=== PATIENT | female | born 1955 | race Caucasian/White ===

== ENCOUNTER 2016-09-09 16:10 | Emergency (ER) | payer MEDICARE, BC ==
[~2016-09-09] VITALS: Ht 157.5 cm; Wt 79.2 kg
[~2016-09-09 16:10] MED LIST: INSU100I14 SQ; MULT-1235 PO
[2016-09-09 16:13] VITALS: Ht 157.5 cm; Wt 79.2 kg
--- NOTE | 2016-09-09 16:14 | NUR ---
PT NOTE Pt moved to Room 2 per WC. Crying to use the bathroom, but is limp and diaphoretic at this time. Assist by 2 RN's to bedside commode. Large semiformed stool now. Assisted to bed with three person transfer. Pale, diaphoretic, anxious. Moves all extremities to command. Lethargic. Daughter reports home glucose has been 364. No provider. Insulin dependent diabetic. Denies chest pain. Fell (passed out) earlier today. Recent weakness with generalized pain.
--- OUTSIDE RECORDS SUMMARY | 2016-09-09 16:15 | XMS REPORT ---
Author Author Milagros Aldana [employer] Address Unknown Phone Unavailable Care Team Providers Care Drier And Evaporator Operator Name Role Phone Milagros Aldana CP Unavailable Allergies, Adverse Reactions, Alerts Substance Reaction Event Type Iodine HIVES Drug Allergy Codeine Phosphate Could . Drug Allergy Problems Problem Type Condition ICD-9 Code Onset Dates Condition Status Assessment DM 2, uncontrolled 250.02 Active Assessment Unspecified backache 724.5 Active Problem DM 2, uncontrolled 250.02 Active Assessment Pain in hand joints 718.84 Active Medications No Known Medications Procedures Procedure Coding System Code Date GLYCATED HEMOGLOBIN TEST CPT-4 15276 September 28, 2013 URINALYSIS, AUTO, W/O SCOPE CPT-4 40950 September 28, 2013 COMPREHEN METABOLIC PANEL CPT-4 93955 September 28, 2013 Office Visit, New Pt., Level 4 CPT-4 14633 September 28, 2013 Vital Signs Date/Time: September 28, 2013 Weight 177 lbs Height 62 inches Blood Pressure Diastolic 81 mm Hg Blood Pressure Systolic 121 mm Hg Temperature 98.2 F Cardiac Monitoring Heart Rate 87 Beats per Minute Results No Known Results Summary Purpose eClinicalWorks Submission
--- OUTSIDE RECORDS SUMMARY | 2016-09-09 16:15 | XMS REPORT ---
Author Author Yuli Hart [facility] eClinicalWorks Address Unknown Phone Unavailable Care Team Providers Care Customer Relationship Specialist Name Role Phone Yuli Hart Unavailable Allergies No Known Allergies Problems Problem Type Condition Code Onset Dates Condition Status Problem Coronary atherosclerosis of unspecified type of vessel, [place] or graft 414.00 Active Problem Depressive disorder, not elsewhere classified 311 Active Problem Hypertension, benign 401.1 Active Problem Diabetes Mellitus Type 2, not stated as uncontrolled 250.00 Active Problem Coronary atherosclerosis of unspecified type of vessel, [place] or graft 414.00 Active Problem Depressive disorder, not elsewhere classified 311 Active Medications No Known Medications Results No Known Results Summary Purpose eClinicalWorks Submission
--- OUTSIDE RECORDS SUMMARY | 2016-09-09 16:15 | XMS REPORT ---
Author Author Keegan Moreira Organization [employer] Address Unknown Phone Unavailable Care Team Providers Care Gift Consultant Name Role Phone Keegan Moreira CP Unavailable Allergies No Known Allergies Problems Problem Type Condition ICD-9 Code Onset Dates Condition Status Problem Coronary atherosclerosis of unspecified type of vessel, [place] or graft 414.00 Active Problem Depressive disorder, not elsewhere classified 311 Active Problem Hypertension, benign 401.1 Active Problem Diabetes Mellitus Type 2, not stated as uncontrolled 250.00 Active Assessment Diabetes Mellitus Type 2, not stated as uncontrolled 250.00 Active Problem Coronary atherosclerosis of unspecified type of vessel, [place] or graft 414.00 Active Problem Depressive disorder, not elsewhere classified 311 Active Medications Medication Code System Code Instructions Start Date End Date Status Dosage Humalog [place] [facility] [address]-71 100 UNIT/ML Subcutaneous as directed September 30, 2014 6 units tid with meals Chapin Tay [facility] [address] 300 u/mL subcutaneous daily December 10, 2014 May 01, 2015 8 units in the am and 8 units in the pm Results No Known Results Summary Purpose eClinicalWorks Submission
--- OUTSIDE RECORDS SUMMARY | 2016-09-09 16:15 | XMS REPORT ---
Author Author Keegan Moreira Organization [employer] Address Unknown Phone Unavailable Care Team Providers Care Emt Basic Name Role Phone Keegan Moreira CP Unavailable Allergies No Known Allergies Problems Problem Type Condition ICD-9 Code Onset Dates Condition Status Problem Coronary atherosclerosis of unspecified type of vessel, [place] or graft 414.00 Active Problem Depressive disorder, not elsewhere classified 311 Active Problem Hypertension, benign 401.1 Active Problem Diabetes Mellitus Type 2, not stated as uncontrolled 250.00 Active Assessment Diabetes Mellitus Type 2, not stated as uncontrolled 250.00 Active Problem Coronary atherosclerosis of unspecified type of vessel, [place] or graft 414.00 Active Problem Depressive disorder, not elsewhere classified 311 Active Medications Medication Code System Code Instructions Start Date End Date Status Dosage Chapin Tay [facility] [address] 300 u/mL subcutaneous Once a day at bedtime December 10, 2014 Mar 26, 2015 6 units in the am and 6 units in the PM Results No Known Results Summary Purpose eClinicalWorks Submission
--- OUTSIDE RECORDS SUMMARY | 2016-09-09 16:15 | XMS REPORT ---
Author Author Keegan Moreira Organization [employer] Address Unknown Phone Unavailable Care Team Providers Care Microbiology Technologist Name Role Phone Keegan Moreira CP Unavailable Allergies No Known Allergies Problems Problem Type Condition Code Onset Dates Condition Status Problem Coronary atherosclerosis of unspecified type of vessel, [place] or graft 414.00 Active Problem Depressive disorder, not elsewhere classified 311 Active Problem Hypertension, benign 401.1 Active Problem Diabetes Mellitus Type 2, not stated as uncontrolled 250.00 Active Problem Coronary atherosclerosis of unspecified type of vessel, [place] or graft 414.00 Active Problem Depressive disorder, not elsewhere classified 311 Active Medications No Known Medications Results No Known Results Summary Purpose eClinicalWorks Submission
--- OUTSIDE RECORDS SUMMARY | 2016-09-09 16:15 | XMS REPORT ---
Author Author Yuli Hart [facility] eClinicalWorks Address Unknown Phone Unavailable Care Team Providers Care Student Name Role Phone Yuli Hart Unavailable Allergies No Known Allergies Problems Problem Type Condition ICD-9 Code Onset Dates Condition Status Problem Diabetes Mellitus Type 2, not stated as uncontrolled 250.00 Active Problem Depressive disorder, not elsewhere classified 311 Active Medications No Known Medications Results No Known Results Summary Purpose eClinicalWorks Submission
--- OUTSIDE RECORDS SUMMARY | 2016-09-09 16:15 | XMS REPORT ---
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
--- OUTSIDE RECORDS SUMMARY | 2016-09-09 16:15 | XMS REPORT ---
Author Keegan Pham Organization eClinicalWorks Address Unknown Phone Unavailable Care Team Providers Care Tube Cleaner Name Role Phone Keegan Moreira CP Unavailable Allergies, Adverse Reactions, Alerts Substance Reaction Event Type Codeine Sulfate hives Drug Allergy Problems Problem Type Condition ICD-9 Code Onset Dates Condition Status Assessment Sinoatrial node dysfunction 427.81 Active Assessment Other disorder of menstruation and other abnormal bleeding from female genital tract 626.8 Active Assessment Acute bronchitis 466.0 Active Problem Coronary atherosclerosis of unspecified type of vessel, [place] or graft 414.00 Active Problem Depressive disorder, not elsewhere classified 311 Active Problem Hypertension, benign 401.1 Active Problem Diabetes Mellitus Type 2, not stated as uncontrolled 250.00 Active Assessment Diabetes Mellitus Type 2, not stated as uncontrolled 250.00 Active Problem Coronary atherosclerosis of unspecified type of vessel, [place] or graft 414.00 Active Problem Depressive disorder, not elsewhere classified 311 Active Medications Medication Code System Code Instructions Start Date End Date Status Dosage OneTouch Ultra Blue test strips [facility] [id number] none in vitro three times daily December 11, 2014 as directed Chapin Tay [facility] [address] 300 u/mL subcutaneous daily December 10, 2014 Jul 05, 2015 8 units in the am and 8 units in the pm Humalog KwikPen [facility] [address]-00 100 UNIT/ML Subcutaneous as directed September 30, 2014 6 units tid with meals Tessalon Perles [facility] [address]-02 100 MG Orally Three times a day for cough/ congestion January 06, 2015 Feb 03, 2015 1 capsule as needed Ventolin HFA [facility] [address]-84 108 (90 Base) MCG/ACT Inhalation every 6 hrs for cough/wheezing January 06, 2015 1 to 2 puffs as needed Procedures Procedure Coding System Code Date OFFICE VISIT, EST-MOD. COMPLEXITY (25 MIN) CPT-4 89871 January 06, 2015 Vital Signs Date/Time: January 06, 2015 Height 61.5 in Weight 190.12 lbs Temperature 97.8 F Blood Pressure Diastolic 72 mm Hg Blood Pressure Systolic 120 mm Hg Cardiac Monitoring Heart Rate 96 /min BMI 35.34 Index Oximetry 98 % Respiratory Rate 18 /min Results No Known Results Summary Purpose eClinicalWorks Submission
--- OUTSIDE RECORDS SUMMARY | 2016-09-09 16:15 | XMS REPORT ---
Author Author Keegan Moreira Organization [employer]ClinicalWorks Address Unknown Phone Unavailable Care Team Providers Care Sports Book Server Name Role Phone Keegan Moreira CP Unavailable Allergies No Known Allergies Problems Problem Type Condition Code Onset Dates Condition Status Problem Coronary atherosclerosis of unspecified type of vessel, [place] or graft 414.00 Active Problem Depressive disorder, not elsewhere classified 311 Active Problem Hypertension, benign 401.1 Active Problem Diabetes Mellitus Type 2, not stated as uncontrolled 250.00 Active Problem Coronary atherosclerosis of unspecified type of vessel, [place] or graft 414.00 Active Problem Depressive disorder, not elsewhere classified 311 Active Medications No Known Medications Results No Known Results Summary Purpose eClinicalWorks Submission
--- OUTSIDE RECORDS SUMMARY | 2016-09-09 16:15 | XMS REPORT ---
Author Milena Mata [facility] eClinicalWorks Address Unknown Phone Unavailable Care Team Providers Care Finishing Technician Name Role Phone Milena Patel CP Unavailable Allergies, Adverse Reactions, Alerts Substance Reaction Event Type Iodinated Contrast Info Not Available Non Drug Allergy Codeine/codeine Derivatives Info Not Available Non Drug Allergy Problems Problem Type Condition ICD-9 Code Onset Dates Condition Status Problem Chest pain, unspecified 786.50 Active Problem Unspecified breast screening V76.10 Inactive Problem Unspecified disorder of , unspecified as to episode of care 676.90 Active Problem Cataracts, bilateral 366.9 Active Problem Galactorrhea 611.6 Active Problem Pacemaker V45.01 Active Problem Diabetes with neurological manifestations, type II or unspecified type , 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 Active Problem Other specified counseling V65.49 Inactive Problem Falls frequently V15.88 Active Problem Hyperlipidemia 272.4 Active Assessment Galactorrhea 611.6 Active Assessment Cataracts, bilateral 366.9 Active Assessment Screening for depression V79.0 Active Assessment Falls frequently V15.88 Active Assessment Diabetes with neurological manifestations, type II or unspecified type, not stated as uncontrolled 250.60 Active Problem Unspecified hereditary and idiopathic peripheral neuropathy 356.9 Inactive Assessment Pacemaker V45.01 Active Problem Diabetes with neurological manifestations, type II or unspecified type , not stated as uncontrolled 250.60 Active Assessment Acute bronchitis 466.0 Active Problem Blood in stool 578.1 Active Medications Medication Code System Code Instructions Start Date End Date Status Dosage Cipro [facility] [address]-90 500 MG Orally Twice a day Mar 17, 2015 1 tablet Pen [place] 09/09" NDC 0 31G X 5 MM 4 daily January 10, 2014 File DME under Medicaid Chapin Tay [facility] [address]-18 300 UNIT/ML Subcutaneous Two times daily 10 units Accu-Chek SmartView NDC 0 In Vitro 4 daily January 10, 2014 File DME under Medicaid Accu-Chek FastClix Lancets NDC 0 4 daily January 10, 2014 File DME for Medicaid Humalog KwikPen [facility] [address]-91 100 UNIT/ML Subcutaneous with meals only 4 units Procedures Procedure Coding System Code Date ANNUAL DEPRESSION SCREENING 15 MIN CPT-4 G0444 Mar 17, 2015 Office Visit, Est Pt., Level 5 CPT-4 53720 Mar 17, 2015 Billed by outside source CPT-4 NOBLL Mar 17, 2015 Vital Signs Date/Time: Mar 17, 2015 Blood Pressure Systolic 136 mm Hg Weight 199.2 lbs Height 60.5 in Oximetry 99 % Respiratory Rate 18 /min Cardiac Monitoring Heart Rate 114 /min Blood Pressure Diastolic 82 mm Hg BMI 38.26 Index Results Name Result Date Reference Range Unit Abnormality Flag Glucose Fingerstick Hemoglobin A1c Summary Purpose eClinicalWorks Submission
--- OUTSIDE RECORDS SUMMARY | 2016-09-09 16:16 | XMS REPORT ---
Author Author Yuli Hart [facility] eClinicalWorks Address Unknown Phone Unavailable Care Team Providers Care Hvac Mechanical Engineer Name Role Phone Yuli Hart Unavailable Allergies No Known Allergies Problems Problem Type Condition Code Onset Dates Condition Status Problem Coronary atherosclerosis of unspecified type of vessel, [place] or graft 414.00 Active Problem Depressive disorder, not elsewhere classified 311 Active Problem Hypertension, benign 401.1 Active Problem Diabetes Mellitus Type 2, not stated as uncontrolled 250.00 Active Problem Coronary atherosclerosis of unspecified type of vessel, [place] or graft 414.00 Active Problem Depressive disorder, not elsewhere classified 311 Active Medications No Known Medications Results No Known Results Summary Purpose eClinicalWorks Submission
--- OUTSIDE RECORDS SUMMARY | 2016-09-09 16:16 | XMS REPORT ---
Author Author Buffy Hernandez Organization eClinicalWorks Address Unknown Phone Unavailable Care Team Providers Care Automobile Carpets Molder Name Role Phone Buffy Hernandez CP Unavailable Allergies No Known Allergies Problems [...]
--- OUTSIDE RECORDS SUMMARY | 2016-09-09 16:16 | XMS REPORT ---
Author Keegan Pham Organization eClinicalWorks Address Unknown Phone Unavailable Care Team Providers Care Machine Tool Operator Name Role Phone Keegan Moreira CP Unavailable Allergies, Adverse Reactions, Alerts Substance Reaction Event Type Codeine Sulfate hives Drug Allergy Problems Problem Type Condition ICD-9 Code Onset Dates Condition Status Assessment Sinoatrial node dysfunction 427.81 Active Assessment Other malaise and fatigue 780.79 Active Assessment Orthostatic hypotension 458.0 Active Problem Coronary atherosclerosis of unspecified type of vessel, [place] or graft 414.00 Active Problem Depressive disorder, not elsewhere classified 311 Active Problem Hypertension, benign 401.1 Active Problem Diabetes Mellitus Type 2, not stated as uncontrolled 250.00 Active Assessment Diabetes Mellitus Type 2, not stated as uncontrolled 250.00 Active Problem Coronary atherosclerosis of unspecified type of vessel, [place] or graft 414.00 Active Problem Depressive disorder, not elsewhere classified 311 Active Medications Medication Code System Code Instructions Start Date End Date Status Dosage Chapin Tay [facility] [address] 300 u/mL subcutaneous Once a day at bedtime December 10, 2014 Mar 11, 2015 12 units OneTouch Ultra Blue test strips [facility] [id number] none in vitro three times daily December 11, 2014 as directed Humalog KwikPen [facility] [address]-70 100 UNIT/ML Subcutaneous as directed September 30, 2014 4 units tid with meals Procedures Procedure Coding System Code Date COMPLETE CBC W/AUTO DIFF WBC CPT-4 68809 December 16, 2014 COMPREHENSIVE METABOLIC PANEL CPT-4 17024 December 16, 2014 GLUCOSE FINGERSTICK, IN HOUSE CPT-4 93990 December 16, 2014 OFFICE VISIT, EST-MOD. COMPLEXITY (25 MIN) CPT-4 01828 December 16, 2014 Vital Signs Date/Time: December 16, 2014 Height 61.5 in Weight 187.8 lbs Temperature 98.0 F Blood Pressure Diastolic 76 mm Hg Blood Pressure Systolic 118 mm Hg Cardiac Monitoring Heart Rate 107 /min BMI 34.91 Index Oximetry 98 % Respiratory Rate 18 /min Results Name Result Date Reference Range Unit Abnormality Flag In House Hemocue Glucose Analysis, fingerstick Summary Purpose eClinicalWorks Submission
--- OUTSIDE RECORDS SUMMARY | 2016-09-09 16:16 | XMS REPORT ---
Author Author Keegan Moreira Organization eClinicalWorks Address Unknown Phone Unavailable Care Team Providers Care Manager Shop Name Role Phone Keegan Moreira CP Unavailable Allergies No Known Allergies Problems Problem Type Condition Code Onset Dates Condition Status Problem Coronary atherosclerosis of unspecified type of vessel, [place] or graft 414.00 Active Problem Depressive disorder, not elsewhere classified 311 Active Problem Hypertension, benign 401.1 Active Problem Diabetes Mellitus Type 2, not stated as uncontrolled 250.00 Active Problem Coronary atherosclerosis of unspecified type of vessel, [place] or graft 414.00 Active Problem Depressive disorder, not elsewhere classified 311 Active Medications No Known Medications Results No Known Results Summary Purpose eClinicalWorks Submission
--- OUTSIDE RECORDS SUMMARY | 2016-09-09 16:16 | XMS REPORT ---
Author Author Keegan Moreira Organization [employer]ClinicalWorks Address Unknown Phone Unavailable Care Team Providers Care Data Review Specialist Name Role Phone Keegan Moreira CP Unavailable Allergies No Known Allergies Problems Problem Type Condition Code Onset Dates Condition Status Problem Coronary atherosclerosis of unspecified type of vessel, [place] or graft 414.00 Active Problem Depressive disorder, not elsewhere classified 311 Active Problem Hypertension, benign 401.1 Active Problem Diabetes Mellitus Type 2, not stated as uncontrolled 250.00 Active Assessment Dehydration 276.51 Active Problem Coronary atherosclerosis of unspecified type of vessel, [place] or graft 414.00 Active Problem Depressive disorder, not elsewhere classified 311 Active Medications Medication Code System Code Instructions Start Date End Date Status Dosage Humalog ChacePen [facility] [address]-38 100 UNIT/ML Subcutaneous as directed September 30, 2014 2 units tid with meals Procedures Procedure Coding System Code Date COMPLETE CBC W/AUTO DIFF WBC CPT-4 88650 November 25, 2014 Results No Known Results Summary Purpose eClinicalWorks Submission
--- OUTSIDE RECORDS SUMMARY | 2016-09-09 16:16 | XMS REPORT ---
Author Author Buffy Hernandez Organization eClinicalWorks Address Unknown Phone Unavailable Care Team Providers Care County Agent Name Role Phone Buffy Hernandez CP Unavailable Allergies No Known Allergies Problems Problem Type Condition Code Onset Dates Condition Status Problem Chest [...] frequently V15.88 Active Problem Hyperlipidemia 272.4 Active Problem Unspecified hereditary and idiopathic peripheral neuropathy 356.9 Inactive Problem Diabetes with neurological manifestations, type II or unspecified type , not stated as uncontrolled 250.60 Active Problem Blood in stool 578.1 Active Medications No Known Medications Results No Known Results Summary Purpose eClinicalWorks Submission
--- OUTSIDE RECORDS SUMMARY | 2016-09-09 16:16 | XMS REPORT ---
Author Author Keegan Moreira Organization eClinicalWorks Address Unknown Phone Unavailable Care Team Providers Care Gluer And Slicer Hand Name Role Phone Keegan Moreira CP Unavailable Allergies No Known Allergies Problems Problem Type Condition Code Onset Dates Condition Status Problem Coronary atherosclerosis of unspecified type of vessel, [place] or graft 414.00 Active Problem Depressive disorder, not elsewhere classified 311 Active Problem Hypertension, benign 401.1 Active Problem Diabetes Mellitus Type 2, not stated as uncontrolled 250.00 Active Problem Coronary atherosclerosis of unspecified type of vessel, [place] or graft 414.00 Active Problem Depressive disorder, not elsewhere classified 311 Active Medications No Known Medications Results No Known Results Summary Purpose eClinicalWorks Submission
--- OUTSIDE RECORDS SUMMARY | 2016-09-09 16:16 | XMS REPORT ---
Author Author Keegan Moreira Organization eClinicalWorks Address Unknown Phone Unavailable Care Team Providers Care Building Principal Name Role Phone Keegan Moreira CP Unavailable Allergies No Known Allergies Problems Problem Type Condition Code Onset Dates Condition Status Problem Coronary atherosclerosis of unspecified type of vessel, [place] or graft 414.00 Active Problem Depressive disorder, not elsewhere classified 311 Active Problem Hypertension, benign 401.1 Active Problem Diabetes Mellitus Type 2, not stated as uncontrolled 250.00 Active Problem Coronary atherosclerosis of unspecified type of vessel, [place] or graft 414.00 Active Problem Depressive disorder, not elsewhere classified 311 Active Medications No Known Medications Results No Known Results Summary Purpose eClinicalWorks Submission
--- OUTSIDE RECORDS SUMMARY | 2016-09-09 16:16 | XMS REPORT ---
Author Author Keegan Moreira Organization [employer]ClinicalWorks Address Unknown Phone Unavailable Care Team Providers Care Vocational Coordinator Name Role Phone Keegan Moreira CP Unavailable Allergies No Known Allergies Problems Problem Type Condition Code Onset Dates Condition Status Problem Coronary atherosclerosis of unspecified type of vessel, [place] or graft 414.00 Active Problem Depressive disorder, not elsewhere classified 311 Active Problem Hypertension, benign 401.1 Active Problem Diabetes Mellitus Type 2, not stated as uncontrolled 250.00 Active Problem Coronary atherosclerosis of unspecified type of vessel, [place] or graft 414.00 Active Problem Depressive disorder, not elsewhere classified 311 Active Medications No Known Medications Results No Known Results Summary Purpose eClinicalWorks Submission
--- OUTSIDE RECORDS SUMMARY | 2016-09-09 16:16 | XMS REPORT ---
Author Author Yuli Hart [facility] eClinicalWorks Address Unknown Phone Unavailable Care Team Providers Care Identification Technician Name Role Phone Yuli Hart Unavailable Allergies No Known Allergies Problems Problem Type Condition Code Onset Dates Condition Status Problem Depressive disorder, not elsewhere classified 311 Active Problem Diabetes Mellitus Type 2, not stated as uncontrolled 250.00 Active Problem Coronary atherosclerosis of unspecified type of vessel, [place] or graft 414.00 Active Medications No Known Medications Results No Known Results Summary Purpose eClinicalWorks Submission
--- OUTSIDE RECORDS SUMMARY | 2016-09-09 16:16 | XMS REPORT ---
Author Author Keegan Moreira Organization [employer] Address Unknown Phone Unavailable Care Team Providers Care Occupational Therapy Assistant Name Role Phone Keegan Moreira CP Unavailable Allergies, Adverse Reactions, Alerts Substance Reaction Event Type Codeine Sulfate hives Drug Allergy Problems Problem Type Condition Code Onset Dates Condition Status Assessment Hypoglycemia, unspecified 251.2 Active Assessment Dehydration 276.51 Active Assessment Diabetes Mellitus Type 2, not stated as uncontrolled 250.00 Active Problem Coronary atherosclerosis of unspecified type of vessel, [place] or graft 414.00 Active Problem Depressive disorder, not elsewhere classified 311 Active Problem Hypertension, benign 401.1 Active Problem Diabetes Mellitus Type 2, not stated as uncontrolled 250.00 Active Assessment Chronic hypotension 458.1 Active Problem Coronary atherosclerosis of unspecified type of vessel, [place] or graft 414.00 Active Problem Depressive disorder, not elsewhere classified 311 Active Medications Medication Code System Code Instructions Start Date End Date Status Dosage Humalog ChacePen [facility] [address]-68 100 UNIT/ML Subcutaneous as directed September 30, 2014 2 units tid with meals Procedures Procedure Coding System Code Date URINALYSIS, IN HOUSE CPT-4 19803 October 21, 2014 GLUCOSE FINGERSTICK, IN HOUSE CPT-4 58422 October 21, 2014 IH CMP CPT-4 77320 October 21, 2014 HYDRATION IV INFUSION, INIT CPT-4 96211 October 21, 2014 C-REACTIVE PROTEIN CPT-4 08336 October 21, 2014 HYDRATE IV INFUSION, ADD-ON CPT-4 90514 October 21, 2014 COMPLETE CBC W/AUTO DIFF WBC CPT-4 66084 October 21, 2014 OFFICE VISIT, EST-MOD. COMPLEXITY (25 MIN) CPT-4 58716 October 21, 2014 SED RATE CPT-4 48260 October 21, 2014 URINE CULTURE CPT-4 18065 October 21, 2014 Vital Signs Date/Time: October 21, 2014 Height 61.5 in Weight 179.0 lbs Temperature 98.7 F Blood Pressure Diastolic 60 mm Hg Blood Pressure Systolic 90 mm Hg Cardiac Monitoring Heart Rate 107 /min BMI 33.27 Index Oximetry 99 % Respiratory Rate 20 /min Results No Known Results Summary Purpose [employer]Works Submission
--- OUTSIDE RECORDS SUMMARY | 2016-09-09 16:16 | XMS REPORT ---
Author Mel Vang Organization [employer] Address Unknown Phone Unavailable Care Team Providers Care Bass Singer Name Role Phone Mel Saab CP Unavailable Allergies, Adverse Reactions, Alerts Substance Reaction Event Type N.K.D.A. Info Not Available Non Drug Allergy Problems Problem Type Condition Code Onset Dates Condition Status Assessment Healthcare maintenance Z00.00 Active Assessment Mixed incontinence urge and stress N39.46 Active Medications Medication Code System Code Instructions Start Date End Date Status Dosage Humalog KwikPen [facility] [address]-88 100 UNIT/ML Subcutaneous not defined Ditropan XL [facility] [address]-09 5 MG Orally Once a day December 15, 2015Feb 1 tablet Procedures Procedure Coding System Code Date Office visit new level 3 CPT-4 55402 December 15, 2015 Pap smear, thin layer CPT-4 06181 December 15, 2015 Vital Signs Date/Time: December 15, 2015 BMI 33.10 Index Height 62 in Weight 181 lbs Blood Pressure Diastolic 66 mm Hg Blood Pressure Systolic 128 mm Hg Results Name Result Date Reference Range Unit Abnormality Flag * PAP CYTOPATHOLOGY, CERVICAL/VAGINAL, PRESERVATIVE FLUID, AUTO THIN LAYER PREP ; MANUAL SCREEN (73534) Summary Purpose [employer] Submission
--- OUTSIDE RECORDS SUMMARY | 2016-09-09 16:16 | XMS REPORT ---
Author Author Keegan Moreira Organization [employer] Address Unknown Phone Unavailable Care Team Providers Care Inspector Fibrous Wallboard Name Role Phone Keegan Moreira CP Unavailable Allergies No Known Allergies Problems Problem Type Condition Code Onset Dates Condition Status Problem Coronary atherosclerosis of unspecified type of vessel, [place] or graft 414.00 Active Problem Depressive disorder, not elsewhere classified 311 Active Problem Hypertension, benign 401.1 Active Problem Diabetes Mellitus Type 2, not stated as uncontrolled 250.00 Active Problem Coronary atherosclerosis of unspecified type of vessel, [place] or graft 414.00 Active Problem Depressive disorder, not elsewhere classified 311 Active Medications No Known Medications Results No Known Results Summary Purpose [employer] Submission
--- OUTSIDE RECORDS SUMMARY | 2016-09-09 16:16 | XMS REPORT ---
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 Problem Coronary atherosclerosis of unspecified type of vessel, [place] or graft 414.00 Active Problem Depressive disorder, not elsewhere classified 311 Active Problem Hypertension, benign 401.1 Active Problem Diabetes Mellitus Type 2, not stated as uncontrolled 250.00 Active Assessment Dehydration 276.51 Active Problem Coronary atherosclerosis of unspecified type of vessel, [place] or graft 414.00 Active Problem Depressive disorder, not elsewhere classified 311 Active Medications Medication Code System Code Instructions Start Date End Date Status Dosage Humalog ChacePen [facility] [address]-31 100 UNIT/ML Subcutaneous as directed September 30, 2014 2 units tid with meals Procedures Procedure Coding System Code Date OFFICE VISIT, EST-MOD. COMPLEXITY (25 MIN) CPT-4 55105 October 28, 2014 Vital Signs Date/Time: October 28, 2014 Height 61.5 in Weight 186.4 lbs Temperature 97.9 F Blood Pressure Diastolic 70 mm Hg Blood Pressure Systolic 100 mm Hg Cardiac Monitoring Heart Rate 100 /min BMI 34.65 Index Respiratory Rate 16 /min Results No Known Results Summary Purpose [employer] Submission
--- OUTSIDE RECORDS SUMMARY | 2016-09-09 16:16 | XMS REPORT ---
Author Author Yuli Hart [facility] [employer] Address Unknown Phone Unavailable Care Team Providers Care Receiving Weigher Name Role Phone Yuli Hart Unavailable Allergies No Known Allergies Problems Problem Type Condition Code Onset Dates Condition Status Problem Depressive disorder, not elsewhere classified 311 Active Problem Diabetes Mellitus Type 2, not stated as uncontrolled 250.00 Active Problem Coronary atherosclerosis of unspecified type of vessel, [place] or graft 414.00 Active Medications No Known Medications Results No Known Results Summary Purpose [employer] Submission
--- OUTSIDE RECORDS SUMMARY | 2016-09-09 16:16 | XMS REPORT ---
Author Author Keegan Moreira Organization [employer] Address Unknown Phone Unavailable Care Team Providers Care Meter Setter Name Role Phone Keegan Moreira CP Unavailable Allergies No Known Allergies Problems Problem Type Condition Code Onset Dates Condition Status Problem Coronary atherosclerosis of unspecified type of vessel, [place] or graft 414.00 Active Problem Depressive disorder, not elsewhere classified 311 Active Problem Hypertension, benign 401.1 Active Problem Diabetes Mellitus Type 2, not stated as uncontrolled 250.00 Active Problem Coronary atherosclerosis of unspecified type of vessel, [place] or graft 414.00 Active Problem Depressive disorder, not elsewhere classified 311 Active Medications No Known Medications Results No Known Results Summary Purpose [employer] Submission
--- OUTSIDE RECORDS SUMMARY | 2016-09-09 16:16 | XMS REPORT ---
Author Author Keegan Moreira Organization [employer] Address Unknown Phone Unavailable Care Team Providers Care Core Carrier Name Role Phone Keegan Moreira CP Unavailable Allergies No Known Allergies Problems Problem Type Condition Code Onset Dates Condition Status Problem Coronary atherosclerosis of unspecified type of vessel, [place] or graft 414.00 Active Problem Depressive disorder, not elsewhere classified 311 Active Problem Hypertension, benign 401.1 Active Problem Diabetes Mellitus Type 2, not stated as uncontrolled 250.00 Active Problem Coronary atherosclerosis of unspecified type of vessel, [place] or graft 414.00 Active Problem Depressive disorder, not elsewhere classified 311 Active Medications No Known Medications Results No Known Results Summary Purpose [employer] Submission
--- OUTSIDE RECORDS SUMMARY | 2016-09-09 16:16 | XMS REPORT | Continuity of Care Document ---
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 Visit Date/Time Discharge Status Pt. Type Provider Facility Loc./Unit Complaint [id number] 10/05/2013 08:13:00 2013 23:59:59 CLS Outpatient Milagros Aldana APRN [facility]
--- OUTSIDE RECORDS SUMMARY | 2016-09-09 16:17 | XMS REPORT ---
Author Author Milena Patel [facility] e[employer] Address Unknown Phone Unavailable Care Team Providers Care Dog And Cat Food Cook Name Role Phone Milena Patel CP Unavailable Allergies No Known Allergies Problems Problem Type Condition Code Onset Dates Condition Status Problem Unspecified [...]
--- OUTSIDE RECORDS SUMMARY | 2016-09-09 16:17 | XMS REPORT ---
Author Author Keegan Moreira Organization [employer] Address Unknown Phone Unavailable Care Team Providers Care Hand Weaver Name Role Phone Keegan Moreira CP Unavailable Allergies No Known Allergies Problems Problem Type Condition Code Onset Dates Condition Status Problem Coronary atherosclerosis of unspecified type of vessel, [place] or graft 414.00 Active Problem Depressive disorder, not elsewhere classified 311 Active Problem Hypertension, benign 401.1 Active Problem Diabetes Mellitus Type 2, not stated as uncontrolled 250.00 Active Problem Coronary atherosclerosis of unspecified type of vessel, [place] or graft 414.00 Active Problem Depressive disorder, not elsewhere classified 311 Active Medications No Known Medications Results No Known Results Summary Purpose [employer]ClinicalWorks Submission
--- OUTSIDE RECORDS SUMMARY | 2016-09-09 16:17 | XMS REPORT ---
Author Author Keegan Moreira Organization [employer] Address Unknown Phone Unavailable Care Team Providers Care Chef De Froid Name Role Phone Keegan Moreira CP Unavailable Allergies No Known Allergies Problems Problem Type Condition ICD-9 Code Onset Dates Condition Status Problem Coronary atherosclerosis of unspecified type of vessel, [place] or graft 414.00 Active Problem Depressive disorder, not elsewhere classified 311 Active Problem Hypertension, benign 401.1 Active Problem Diabetes Mellitus Type 2, not stated as uncontrolled 250.00 Active Problem Coronary atherosclerosis of unspecified type of vessel, [place] or graft 414.00 Active Problem Depressive disorder, not elsewhere classified 311 Active Medications No Known Medications Results No Known Results Summary Purpose [employer]ClinicalWorks Submission
--- OUTSIDE RECORDS SUMMARY | 2016-09-09 16:17 | XMS REPORT ---
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
--- OUTSIDE RECORDS SUMMARY | 2016-09-09 16:17 | XMS REPORT ---
Author Author Keegan Moreira Organization [employer] Address Unknown Phone Unavailable Care Team Providers Care Technical Lead Name Role Phone Keegan Moreira CP Unavailable Allergies No Known Allergies Problems Problem Type Condition ICD-9 Code Onset Dates Condition Status Problem Coronary atherosclerosis of unspecified type of vessel, [place] or graft 414.00 Active Problem Depressive disorder, not elsewhere classified 311 Active Problem Hypertension, benign 401.1 Active Problem Diabetes Mellitus Type 2, not stated as uncontrolled 250.00 Active Problem Coronary atherosclerosis of unspecified type of vessel, [place] or graft 414.00 Active Problem Depressive disorder, not elsewhere classified 311 Active Medications No Known Medications Results No Known Results Summary Purpose eClinicalWorks Submission
--- OUTSIDE RECORDS SUMMARY | 2016-09-09 16:17 | XMS REPORT ---
Author Author Keegan Moreira Organization [employer] Address Unknown Phone Unavailable Care Team Providers Care Information Coordinator Name Role Phone Keegan Moreira CP Unavailable Allergies No Known Allergies Problems Problem Type Condition Code Onset Dates Condition Status Problem Coronary atherosclerosis of unspecified type of vessel, [place] or graft 414.00 Active Problem Depressive disorder, not elsewhere classified 311 Active Problem Hypertension, benign 401.1 Active Problem Diabetes Mellitus Type 2, not stated as uncontrolled 250.00 Active Problem Coronary atherosclerosis of unspecified type of vessel, [place] or graft 414.00 Active Problem Depressive disorder, not elsewhere classified 311 Active Medications No Known Medications Results No Known Results Summary Purpose [employer]ClinicalWorks Submission
--- OUTSIDE RECORDS SUMMARY | 2016-09-09 16:17 | XMS REPORT ---
Author Author Yuli Hart [facility] [employer]ClinicalWorks Address Unknown Phone Unavailable Care Team Providers Care Ex Chef Name Role Phone Yuli Hart Unavailable Allergies No Known Allergies Problems Problem Type Condition Code Onset Dates Condition Status Problem Depressive disorder, not elsewhere classified 311 Active Problem Diabetes Mellitus Type 2, not stated as uncontrolled 250.00 Active Problem Coronary atherosclerosis of unspecified type of vessel, [place] or graft 414.00 Active Medications No Known Medications Results No Known Results Summary Purpose [employer]ClinicalWorks Submission
--- OUTSIDE RECORDS SUMMARY | 2016-09-09 16:17 | XMS REPORT ---
Author Keegan Pham Organization [employer] Address Unknown Phone Unavailable Care Team Providers Care Road Roller Operator Hot Mix Name Role Phone Keegan Moreira CP Unavailable Allergies, Adverse Reactions, Alerts Substance Reaction Event Type Codeine Sulfate hives Drug Allergy Problems Problem Type Condition ICD-9 Code Onset Dates Condition Status Assessment Lumbago 724.2 Active Assessment Hyposmolality and/or hyponatremia 276.1 Active Assessment Coronary atherosclerosis of unspecified type of vessel, [place] or graft 414.00 Active Problem Depressive disorder, not elsewhere classified 311 Active Problem Diabetes Mellitus Type 2, not stated as uncontrolled 250.00 Active Problem Coronary atherosclerosis of unspecified type of vessel, [place] or graft 414.00 Active Assessment Diabetes Mellitus Type 2, not stated as uncontrolled 250.00 Active Assessment Chest pain, other 786.59 Active Assessment Acute cystitis 595.0 Active Assessment Other fall E888.8 Active Assessment Sinoatrial node dysfunction 427.81 Active Assessment Chronic hypotension 458.1 Active Assessment Proteinuria 791.0 Active Medications Medication Code System Code Instructions Start Date End Date Status Dosage Metformin HCl [facility] [address]-88 500 MG Orally Twice a day September 30, 2014 1 tablet with meals Lantus [facility] [address]-83 100 UNIT/ML Subcutaneous Once a day at bedtime September 30, 2014 15 units [employer] Blood Glucose Kit [facility] 44977-72437 w/Device September 30, 2014 as directed Lyrica [facility] [address]-11 75 MG Orally Twice a day Feb 19, 2014 1 capsule Lipitor [facility] [address]-18 10 MG Orally Once a day September 30, 2014 1 tablet Humalog KwikPen [facility] [address]-04 100 UNIT/ML Subcutaneous as directed September 30, 2014 5 units tid with meals Aspirin EC [facility] [address]-31 81 MG Orally Once a day September 30, 2014Mar 1 tablet Tylenol [facility] [address]-10 325 MG Orally every 6 hrs September 30, 2014December 1 to 2 tablets as needed for fever/pain Atenolol [facility] [address]-97 25 MG Orally Once a day Feb 19, 2014 one- half tablet Nitrostat [facility] [address]-06 0.4 MG Sublingual every 0 hrs Feb 19, 2014 1 tablet under the tongue and allow to dissolve as needed Cipro [facility] [address]-77 500 MG Orally every 12 hrs September 30, 2014September 1 tablet Procedures Procedure Coding System Code Date OFFICE VISIT, EST-MOD. COMPLEXITY (25 MIN) CPT-4 75616 September 30, 2014 RENAL FUNCTION PANEL CPT-4 74039 September 30, 2014 COMPLETE CBC W/AUTO DIFF WBC CPT-4 36387 September 30, 2014 Vital Signs Date/Time: September 30, 2014 Height 61.5 in Weight 174.8 lbs Temperature 97.5 F Blood Pressure Diastolic 68 mm Hg Blood Pressure Systolic 98 mm Hg Cardiac Monitoring Heart Rate 92 /min BMI 32.49 Index Respiratory Rate 16 /min Results No Known Results Summary Purpose eClinicalWorks Submission
--- OUTSIDE RECORDS SUMMARY | 2016-09-09 16:17 | XMS REPORT ---
Author Author Keegan Moreira Organization [employer] Address Unknown Phone Unavailable Care Team Providers Care Popcorn Vendor Name Role Phone Keegan Moreira CP Unavailable Allergies No Known Allergies Problems Problem Type Condition Code Onset Dates Condition Status Problem Coronary atherosclerosis of unspecified type of vessel, [place] or graft 414.00 Active Problem Depressive disorder, not elsewhere classified 311 Active Problem Hypertension, benign 401.1 Active Problem Diabetes Mellitus Type 2, not stated as uncontrolled 250.00 Active Problem Coronary atherosclerosis of unspecified type of vessel, [place] or graft 414.00 Active Problem Depressive disorder, not elsewhere classified 311 Active Medications No Known Medications Results No Known Results Summary Purpose eClinicalWorks Submission
--- OUTSIDE RECORDS SUMMARY | 2016-09-09 16:17 | XMS REPORT ---
Author Author Keegan Moreira Organization [employer] Address Unknown Phone Unavailable Care Team Providers Care Filtration Supervisor Name Role Phone Keegan Moreira CP Unavailable Allergies No Known Allergies Problems Problem Type Condition ICD-9 Code Onset Dates Condition Status Problem Coronary atherosclerosis of unspecified type of vessel, [place] or graft 414.00 Active Problem Depressive disorder, not elsewhere classified 311 Active Problem Hypertension, benign 401.1 Active Problem Diabetes Mellitus Type 2, not stated as uncontrolled 250.00 Active Problem Coronary atherosclerosis of unspecified type of vessel, [place] or graft 414.00 Active Problem Depressive disorder, not elsewhere classified 311 Active Medications No Known Medications Results No Known Results Summary Purpose eClinicalWorks Submission
--- OUTSIDE RECORDS SUMMARY | 2016-09-09 16:17 | XMS REPORT ---
Author Author Milena Patel [facility] [employer]ClinicalWorks Address Unknown Phone Unavailable Care Team Providers Care Community Health Education Coordinator Name Role Phone Milena Patel CP Unavailable [...]
--- OUTSIDE RECORDS SUMMARY | 2016-09-09 16:17 | XMS REPORT ---
Author Author Milena Patel [facility] [employer] Address Unknown Phone Unavailable Care Team Providers Care Prosthetic Aides Teacher Name Role Phone Milena Patel CP Unavailable [...]
--- OUTSIDE RECORDS SUMMARY | 2016-09-09 16:17 | XMS REPORT ---
Author Milena Mata [facility] eClinicalWorks Address Unknown Phone Unavailable Care Team Providers Care Insurance Loss Control Surveyor Name Role Phone Milena Patel CP Unavailable [...] V15.88 Active Problem Hyperlipidemia 272.4 Active Assessment Diabetes with neurological manifestations, type II or unspecified type, not stated as uncontrolled 250.60 Active Problem Unspecified hereditary and idiopathic peripheral neuropathy 356.9 Inactive Assessment Left knee pain 719.46 Active Problem Diabetes with neurological manifestations, type II or unspecified type , not stated as uncontrolled 250.60 Active Assessment Left hip pain 719.45 Active Problem Blood in stool 578.1 Active Medications Medication Code System Code Instructions Start Date End Date Status Dosage Cipro [facility] [address]-30 500 MG Orally Twice a day Mar 17, 2015 1 tablet Toujeo SoloStar [facility] [address]-81 300 UNIT/ML Subcutaneous Two times daily 10 units Humalog KwikPen [facility] [address]-74 100 UNIT/ML Subcutaneous with meals only 6 units Accu-Chek SmartView NDC 0 In Vitro 4 daily January 10, 2014 File DME under Medicaid Pen Menard 11/09" [facility] [address]-60 31G X 8 MM Mar 24, 2015 as directed Accu-Chek FastClix Lancets NDC 0 4 daily January 10, 2014 File DME for Medicaid Pen Menard 09/09" NDC 0 31G X 5 MM 4 daily January 10, 2014 File DME under Medicaid Procedures Procedure Coding System Code Date Office Visit, Est Pt., Level 3 CPT-4 03810 Mar 24, 2015 Vital Signs Date/Time: Mar 24, 2015 Blood Pressure Systolic 110 mm Hg Weight 201.8 lbs Height 60.5 in Oximetry 98 % Respiratory Rate 16 /min Cardiac Monitoring Heart Rate 106 /min Blood Pressure Diastolic 68 mm Hg BMI 38.76 Index Results No Known Results Summary Purpose eClinicalWorks Submission
--- OUTSIDE RECORDS SUMMARY | 2016-09-09 16:17 | XMS REPORT ---
Author Author Milagros Aldana Organization [employer] Address Unknown Phone Unavailable Care Team Providers Care Music Worker Name Role Phone Milagros Aldana CP Unavailable Allergies No Known Allergies Problems Problem Type Condition ICD-9 Code Onset Dates Condition Status Problem DM 2, uncontrolled 250.02 Active Medications No Known Medications Results No Known Results Summary Purpose eClinicalWorks Submission
--- OUTSIDE RECORDS SUMMARY | 2016-09-09 16:17 | XMS REPORT ---
Author Author Milena Patel [facility] eClinicalWorks Address Unknown Phone Unavailable Care Team Providers Care Lawn Care Professional Name Role Phone Milena Patel CP Unavailable [...]
--- OUTSIDE RECORDS SUMMARY | 2016-09-09 16:17 | XMS REPORT ---
Author Author Keegan Moreira Organization [employer] Address Unknown Phone Unavailable Care Team Providers Care Estate Manager Name Role Phone Keegan Moreira CP Unavailable Allergies No Known Allergies Problems Problem Type Condition ICD-9 Code Onset Dates Condition Status Problem Coronary atherosclerosis of unspecified type of vessel, [place] or graft 414.00 Active Problem Depressive disorder, not elsewhere classified 311 Active Problem Hypertension, benign 401.1 Active Problem Diabetes Mellitus Type 2, not stated as uncontrolled 250.00 Active Problem Coronary atherosclerosis of unspecified type of vessel, [place] or graft 414.00 Active Problem Depressive disorder, not elsewhere classified 311 Active Medications No Known Medications Results No Known Results Summary Purpose eClinicalWorks Submission
--- OUTSIDE RECORDS SUMMARY | 2016-09-09 16:17 | XMS REPORT ---
Author Author Keegan Moreira Organization [employer] Address Unknown Phone Unavailable Care Team Providers Care Airplane Captain Name Role Phone Keegan Moreira CP Unavailable Allergies, Adverse Reactions, Alerts Substance Reaction Event Type Codeine Sulfate hives Drug Allergy Problems Problem Type Condition Code Onset Dates Condition Status Assessment Depressive disorder, not elsewhere classified 311 Active Assessment Hypertension, benign 401.1 Active Assessment Coronary atherosclerosis of unspecified type of vessel, cantwell or graft 414.00 Active Assessment Acute cystitis 595.0 Active Problem Coronary atherosclerosis of unspecified type of vessel, cantwell or graft 414.00 Active Problem Depressive disorder, not elsewhere classified 311 Active Problem Hypertension, benign 401.1 Active Problem Diabetes Mellitus Type 2, not stated as uncontrolled 250.00 Active Assessment Diabetes Mellitus Type 2, not stated as uncontrolled 250.00 Active Problem Coronary atherosclerosis of unspecified type of vessel, cantwell or graft 414.00 Active Problem Depressive disorder, not elsewhere classified 311 Active Medications Medication Code System Code Instructions Start Date End Date Status Dosage Humalog [facility] [id number] 100 UNIT/ML Subcutaneous as directed September 30, 2014 5 units tid with meals Procedures Procedure Coding System Code Date OFFICE VISIT, EST-MOD. COMPLEXITY (25 MIN) CPT-4 98593 October 07, 2014 Vital Signs Date/Time: October 07, 2014 Height 61.5 in Weight 181.0 lbs Temperature 98.1 F Blood Pressure Diastolic 60 mm Hg Blood Pressure Systolic 120 mm Hg Cardiac Monitoring Heart Rate 96 /min BMI 33.64 Index Respiratory Rate 20 /min Results No Known Results Summary Purpose [employer] Submission
--- OUTSIDE RECORDS SUMMARY | 2016-09-09 16:18 | XMS REPORT ---
Author Author Keegan Moreira Organization [employer] Address Unknown Phone Unavailable Care Team Providers Care Computer Engineering Professor Name Role Phone Keegan Moreira CP Unavailable Allergies No Known Allergies Problems Problem Type Condition Code Onset Dates Condition Status Problem Coronary atherosclerosis of unspecified type of vessel, nondalton or graft 414.00 Active Problem Depressive disorder, not elsewhere classified 311 Active Problem Hypertension, benign 401.1 Active Problem Diabetes Mellitus Type 2, not stated as uncontrolled 250.00 Active Problem Coronary atherosclerosis of unspecified type of vessel, nondalton or graft 414.00 Active Problem Depressive disorder, not elsewhere classified 311 Active Medications No Known Medications Results No Known Results Summary Purpose [employer] Submission
--- OUTSIDE RECORDS SUMMARY | 2016-09-09 16:18 | XMS REPORT ---
Author Author Yuli Hart [facility] [employer] Address Unknown Phone Unavailable Care Team Providers Care Trailhead Construction Worker Name Role Phone Yuli Hart Unavailable Allergies No Known Allergies Problems Problem Type Condition Code Onset Dates Condition Status Problem Coronary atherosclerosis of unspecified type of vessel, hughes or graft 414.00 Active Problem Depressive disorder, not elsewhere classified 311 Active Problem Hypertension, benign 401.1 Active Problem Diabetes Mellitus Type 2, not stated as uncontrolled 250.00 Active Problem Coronary atherosclerosis of unspecified type of vessel, hughes or graft 414.00 Active Problem Depressive disorder, not elsewhere classified 311 Active Medications No Known Medications Results No Known Results Summary Purpose [employer] Submission
--- NOTE | 2016-09-09 16:24 | NUR ---
Gigi lunaveena in EDM - 09/09/16 at 1856 by PRIETO ACTIVITY HOB ELEVATED TO SITTING AND WAITED FOR SHORT TIME FOR PT TO ADJUST LEGS OVER THE SIDE OF THE CART AND PT REPORTED SHE WAS FINE AMBULATORY TO BATHROOM TO VOID WITH ASSIST OF 2 STAFF PT MOVES SLOWLY WITH SHUFFLE TYPE MOVEMENT, STATES SHE USES A WALKER AT HOME
--- NOTE | 2016-09-09 16:29 | NUR ---
PROVIDER DR. ANDREA AT BEDSIDE FOR EXAM.
--- NOTE | 2016-09-09 16:42 | ERPDOC ---
Departure Disposition Decision Date: Sep 09, 2016 Disposition Decision Time: 19:10 Disposition: 01 DISCHARGED HOME, SELF-CARE Impression Impression Impression: Primary Impression: Hyperglycemia Additional Impression: Fall on same level Encounter type: initial encounter Qualified Codes: W18.30XA - Fall on same level, unspecified, initial encounter Severity: Moderate Condition: Improved Seen By: Physician only Referrals: [facility] Patient Instructions: Type 2 Diabetes in Adults (ED) Problems/Meds/Labs Reviewed?: Yes Medications reviewed and manag: Yes Additional Instructions: Follow-up with [facility] for your fibromyalgia and your diabetes Follow up care ordered?: Yes Mental Status: Alert, Oriented HPI - General Medical General Chief Complaint: Diabetic Problem Stated Complaint: DIABETIC ISSUES Time Seen by Provider: 16:34 Source: patient Exam Limitations: no limitations HPI - General Medical Initial Comments Patient is a 61-year-old female, presents emergency room for evaluation of weakness, falls, elevated blood sugars. Patient has a history of being poorly compliant with her medications by charting, patient states for the last 2 days she's been feeling generally weak, and then has fallen once this morning and once afternoon. Patient states that she does have fibromyalgia, which waxes and wanes some days she has to use a wheelchair some patient normally. Patient states that several months ago she was taken off all her medications except for insulin by [facility], she has not followed up to discuss with them her symptoms off medications and request other medications. Patient became so weak , decided to come tonight for evaluation. Occurred At: home Onset: Gradual Duration: other (2-3 days) Allergies: Coded Allergies: iodine (Verified Allergy, Mild, HIVES, 09/09/16) codeine (Verified Adverse Reaction, Unknown, 09/09/16) Past History Past Medical History Metabolic: diabetes Cardiac: CAD Hx Echocardiogram: No Musculoskeletal: back pain, osteoarthritis Hematologic: DVT Surgical History Cardiac: pacemaker Reproductive/: tubal ligation Family History Family PMH: FOUND: CAD, [place], alcohol abuse, cancer Vaccines Hx Influenza Vaccination: No Hx Pneumococcal Vaccination: No Social History Smoking Status: Never smoker Substance Use Type: does not use Alcohol Intake: none Review of Systems Constitutional Constitutional: DENIES: appetite decrease, chills, dizziness, fever, weakness Eyes Vision: DENIES: double vision, loss of visual barbosa ENMT Sinuses: DENIES: congestion, rhinorrhea Mouth/Throat: DENIES: scratchy throat, sore throat Cardiovascular Cardiac: DENIES: chest pain, dyspnea on exertion Pulmonary Respiratory: DENIES: cough, dyspnea, sputum, tachypnea GI Upper Abdomen: DENIES: nausea, pain, vomiting Lower Abdomen: DENIES: constipation, diarrhea, pain General: DENIES: frequency, urgency Musculoskeletal General: see HPI, weakness (nonspecific generalized) Integumentary Skin: DENIES: color change, itching, rash Endocrine Endocrine: DENIES: heat/cold intolerance Hematologic/Lymphatic Hematologic/Lymphatic: DENIES: anemia Physical Exam General General Nourishment: well nourished, well developed General Body Habitus: well groomed Vitals and Pain Weight: Kilograms: Height (feet): 5 Height (inches): 2.00 Triage Pain Scale: RN VS reviewed by Provider: Yes Eyes (brief) Eyes Brief: found: EOMI ENMT (brief) ENMT Brief: FOUND: mucosa moist, normal dentition, NOT FOUND: nasal erythema, pharnyx erythema, tonsillar deviation Neck (brief) Neck: FOUND: tenderness (tender to palpation of midline), NOT FOUND: adenopathy , spasm Respiratory (brief) Respiratory: FOUND: clear all barbosa, equal bilaterally, NOT FOUND: rales, wheezes Cardiovascular (brief) Cardiac: FOUND: regular rate, regular rhythm Capillary Refill: <2 sec Abdomen (brief) Abdominal Brief: FOUND: bowel normo active x4, soft, NOT FOUND: distended, tender Lymphatic (brief) Lymphatic Brief: NOT FOUND: adenopathy Musculoskeletal (brief) Musculoskeletal Brief: NOT FOUND: spasm, tenderness Musculoskeletal Joint : Side: Left Joint: hip, knee Joint Findings: FOUND: pain, NOT FOUND: ROM limited, deformity, discoloration, instability, laceration, swelling Back: FOUND: spine point tenderness (patient is tenderness to palpation of upper thoracic and lower lumbar spine), tenderness Integumentary (brief) Integumentary Brief: FOUND: dry, pink, warm, NOT FOUND: rash Neurologic (brief) Neurological Brief: FOUND: CN w/o gross def to obs, motor-no gross deficits, sensory-no gross deficits Psychiatric (brief) Psychiatric Brief: FOUND: alert, oriented Differential Diagnoses Considering: Depression, Hypo/Hyperglycemia, Hypo/Hyperkalemia, Hypo/ Hypernatremia, Intracranial Hemorrhage, Medication Effect, Metabolic, Other ( fracture contusion, dislocation) Progress Results/Orders Orders Procedure Category Date Status Time Iv Lock (Ed Only) EDM 09/09/16 Transmitted 16:34 Cbc W/Auto LAB 09/09/16 Complete Diff-Reflex Manual 16:34 Cmp - Comprehensive LAB 09/09/16 Complete Metabolic 16:34 Lipase LAB 09/09/16 Complete 16:34 Troponin I W LAB 09/09/16 Complete Hemolysis Index 16:34 EKG EKG 09/09/16 Taken 16:34 Ct Head W/O Contrast CT 09/09/16 Resulted 16:34 Ct Cervical Spine W/O CT 09/09/16 Resulted Contrast 16:34 Ct Thoracic Spine W/O CT 09/09/16 Resulted Contrast 16:34 Ct Lumbar Spine W/O CT 09/09/16 Resulted Contrast 16:34 Femur Left RAD 09/09/16 Resulted 16:34 Tib-Fib Left 2 View RAD 09/09/16 Resulted 16:34 Normal Saline (Normal PHA 09/09/16 Complete Saline Iv) 16:45 Ondansetron Inj PHA 09/09/16 Complete (Zofran) 17:30 UA, LAB 09/09/16 Complete Dip&Micro(Complete) & 18:49 Lab Results Laboratory Tests Test 09/09/16 16:18 09/09/16 16:29 09/09/16 18:49 Glucometer 239mg/dL White Blood Count 12.8T/MM3 Red Blood Count 4.35M/MM3 Hemoglobin 13.1GM/DL Hematocrit 37.0% Mean Corpuscular Volume 85.1UM3 Mean Corpuscular Hemoglobin 30.1UUG Mean Corpuscular Hemoglobin Concent 35.4GM/DL RDW Standard Deviation 37.6FL Platelet Count 241T/MM3 Mean Platelet Volume 11.7UM3 Immature Granulocyte % (Auto) 0.3% Neutrophils (%) (Auto) 53.5% Lymphocytes (%) (Auto) 39.9% Monocytes (%) (Auto) 4.8% Eosinophils (%) (Auto) 1.2% Basophils (%) (Auto) 0.3% Absolute Immature Granulocyte (auto 0.04T/MM3 Absolute Neutrophils (auto) 6.9T/MM3 Absolute Lymphocytes (auto) 5.1T/MM3 Absolute Monocytes (auto) 0.6T/MM3 Absolute Eosinophils (auto) 0.2T/MM3 Absolute Basophils (auto) 0.0T/MM3 Turbidity < 20 Sodium Level 140MEQ/L Potassium Level 3.6MEQ/L Chloride Level 101MEQ/L Carbon Dioxide Level 22MEQ/L Anion Gap 17MEQ/L Blood Urea Nitrogen 33.0MG/DL Creatinine 1.6MG/DL Glomerular Filtration Rate Calc 33 BUN/Creatinine Ratio 21RATIO Glucose Level 216MG/DL Calculated Osmolality 283MOSM/KG Calcium Level 9.3MG/DL Total Bilirubin 0.80MG/DL Icterus Index < 2 Aspartate Amino Transf (AST/SGOT) 49U/L Alanine Aminotransferase (ALT/SGPT) 65U/L Alkaline Phosphatase 126U/L Troponin I < 0.012ng/ml Total Protein 7.1G/DL Albumin 3.7G/DL Globulin 3.4G/DL Albumin/Globulin Ratio 1.1RATIO Lipase 274U/L Chemistry Specimen Hemolysis < 15 Urine Collection Type Voided-not cc-midstr Urine Color Yellow Urine Turbidity Sl cloudy Urine pH 5.5 Urine Specific [place] 1.015 Urine Protein 2+ Urine Glucose (UA) 3+ Urine Ketones Negative Urine Blood 1+ Urine Nitrite Negative Urine Bilirubin Negative Urine Urobilinogen 0.2EU/DL Urine Leukocyte Esterase Negative Urine RBC 1-3/HPF Urine WBC 1-3/HPF Urine Squamous Epithelial Cells 10-20 Urine Bacteria 1+ Urine Culture Indicated Cult not indicated Medications Current ED Medications Sodium Chloride (Normal Saline IV) 1,000 ml @ 999 mls/hr Q1H1M ONCE IV Last administered on 09/09/16 16:46; Start 09/09/16 at 16:45; Stop 09/09/16 at 17:45 ; Status DC Hydromorphone HCl (Dilaudid) 0.5 mg O ONCE IV ; Start 09/09/16 at 17:15; Stop 09/09/16 at 17:16; Status Cancel Diphenhydramine HCl (Benadryl) 25 mg O ONCE IV ; Start 09/09/16 at 17:15; Stop 09/09/16 at 17:16; Status Cancel Ondansetron HCl (Zofran) 4 mg O ONCE IV Last administered on 09/09/16 17:29; Start 09/09/16 at 17:30; Stop 09/09/16 at 17:31; Status DC EKG EKG : Rate: 60-100 Rhythm: other (atrial paced) [place]: normal QRS: RBBB Intervals: normal ST/T: non-specific changes Interpreted by: signing physician Xray Xray #1: Xray: Femur L Interpretation: Normal, Interpreted by Xrsherine #2: Xray: Tibia/Fibula L Interpretation: Normal, Interpreted by SONG Rosario MD Sep 09, 2016 16:42 Xray #2: Xray: Tibia/Fibula L Interpretation: Normal, Interpreted by SONG Rosairo MD Sep 09, 2016 16:42
--- NOTE | 2016-09-09 16:43 | NUR ---
C-COLLAR C-COLLAR PLACED FOR NECK PAIN
[2016-09-09 16:45] LABS: BASOPHILS % (AUTO) 0.3 % (0-2); EOSINOPHILS # (AUTO) 0.2 T/MM3 (0-0.5); EOSINOPHILS % (AUTO) 1.2 % (0-4); HGB - HEMOGLOBIN 13.1 GM/DL (12-16); IMMATURE GRANULOCYTE # (AUTO) 0.04 T/MM3 (0.00-0.03); IMMATURE GRANULOCYTE % (AUTO) 0.3 % (0.0-0.5); LYMPHOCYTES # (AUTO) 5.1 T/MM3 (1-4.8); LYMPHOCYTES % (AUTO) 39.9 % (23-45); MEAN CORPUSCULAR HGB 30.1 UUG (26-34); MEAN CORPUSCULAR HGB CONC(MCHC 35.4 GM/DL (31-37); MEAN CORPUSCULAR VOLUME 85.1 UM3 (80-100); MEAN PLATELET VOLUME 11.7 UM3 (9.4-12.4); MONOCYTES # (AUTO) 0.6 T/MM3 (0-0.8); MONOCYTES % (AUTO) 4.8 % (0-9.0); NEUTROPHILS #(AUTO)-ABSOLUTE 6.9 T/MM3 (1.8-7.7); NEUTROPHILS % (AUTO) 53.5 % (33-66); RED BLOOD COUNT 4.35 M/MM3 (4.00-5.20); WBC - WHITE BLOOD COUNT 12.8 T/MM3 (4.5-11.0)
[2016-09-09] MEDS ORDERED: NORMAL SALINE 1,000 ML IV ONE (16:45)
--- NOTE | 2016-09-09 16:46 | NUR ---
IV FLUID #1 IV 1000CC NS STARTED AT 999CC/HR IV SITE WITHOUT REDNESS OR SWELLING
--- OUTSIDE RECORDS SUMMARY | 2016-09-09 16:46 | XMS REPORT | Continuity of Care Document ---
Author Author [facility] Organization [facility] Address Unknown Phone Unavailable Allergies Medications Problems Date Dx Coded Attending Type Code Diagnosis Diagnosed By 10/05/2013 Milagros Aldana APRN Final 719.44 JOINT PAIN-HAND 10/05/2013 Milagros Aldana APRN Final 722.52 LUMBAR/LS DISC DEGEN 10/05/2013 Milagros Aldana APRN 724.2 LUMBAGO Procedures Results Encounters ACCT No. Visit Date/Time Discharge Status Pt. Type Provider Facility Loc./Unit Complaint [id number] 10/05/2013 08:13:00 2013 23:59:59 CLS Outpatient Milagros Aldana APRN [facility]
[2016-09-09 16:54] LABS: ALBUMIN 3.7 G/DL (3.5-5.0); ALBUMIN/GLOBULIN RATIO 1.1 RATIO (1.1-2.2); ALKALINE PHOSPHATASE 126 U/L (38-126); ALT (SGPT) 65 U/L (9-52); ANION GAP 17 MEQ/L (5-15); AST (SGOT) 49 U/L (14-36); BUN/CREATININE RATIO 21 RATIO (6-26); CALCIUM 9.3 MG/DL (8.4-10.2); CHLORIDE 101 MEQ/L (98-107); CO2 - CARBON DIOXIDE 22 MEQ/L (22-30); CREATININE 1.6 MG/DL (0.7-1.2); GLOMERULAR FILTRATION RATE 33; GLUCOSE 216 MG/DL (65-110); LIPASE 274 U/L (23-300); POTASSIUM 3.6 MEQ/L (3.6-5); SODIUM 140 MEQ/L (134-144); TOTAL PROTEIN 7.1 G/DL (6.3-8.2)
[2016-09-09] MEDS ORDERED: INSU100V13 SQ (16:54)
--- NOTE | 2016-09-09 16:55 | NUR ---
RADIOLOGY PT TAKEN TO RADIOLOGY PER CART FOR OREDERED TESTS
--- NOTE | 2016-09-09 16:55 | NUR ---
RN RN ESCORTED PT TO CT AND XRAY C-SPINE SUPPORTED WITH TURNS AND TRANSFERS
--- NOTE | 2016-09-09 17:14 | NUR ---
NAUSEA PT KIND OF GAGGING IN XRAY WHEN MOVED PT REPORTS SHE IS ONLY NAUSEATED WHEN SHE MOVES
[2016-09-09] MEDS ORDERED: HYDROMORPHONE 2mg/ml INJECTION IV ONE (17:15)
[2016-09-09] MEDS ORDERED: DiphenhydrAMINE 50 MG/ML INJECTION IV ONE (17:15)
--- NOTE | 2016-09-09 17:22 | NUR ---
ROOM PT RETURNED TO ROOM 2 FROM RADIOLOGY
--- NOTE | 2016-09-09 17:29 | NUR ---
ZOFRAN IV ZOFRAN GIVEN FOR NAUSEA DAUGHTER REMAINS AT BEDSIDE
[2016-09-09] MEDS ORDERED: ONDANSETRON 4mg/2ml INJECTION IV ONE (17:30)
--- NOTE | 2016-09-09 17:30 | NUR ---
STATUS PT COLOR IS IMPROVED WITH NOW PINK LIPS AND GOOD COLOR TO FACE B/P IMPROVED AND PT DAUGHTER REPORTS SHE MAY HAVE BEEN DEHYDRATED 500CC NS HAS INFUSED
--- NOTE | 2016-09-09 17:48 | NUR ---
IV FLUID IV NS INFUSED IV SITE WITHOUT REDNESS OR SWELLING
--- NOTE | 2016-09-09 18:08 | NUR ---
C-COLLAR C-COLLAR REMOVED AND PILLOW UNDER HEAD HOB ELEVATED SOME TO COMFORT DAUGHTER REMAINS AT BEDSIDE
--- NOTE | 2016-09-09 18:24 | NUR ---
ACTIVITY HOB ELEVATED TO SITTING AND WAITED FOR SHORT TIME FOR PT TO ADJUST LEGS OVER THE SIDE OF THE CART AND PT REPORTED SHE WAS FINE AMBULATORY TO BATHROOM TO VOID WITH ASSIST OF 2 STAFF PT MOVES SLOWLY WITH SHUFFLE TYPE MOVEMENT, STATES SHE USES A WALKER AT HOME
--- NOTE | 2016-09-09 18:41 | NUR ---
ROOM PT AMBULATORY BACK TO ROOM 2 USING WALKER AND STAND-BY ASSIST OF ONE STAFF. PT ASSISTED BACK INTO CART. POSITIONED WITH TILT TO HER LEFT SIDE. DAUGHTER REMAINS AT BEDSIDE
[2016-09-09 18:59] LABS: BLOOD, URINE 1+ (NEGATIVE); COLOR,URINE YELLOW (YELLOW); LEUKOCYTE ESTERASE ,URINE NEGATIVE (NEGATIVE); NITRITE,URINE NEGATIVE (NEGATIVE); UROBILINOGEN,URINE 0.2 EU/DL (NORMAL)
[2016-09-09 19:06] LABS: BACTERIA,URINE 1+ (NEGATIVE)
--- NOTE | 2016-09-09 19:10 | NUR ---
STATUS PT IS AWAKE AND ALERT TALKING WITH DAUGHTER AND STAFF
--- NOTE | 2016-09-09 19:39 | NUR ---
IVL IVL DC'D WITH CATH INTACT DRSG APPLIED TO IV SITE PT KAM WELL
--- NOTE | 2016-09-09 19:41 | NUR ---
ACTIVITY PT ASSISTED UP ON THE SIDE OF THE CART AND TO STANDING HOLDING ONTO W/C. ASSISTED WITH PT DRESSING BY RN AND DAUGHTER PT AMBULATORY FEW STEPS USING WALKER TO GET IN W/C
--- NOTE | 2016-09-09 19:50 | NUR ---
INSTRUCTIONS DISMISSAL INSTRUCTIONS GIVEN TO PT AND DAUGHTER ENCOURAGED TO FOLLOW-UP WITH [facility] BOTH VERBALIZED UNDERSTANDING OF ALL
[2016-09-09 19:52] VITALS: BP 126/61; PULSE 87; RESP 16; TEMP 97.7; O2SAT 98
--- NOTE | 2016-09-09 19:52 | NUR ---
DISMISS PT DISMISSED PER W/C WITH DAUGHTER PT ESCORTED TO SUV BY RN
--- NOTE | 2016-09-10 11:11 | DI ---
EXAM: FEMUR LEFT COMPARISON: None available. HISTORY: ITS.REASON: fall left femur pain . FINDINGS: There is no evidence for acute fracture, subluxation, or dislocation. Vascular calcifications are noted. The femur is intact. The superior and inferior rami and sacral arches are intact. There are degenerative changes of the knee with medial compartment narrowing and spur formation. There may be chondrocalcinosis as well. IMPRESSION: No evidence for acute fracture identified. LOCATION OF DICTATION: [facility] [place] .
--- NOTE | 2016-09-10 11:12 | DI ---
EXAM: TIB-FIB LEFT 2 VIEW COMPARISON: None available. HISTORY: ITS.REASON: fall left tib-fib pain . FINDINGS: There is no evidence for acute fracture, subluxation, or dislocation. There is medial compartment narrowing of the knee and spur formation. The tibia and fibula are intact. There is plantar calcaneal spurring. IMPRESSION: No evidence for acute fracture identified. LOCATION OF DICTATION: [facility] [place] .
--- NOTE | 2016-09-10 15:39 | DI ---
Indication: ITS.REASON: fall, headache PROCEDURE: CT HEAD W/O CONTRAST: Encounter: Initial Comparison: September 15, 2014 Technique: Axial CT images through the head were performed without contrast. Iterative Reconstruction dose reducing technique was utilized. FINDINGS: The ventricles are of normal size, shape, and configuration for the patient's age. There is no evidence of acute intracranial hemorrhage, midline displacement, or mass effect. There are scattered areas of low attenuation in the white matter which most likely represent changes of chronic microvascular ischemia. The CT attenuation of the brain parenchyma is otherwise normal within the cerebellum, brain stem, and cerebral hemispheres. The tympanic cavities and mastoid air cells are free of appreciable disease. There are no definite fractures of the skull base, calvarium, or visualized portion of the midface. IMPRESSION: No CT evidence of acute traumatic intracranial injury. There is a preliminary report by virtual radiologic. .
--- NOTE | 2016-09-10 15:40 | DI ---
Indication: ITS.REASON: fall, neck pain PROCEDURE: CT CERVICAL SPINE W/O CONTRAST: Encounter: Initial Comparison: None Technique: Axial CT images through the cervical spine were performed without contrast. Coronal and sagittal reformatted images were also obtained. Automated Exposure Control and Iterative Reconstruction dose reducing techniques were utilized. FINDINGS: The alignment of the cervical spine is normal. Multilevel degenerative changes are present. There is no evidence of acute fracture or subluxation of the cervical spine. The facet joints are well aligned with preservation of the intervertebral disk and facet joints. The atlantoaxial articulation, dens, and upper cervical spine demonstrate no subluxation. There is no evidence of significant spinal stenosis, foraminal compromise, or significant disk herniation. The paraspinal soft tissues and spinal canal appear unremarkable. IMPRESSION: No acute traumatic abnormality of the cervical spine. There is a preliminary report by virtual radiologic. .
--- NOTE | 2016-09-10 15:41 | DI ---
Indication: ITS.REASON: fall, thoracic spine pain PROCEDURE: CT THORACIC SPINE W/O CONTRAST: Encounter: Initial Comparison: None: Technique: Axial noncontrast CT imaging of the thoracic spine was performed with coronal and sagittal two-dimensional reformats. Automated Exposure Control and Iterative Reconstruction dose reducing techniques were utilized. FINDINGS: Alignment of the thoracic spine is normal for the patient's age. There are minimal, age appropriate, degenerative changes within the intervertebral disk and facet joints in the thoracic spine. No fractures are evident in the thoracic spine. The vertebral bodies and facet joints are normally aligned. There is no evidence of significant spinal stenosis, foraminal compromise, epidural hematoma, or significant disk herniation. The paraspinal soft tissues and central spinal canal appear unremarkable. IMPRESSION: No acute traumatic abnormality. There is a preliminary report by virtual radiologic. .
--- NOTE | 2016-09-10 15:42 | DI ---
Indication: ITS.REASON: fall low back pain PROCEDURE: CT LUMBAR SPINE W/O CONTRAST: Encounter: Initial Comparison: None Technique: Axial noncontrast CT imaging of the lumbar spine was performed with coronal and sagittal two-dimensional reformats. Automated Exposure Control and Iterative Reconstruction dose reducing techniques were utilized. FINDINGS: The alignment of the lumbar spine is normal for the patient's age. No fractures or traumatic subluxation of the lumbar spine is evident. The facet joints are well aligned with preservation of the intervertebral disk and facet joints. There are age appropriate degenerative changes within the intervertebral disks and facet joints in the lower lumbar region. There is no evidence of significant spinal stenosis, foraminal compromise, disk herniation, or epidural hematoma. The paraspinal soft tissues and spinal canal are otherwise unremarkable in appearance. IMPRESSION: No evidence for acute traumatic injury of the lumbar spine. There is a preliminary report by virtual radiologic. .
== END 2016-09-09 19:52 | disposition home or self-care (01) ==
LOC: ED 16:10
DX: E11.65 Type 2 diabetes mellitus with hyperglycemia (principal); R53.1 Weakness; Z79.4 Long term (current) use of insulin; W18.30XA Fall on same level, unspecified, initial encounter; Y93.9 Activity, unspecified; Y92.009 Unspecified place in unspecified non-institutional (private) residence as the place of occurrence of the external cause; Y99.8 Other external cause status
CPT/HCPCS: 70450; 72125; 72128; 72131; 73552; 73590; 80053; 81001; 82948; 83690; 84484; 85025; 93005; 96361; 96374; 99284; J2405; J7030; L0150

== ENCOUNTER 2017-07-01 16:58 | Inpatient (IN) ==
[2017-07-01] MEDS ORDERED: NS 1,000 ML IV ONE (17:12)
[2017-07-01] MEDS ORDERED: SALINE FLUSH 10ml SYRINGE IVF PRN (17:12)
[2017-07-01] MEDS ORDERED: ASPIRIN 81 MG CHEWABLE TABLET PO ONE (17:12)
--- NOTE | 2017-07-01 17:18 | Emergency Department Report ---
Chest Pain HPI - General Chief Complaint: Chest Pain Stated Complaint: chest pain Time Seen by Provider: 07/01/17 17:05 Source: patient, EMS, RN notes reviewed, old records reviewed Mode of arrival: EMS Limitations: no limitations - History of Present Illness HPI narrative: 61yo woman presented to the ER by EMS for evaluation of CP. Pts sx began at 0900 today; she sat in a rocking chair and 'tried to be cool' to see if her sx would resolve. Pt continued to have intermittent chest pressure throughout the day, so she called EMS for transport. Pt is well-known to this ER. She is a NIDDM that is non adherent with her medications. MD complaint: chest pain Occurred At: home Onset (ago): hour(s) (8) Time: 0900 Duration: intermittent Onset: during rest Pain location: substernal Severity: similar to previous episodes Quality: tightness, heaviness Relieving factors: nothing Exacerbating factors: exertion Associated symptoms: nausea, diaphoresis Aspirin Today: 81 mg x 4, provided by ED Nitro Today: provided by ED Treatments prior to arrival chest pain: none - Related Data On Oral Contraceptives: No Home Medications Medication Instructions Recorded Confirmed No known Home medications [No home 07/01/17 07/01/17 meds] Allergies Allergy/AdvReac Type Severity Reaction Status Date / Time iodine Allergy Mild HIVES Verified 07/01/17 18:03 codeine AdvReac Unknown Verified 07/01/17 18:03 Review of Systems All systems: reviewed and negative except as stated Cardiovascular: Reports: as per HPI, chest pain. Denies: palpitations, dyspnea on exertion, orthopnea, edema, syncope, paroxysmal nocturnal dyspnea PFSH Patient Stated Medical History Migraine Yes Other HEENT Yes: WEARS GLASSES Diabetes Mellitus Type 2 Yes Other GI Yes: CONSTPATION & DIARRHEA Hx Urinary Tract Infection Yes: WITH PYELONEPHRITIS Other Musculoskeletal Yes: OSTEOPOROSIS Medical History Updates: Diabetic peripheral neuropathy. Diabetic macular degeneration Surgical History: Pacemaker, BTL - Social History Smoking status: Current every day smoker Physical Exam - Limitations Limitations: no limitations - General General appearance: alert, in no apparent distress, obese - Normal Exams: Head:: Normocephalic without trauma Eyes:: Pupils are PERRLA w/ EOMI, No scleral icterus, irritation, or foreign bodies noted ENMT:: No facial trauma, nasal exudates, pharyngeal erythema, or exudates are noted Neck:: Full range of motion, without adenopathy Chest/Respirations:: Clear all barbsoa, with good airflow Cardiovascular:: Regular rate and rhythm, without murmur or gallop, Pulses 2+ all extremities, capillary refill, <2 seconds all extremities Abdomen:: Bowel sounds positive, soft, non-tender, non-distended, no hepatosplenomegaly, masses or bruits noted Lymphatic:: No lymphadenopathy Musculoskeletal:: No tenderness, or deformity noted, good range of motion Integumentary:: No rashes, hives, or bruising noted Neurological:: Patient is alert, and oriented Psychiatric:: Patient exhibits, appropriate attention Course - Consultations Consultation #1: Hospitalist: Will admit for overnight obs, treatment of effusion and ?CHF or ? PNA. Time: 18:38 Vital Signs Temperature 98.1 F 07/01/17 16:58 Pulse Rate 92 07/01/17 16:58 Respiratory Rate 20 07/01/17 16:58 Blood Pressure 211/100 H 07/01/17 16:58 Pulse Oximetry 96 07/01/17 16:58 Temperature 98.1 F 07/01/17 17:44 Pulse Rate 94 07/01/17 18:00 Respiratory Rate 22 07/01/17 18:00 Blood Pressure 146/77 H 07/01/17 17:59 Pulse Oximetry 93 07/01/17 18:00 Chest Pain - [facility] Narrative Medical decision making narrative: Pt with grossly elevated BNP, right-sided pleural effusion +/- lobar PNA. Will contact hospitalist for admission. - Differential Diagnosis Likely: fracture of rib, pneumothorax, stable angina, unstable angina pectoris, atypical chest pain, st elevation myocardial infarction, costochondritis, chest pain, biliary colic - Medical Records Data Attestation: I reviewed the patient's medical records. - Lab Data Attestation: I reviewed the patient's lab results. Result diagrams: 07/01/17 17:30 07/01/17 17:30 Lab Results 07/01/17 07/01/17 Range/Units 17:30 17:30 WBC 8.0 (4.5-11.0) T/MM3 RBC 3.52 L (4.00-5.20) M/MM3 Hgb 10.4 L (12-16) GM/DL Hct 31.6 L (36-46) % MCV 89.8 (80-100) UM3 MCH 29.5 (26-34) UUG MCHC 32.9 (31-37) GM/DL RDW Std Deviation 44.0 (36.9-50.2) FL Plt Count 222 (130-400) T/MM3 MPV 10.7 (9.4-12.4) UM3 Immature Gran % (Auto) 0.1 (0.0-0.5) % Neut % (Auto) 67.6 H (33-66) % Lymph % (Auto) 22.2 L (23-45) % Chaves % (Auto) 6.0 (0-9.0) % Eos % (Auto) 3.7 (0-4) % Baso % (Auto) 0.4 (0-2) % Neut # (Auto) 5.4 (1.8-7.7) T/MM3 Lymph # (Auto) 1.8 (1-4.8) T/MM3 Chaves # (Auto) 0.5 (0-0.8) T/MM3 Eos # (Auto) 0.3 (0-0.5) T/MM3 Baso # (Auto) 0.0 (0-0.2) T/MM3 Abs Immat Gran (auto) 0.01 (0.00-0.03) T/MM3 Turbidity < 20 (0-20) Sodium 144 (134-144) MEQ/L Potassium 3.8 (3.6-5) MEQ/L Chloride 106 (98-107) MEQ/L Carbon Dioxide 26 (22-30) MEQ/L Anion Gap 12 (5-15) MEQ/L BUN 25.0 H (7-17) MG/DL Creatinine 1.8 H (0.7-1.2) MG/DL GFR Calculation 29 BUN/Creatinine Ratio 14 (6-26) RATIO Glucose 227 H (65-110) MG/DL Calculated Osmolality 288 H (261-280) MOSM/KG Calcium 8.6 (8.4-10.2) MG/DL Icterus Index < 2 (0-7) Troponin I 0.040 (0-0.12) ng/ml B-Natriuretic Peptide 14231 H (0-175) pg/mL Specimen Hemolysis < 15 (0-25) - Radiology Data Attestation: I reviewed the patient's radiology results. CXR: Right-sided pleural effusion with interstitial markings s/f PNA vs CHF exacerbation. - EKG Data EKG #1 EKG attestation: Yes: I reviewed and interpreted this EKG. EKG results narrative: Electronically paced Disposition Clinical Impression: Pleural effusion CHF (congestive heart failure) Qualifiers: Congestive heart failure type: unspecified congestive heart failure type Congestive heart failure chronicity: unspecified congestive heart failure chronicity Qualified Code(s): I50.9 - Heart failure, unspecified Disposition: 02 [place] [facility] Language: [place] Condition: Improved Prescriptions: No Action No known Home medications [No home meds] 0 #0 [facility] [place]errals: Keegan Moreira DO [Family Provider] - Time of Disposition: 18:49 - Seen By: physician
[2017-07-01] MEDS: NITROGLYCERIN 0.4 MG SUBLINGUAL TABLET SL PRN ×3 (17:35→17:54)
--- OUTSIDE RECORDS SUMMARY | 2017-07-01 17:37 | External Medical Summary ---
:1955 Author Organization [employer] Care Team Providers Name Role Phone Milena Patel Provider Role Unavailable Allergies, Adverse Reactions, Alerts Substance Reaction Event Type Iodinated Contrast Info Not Available Non Drug Allergy Codeine/codeine Derivatives Info Not Available Non Drug Allergy Problems Problem Type Condition ICD-9 Code Onset Dates Condition Status Problem Chest pain, unspecified 786.50 Active Problem Unspecified breast screening V76.10 Inactive Problem Unspecified disorder of 676.90 Active , unspecified as to episode of care Problem Cataracts, bilateral 366.9 Active Problem Galactorrhea 611.6 Active Problem Pacemaker V45.01 Active Problem 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, type II or unspecified type, uncontrolled Problem Other specified counseling V65.49 Inactive Problem Falls frequently V15.88 Active Problem Hyperlipidemia 272.4 Active Assessment Galactorrhea 611.6 Active Assessment Cataracts, bilateral 366.9 Active Assessment Screening for depression V79.0 Active Assessment Falls frequently V15.88 Active Assessment 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, type II or unspecified type, not stated as uncontrolled Problem 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 Assessment Pacemaker V45.01 Active Problem 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, type II or unspecified type, not stated as uncontrolled Assessment Acute bronchitis 466.0 Active Problem Blood in stool 578.1 Active Medications Medication Code Code Instructions Start End Date Status Dosage System Date [facility] 2001 55306-71 500 MG Orally Mar 17, 1 tablet 67-01 Twice a day 2014 Pen [place] NDC 0 31G X 5 MM January 10, File DME 09/09" daily 2013 [place] [address] 300 UNIT/ML 10 units 69-03 Subcutaneous Two times daily Accu-Chek NDC 0 In Vitro January 10, File DME SmartView daily 2013 under Medicaid Accu-Chek NDC 0 4 daily January 10, File DME for Fast[employer]ix 2014 [place] [address] UNIT/ML 4 units 99-01 Subcutaneous with meals only Procedures Procedure Coding System Code Date ANNUAL DEPRESSION SCREENING 15 MIN CPT-4 G0444 Mar 17, 2015 Office Visit, Est Pt., Level 5 CPT-4 60487 Mar 17, 2015 Billed by outside source [...]
--- OUTSIDE RECORDS SUMMARY | 2017-07-01 17:37 | External Medical Summary ---
:1955 Author Organization [employer] 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 Problem Hypertension, benign 401.1 Active Problem Diabetes Mellitus Type 2, not stated 250.00 Active as uncontrolled Assessment Dehydration 276.51 Active Problem Coronary atherosclerosis of 414.00 Active unspecified type of vessel, [place] or graft Problem Depressive disorder, 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 Submission
--- OUTSIDE RECORDS SUMMARY | 2017-07-01 17:37 | External Medical Summary ---
:1955 Author Organization [employer] Care Team Providers Name Role Phone Keegan Moreira Provider Role Unavailable Allergies No Known Allergies Problems Problem Type Condition ICD-9 Code Onset Dates Condition Status Problem Coronary atherosclerosis of 414.00 Active unspecified type of vessel, [place] or graft Problem Depressive disorder, not 311 Active elsewhere classified Problem Hypertension, benign 401.1 Active Problem Diabetes Mellitus Type 2, not 250.00 Active stated as uncontrolled Assessment Diabetes Mellitus Type 2, not 250.00 Active stated as uncontrolled Problem Coronary atherosclerosis of 414.00 Active unspecified type of vessel, [place] or graft Problem Depressive disorder, not 311 Active elsewhere classified Medications Medication Code System Code Instructions Start End Date Status Dosage Date Humalog [place] [facility] [address]-156 100 UNIT/ML September 30, 6 units 02-25 Subcutaneous as 2014 tid with directed meals Jackiesteph [place] [facility] [address] 300 u/mL December 10May 01, 8 units in 9 subcutaneous 2014 2014 the am and daily 8 units in the pm Results No Known Results Summary Purpose [employer] Submission
--- OUTSIDE RECORDS SUMMARY | 2017-07-01 17:37 | External Medical Summary ---
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
--- OUTSIDE RECORDS SUMMARY | 2017-07-01 17:37 | External Medical Summary ---
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
--- OUTSIDE RECORDS SUMMARY | 2017-07-01 17:37 | External Medical Summary ---
:1955 Author Organization [employer] Care Team Providers Name Role Phone Yuli Hart Provider Role Unavailable Allergies No Known Allergies Problems Problem Type Condition ICD-9 Code Onset Dates Condition Status Problem Diabetes Mellitus Type 2, not 250.00 Active stated as uncontrolled Problem Depressive disorder, not 311 Active elsewhere classified Medications No Known Medications Results No Known Results Summary Purpose [employer] Submission
--- OUTSIDE RECORDS SUMMARY | 2017-07-01 17:37 | External Medical Summary ---
:1955 Author Organization [employer] Care Team Providers Name Role Phone Mel Saab Provider Role Unavailable Allergies, Adverse Reactions, Alerts Substance Reaction Event Type N.K.D.A. Info Not Available Non Drug Allergy Problems Problem Type Condition Code Onset Dates Condition Status Assessment Healthcare maintenance Z00.00 Active Assessment Mixed incontinence urge and stress N39.46 Active Medications Medication Code System Code Instructions Start End Date Status Dosage Date Humalog KwikPen [facility] 77950-53 100 UNIT/ML not defined 99 Subcutaneous Ditropan XL [facility] 27163-06 5 MG Orally Once December 14Mar 14, 1 tablet 05-01 a day 2015 2015 Procedures Procedure Coding System Code Date Office visit new level 3 CPT-4 76189 December 15, 2015 Pap smear, thin layer CPT-4 58715 December 15, 2015 Vital Signs Date/Time: December 15, 2015 BMI 33.10 Index Height 62 in Weight 181 lbs Blood Pressure Diastolic 66 mm Hg Blood Pressure Systolic 128 mm Hg Results Name Result Date Reference Range Unit Abnormality Flag * PAP CYTOPATHOLOGY, CERVICAL/VAGINAL, PRESERVATIVE FLUID, AUTO THIN LAYER PREP; MANUAL SCREEN (03981) Summary Purpose [employer] Submission
--- OUTSIDE RECORDS SUMMARY | 2017-07-01 17:37 | External Medical Summary ---
:1955 Author Organization [employer] Care Team Providers Name Role Phone Keegan Moreira Provider Role Unavailable Allergies No Known Allergies Problems Problem Type Condition ICD-9 Code Onset Dates Condition Status Problem Coronary atherosclerosis of 414.00 Active unspecified type of vessel, [place] or graft Problem Depressive disorder, not 311 Active elsewhere classified Problem Hypertension, benign 401.1 Active Problem Diabetes Mellitus Type 2, not 250.00 Active stated as uncontrolled Problem Coronary atherosclerosis of 414.00 Active unspecified type of vessel, [place] or graft Problem Depressive disorder, not 311 Active elsewhere classified Medications No Known Medications Results No Known Results Summary Purpose [employer] Submission
--- OUTSIDE RECORDS SUMMARY | 2017-07-01 17:37 | External Medical Summary ---
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
--- OUTSIDE RECORDS SUMMARY | 2017-07-01 17:37 | External Medical Summary ---
:1955 Author Organization [employer]ClinicalWorks Care Team Providers Name Role Phone Keegan Moreira Provider Role Unavailable Allergies No Known Allergies Problems Problem Type Condition ICD-9 Code Onset Dates Condition Status Problem Coronary atherosclerosis of 414.00 Active unspecified type of vessel, [place] or graft Problem Depressive disorder, not 311 Active elsewhere classified Problem Hypertension, benign 401.1 Active Problem Diabetes Mellitus Type 2, not 250.00 Active stated as uncontrolled Assessment Diabetes Mellitus Type 2, not 250.00 Active stated as uncontrolled Problem Coronary atherosclerosis of 414.00 Active unspecified type of vessel, [place] or graft Problem Depressive disorder, not 311 Active elsewhere classified Medications Medication Code System Code Instructions Start End Date Status Dosage Date Chapin Tay [facility] [address] 300 u/mL December 10, Mar 26, 6 units in 9 subcutaneous 2014 2014 the am and Once a day at 6 units in bedtime the PM Results No Known Results Summary Purpose [employer] Submission
--- OUTSIDE RECORDS SUMMARY | 2017-07-01 17:37 | External Medical Summary ---
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 Problem Coronary atherosclerosis of 414.00 Active unspecified type of vessel, [place] or graft Problem Depressive disorder, 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 Problem Hypertension, benign 401.1 Active Problem Diabetes Mellitus Type 2, not stated 250.00 Active as uncontrolled Assessment Dehydration 276.51 Active Problem Coronary atherosclerosis of 414.00 Active unspecified type of vessel, [place] or graft Problem Depressive disorder, 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 Medications Medication Code System Code Instructions Start End Date Status Dosage Date Humalog ChacePen [facility] [address]-995 100 UNIT/ML September 30, 2 units 02-25 Subcutaneous as 2015 tid with directed meals Procedures Procedure Coding System Code Date OFFICE VISIT, EST-MOD. COMPLEXITY (25 MIN) CPT-4 74038 October 28, 2014 Vital Signs Date/Time: October 28, 2014 Height 61.5 in Weight 186.4 lbs Temperature 97.9 F Blood Pressure Diastolic 70 mm Hg Blood Pressure Systolic 100 mm Hg Cardiac Monitoring Heart Rate 100 /min BMI 34.65 Index Respiratory Rate 16 /min Results No Known Results Summary Purpose [employer] Submission
--- OUTSIDE RECORDS SUMMARY | 2017-07-01 17:37 | External Medical Summary ---
:1955 Author Organization [employer]ClinicalWorks Care Team Providers Name Role Phone Keegan Moreira Provider Role Unavailable Allergies No Known Allergies Problems Problem Type Condition Code Onset Dates Condition Status Problem Coronary atherosclerosis of 414.00 Active unspecified type of vessel, [place] or graft Problem Depressive disorder, 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 Problem Hypertension, benign 401.1 Active Problem Diabetes Mellitus Type 2, not stated 250.00 Active as uncontrolled Problem Coronary atherosclerosis of 414.00 Active unspecified type of vessel, [place] or graft Problem Depressive disorder, 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 Medications No Known Medications Results No Known Results Summary Purpose [employer] Submission
--- OUTSIDE RECORDS SUMMARY | 2017-07-01 17:37 | External Medical Summary ---
[...] V76.10 Inactive Problem Unspecified disorder of , 676.90 Active unspecified as to episode of care Medications No Known Medications Results No Known Results Summary Purpose [employer] Submission
--- OUTSIDE RECORDS SUMMARY | 2017-07-01 17:37 | External Medical Summary ---
:1955 Author Organization [employer]Works Care Team Providers Name Role Phone Keegan Moreira Provider Role Unavailable Allergies No Known Allergies Problems Problem Type Condition Code Onset Dates Condition Status Problem Coronary atherosclerosis of 414.00 Active unspecified type of vessel, [place] or graft Problem Depressive disorder, 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 Problem Hypertension, benign 401.1 Active Problem Diabetes Mellitus Type 2, not stated 250.00 Active as uncontrolled Problem Coronary atherosclerosis of 414.00 Active unspecified type of vessel, [place] or graft Problem Depressive disorder, 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
--- OUTSIDE RECORDS SUMMARY | 2017-07-01 17:37 | External Medical Summary ---
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
--- OUTSIDE RECORDS SUMMARY | 2017-07-01 17:37 | External Medical Summary ---
:1955 Author Organization [employer] Care Team Providers Name Role Phone Yuli Hart Provider Role Unavailable Allergies No Known Allergies Problems Problem Type Condition Code Onset Dates Condition Status Problem Depressive disorder, 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 Problem Diabetes Mellitus Type 2, not stated 250.00 Active as uncontrolled Problem Coronary atherosclerosis of 414.00 Active unspecified type of vessel, [place] or graft Medications No Known Medications Results No Known Results Summary Purpose [employer] Submission
--- OUTSIDE RECORDS SUMMARY | 2017-07-01 17:37 | External Medical Summary ---
:1955 Author Organization eClinicalWorks Care Team Providers Name Role Phone Keegan Moreira Provider Role Unavailable Allergies No Known Allergies Problems Problem Type Condition Code Onset Dates Condition Status Problem Coronary atherosclerosis of 414.00 Active unspecified type of vessel, [place] or graft Problem Depressive disorder, 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 Problem Hypertension, benign 401.1 Active Problem Diabetes Mellitus Type 2, not stated 250.00 Active as uncontrolled Problem Coronary atherosclerosis of 414.00 Active unspecified type of vessel, [place] or graft Problem Depressive disorder, 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 Medications No Known Medications Results No Known Results Summary Purpose [employer] Submission
--- OUTSIDE RECORDS SUMMARY | 2017-07-01 17:37 | External Medical Summary ---
:1955 Author Organization eClinicalWorks Care Team Providers Name Role Phone Buffy Hernandez Provider Role Unavailable Allergies No Known Allergies [...] Medications Results No Known Results Summary Purpose [employer] Submission
--- OUTSIDE RECORDS SUMMARY | 2017-07-01 17:37 | External Medical Summary ---
:1955 Author Organization [employer] Care Team Providers Name Role Phone Keegan Moreira Provider Role Unavailable Allergies No Known Allergies Problems Problem Type Condition ICD-9 Code Onset Dates Condition Status Problem Coronary atherosclerosis of 414.00 Active unspecified type of vessel, [place] or graft Problem Depressive disorder, not 311 Active elsewhere classified Problem Hypertension, benign 401.1 Active Problem Diabetes Mellitus Type 2, not 250.00 Active stated as uncontrolled Problem Coronary atherosclerosis of 414.00 Active unspecified type of vessel, [place] or graft Problem Depressive disorder, not 311 Active elsewhere classified Medications No Known Medications Results No Known Results Summary Purpose [employer] Submission
--- OUTSIDE RECORDS SUMMARY | 2017-07-01 17:37 | External Medical Summary ---
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 Assessment Left knee pain 719.46 Active Problem 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, type II or unspecified type, not stated as uncontrolled Assessment Left hip pain 719.45 Active Problem Blood in stool 578.1 Active Medications Medication Code Code Instructions Start End Date Status Dosage System Date Cipro [facility] 70822-58 500 MG Orally Mar 17, tablet 67-01 Twice a day 2014 Tomallika Tay [facility] 91995-62 300 UNIT/ML 10 units 69-03 Subcutaneous [place] [address]-44 100 UNIT/ML 6 units 99-01 Subcutaneous with meals only Accu-Chek NDC 0 In Vitro January 10, File DME SmartView daily 2013 under Medicaid [place] NDC 77795-38 31G X 8 MM Mar 24, as directed 11/09" 182014 Accu-Chek NDC 0 4 daily January 10, File DME for FastClix 2014 Medicaid Lancets [place] NDC 0 31G X 5 MM January 10, File DME 3/16" daily 2013 under Medicaid Procedures Procedure Coding System Code Date Office Visit, Est Pt., Level 3 CPT-4 40632 Mar 24, 2015 Vital Signs Date/Time: Mar 24, 2015 Blood Pressure Systolic 110 mm Hg Weight 201.8 lbs Height 60.5 in Oximetry 98 % Respiratory Rate 16 /min Cardiac Monitoring Heart Rate 106 /min Blood Pressure Diastolic 68 mm Hg BMI 38.76 Index Results No Known Results Summary Purpose eClinicalWorks Submission
--- OUTSIDE RECORDS SUMMARY | 2017-07-01 17:37 | External Medical Summary ---
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
--- OUTSIDE RECORDS SUMMARY | 2017-07-01 17:37 | External Medical Summary ---
[...] Medications Results No Known Results Summary Purpose [employer] Submission
--- OUTSIDE RECORDS SUMMARY | 2017-07-01 17:37 | External Medical Summary ---
:1955 Author Organization eClinicalWorks Care Team Providers Name Role Phone Keegan Moreira Provider Role Unavailable Allergies No Known Allergies Problems Problem Type Condition Code Onset Dates Condition Status Problem Coronary atherosclerosis of 414.00 Active unspecified type of vessel, [place] or graft Problem Depressive disorder, 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 Problem Hypertension, benign 401.1 Active Problem Diabetes Mellitus Type 2, not stated 250.00 Active as uncontrolled Problem Coronary atherosclerosis of 414.00 Active unspecified type of vessel, [place] or graft Problem Depressive disorder, 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 Medications No Known Medications Results No Known Results Summary Purpose [employer] Submission
--- OUTSIDE RECORDS SUMMARY | 2017-07-01 17:37 | External Medical Summary ---
:1955 Author Organization [employer] Care Team Providers Name Role Phone Yuli Hart Provider Role Unavailable Allergies No Known Allergies Problems Problem Type Condition Code Onset Dates Condition Status Problem Depressive disorder, 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 Problem Diabetes Mellitus Type 2, not stated 250.00 Active as uncontrolled Problem Coronary atherosclerosis of 414.00 Active unspecified type of vessel, [place] or graft Medications No Known Medications Results No Known Results Summary Purpose [facility]ent[employer] Submission
--- OUTSIDE RECORDS SUMMARY | 2017-07-01 17:37 | External Medical Summary ---
:1955 Author Organization eClinicalWorks Care Team Providers Name Role Phone Keegan Moreira Provider Role Unavailable Allergies No Known Allergies Problems Problem Type Condition Code Onset Dates Condition Status Problem Coronary atherosclerosis of 414.00 Active unspecified type of vessel, [place] or graft Problem Depressive disorder, 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 Problem Hypertension, benign 401.1 Active Problem Diabetes Mellitus Type 2, not stated 250.00 Active as uncontrolled Problem Coronary atherosclerosis of 414.00 Active unspecified type of vessel, [place] or graft Problem Depressive disorder, 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 Medications No Known Medications Results No Known Results Summary Purpose [employer] Submission
--- OUTSIDE RECORDS SUMMARY | 2017-07-01 17:37 | External Medical Summary ---
:1955 Author Organization eClinicalWorks Care Team Providers Name Role Phone Keegan Moreira Provider Role Unavailable Allergies No Known Allergies Problems Problem Type Condition Code Onset Dates Condition Status Problem Coronary atherosclerosis of 414.00 Active unspecified type of vessel, [place] or graft Problem Depressive disorder, 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 Problem Hypertension, benign 401.1 Active Problem Diabetes Mellitus Type 2, not stated 250.00 Active as uncontrolled Problem Coronary atherosclerosis of 414.00 Active unspecified type of vessel, [place] or graft Problem Depressive disorder, 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 Medications No Known Medications Results No Known Results Summary Purpose [employer] [employer] Submission
--- OUTSIDE RECORDS SUMMARY | 2017-07-01 17:37 | External Medical Summary ---
[...] of 414.00 Active unspecified type of vessel, [place] or graft Problem Depressive disorder, 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 Problem Hypertension, benign 401.1 Active Problem Diabetes Mellitus Type 2, not stated 250.00 Active as uncontrolled Assessment Chronic hypotension 458.1 Active Problem Coronary atherosclerosis of 414.00 Active unspecified type of vessel, [place] or graft Problem Depressive disorder, 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 Medications Medication Code System Code Instructions Start End Date Status Dosage Date Humalog [facility] 75124-600 100 UNIT/ML September 30 units 02-25 Subcutaneous as 2015 tid with directed meals Procedures Procedure Coding System Code Date URINALYSIS, IN HOUSE CPT-4 35483 October 21, 2014 GLUCOSE FINGERSTICK, IN HOUSE CPT-4 78111 October 21, 2014 IH CMP CPT-4 25403 October 21, 2014 HYDRATION IV INFUSION, INIT CPT-4 81189 October 21, 2014 C-REACTIVE PROTEIN CPT-4 39881 October 21, 2014 HYDRATE IV INFUSION, ADD-ON CPT-4 04300 October 21, 2014 COMPLETE CBC W/AUTO DIFF WBC CPT-4 99939 October 21, 2014 OFFICE VISIT, EST-MOD. COMPLEXITY (25 MIN) CPT-4 49452 October 21, 2014 SED RATE CPT-4 00280 October 21, 2014 URINE CULTURE CPT-4 46848 October 21, 2014 Vital Signs Date/Time: October 21, 2014 Height 61.5 in Weight 179.0 lbs Temperature 98.7 F Blood Pressure Diastolic 60 mm Hg Blood Pressure Systolic 90 mm Hg Cardiac Monitoring Heart Rate 107 /min BMI 33.27 Index Oximetry 99 % Respiratory Rate 20 /min Results No Known Results Summary Purpose eClinicalWorks Submission
--- OUTSIDE RECORDS SUMMARY | 2017-07-01 17:37 | External Medical Summary ---
:1955 Author Organization eClinicalWorks Care Team Providers Name Role Phone Keegan Moreira Provider Role Unavailable Allergies No Known Allergies Problems Problem Type Condition Code Onset Dates Condition Status Problem Coronary atherosclerosis of 414.00 Active unspecified type of vessel, [place] or graft Problem Depressive disorder, 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 Problem Hypertension, benign 401.1 Active Problem Diabetes Mellitus Type 2, not stated 250.00 Active as uncontrolled Problem Coronary atherosclerosis of 414.00 Active unspecified type of vessel, [place] or graft Problem Depressive disorder, 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 Medications No Known Medications Results No Known Results Summary Purpose [employer] Submission
--- OUTSIDE RECORDS SUMMARY | 2017-07-01 17:37 | External Medical Summary ---
:1955 Author Organization eClinicalWorks Care Team Providers Name Role Phone Yuli Hart Provider Role Unavailable Allergies No Known Allergies Problems Problem Type Condition Code Onset Dates Condition Status Problem Coronary atherosclerosis of 414.00 Active unspecified type of vessel, [place] or graft Problem Depressive disorder, 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 Problem Hypertension, benign 401.1 Active Problem Diabetes Mellitus Type 2, not stated 250.00 Active as uncontrolled Problem Coronary atherosclerosis of 414.00 Active unspecified type of vessel, [place] or graft Problem Depressive disorder, 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 Medications No Known Medications Results No Known Results Summary Purpose [employer] Submission
--- OUTSIDE RECORDS SUMMARY | 2017-07-01 17:37 | External Medical Summary ---
[...] Medications Results No Known Results Summary Purpose [employer] Submission
--- OUTSIDE RECORDS SUMMARY | 2017-07-01 17:37 | External Medical Summary ---
:1955 Author Organization eClinicalWorks Care Team Providers Name Role Phone Yuli Hart Provider Role Unavailable Allergies No Known Allergies Problems Problem Type Condition Code Onset Dates Condition Status Problem Coronary atherosclerosis of 414.00 Active unspecified type of vessel, [place] or graft Problem Depressive disorder, 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 Problem Hypertension, benign 401.1 Active Problem Diabetes Mellitus Type 2, not stated 250.00 Active as uncontrolled Problem Coronary atherosclerosis of 414.00 Active unspecified type of vessel, [place] or graft Problem Depressive disorder, 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 Medications No Known Medications Results No Known Results Summary Purpose [employer] Submission
--- OUTSIDE RECORDS SUMMARY | 2017-07-01 17:37 | External Medical Summary ---
:1955 Author Organization eClinicalWorks Care Team Providers Name Role Phone Keegan Moreira Provider Role Unavailable Allergies, Adverse Reactions, Alerts Substance Reaction Event Type Codeine Sulfate hives Drug Allergy Problems Problem Type Condition ICD-9 Code Onset Dates Condition Status Assessment Sinoatrial node dysfunction 427.81 Active Assessment Other disorder of menstruation 626.8 Active and other abnormal bleeding from female genital tract Assessment Acute bronchitis 466.0 Active Problem Coronary atherosclerosis of 414.00 Active unspecified type of vessel, [place] or graft Problem Depressive disorder, not 311 Active elsewhere classified Problem Hypertension, benign 401.1 Active Problem Diabetes Mellitus Type 2, not 250.00 Active stated as uncontrolled Assessment Diabetes Mellitus Type 2, not 250.00 Active stated as uncontrolled Problem Coronary atherosclerosis of 414.00 Active unspecified type of vessel, [place] or graft Problem Depressive disorder, not 311 Active elsewhere classified Medications Medication Code Code Instructions Start End Status Dosage System Date Date OneTouch Ultra [facility] 24123613166 none in vitro December 11, as directed Blue test three times 2014 strips daily Toujeo [facility] [address] 300 u/mL December 10Jul 05, 8 units in SoloStar subcutaneous 2014 2015 the am and daily 8 [place] [address]-35 100 UNIT/ML September 6 units tid KwikPen Subcutaneous as 2014 [place] [address]-81 100 MG Orally January 06Feb 03, 1 capsule Perles Three times a 2014 2014 as needed day for cough/congestio n Ventolin HFA [facility] [address]-52 108 (90 Base) January 06, 1 to 2 MCG/ACT 2014 puffs as Inhalation needed every 6 hrs for cough/wheezing Procedures Procedure Coding System Code Date OFFICE VISIT, EST-MOD. COMPLEXITY (25 MIN) CPT-4 11180 January 06, 2015 Vital Signs Date/Time: January 06, 2015 Height 61.5 in Weight 190.12 lbs Temperature 97.8 F Blood Pressure Diastolic 72 mm Hg Blood Pressure Systolic 120 mm Hg Cardiac Monitoring Heart Rate 96 /min BMI 35.34 Index Oximetry 98 % Respiratory Rate 18 /min Results No Known Results Summary Purpose eClinicalWorks Submission
--- OUTSIDE RECORDS SUMMARY | 2017-07-01 17:37 | External Medical Summary ---
:1955 Author Organization eClinicalWorks Care Team Providers Name Role Phone Keegan Moreira Provider Role Unavailable Allergies, Adverse Reactions, Alerts Substance Reaction Event Type Codeine Sulfate hives Drug Allergy Problems Problem Type Condition Code Onset Dates Condition Status Assessment Depressive disorder, 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 Assessment Hypertension, benign 401.1 Active Assessment Coronary atherosclerosis of 414.00 Active unspecified type of vessel, [place] or graft Assessment Acute cystitis 595.0 Active Problem Coronary atherosclerosis of 414.00 Active unspecified type of vessel, [place] or graft Problem Depressive disorder, 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 Problem Hypertension, benign 401.1 Active Problem Diabetes Mellitus Type 2, not stated 250.00 Active as uncontrolled Assessment Diabetes Mellitus Type 2, not stated 250.00 Active as uncontrolled Problem Coronary atherosclerosis of 414.00 Active unspecified type of vessel, [place] or graft Problem Depressive disorder, 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 Medications Medication Code System Code Instructions Start End Date Status Dosage Date Humalog ChacePen [facility] 62623-172 100 UNIT/ML September 30 units 02-25 Subcutaneous as 2015 tid with directed meals Procedures Procedure Coding System Code Date OFFICE VISIT, EST-MOD. COMPLEXITY (25 MIN) CPT-4 98916 October 07, 2014 Vital Signs Date/Time: October 07, 2014 Height 61.5 in Weight 181.0 lbs Temperature 98.1 F Blood Pressure Diastolic 60 mm Hg Blood Pressure Systolic 120 mm Hg Cardiac Monitoring Heart Rate 96 /min BMI 33.64 Index Respiratory Rate 20 /min Results No Known Results Summary Purpose eClinicalWorks Submission
--- OUTSIDE RECORDS SUMMARY | 2017-07-01 17:37 | External Medical Summary ---
[...] hypotension 458.0 Active Problem Coronary atherosclerosis of 414.00 Active unspecified type of vessel, [place] or graft Problem Depressive disorder, not 311 Active elsewhere classified Problem Hypertension, benign 401.1 Active Problem Diabetes Mellitus Type 2, not 250.00 Active stated as uncontrolled Assessment Diabetes Mellitus Type 2, not 250.00 Active stated as uncontrolled Problem Coronary atherosclerosis of 414.00 Active unspecified type of vessel, [place] or graft Problem Depressive disorder, not 311 Active elsewhere classified Medications Medication Code Code Instructions Start End Status Dosage System Date Date Toujeo [facility] [address] 300 u/mL December 10Feb 12 units SoloStar subcutaneous 2014 15, Once a day at 2014 bedtime OneTouch Ultra [facility] [id number] none in vitro December 11, as directed Blue test three times 2014 strips daily Humalog [facility] [address]-60 100 UNIT/ML September 28 units tid KwikPen Subcutaneous as 2014 with meals directed Procedures Procedure Coding System Code Date COMPLETE CBC W/AUTO DIFF WBC CPT-4 66172 December 16, 2014 COMPREHENSIVE METABOLIC PANEL CPT-4 90363 December 16, 2014 GLUCOSE FINGERSTICK, IN HOUSE CPT-4 05468 December 16, 2014 OFFICE VISIT, EST-MOD. COMPLEXITY (25 MIN) CPT-4 21567 December 16, 2014 Vital Signs Date/Time: December [...]
--- OUTSIDE RECORDS SUMMARY | 2017-07-01 17:37 | External Medical Summary ---
:1955 Author Organization eClinicalWorks Care Team Providers Name Role Phone Keegan Moreira Provider Role Unavailable Allergies No Known Allergies Problems Problem Type Condition Code Onset Dates Condition Status Problem Coronary atherosclerosis of 414.00 Active unspecified type of vessel, [place] or graft Problem Depressive disorder, 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 Problem Hypertension, benign 401.1 Active Problem Diabetes Mellitus Type 2, not stated 250.00 Active as uncontrolled Problem Coronary atherosclerosis of 414.00 Active unspecified type of vessel, [place] or graft Problem Depressive disorder, 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 Medications No Known Medications Results No Known Results Summary Purpose [employer] Submission
--- OUTSIDE RECORDS SUMMARY | 2017-07-01 17:38 | External Medical Summary ---
:1955 Author Organization eClinicalWorks Care Team Providers Name Role Phone Keegan Moreira Provider Role Unavailable Allergies, Adverse Reactions, Alerts Substance Reaction Event Type Codeine Sulfate hives Drug Allergy Problems Problem Type Condition ICD-9 Code Onset Dates Condition Status Assessment Lumbago 724.2 Active Assessment Hyposmolality and/or 276.1 Active hyponatremia Assessment Coronary atherosclerosis of 414.00 Active unspecified type of vessel, [place] or graft Problem Depressive disorder, not 311 Active elsewhere classified Problem Diabetes Mellitus Type 2, not 250.00 Active stated as uncontrolled Problem Coronary atherosclerosis of 414.00 Active unspecified type of vessel, [place] or graft Assessment Diabetes Mellitus Type 2, not 250.00 Active stated as uncontrolled Assessment Chest pain, other 786.59 Active Assessment Acute cystitis 595.0 Active Assessment Other fall E888.8 Active Assessment Sinoatrial node dysfunction 427.81 Active Assessment Chronic hypotension 458.1 Active Assessment Proteinuria 791.0 Active Medications Medication Code Code Instructions Start End Date Status Dosage System Date Metformin HCl NDC 41137-65 500 MG Orally September 30, 1 tablet 48-01 Twice a day 2014 with meals Lantus NDC 08044-24 100 UNIT/ML September 30, 15 units 20-33 Subcutaneous 2014 Once [place] [address]-02 w/Device September 30, as directed Glucose Kit 699 2014 Lyrica NDC 91346-65 75 MG Orally Feb 19, 1 capsule 14-41 Twice a day 2014 Lipitor NDC 54362-93 10 MG Orally September 30, 1 tablet 55-23 Once a day 2015 [place] [address]-99 100 UNIT/ML September 30, 5 units tid KwikPen 99-01 Subcutaneous as 2014 with meals directed Aspirin EC NDC 02419-62 81 MG Orally September 30, Mar 29, 1 tablet 35-76 Once a day 2014 2014 Tylenol NDC 52331-45 325 MG Orally September 30, December 29, 1 to 2 96-60 every 6 hrs 2014 2014 tablets as needed for fever/pain Atenolol [facility] 24735-34 25 MG Orally Feb 19, one-half 87-01 Once a day 2013 tablet Nitrostat [facility] 04075-75 0.4 MG Feb 19 tablet 18-13 Sublingual every 2013 under the 0 hrs tongue and allow to dissolve as needed Cipro [facility] 10711-04 500 MG Orally September 30October 05, 1 tablet 54-01 every 12 hrs 2014 2014 Procedures Procedure Coding System Code Date OFFICE VISIT, EST-MOD. COMPLEXITY (25 MIN) CPT-4 39886 September 30, 2014 RENAL FUNCTION PANEL CPT-4 58934 September 30, 2014 COMPLETE CBC W/AUTO DIFF WBC CPT-4 80429 September 30, 2014 Vital Signs Date/Time: September 30, 2014 Height 61.5 in Weight 174.8 lbs Temperature 97.5 F Blood Pressure Diastolic 68 mm Hg Blood Pressure Systolic 98 mm Hg Cardiac Monitoring Heart Rate 92 /min BMI 32.49 Index Respiratory Rate 16 /min Results No Known Results Summary Purpose eClinicalWorks Submission
--- OUTSIDE RECORDS SUMMARY | 2017-07-01 17:38 | External Medical Summary ---
[...] Medications Results No Known Results Summary Purpose [employer]Clinicalvendome 1699 Submission
--- OUTSIDE RECORDS SUMMARY | 2017-07-01 17:38 | External Medical Summary ---
:1955 Author Organization eClinicalWorks Care Team Providers Name Role Phone Yuli Hart Provider Role Unavailable Allergies No Known Allergies Problems Problem Type Condition Code Onset Dates Condition Status Problem Coronary atherosclerosis of 414.00 Active unspecified type of vessel, [place] or graft Problem Depressive disorder, 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 Problem Hypertension, benign 401.1 Active Problem Diabetes Mellitus Type 2, not stated 250.00 Active as uncontrolled Problem Coronary atherosclerosis of 414.00 Active unspecified type of vessel, [place] or graft Problem Depressive disorder, 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 Medications No Known Medications Results No Known Results Summary Purpose [employer] Submission
--- OUTSIDE RECORDS SUMMARY | 2017-07-01 17:38 | External Medical Summary ---
[...] of 414.00 Active unspecified type of vessel, [place] or graft Problem Depressive disorder, not 311 Active elsewhere classified Problem Hypertension, benign 401.1 Active Problem Diabetes Mellitus Type 2, not 250.00 Active stated as uncontrolled Assessment Diabetes Mellitus Type 2, not 250.00 Active stated as uncontrolled Problem Coronary atherosclerosis of 414.00 Active unspecified type of vessel, [place] or graft Problem Depressive disorder, not 311 Active elsewhere classified Medications Medication Code Code Instructions Start End Status Dosage System Date Date Toujeo [facility] [address] 300 u/mL December 10Feb 12 units SoloStar subcutaneous 2014 15, Once a day at 2014 bedtime OneTouch Ultra [facility] 05732066510 none in vitro December 11, as directed Blue test three times 2014 strips daily Humalog [facility] [address]-74 100 UNIT/ML September 28 units tid KwikPen Subcutaneous as 2014 with meals directed Procedures Procedure Coding System Code Date COMPLETE CBC W/AUTO DIFF WBC CPT-4 08051 December 16, 2014 COMPREHENSIVE METABOLIC PANEL CPT-4 90316 December 16, 2014 GLUCOSE FINGERSTICK, IN HOUSE CPT-4 52948 December 16, 2014 OFFICE VISIT, EST-MOD. COMPLEXITY (25 MIN) CPT-4 18744 December 16, 2014 Vital Signs Date/Time: December 16, 2014 Height 61.5 in Weight 187.8 lbs Temperature 98.0 F Blood Pressure Diastolic 76 mm Hg Blood Pressure Systolic 118 mm Hg Cardiac Monitoring Heart Rate 107 /min BMI 34.91 Index Oximetry 98 % Respiratory Rate 18 /min Results No Known Results Summary Purpose eClinicalWorks Submission
--- OUTSIDE RECORDS SUMMARY | 2017-07-01 17:38 | External Medical Summary | Continuity of Care Document ---
:1955 Author Organization [facility] in [place] Allergies There is no data. Medications There is no data. Problems Date Dx Coded Attending Type Code Diagnosis Diagnosed By 10/05/2013 Jovan GONSALEZN, Final 719.44 JOINT PAIN-HAND Milagros 10/05/2013 Jovan BRASS RECLAIMER, Final 722.52 LUMBAR/LS DISC Milagros DEGEN 10/05/2013 Jovan BRASS RECLAIMER, 724.2 LUMBAGO Milagros Procedures There is no data. Results There is no data. Encounters ACCT No. Visit Discharge Status Pt. Type Provider Facility Loc./Unit Complaint Date/Time [id number] 10/05/2013 10/05/2013 CLS Outpatient Jovan [facility] 08:13:00 23:59:59 SUSAN, [facility]
--- OUTSIDE RECORDS SUMMARY | 2017-07-01 17:38 | External Medical Summary ---
:1955 Author Organization [employer] Care Team Providers Name Role Phone Keegan Moreira Provider Role Unavailable Allergies No Known Allergies Problems Problem Type Condition Code Onset Dates Condition Status Problem Coronary atherosclerosis of 414.00 Active unspecified type of vessel, [place] or graft Problem Depressive disorder, 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 Problem Hypertension, benign 401.1 Active Problem Diabetes Mellitus Type 2, not stated 250.00 Active as uncontrolled Problem Coronary atherosclerosis of 414.00 Active unspecified type of vessel, [place] or graft Problem Depressive disorder, 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 Medications No Known Medications Results No Known Results Summary Purpose [employer] Submission
--- OUTSIDE RECORDS SUMMARY | 2017-07-01 17:38 | External Medical Summary ---
:1955 Author Organization [employer] Care Team Providers Name Role Phone Keegan Moreira Provider Role Unavailable Allergies No Known Allergies Problems Problem Type Condition Code Onset Dates Condition Status Problem Coronary atherosclerosis of 414.00 Active unspecified type of vessel, [place] or graft Problem Depressive disorder, 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 Problem Hypertension, benign 401.1 Active Problem Diabetes Mellitus Type 2, not stated 250.00 Active as uncontrolled Problem Coronary atherosclerosis of 414.00 Active unspecified type of vessel, ho-chunk or graft Problem Depressive disorder, 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 Medications No Known Medications Results No Known Results Summary Purpose [employer] Submission
--- OUTSIDE RECORDS SUMMARY | 2017-07-01 17:38 | External Medical Summary ---
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
--- OUTSIDE RECORDS SUMMARY | 2017-07-01 17:38 | External Medical Summary ---
:1955 Author Organization [employer] Care Team Providers Name Role Phone Keegan Moreira Provider Role Unavailable Allergies No Known Allergies Problems Problem Type Condition ICD-9 Code Onset Dates Condition Status Problem Coronary atherosclerosis of 414.00 Active unspecified type of vessel, [place] or graft Problem Depressive disorder, not 311 Active elsewhere classified Problem Hypertension, benign 401.1 Active Problem Diabetes Mellitus Type 2, not 250.00 Active stated as uncontrolled Problem Coronary atherosclerosis of 414.00 Active unspecified type of vessel, [place] or graft Problem Depressive disorder, not 311 Active elsewhere classified Medications No Known Medications Results No Known Results Summary Purpose [employer] Submission
--- OUTSIDE RECORDS SUMMARY | 2017-07-01 17:38 | External Medical Summary ---
:1955 Author Organization [employer] Care Team Providers Name Role Phone Keegan Moreira Provider Role Unavailable Allergies No Known Allergies Problems Problem Type Condition ICD-9 Code Onset Dates Condition Status Problem Coronary atherosclerosis of 414.00 Active unspecified type of vessel, [place] or graft Problem Depressive disorder, not 311 Active elsewhere classified Problem Hypertension, benign 401.1 Active Problem Diabetes Mellitus Type 2, not 250.00 Active stated as uncontrolled Problem Coronary atherosclerosis of 414.00 Active unspecified type of vessel, [place] or graft Problem Depressive disorder, not 311 Active elsewhere classified Medications No Known Medications Results No Known Results Summary Purpose [employer] Submission
--- OUTSIDE RECORDS SUMMARY | 2017-07-01 17:38 | External Medical Summary ---
:1955 Author Organization [employer] Care Team Providers Name Role Phone Yuli Hart Provider Role Unavailable Allergies No Known Allergies Problems Problem Type Condition Code Onset Dates Condition Status Problem Depressive disorder, 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 Problem Diabetes Mellitus Type 2, not stated 250.00 Active as uncontrolled Problem Coronary atherosclerosis of 414.00 Active unspecified type of vessel, [place] or graft Medications No Known Medications Results No Known Results Summary Purpose [employer] Submission
[2017-07-01] MEDS ORDERED: FUROSEMIDE 40 MG/4 ML INJECTION IVP ONE (18:27)
[2017-07-01] MEDS ORDERED: CEFEPIME 1 GM in NS 100 ML IV ONE (18:37)
[2017-07-01] MEDS ORDERED: NITROGLYCERIN 2% OINTMENT 1gm PACKET TP ONE (19:43)
[2017-07-01] MEDS ORDERED: ALBUTEROL/IPRATROPIUM 2.5mg-0.5mg/3ml NEB AEROSOL PRN (19:43)
[2017-07-01] MEDS ORDERED: MORPHINE SULFATE 2mg INJECTION IVP PRN (19:43)
[2017-07-01 19:59] VITALS: BMI 33.0
[2017-07-01] MEDS ORDERED: DEXTROSE 50% SYRINGE 50ml (1 AMP) IVP PRN (22:18)
[2017-07-01] MEDS ORDERED: INSULIN ASPART 100unit/ml INJECTION SQ PRN (22:18)
[2017-07-01] MEDS ORDERED: GLUCOSE ORAL GEL 40% 37.5gm PO PRN (22:18)
--- NOTE | 2017-07-02 04:16 | History & Physical Report ---
History of Present Illness Date: 07/02/17 Chief complaint: chest pain HPI: This is a 61 y/o female who describes episode of chest pain over bill past 12 hours. The patient states that on Tuesday she had onset of nausea/vomiting/ diarrhea. She has an occasional cough that she states when she coughs she throws up food. Not kept anything down for the pas 3 days. The patient denies fever, chills or sweats, The patient presents to the ED tonight primarily due to unprovoked chest pain. In the ED the patient's cardiac workup was negative for acute ischemia or unstable angina. The patient reports intermittent substernal chest pain that radiates to her left than her right shoulder, At this time the patient is to be evaluated for ongoing chest discomfort. Note when the ekg is reviewed in detail it has the apearance of a non specific intraventricular conduction delay. not yet a LBBB. previously she had a RBBB. Review of Systems Review of systems: no headache, no change in vision, no fever, but chills and sweats, no sore throat, no neck or jaw pain, left shoulder pain as noted above, no heart palpitaions, no pnd, no orthopnea, has no cough, is mild dyspnea with exertion. patient with nausea, vomiting as noted above, no diarrhea, no focal neuro complaitns. no edema to legs, increased fatigue with exertion, 12 point ROS otherwise neg except for outlined above. Past Medical History Patient Stated Medical History Migraine Yes Cataracts Yes Other HEENT Yes: WEARS GLASSES Congestive Heart Failure Yes: "they're talking possible CHF" Diabetes Mellitus Type 2 Yes Other GI Yes: CONSTPATION & DIARRHEA Hx Incontinence Yes Hx Urinary Tract Infection Yes: WITH PYELONEPHRITIS Other Musculoskeletal Yes: OSTEOPOROSIS Medical History Updates: Diabetic peripheral neuropathy. Diabetic macular degeneration Surgical History: Pacemaker, BTL Family History Updates: unkown at this time - Social History Smoking status: Never smoker Medications Home Medications Medication Instructions Recorded Confirmed Type No known Home medications [No home 07/01/17 07/01/17 History meds] Allergies Allergy/AdvReac Type Severity Reaction Status Date / Time iodine Allergy Mild HIVES Verified 07/01/17 18:03 codeine AdvReac Unknown Verified 07/01/17 18:03 Exam Vital Signs: Temperature 97.5 F 07/01/17 23:04 Pulse Rate 88 07/01/17 23:26 Respiratory Rate 16 07/01/17 23:26 Blood Pressure 166/80 H 07/01/17 23:04 Pulse Oximetry 94 07/01/17 23:26 Telemetry Rhythm: Sinus Rhythm Height/Weight/BMI: Height 1.57 m Weight 81.8 kg Body Mass Index 33.0 - Constitutional Present: mild distress, well nourished, well developed, cooperative - Routine HEENT Exam Head: Present: normocephalic, atraumatic Eye: Present: PERRL ENT: Present: mucous membranes moist - Routine Neck Exam Present: supple, full ROM - Routine Respiratory Exam Comments: lungs are diminished on exam with only an occaional rhonchi. - Routine Cardiovascular Exam Present: RRR, no murmur, S3 - Routine Abdominal Exam Present: soft, normoactive bowel sounds, non distended. Absent: distended - Routine Extremities Exam Present: no edema, non tender, full ROM - Routine Back/Spine/Pelvis Exam Back/Spine: Present: full ROM - Routine Skin Exam Present: intact - Routine Neurological Exam Present: alert, oriented X3, CN II-XII intact, normal reflexes, moving all extremities. Absent: motor deficit, altered mental status - Routine Psychiatric Exam Present: normal affect, normal thought process Results - Labs CBC & Chem 7: 07/02/17 02:25 07/02/17 02:25 - ECG Data Tracing #1 paced ventricular - Imaging and Cardiology Chest x-ray Additional comments: abnormal cxr with bilateral pleural effusion. I do not think infiltrate in right lung Assessment and Plan (1) CHF (congestive heart failure) Current visit: Yes Status: Acute (2) Hypertension Current visit: Yes Status: Acute (3) DM type 2 (diabetes mellitus, type 2) Current visit: Yes Status: Acute (4) Acute kidney injury Current visit: Yes Status: Acute (5) Normocytic anemia Current visit: Yes Status: Acute Assessment and Plan: 1. acute heart failure POA: CXR with effusion. rule out on tele, echo in am. start jin, diureses and reassess in the am 2. dm 2 chronic POA; correctional plan 3. hx PPM: to be aware of EKG shows paced rhythm 4. acute kidney injury POA: concerning for increased cr. patient will onlyworsen with diuresis, monitor 5. hyokalemia aucte POA: will worsen with diuresis, replace 6. normocytic anemia. repeat in am, needs workup 7. dvt ppx: SCD 8. gastric ppx: PPI DVT Prophylaxis: SCD's Resuscitation Status: Full Code - Time spent with patient Time with patient PN: 30 minutes (anali) - Physician Narrative Physician: Forest Pickard MD Narrative: Date: 07/02/17 Time: 0412 Hospital Course Summary Disclaimer: The visit summary below is not to be considered part of the above Progress Note.
[2017-07-02] MEDS ORDERED: GLUCOSE ORAL GEL 40% 37.5gm PO PRN (04:27)
[2017-07-02] MEDS: ASPIRIN *EC* 81 MG TABLET PO SCH (08:11)
[2017-07-02] MEDS: AMLODIPINE 10 MG TABLET PO SCH (08:12)
[2017-07-02] MEDS: FUROSEMIDE 20 MG/2 ML INJECTION IVP SCH ×2 (08:12→17:40)
[2017-07-02] MEDS: LISINOPRIL 2.5 MG TABLET PO SCH ×2 (08:21→09:46)
[2017-07-02] MEDS: INSULIN ASPART 100unit/ml INJECTION SQ PRN ×3 (11:57→19:56)
--- NOTE | 2017-07-02 16:22 | Progress Note ---
- Date 07/02/17 Subjective: 61 y/o female who describes episode of chest pain over the past 12 hours. The patient states that on Tuesday she had onset of nausea/vomiting/diarrhea. She has an occasional cough that she states when she coughs she throws up food. Not kept anything down for the past 3 days. The patient denies fever, chills or sweats, The patient presents to the ED tonight primarily due to unprovoked chest pain. In the ED the patient's cardiac workup was negative for acute ischemia or unstable angina. The patient reports intermittent substernal chest pain that radiates to her left than her right shoulder, At this time the patient is to be evaluated for ongoing chest discomfort. Note when the ekg is reviewed in detail it shows ventricular pacing. She has a h/o of a RBBB. This morning, the patient was on the commode when seen by me. She denies any chest discomfort. She currently denies nausea or vomiting. She states she did keep her breakfast down. She does have mild shortness of breath. She does have a cough without sputum production. Her chest x-ray did show a large right pleural effusion. Her BNP was quite elevated 11,700. She does complain of mild back pain while sitting on the commode. Her previous echo in 2014 should EF 73% . She had a previous myocardial perfusion study in 2013 which was negative. This was done for the complaint of chest pain and tightness as well. Objective Vital signs: Temperature 97.7 F 07/02/17 15:49 Pulse Rate 88 07/02/17 15:49 Respiratory Rate 16 07/02/17 15:49 Blood Pressure 120/67 07/02/17 15:49 Pulse Oximetry 92 07/02/17 15:49 Height/Weight/BMI: Height 1.57 m Weight 78.7 kg Body Mass Index 33.0 Comments: Gen: alert and oriented. NAD Skin: warm and dry HEENT: NC/AT PERRL, EOMI, Sclera, lids and conjunctiva wnl. MMM. OP clear. Neck: No JVD, Carotids 2+ without bruits Lungs: Crackles at the bases, R>L. No wheezes CV: regular. No murmur, rub or gallop Abd: soft. +BS. NT/ND MS: No edema. Good strength and ROM Neuro: No focal deficits Results - Labs CBC & Chem 7: 07/02/17 02:25 07/02/17 02:25 Assessment and Plan (1) CHF (congestive heart failure) Current visit: Yes Status: Acute (2) Hypertension Current visit: Yes Status: Acute (3) DM type 2 (diabetes mellitus, type 2) Current visit: Yes Status: Acute (4) Acute kidney injury Current visit: Yes Status: Acute (5) Normocytic anemia Current visit: Yes Status: Acute Assessment and Plan: 1. Chest pain -Normal troponin -EKG shows V pacing -Chest pain resolved 2. Right pleural effusion -Will need repeat Echo tuesday -Diurese 3. DM T2 4. SSS S/P PPM 5. ARF -This appears to be on CKD as her creatinine has been elevated since 08/2016 ( not prior) -will hold JERAD I for now 6. Hypokalemia -Replace and follow 7. Hypomag -Replace and recheck 8. Normocytic anemia -Follow 9. HTN -On Norvasc 10mg daily -LIsinopril 2.5 mg-holding for renal insuff -Start Lopressor 25mg BID 10. Prophylaxis -PPI, SCDs - Physician Narrative Narrative: Date: 07/02/17 Time: 1618 Hospital Course Summary Disclaimer: The visit summary below is not to be considered part of the above Progress Note.
[2017-07-02] MEDS ORDERED: NS FLUSH BAG 500ml IV PRN (17:25)
[2017-07-02] MEDS: SALINE FLUSH 10ml SYRINGE IV PRN (17:40)
[2017-07-02] MEDS: MAGNESIUM SULFATE 1gm PREMIX 1 GM/100 ML BAG IV SCH ×2 (17:41→20:01)
[2017-07-03] MEDS: INSULIN ASPART 100unit/ml INJECTION SQ PRN ×4 (06:25→21:53)
[2017-07-03] MEDS: AMLODIPINE 10 MG TABLET PO SCH (08:23)
[2017-07-03] MEDS: FUROSEMIDE 20 MG/2 ML INJECTION IVP SCH ×2 (08:24→17:07)
[2017-07-03] MEDS: ASPIRIN *EC* 81 MG TABLET PO SCH (08:24)
--- NOTE | 2017-07-03 09:49 | XRay Report ---
Indication: CP PROCEDURE: XR chest 1V: Encounter: Initial Comparison: November 25, 2015 Findings: Lungs are hypoinflated with small bilateral pleural effusions. Left pacemaker. No pneumothorax. Heart size and mediastinal contours are normal. Pulmonary vascularity is prominent. Impression: Moderate pulmonary edema, possibly due to CHF with pleural effusions. Underlying pneumonia or aspiration cannot be excluded in the lung bases. .
--- NOTE | 2017-07-03 10:14 | XRay Report ---
INDICATION: CHF PROCEDURE: CHEST 2-VIEWS UPRIGHT (PA & LAT) Encounter: Initial COMPARISON: July 01, 2017 FINDINGS: Lungs are hypoinflated. Small bilateral pleural effusions are again seen without significant change. Lower lobe airspace opacities are stable. No pneumothorax. Heart size and mediastinal contours are grossly unchanged. Heart borders are obscured by the opacities and effusions. Impression: Overall stable appearance of the chest. .
--- NOTE | 2017-07-03 14:45 | Progress Note ---
- Date 07/03/17 Subjective: 61 y/o female who describes episode of chest pain over the past 12 hours. The patient states that on Tuesday she had onset of nausea/vomiting/diarrhea. She has an occasional cough that she states when she coughs she throws up food. Not kept anything down for the past 3 days. The patient denies fever, chills or sweats, The patient presents to the ED tonight primarily due to unprovoked chest pain. In the ED the patient's cardiac workup was negative for acute ischemia or unstable angina. The patient reports intermittent substernal chest pain that radiates to her left than her right shoulder, At this time the patient is to be evaluated for ongoing chest discomfort. Note when the ekg is reviewed in detail it shows ventricular pacing. She has a h/o of a RBBB. This morning, she is in bed. She is extremely depressed. She's rather teary. It took quite a bit of encouragement to get her to talk to me. She does complain of chest pain however it is extremely tender to touch in the whole anterior chest region. She complains of back pain and just generalized aching otherwise. She denies feeling short of breath. She denies nausea or vomiting. She has kept everything she's eaten here down thus far. She does have an occasional cough. She denies sputum production. She has been up to the bathroom without issues. Objective Vital signs: Temperature 97.7 F 07/03/17 11:35 Pulse Rate 103 H 07/03/17 14:00 Respiratory Rate 16 07/03/17 14:00 Blood Pressure 155/82 H 07/03/17 14:00 Pulse Oximetry 93 07/03/17 14:00 Height/Weight/BMI: Height 1.57 m Weight 78.3 kg Body Mass Index 33.0 Comments: Gen: alert and oriented. NAD Skin: warm and dry HEENT: NC/AT PERRL, EOMI, Sclera, lids and conjunctiva wnl. MMM. OP clear. Neck: No JVD, Carotids 2+ without bruits Lungs: few crackles at the bases, No wheezes CV: regular. No murmur, rub or gallop Abd: soft. +BS. NT/ND MS: No edema. Good strength and ROM. Chest wall Very TTP Neuro: No focal deficits Results - Labs CBC & Chem 7: 07/03/17 04:30 07/03/17 04:30 Assessment and Plan (1) CHF (congestive heart failure) Current visit: Yes Status: Acute (2) Hypertension Current visit: Yes Status: Acute (3) DM type 2 (diabetes mellitus, type 2) Current visit: Yes Status: Acute (4) Acute kidney injury Current visit: Yes Status: Acute (5) Normocytic anemia Current visit: Yes Status: Acute Assessment and Plan: 1. Chest pain -Normal troponin -EKG shows V pacing -Chest pain today is clearly worse with palpation of the chest wall. -She is allergic to codeine however, she doesn't recall the reaction. Will try short acting morphine 2. Right pleural effusion -Will need repeat Echo tuesday -Diurese, lasix 20mg IV BID -Right lat decubitus film on Tuesday, may need pulm consult for tap 3. DM T2 -A1C 8.6 -On SSI 4. SSS S/P PPM 5. ARF -This appears to be on CKD as her creatinine has been elevated since 08/2016 ( not prior) -will hold JERAD I for now 6. Hypokalemia -Replaced 7. Hypomag -Replaced and now 2.1 8. Normocytic anemia -Follow -Stable -Check iron studies and stool for OB 9. HTN -On Norvasc 10mg daily -LIsinopril 2.5 mg-holding for renal insuff -Start Lopressor 25mg BID 10. Prophylaxis -PPI, SCDs - Physician Narrative Narrative: Date: 07/03/17 Time: 1441 Hospital Course Summary Disclaimer: The visit summary below is not to be considered part of the above Progress Note.
[2017-07-03] MEDS ORDERED: ONDANSETRON 4 MG/2 ML INJECTION IVP PRN (16:18)
[2017-07-03] MEDS ORDERED: SENNA + DOCUSATE TABLET PO PRN (16:18)
[2017-07-03] MEDS: ACETAMINOPHEN 325 MG TABLET PO PRN (17:08)
[2017-07-03] MEDS: ALBUTEROL/IPRATROPIUM 2.5mg-0.5mg/3ml NEB AEROSOL SCH (19:46)
[2017-07-04] MEDS: ACETAMINOPHEN 325 MG TABLET PO PRN ×3 (02:22→19:52)
[2017-07-04] MEDS: INSULIN ASPART 100unit/ml INJECTION SQ PRN ×4 (07:30→20:06)
[2017-07-04] MEDS: ALBUTEROL/IPRATROPIUM 2.5mg-0.5mg/3ml NEB AEROSOL SCH ×3 (07:50→19:36)
--- NOTE | 2017-07-04 09:34 | XRay Report ---
Indication: Large right pleural effusion XR chest 2V: Comparison: 07/03/2017 Technique: AP and lateral decubitus view Findings: Patient did show some fluid layering to the dependent portion of the right chest. Atelectasis and/or infiltrate is also suspected in the right lower chest. Minimal fluid suspected on the left side. Patient shows stable heart size with a permanent pacemaker. Impression: Some fluid layers in the dependent portion on the lateral decubitus view on the right with just minimal changes on the left. Some superimposed infiltrate and/or atelectasis suggested in the right lower chest. Ultrasound imaging can sometimes be helpful to philip a site for thoracentesis if this is clinically indicated. .
[2017-07-04] MEDS: FUROSEMIDE 20 MG/2 ML INJECTION IVP SCH ×2 (09:43→17:40)
[2017-07-04] MEDS: AMLODIPINE 10 MG TABLET PO SCH (09:46)
[2017-07-04] MEDS: ASPIRIN *EC* 81 MG TABLET PO SCH (09:47)
[2017-07-04] MEDS ORDERED: BISACODYL 10 MG SUPPOSITORY RECTALLY PRN (15:53)
[2017-07-04] MEDS ORDERED: TRAMADOL 50 MG TABLET PO PRN (15:53)
--- NOTE | 2017-07-04 15:54 | Progress Note ---
- Date 07/04/17 Subjective: Chantelle still isn't feeling well - still with b/l chest pain that is worse with each cough. She also is feeling nauseated - she vomited "half of my lunch" today. She is constipated (last BM was Tue) and notes a hx of alternating diarrhea/constipation. 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 She did not tolerate morphine well (states she had a fall after taking it). Objective Vital signs: Temperature 98.0 F 07/04/17 11:49 Pulse Rate 78 07/04/17 11:49 Respiratory Rate 18 07/04/17 13:57 Blood Pressure 149/78 H 07/04/17 11:49 Pulse Oximetry 79 L 07/04/17 13:57 Height/Weight/BMI: Height 1.57 m Weight 81.5 kg Body Mass Index 33.0 - Constitutional Present: no acute distress, well nourished, well developed, obese - Routine HEENT Exam Head: Present: normocephalic Eye: Absent: conjunctival icterus, scleral injection ENT: Present: oropharynx clear. Absent: dentition normal (some decay noted) - Routine Respiratory Exam Present: diminished air movement (RLL) - Routine Cardiovascular Exam Present: RRR, S1, S2 - Routine Abdominal Exam Present: soft, normoactive bowel sounds, non tender - Routine Extremities Exam Present: edema, pulses intact - Routine Musculoskeletal Exam Musculoskeletal: Present: moving extremities well - Routine Skin Exam Present: intact, dry, warm - Routine Neurological Exam Present: alert, oriented X3, normal speech - Routine Psychiatric Exam Present: normal affect, normal thought process, cooperative Results - Labs CBC & Chem 7: 07/04/17 04:17 07/04/17 04:17 Assessment and Plan (1) CHF (congestive heart failure) Current visit: Yes Status: Acute (2) Acute kidney injury Current visit: Yes Status: Acute Assessment and Plan: Assessment Chest pain. Right pleural effusion. Type 2 diabetes. Acute kidney injury. Hypokalemia, resolved. Hypomagnesemia, resolved. Normocytic anemia. Hypertension. Constipation. Acute debility. Plan Pleuritic chest pain -Tylenol helps, but effects quickly wane -try low-dose Tramadol Right pleural effusion -Echo repeated - pending -Diurese, lasix 20mg IV BID -CXR - fluid layers on lateral decubitus view; superimposed infiltrate in RLL -will discuss further with attending SKY -Underlying CKD as her creatinine has been elevated since 08/2016 (not prior) -continue to hold JERAD I for now HTN -On Norvasc 10mg daily -LIsinopril 2.5 mg - holding for renal insuff -Started Lopressor 25mg BID during hospitalization Constipation -Dulcolax suppository -start daily MiraLAX Acute debility -needing assist of 2 -consult PT/OT DVT Prophylaxis: SCD's Resuscitation Status: Do Not Resuscitate - Physician Narrative Physician: Liz Back MD Narrative: Date: 07/04/17 Time: 2214 I have independently evaluated and examined this patient. I reviewed the chart, the patient's history, and the [employer]PA's documented findings as above. We discussed and formulated the assessment and plan as above with additions as below: Chantelle was seen late this afternoon at which time she described ongoing cough occurring paroxysmally and occasionally causing posttussive emesis. She has exertional dyspnea and some pleuritic chest pain with coughing and deep inspiration. She is not aware of fever and is not aware of any specific sick contacts but notes that she lives in "the [facility] NAD, talkative Respirations nonlabored him a faint expiratory wheezes/crackles at the bases, inspiration triggers cough Trace/+1 edema at the ankles bilaterally Regular cardiac rhythm, S1-S2 Telemetry reviewed-sinus rhythm Chest x-ray with decubitus obtained this morning also reviewed demonstrating some layering effusion on the right, possible underlying infiltrate although this is less clear to me. Some atelectasis, and increased vascular markings. Poor response to Lasix 20 mg twice daily-dose increased to 40 mg twice daily; given degree of renal insufficiency may require Bumex. Respiratory viral panel obtained-all negative. Symptoms are vague and viral etiologies suspected however data suggests heart failure. Check CRP-? Inflammatory pleural effusion. Will ask Dr. Ho to assist in management. CODE STATUS reviewed with the patient and she clearly indicates that she does not wish to have CPR or defibrillation performed if her heart stops nor would she want to be on a ventilator if respiratory status deteriorates. She reports family is aware of her wishes. DNR written. Case management working on assistance with medications as patient reports inability to obtain medications due to limited income. A1c 8.6, persistent hyperglycemia. Renal failure precludes metformin, initiate NPH twice a day-10 AM, 5 PM; diabetes education. Hospital Course Summary Disclaimer: The visit summary below is not to be considered part of the above Progress Note. Hospital Course: Yulia was admitted on 07/02/17 for acute congestive heart failure. Her chest x- ray showed a right-sided effusion. She was diuresed, starting her on Lasix 20 mg IV twice a day. JERAD inhibitor was ordered initially, but later discontinued because of lack of improvement in creatinine. Her creatinine level was elevated at 1.8 on admission, and then remained stable at 1.8-1.9 through 07/04/17. Her potassium level was low normal at 3.8, and the following day decreased to 3.0. After oral replacement, her potassium improved to 4.0 by 07/03/17. She complained of chest pain, but troponin was negative, EKG revealed ventricular pacing.
[2017-07-04] MEDS: HYDROCODONE/CHLORPHENIRAMINE ER ORAL LIQ 5ml PO SCH (19:50)
[2017-07-04] MEDS: SALINE FLUSH 10ml SYRINGE IV PRN (19:54)
[2017-07-05] MEDS: HYDROCODONE/CHLORPHENIRAMINE ER ORAL LIQ 5ml PO SCH ×3 (01:52→22:49)
[2017-07-05] MEDS: INSULIN ASPART 100unit/ml INJECTION SQ PRN ×3 (06:13→21:56)
[2017-07-05] MEDS ORDERED: FUROSEMIDE 20 MG/2 ML INJECTION IVP SCH (07:00)
[2017-07-05] MEDS ORDERED: FUROSEMIDE 40 MG/4 ML INJECTION IVP SCH (09:00)
[2017-07-05] MEDS: INSULIN NPH HUMAN 100 UNIT/ML SQ SCH ×3 (09:11→17:53)
[2017-07-05] MEDS: AMLODIPINE 10 MG TABLET PO SCH (09:11)
[2017-07-05] MEDS: ACETAMINOPHEN 325 MG TABLET PO PRN ×2 (09:12→22:01)
[2017-07-05] MEDS: ASPIRIN *EC* 81 MG TABLET PO SCH (09:13)
[2017-07-05] MEDS: POLYETHYL GLYCOL 3350 17gm PACKET PO SCH (09:14)
[2017-07-05] MEDS: ALBUTEROL/IPRATROPIUM 2.5mg-0.5mg/3ml NEB AEROSOL SCH ×3 (10:09→19:46)
--- NOTE | 2017-07-05 11:23 | Cardiology Consult Note ---
<Charline Kelsey - Last Filed: 07/06/17 07:38> History of Present Illness Consult date: 07/05/17 Requesting physician: Liz Back Consult reason: congestive heart failure Chief complaint: chest pain History of present illness: Chantelle is a 61 year old female who reportedly presented to the ED primarily due to unprovoked chest pain. In the ED, her cardiac workup was negative for acute ischemia or unstable angina. She reported intermittent substernal chest pain that radiates to her left than her right shoulder. Chest x-ray showed Moderate pulmonary edema, possibly due to CHF with pleural effusions. Underlying pneumonia or aspiration could not be excluded in the lung bases. Dr. Ho is consulted for evaluation of heart failure and we appreciate the consult. Last Echo done on 09/16/14 showed an EF of 73%, trace MR, mild tricuspid regurgitation, PAP 34. Patient has Biotronik PPM. She is seen in her room on Medical. She is flat in her bed, resting in no distress. She has chest pain bilateral with cough only, she denies complaints of dyspnea. Review of Systems - Constitutional Constitutional: Present: chills, fatigue. Absent: fever(s) - EENMT Eyes: Absent: change in vision Balance: Absent: vertigo Mouth/Throat: Absent: sore throat - Cardiovascular Cardiovascular: Present: chest pain, dyspnea on exertion. Absent: palpitations , syncope, orthopnea - Respiratory Respiratory: Present: cough - Gastrointestinal Gastrointestinal: Present: nausea, vomiting. Absent: constipation, diarrhea - Genitourinary Genitourinary: Absent: dysuria - Integumentary/Breasts Integumentary: Absent: rash - Neurological Neurological: Absent: dizziness - Endocrine Endocrine: Absent: palpitations PFSH Patient Stated Medical History Migraine Yes Cataracts Yes Other HEENT Yes: WEARS GLASSES Congestive Heart Failure Yes: "they're talking possible CHF" Diabetes Mellitus Type 2 Yes Other GI Yes: CONSTPATION & DIARRHEA Hx Incontinence Yes Hx Urinary Tract Infection Yes: WITH PYELONEPHRITIS Other Musculoskeletal Yes: OSTEOPOROSIS Medical History Updates: Diabetic peripheral neuropathy. Diabetic macular degeneration Surgical History: Biotronik Pacemaker, BTL Family History: CAD, myocardial infarction, unknown type of cancer as well as alcohol abuse in her family. - Social History Smoking status: Never smoker Substance use type: does not use Alcohol intake frequency: does not drink Household members: none Current occupational status: retired Current residence: Apartment/Private Home Medications Home Medications Medication Instructions Recorded Confirmed Type No known Home medications [No home 07/01/17 07/01/17 History meds] Allergies Allergy/AdvReac Type Severity Reaction Status Date / Time iodine Allergy Mild HIVES Verified 07/01/17 18:03 codeine AdvReac Unknown Verified 07/01/17 18:03 Exam Vital signs: Temperature 97.8 F 07/05/17 07:45 Pulse Rate 81 07/05/17 08:00 Respiratory Rate 20 07/05/17 10:09 Blood Pressure 133/67 07/05/17 07:45 Pulse Oximetry 93 07/05/17 10:09 - Constitutional no acute distress, well nourished, cooperative - Routine HEENT Exam Head: Present: normocephalic ENT: Present: mucous membranes moist - Routine Neck Exam Absent: JVD, carotid bruit - Routine Chest/Breast/Axilla Exam Chest wall: Absent: tenderness - Routine Respiratory Exam Present: rales (right basilar), diminished air movement. Absent: CTA bilaterally - Routine Cardiovascular Exam Present: RRR, murmur (II/) - Routine Abdominal Exam Present: soft, normoactive bowel sounds - Routine Extremities Exam Present: edema (trace) - Routine Skin Exam Present: intact, dry, warm - Routine Neurological Exam Present: alert, oriented X3 - Routine Psychiatric Exam Present: normal affect, normal thought process Results 07/06/17 04:33 07/06/17 04:33 Cardiac Enzymes 07/05/17 Range/Units 05:47 B-Natriuretic Peptide 6160 H (0-175) pg/mL Coagulation 07/05/17 Range/Units 05:47 B-Natriuretic Peptide 6160 H (0-175) pg/mL Comprehensive Metabolic Panel 07/05/17 Range/Units 05:47 Sodium 138 (134-144) MEQ/L Potassium 5.6 H D (3.6-5) MEQ/L Chloride 107 (98-107) MEQ/L Carbon Dioxide 25 (22-30) MEQ/L BUN 35.0 H (7-17) MG/DL Creatinine 1.7 H D (0.7-1.2) MG/DL Glucose 159 H (65-110) MG/DL Calcium 8.4 (8.4-10.2) MG/DL Albumin 3.0 L (3.5-5.0) G/DL Intake and Output 07/04/17 07/05/17 07/05/17 22:59 06:59 14:59 Intake Total 740 / 740 100 / 100 190 / 190 Output Total 450 / 450 300 / 300 300 / 300 Balance 290 / 290 -200 / -200 -110 / -110 Intake: Oral 740 / 740 100 / 100 190 / 190 Output: Urine 450 / 450 300 / 300 300 / 300 Other: Urine Appearance Clear Clear Urine Color Dark Yellow Dark Ave Urine Odor Normal Stool Color Brown Brown Brown Stool Consistency Soft Formed Size of Bowel Movement Small Small Moderate # Voids 1 # Bowel Movements 1 1 Weight 179 lb 10.828 oz Patient Weight 07/06/17 06:59 Weight 179 lb 10.828 oz Laboratory Results - last 24 hr 07/04/17 07/04/17 07/04/17 11:47 15:01 19:48 Turbidity Sodium Potassium Chloride Carbon Dioxide Anion Gap BUN Creatinine GFR Calculation BUN/Creatinine Ratio Glucose Glucometer 280 251 272 Calculated Osmolality Calcium Phosphorus Magnesium Icterus Index C-Reactive Protein B-Natriuretic Peptide Albumin Specimen Hemolysis Adenovirus (PCR) B.parapertussis DNA PCR C. pneumoniae DNA (PCR) Coronavirus OC43 (PCR) Coronavirus HKU1 (PCR) Coronavirus 229E (PCR) Coronavirus NL63 (PCR) Human Metapneumovir PCR Influenza Type A (PCR) Influenza Type B (PCR) M. pneumoniae (PCR) Parainfluenza 1 (PCR) Parainfluenza 2 (PCR) Parainfluenza 3 (PCR) Parainfluenza 4 (PCR) RSV (PCR) Entero/Rhino (PCR) 07/04/17 07/05/17 07/05/17 19:55 05:47 06:10 Turbidity < 20 Sodium 138 Potassium 5.6 H D Chloride 107 Carbon Dioxide 25 Anion Gap 6 BUN 35.0 H Creatinine 1.7 H D GFR Calculation 30 BUN/Creatinine Ratio 21 Glucose 159 H Glucometer 182 Calculated Osmolality 277 Calcium 8.4 Phosphorus 4.9 H Magnesium 2.0 Icterus Index < 2 C-Reactive Protein 7.3 B-Natriuretic Peptide 6160 H Albumin 3.0 L Specimen Hemolysis 106 H Adenovirus (PCR) Negative B.parapertussis DNA PCR Negative C. pneumoniae DNA (PCR) Negative Coronavirus OC43 (PCR) Negative Coronavirus HKU1 (PCR) Negative Coronavirus 229E (PCR) Negative Coronavirus NL63 (PCR) Negative Human Metapneumovir PCR Negative Influenza Type A (PCR) Negative Influenza Type B (PCR) Negative M. pneumoniae (PCR) Negative Parainfluenza 1 (PCR) Negative Parainfluenza 2 (PCR) Negative Parainfluenza 3 (PCR) Negative Parainfluenza 4 (PCR) Negative RSV (PCR) Negative Entero/Rhino (PCR) Negative 07/05/17 10:43 Turbidity Sodium Potassium Chloride Carbon Dioxide Anion Gap BUN Creatinine GFR Calculation BUN/Creatinine Ratio Glucose Glucometer 221 Calculated Osmolality Calcium Phosphorus Magnesium Icterus Index C-Reactive Protein B-Natriuretic Peptide Albumin Specimen Hemolysis Adenovirus (PCR) B.parapertussis DNA PCR C. pneumoniae DNA (PCR) Coronavirus OC43 (PCR) Coronavirus HKU1 (PCR) Coronavirus 229E (PCR) Coronavirus NL63 (PCR) Human Metapneumovir PCR Influenza Type A (PCR) Influenza Type B (PCR) M. pneumoniae (PCR) Parainfluenza 1 (PCR) Parainfluenza 2 (PCR) Parainfluenza 3 (PCR) Parainfluenza 4 (PCR) RSV (PCR) Entero/Rhino (PCR) - Imaging and Cardiology Echo: pending Imaging & Cardiology Narrative: Date of Exam: 07/04/17 Ordering Provider: Eve Corrales MD Type of Exam(s): XR chest 2V Reason for Exam(s): Large right pleural effusion Indication: Large right pleural effusion XR chest 2V: Comparison: 07/03/2017 Technique: AP and lateral decubitus view Findings: Patient did show some fluid layering to the dependent portion of the right chest. Atelectasis and/or infiltrate is also suspected in the right lower chest. Minimal fluid suspected on the left side. Patient shows stable heart size with a permanent pacemaker. Impression: Some fluid layers in the dependent portion on the lateral decubitus view on the right with just minimal changes on the left. Some superimposed infiltrate and/or atelectasis suggested in the right lower chest. Ultrasound imaging can sometimes be helpful to philip a site for thoracentesis if this is clinically indicated. 07/05/17 14:16 EKG interpretations - EKG EKG results cardiology: sinus rhythm - Blocks, axis, hypertrophy, ST abn AV and intraventricular conduction: right bundle branch block (fixed/ intermittent, complete/incomplete) Assessment and Plan - Assessment and Plan (1) Pleural effusion Current visit: Yes Status: Acute (2) CHF (congestive heart failure) Current visit: Yes Status: Acute (3) Hypertension Current visit: Yes Status: Acute (4) DM type 2 (diabetes mellitus, type 2) Current visit: Yes Status: Acute Hospital Course Summary Disclaimer: The visit summary below is not to be considered part of the above Progress Note. Hospital Course: Yulia was admitted on 07/02/17 for acute congestive heart failure. Her chest x- ray showed a right-sided effusion. She was diuresed, starting her on Lasix 20 mg IV twice a day. JERAD inhibitor was ordered initially, but later discontinued because of lack of improvement in creatinine. Her creatinine level was elevated at 1.8 on admission, and then remained stable at 1.8-1.9 through 07/04/17. Her potassium level was low normal at 3.8, and the following day decreased to 3.0. After oral replacement, her potassium improved to 4.0 by 07/03/17. She complained of chest pain, but troponin was negative, EKG revealed ventricular pacing. <Cali Ho - Last Filed: 07/06/17 09:40> [facility] Patient Stated Medical History Migraine Yes Cataracts Yes Other HEENT Yes: WEARS GLASSES Congestive Heart Failure Yes: "they're talking possible CHF" Diabetes Mellitus Type 2 Yes Other GI Yes: CONSTPATION & DIARRHEA Hx Incontinence Yes Hx Urinary Tract Infection Yes: WITH PYELONEPHRITIS Other Musculoskeletal Yes: OSTEOPOROSIS Exam Vital signs: Temperature 96.6 F L 07/06/17 07:51 Pulse Rate 74 07/06/17 07:51 Respiratory Rate 20 07/06/17 08:58 Blood Pressure 143/71 H 07/06/17 07:51 Pulse Oximetry 95 07/06/17 08:58 Results 07/06/17 04:33 07/06/17 08:24 CBC 07/06/17 Range/Units 04:33 WBC 8.1 (4.5-11.0) T/MM3 RBC 3.20 L (4.00-5.20) M/MM3 Hgb 9.5 L (12-16) GM/DL Hct 29.5 L (36-46) % Plt Count 200 (130-400) T/MM3 Neut # (Auto) 4.4 (1.8-7.7) T/MM3 Lymph # (Auto) 2.7 (1-4.8) T/MM3 [place] # (Auto) 0.6 (0-0.8) T/MM3 Eos # (Auto) 0.5 (0-0.5) T/MM3 Baso # (Auto) 0.0 (0-0.2) T/MM3 Comprehensive Metabolic Panel 07/06/17 07/06/17 Range/Units 04:33 08:24 Sodium 137 136 (134-144) MEQ/L Potassium 5.2 H 5.0 (3.6-5) MEQ/L Chloride 101 101 (98-107) MEQ/L Carbon Dioxide 29 30 (22-30) MEQ/L BUN 43.0 H 42.0 H (7-17) MG/DL Creatinine 2.0 H D 2.0 H (0.7-1.2) MG/DL Glucose 117 H 110 (65-110) MG/DL Calcium 8.4 8.7 (8.4-10.2) MG/DL Intake and Output 07/05/17 07/06/17 07/06/17 22:59 06:59 14:59 Intake Total 200 / 200 125 / 125 250 / 250 Output Total 250 / 250 250 / 250 Balance 200 / 200 -125 / -125 0 / 0 Intake: Oral 200 / 200 125 / 125 250 / 250 Output: Urine 250 / 250 250 / 250 Other: Urine Appearance Clear Clear Urine Color Yellow Straw Yellow # Voids 1 1 1 Weight 80.5 kg Patient Weight 07/07/17 06:59 Weight 80.5 kg Assessment and Plan - Attestation Attestation Narrative: 07/06/17 09:40 Recommendation After examining the patient I agree with the above assessment. I am involved in the formulation of the patient's plan of care. - Assessment and Plan (1) Pleural effusion Current visit: Yes Status: Acute (2) CHF (congestive heart failure) Current visit: Yes Status: Acute (3) Hypertension Current visit: Yes Status: Acute (4) DM type 2 (diabetes mellitus, type 2) Current visit: Yes Status: Acute Hospital Course Summary Disclaimer: The visit summary below is not to be considered part of the above Progress Note.
[2017-07-05] MEDS: FUROSEMIDE 40 MG TABLET PO SCH (17:53)
--- NOTE | 2017-07-05 19:48 | Progress Note ---
- Date 07/05/17 Subjective: Patient is seen today lying in bed. Her biggest concern at this point remains her confusion over why her blood sugars are "so high" at home and they are "low " in the hospital when she is eating the exact same foods. She met with the family life educator today. She states her chest pain has improved with Tylenol. She's not having any shortness of breath. No nausea or vomiting. Objective Vital signs: Temperature 97.8 F 07/05/17 16:00 Pulse Rate 75 07/05/17 16:00 Respiratory Rate 14 07/05/17 16:00 Blood Pressure 125/71 07/05/17 16:00 Pulse Oximetry 92 07/05/17 16:00 Height/Weight/BMI: Height 1.57 m Weight 81.5 kg Body Mass Index 33.0 - Constitutional Present: no acute distress, well nourished, well developed, obese - Routine HEENT Exam Head: Present: normocephalic, atraumatic - Routine Respiratory Exam Present: CTA bilaterally. Absent: wheezes - Routine Cardiovascular Exam Present: RRR. Absent: murmur - Routine Abdominal Exam Present: soft, normoactive bowel sounds, non distended. Absent: tenderness - Routine Extremities Exam Present: no edema, normal capillary refill - Routine Skin Exam Present: dry, warm - Routine Neurological Exam Present: alert, oriented X3 - Routine Lymphatic Exam Lymphatic: Absent: adenopathy - Routine Psychiatric Exam Present: normal affect, cooperative Results - Labs CBC & Chem 7: 07/04/17 04:17 07/05/17 05:47 Assessment and Plan (1) CHF (congestive heart failure) Current visit: Yes Status: Acute (2) Acute kidney injury Current visit: Yes Status: Acute Assessment and Plan: Assessment Chest pain. Right pleural effusion. Type 2 diabetes-A1C 8.6 on 07/03/17 SKY on CKD-POA Hypokalemia, resolved. Hypomagnesemia, resolved. Normocytic anemia. Hypertension. Constipation. Acute debility. Plan Dr. Ho consulted with patient today and echocardiogram was performed. He changed her furosemide to twice a day and increased her metoprolol to 50 mg twice a day. Her BNP decreased from 11,700--> 6160 Patient should ideally be on insulin at home to control her diabetes. She's had trouble affording insulin. Will talk with returned case inspector and family life educator regarding resources they found for patient to determine discharge planning for diabetes treatment. Creatinine improved to 1.7. This is about her average creatinine over the past year. Lisinopril 2.5 mg is still on hold. Will discuss with attending to determine whether or not this should be discontinued or if there is any benefit from resuming this. Potassium is elevated today, however specimen is significantly hemolyzed. Will recheck tomorrow. Will need close OP f-u on electrolytes if JERAD is restarted and pt continues on BID Lasix. Currently not on KCL supplementation. DVT Prophylaxis: SCD's Resuscitation Status: Do Not Resuscitate - Physician Narrative Physician: Liz Back MD Narrative: Date: 07/05/17 Time: 2034 I have independently evaluated and examined this patient. I reviewed the chart, the patient's history, and the PROMOTIONS SPECIALIST/PA's documented findings as above. We discussed and formulated the assessment and plan as above with additions as below: Chantelle was visiting with the peer educator when I visited with her earlier today. She reported that her blood sugars at home are generally between 300-600 which is incompatible with A1c of 8.6. The educator tried to explain to her that her glucometer needs to be tested to see if it's measuring accurately but explaining this to the patient only lead to frustration on her part. Patient complains of sore throat today and reports mild nonproductive cough and loss of voice. NAD, alert, hoarse voice; more anxious than yesterday Respirations nonlabored but diminished airflow, breath sounds clear Oropharynx with faint white coating on tongue, no erythema or ulcerations Blood sugars today [phone] after initiating NPH EKG today reviewed by myself revealing sinus rhythm, low voltage in limb leads, RBBB, and diffuse T-wave abnormality--complex morphology is changed significantly from admission EKG however patient was pacing at that time. Cardiology evaluation initiated, preliminary echo report without worrisome findings. Pacemaker being interrogated. Discussed with cardiology. Although BNP elevated patient does not appear to be in overt heart failure, remains on room air. Suspect pleurisy with nondetected URI. Case management assisting with discharge medications-patient previously used insulin pens and if can coordinate with health ministries that may be a better option than NPH. Add nystatin suspension for probable thrush. Hospital Course Summary Disclaimer: The visit summary below is not to be considered part of the above Progress Note. Hospital Course: Yulia was admitted on 07/02/17 for acute congestive heart failure. Her chest x- ray showed a right-sided effusion. BNP initially 35258 and decreased to 6160. She was diuresed, starting her on Lasix 20 mg IV twice a day. JERAD inhibitor was ordered initially, but later discontinued because of lack of improvement in creatinine. Her creatinine level was elevated at 1.8 on admission, and then remained stable at 1.7 through 07/05/17. Her potassium level was low normal at 3.8 , and the following day decreased to 3.0. After oral replacement, her potassium improved to 4.0 by 07/03/17. She complained of chest pain, but troponin was negative, EKG revealed ventricular pacing. Dr Ho was consulted and performed echo and increased her metroprolol to 50BID and continued Lasix dosing of 20MG IV BID. She was started on NPH during her hospitalization and had diabetic education.
[2017-07-05] MEDS: NYSTATIN 500,000 units/5 ml ORAL LIQUID PO SCH (22:50)
[2017-07-06] MEDS: ACETAMINOPHEN 325 MG TABLET PO PRN (04:46)
[2017-07-06] MEDS: INSULIN NPH HUMAN 100 UNIT/ML SQ SCH ×2 (08:31→17:57)
[2017-07-06] MEDS: POLYETHYL GLYCOL 3350 17gm PACKET PO SCH (08:31)
[2017-07-06] MEDS: NYSTATIN 500,000 units/5 ml ORAL LIQUID PO SCH ×4 (08:31→21:59)
[2017-07-06] MEDS: HYDROCODONE/CHLORPHENIRAMINE ER ORAL LIQ 5ml PO SCH ×2 (08:32→21:59)
[2017-07-06] MEDS: AMLODIPINE 10 MG TABLET PO SCH (08:32)
[2017-07-06] MEDS: FUROSEMIDE 40 MG TABLET PO SCH ×2 (08:32→17:55)
[2017-07-06] MEDS: ASPIRIN *EC* 81 MG TABLET PO SCH (08:33)
[2017-07-06] MEDS: ALBUTEROL/IPRATROPIUM 2.5mg-0.5mg/3ml NEB AEROSOL SCH ×3 (08:58→19:22)
--- NOTE | 2017-07-06 11:14 | Ultrasound Report ---
Indication: ckd PROCEDURE: US renal BI: Encounter: Initial Comparison: None Technique: Grayscale and color Doppler sonographic imaging of both kidneys was performed. FINDINGS: Both kidneys are present with normal cortical thickness and echogenicity. No evidence for collecting system dilatation, contour deforming mass, nephrolithiasis, or abnormal perinephric fluid collection. The right kidney measures 10.6 cm in length, and the left kidney measures 11.2 cm in length. Right pleural effusion noted. IMPRESSION: Normal appearance of the kidneys. Right pleural effusion. .
[2017-07-06 11:32] VITALS: O2SAT 92
--- NOTE | 2017-07-06 11:47 | Echocardiogram ---
DATE OF PROCEDURE July 04, [address] Forest Pickard This is a two-dimensional echo with spectral Doppler, color-flow and M-mode. It was obtained in a patient with congestive heart failure. Left atrium is dilated. Left ventricular end-diastolic dimension is normal. Left ventricle wall thickness is increased. LV systolic function is normal with ejection fraction of 60%. Right atrium is normal. Right ventricle is normal. Aortic root dimension is normal. Mitral valve annulus is calcified. Mitral valve leaflets are normal with mild mitral regurgitation. Aortic valve is a trileaflet structure with no stenosis or insufficiency. Tricuspid valve shows mild tricuspid regurgitation with moderate pulmonary hypertension with estimated pulmonary artery systolic pressure of 48. Pulmonary valve shows no pulmonary insufficiency. There is no pericardial effusion. Device wire is seen in the right heart. IMPRESSION 1. Normal LV systolic function with ejection fraction of 60%. 2. Left atrial dilation. 3. Left ventricular hypertrophy. 4. Mitral annulus calcification with mild mitral regurgitation. 5. Mild tricuspid regurgitation with moderate pulmonary hypertension with estimated pulmonary artery systolic pressure of 48. 6. Device wire is seen in right heart. [facility]
--- NOTE | 2017-07-06 12:05 | Cardiology Progress Note ---
<Charline Kelsey - Last Filed: 07/07/17 08:59> Subjective Principal diagnosis: CHF Interval history: Chantelle is seen in follow up for CHF. She is alert and denies chest pain, pressure , palpitations, dyspnea at this time. Exam Vital signs: Temperature 96.1 F L 07/06/17 11:30 Pulse Rate 70 07/06/17 11:30 Respiratory Rate 18 07/06/17 11:30 Blood Pressure 122/64 07/06/17 11:30 Pulse Oximetry 92 07/06/17 11:30 - Constitutional no acute distress, well nourished, cooperative - Routine HEENT Exam Head: Present: normocephalic ENT: Present: mucous membranes moist - Routine Neck Exam Absent: JVD, carotid bruit - Routine Chest/Breast/Axilla Exam Chest wall: Absent: tenderness - Routine Respiratory Exam Present: CTA bilaterally. Absent: rales, wheezes - Routine Cardiovascular Exam Present: RRR, no murmur. Absent: JVD - Routine Abdominal Exam Present: soft, normoactive bowel sounds - Routine Extremities Exam Present: no edema - Routine Skin Exam Present: intact, dry, warm - Routine Neurological Exam Present: alert, oriented X3 - Routine Psychiatric Exam Present: normal affect - Additional findings Additional findings: Medications: Acetaminophen [Tylenol] 325 - 650 mg PO Q5H PRN tab PRN Reason: Discomfort Amlodipine [Norvasc] 10 mg PO DAILY #30 tab Aspirin *EC* [Ecotrin] 81 mg PO DAILY tab Furosemide [Lasix] 40 mg PO 0900,1700 #60 tab Insulin NPH Human Isophane [Humulin N Kwikpen] 5 unit SQ WS #1 insuln.pen Nystatin Oral Liq. [Mycostatin] 5 ml PO QID #100 ml Insulin NPH Human Isophane [Humulin N Kwikpen] 10 unit SQ AMI #1 insuln.pen Metoprolol Tartrate [Lopressor] 50 mg PO BIDWM #60 tab Results 07/06/17 04:33 07/06/17 08:24 CBC 07/06/17 Range/Units 04:33 WBC 8.1 (4.5-11.0) T/MM3 RBC 3.20 L (4.00-5.20) M/MM3 Hgb 9.5 L (12-16) GM/DL Hct 29.5 L (36-46) % Plt Count 200 (130-400) T/MM3 Neut # (Auto) 4.4 (1.8-7.7) T/MM3 Lymph # (Auto) 2.7 (1-4.8) T/MM3 [place] # (Auto) 0.6 (0-0.8) T/MM3 Eos # (Auto) 0.5 (0-0.5) T/MM3 Baso # (Auto) 0.0 (0-0.2) T/MM3 Comprehensive Metabolic Panel 07/06/17 07/06/17 Range/Units 04:33 08:24 Sodium 137 136 (134-144) MEQ/L Potassium 5.2 H 5.0 (3.6-5) MEQ/L Chloride 101 101 (98-107) MEQ/L Carbon Dioxide 29 30 (22-30) MEQ/L BUN 43.0 H 42.0 H (7-17) MG/DL Creatinine 2.0 H D 2.0 H (0.7-1.2) MG/DL Glucose 117 H 110 (65-110) MG/DL Calcium 8.4 8.7 (8.4-10.2) MG/DL Intake and Output 07/05/17 07/06/17 07/06/17 22:59 06:59 14:59 Intake Total 200 / 200 125 / 125 250 / 250 Output Total 250 / 250 250 / 250 Balance 200 / 200 -125 / -125 0 / 0 Intake: Oral 200 / 200 125 / 125 250 / 250 Output: Urine 250 / 250 250 / 250 Other: Urine Appearance Clear Clear Urine Color Yellow Straw Yellow # Voids 1 1 1 Weight 177 lb 7.554 oz Patient Weight 07/07/17 06:59 Weight 177 lb 7.554 oz - Imaging and Cardiology Imaging & Cardiology Narrative: Date of Exam: 07/04/17 Type of Exam(s): US echo doppler complete DATE OF PROCEDURE July 04, [address] Forest Pickard This is a two-dimensional echo with spectral Doppler, color-flow and M-mode. It was obtained in a patient with congestive heart failure. Left atrium is dilated. Left ventricular end-diastolic dimension is normal. Left ventricle wall thickness is increased. LV systolic function is normal with ejection fraction of 60%. Right atrium is normal. Right ventricle is normal. Aortic root dimension is normal. Mitral valve annulus is calcified. Mitral valve leaflets are normal with mild mitral regurgitation. Aortic valve is a trileaflet structure with no stenosis or insufficiency. Tricuspid valve shows mild tricuspid regurgitation with moderate pulmonary hypertension with estimated pulmonary artery systolic pressure of 48. Pulmonary valve shows no pulmonary insufficiency. There is no pericardial effusion. Device wire is seen in the right heart. IMPRESSION 1. Normal LV systolic function with ejection fraction of 60%. 2. Left atrial dilation. 3. Left ventricular hypertrophy. 4. Mitral annulus calcification with mild mitral regurgitation. 5. Mild tricuspid regurgitation with moderate pulmonary hypertension with estimated pulmonary artery systolic pressure of 48. 6. Device wire is seen in right heart. 07/06/17 12:01 07/06/17 12:02 Date of Exam: 07/06/17 Ordering Provider: Racheal Hughes MD Type of Exam(s): US renal BI Reason for Exam(s): ckd Indication: ckd PROCEDURE: US renal BI: Encounter: Initial Comparison: None Technique: Grayscale and color Doppler sonographic imaging of both kidneys was performed. FINDINGS: Both kidneys are present with normal cortical thickness and echogenicity. No evidence for collecting system dilatation, contour deforming mass, nephrolithiasis, or abnormal perinephric fluid collection. The right kidney measures 10.6 cm in length, and the left kidney measures 11.2 cm in length. Right pleural effusion noted. IMPRESSION: Normal appearance of the kidneys. Right pleural effusion. Assessment and Plan - Assessment and Plan (1) Pleural effusion Status: Acute (2) CHF (congestive heart failure) Status: Acute (3) Hypertension Status: Chronic (4) DM type 2 (diabetes mellitus, type 2) Status: Chronic (5) Presence of cardiac pacemaker Status: Chronic Biotronik PPM - Assessment and Plan 07/05/16 CHF: EF 60% on echo. Patient laying flat in bed with no distress. - Change IV Lasix to po and increase her Metoprolol to 50 mg twice a day. PPM: Biotronik: interrogate please Thank you for allowing us to participate in the care of this patient 07/06/16 No cardiac complaints, stable for discharge from cardiac. Hospital Course Summary Disclaimer: The visit summary below is not to be considered part of the above Progress Note. Hospital Course: Yulia was admitted on 07/02/17 for acute congestive heart failure. Her chest x- ray showed a right-sided effusion. She was diuresed, starting her on Lasix 20 mg IV twice a day. JERAD inhibitor was ordered initially, but later discontinued because of lack of improvement in creatinine. Her creatinine level was elevated at 1.8 on admission, and then remained stable at 1.8-1.9 through 07/04/17. Her potassium level was low normal at 3.8, and the following day decreased to 3.0. After oral replacement, her potassium improved to 4.0 by 07/03/17. She complained of chest pain, but troponin was negative, EKG revealed ventricular pacing. <Cali Ho - Last Filed: 07/08/17 13:08> Exam Vital signs: Temperature 95.9 F L 07/06/17 15:15 Pulse Rate 71 07/06/17 16:26 Respiratory Rate 18 07/06/17 19:22 Blood Pressure 126/72 07/06/17 15:15 Pulse Oximetry 92 07/06/17 15:15 Results 07/06/17 04:33 07/06/17 08:24 Assessment and Plan - Assessment and Plan (1) Pleural effusion Status: Acute (2) CHF (congestive heart failure) Status: Acute (3) Hypertension Status: Chronic (4) DM type 2 (diabetes mellitus, type 2) Status: Chronic (5) Presence of cardiac pacemaker Status: Chronic - Attestation Attestation Narrative: 07/08/17 13:08 Recommendation After examining the patient I agree with the above assessment. I am involved in the formulation of the patient's plan of care. Hospital Course Summary Disclaimer: The visit summary below is not to be considered part of the above Progress Note.
[2017-07-06] MEDS: INSULIN ASPART 100unit/ml INJECTION SQ PRN ×2 (12:20→21:57)
[2017-07-06 15:16] VITALS: BP 126/72; TEMP 95.9
[2017-07-06 16:27] VITALS: PULSE 71
--- NOTE | 2017-07-06 17:04 | Discharge Summary ---
Discharge Information Date of admission: 07/01/17 19:02 Anticipated date of discharge: 07/06/17 Attending Physician: Racheal Hughes MD Primary care physician: Keegan Moreira DO Consults: 07/02/17 08:19 Case Management Consult [CONS] Routine Reason For Exam: financial resources 07/04/17 22:15 Physician Consult [CONS] Routine Consulting Provider: Cali Ho Reason For Exam: CHF Ordering Provider has Notified Furnace Utility Operator: No Comment: Will notify in a.m. 07/04/17 22:27 Inpatient Diabetic Consult [CONS] Routine Diabetic Diagnosis: E11.65 Uncontrolled T2 DM Diabetic Training: GDM Management - Discharge Diagnosis (1) CHF (congestive heart failure) Status: Acute (2) Acute kidney injury Status: Acute Chest pain. CHF Right pleural effusion. Type 2 diabetes-A1C 8.6 on 07/03/17 SKY on CKD-POA Hypokalemia, resolved. Hypomagnesemia, resolved. Normocytic anemia. Hypertension. Constipation. Acute debility. - Procedures Procedures: Date of Exam: 07/04/17 Type of Exam(s): US echo doppler complete DATE OF PROCEDURE July 04, [address] Forest Pickard This is a two-dimensional echo with spectral Doppler, color-flow and M-mode. It was obtained in a patient with congestive heart failure. Left atrium is dilated. Left ventricular end-diastolic dimension is normal. Left ventricle wall thickness is increased. LV systolic function is normal with ejection fraction of 60%. Right atrium is normal. Right ventricle is normal. Aortic root dimension is normal. Mitral valve annulus is calcified. Mitral valve leaflets are normal with mild mitral regurgitation. Aortic valve is a trileaflet structure with no stenosis or insufficiency. Tricuspid valve shows mild tricuspid regurgitation with moderate pulmonary hypertension with estimated pulmonary artery systolic pressure of 48. Pulmonary valve shows no pulmonary insufficiency. There is no pericardial effusion. Device wire is seen in the right heart. IMPRESSION 1. Normal LV systolic function with ejection fraction of 60%. 2. Left atrial dilation. 3. Left ventricular hypertrophy. 4. Mitral annulus calcification with mild mitral regurgitation. 5. Mild tricuspid regurgitation with moderate pulmonary hypertension with estimated pulmonary artery systolic pressure of 48. 6. Device wire is seen in right heart. - Laboratory Labs: 07/06/17 04:33 07/06/17 08:24 Laboratory Tests 07/02/17 07/03/17 07/04/17 02:25 04:30 04:17 Potassium 3.0 L D 4.0 D 4.2 07/05/17 07/06/17 07/06/17 05:47 04:33 08:24 Potassium 5.6 H D 5.2 H 5.0 Laboratory Tests 07/01/17 07/02/17 07/03/17 17:30 02:25 15:03 Troponin I 0.038 0.020 B-Natriuretic Peptide 04406 H 07/05/17 05:47 Troponin I B-Natriuretic Peptide 6160 H - Radiology Radiology: Date of Exam: 07/04/17 Indication: Large right pleural effusion XR chest 2V: Findings: Patient did show some fluid layering to the dependent portion of the right chest. Atelectasis and/or infiltrate is also suspected in the right lower chest. Minimal fluid suspected on the left side. Patient shows stable heart size with a permanent pacemaker. Impression: Some fluid layers in the dependent portion on the lateral decubitus view on the right with just minimal changes on the left. Some superimposed infiltrate and/or atelectasis suggested in the right lower chest. Date of Exam: 07/01/17 Indication: CP PROCEDURE: XR chest 1V: Findings: Lungs are hypoinflated with small bilateral pleural effusions. Left pacemaker. No pneumothorax. Heart size and mediastinal contours are normal. Pulmonary vascularity is prominent. Impression: Moderate pulmonary edema, possibly due to CHF with pleural effusions. Underlying pneumonia or aspiration cannot be excluded in the lung bases. Date of Exam: 07/06/17 Reason for Exam(s): ckd PROCEDURE: US renal BI: Technique: Grayscale and color Doppler sonographic imaging of both kidneys was performed. FINDINGS: Both kidneys are present with normal cortical thickness and echogenicity. No evidence for collecting system dilatation, contour deforming mass, nephrolithiasis, or abnormal perinephric fluid collection. The right kidney measures 10.6 cm in length, and the left kidney measures 11.2 cm in length. Right pleural effusion noted. IMPRESSION: Normal appearance of the kidneys. Right pleural effusion. History of Present Illness HPI: This is a 61 y/o female who describes episode of chest pain over the past 12 hours. The patient states that on Tuesday she had onset of nausea/vomiting/ diarrhea. She has an occasional cough that she states when she coughs she throws up food. Not kept anything down for the pas 3 days. The patient denies fever, chills or sweats, The patient presents to the ED tonight primarily due to unprovoked chest pain. In the ED the patient's cardiac workup was negative for acute ischemia or unstable angina. The patient reports intermittent substernal chest pain that radiates to her left than her right shoulder, At this time the patient is to be evaluated for ongoing chest discomfort. Note when the ekg is reviewed in detail it has the appearance of a non specific intraventricular conduction delay. not yet a LBBB. previously she had a RBBB. Objective Vital signs: Temperature 95.9 F L 07/06/17 15:15 Pulse Rate 71 07/06/17 16:26 Respiratory Rate 16 07/06/17 15:23 Blood Pressure 126/72 07/06/17 15:15 Pulse Oximetry 92 07/06/17 15:15 Height/Weight/BMI: Height 1.57 m Weight 80.5 kg Body Mass Index 33.0 - Constitutional Present: no acute distress, well nourished, well developed - Routine HEENT Exam ENT: Present: mucous membranes moist - Routine Respiratory Exam Present: CTA bilaterally. Absent: wheezes - Routine Cardiovascular Exam Present: RRR. Absent: murmur - Routine Abdominal Exam Present: soft, normoactive bowel sounds, non distended. Absent: tenderness - Routine Extremities Exam Present: no edema, normal capillary refill - Routine Skin Exam Present: dry, warm - Routine Neurological Exam Present: alert, oriented X3 - Routine Lymphatic Exam Lymphatic: Absent: adenopathy - Routine Psychiatric Exam Present: normal affect, cooperative Hospital Course This is a general summary of the patient's hospital course. For more details refer to the complete medical record. Hospital course: Yulia was admitted on 07/02/17 for acute congestive heart failure. She complained of chest pain, but troponin was negative, EKG revealed ventricular pacing. Her chest x-ray showed a right-sided effusion. Cardiology (Dr. Ho) was consulted. She was diuresed with Lasix 20 mg IV twice a day, and was started on metoprolol. She was also started on amlodipine for blood pressure control. JERAD inhibitor was ordered initially, but later discontinued because of lack of improvement in creatinine. Her creatinine level was elevated at 1.8 on admission, and then remained stable at 1.8-1.9 and was 2.0 on dismissal. It was noted that her creatinine has been elevated since August 2016. Renal sonogram was performed during her stay and was normal. Her potassium level was low normal at 3.8 on admission, and the following day decreased to 3.0. After oral replacement, her potassium improved to 4.0 by 07/03/17. The following day it was 4.2. By 07/05/17, it alon to 5.6, however, the specimen was hemolyzed so repeat was drawn the following morning at which time it was 5.2. Repeat was drawn and resulted at 5.0. She is being dismissed on Lasix 20 by mouth twice a day with no potassium replacement at this time. This will need to be followed closely on an outpatient basis. Her blood sugars were followed during her stay. She was started on NPH insulin. She was dismissed on 10 units at breakfast and 5 units with supper. She met with the paraeducator and was given a glucometer and testing supplies as she currently cannot locate her glucometer. She was also given resources from the nurse piano case and bench assembler for obtaining medications at free or reduced prices. This process was initiated by the piano case and bench assembler and needs to be followed up by the patient. Patient reports understanding. She is scheduled to follow-up in her PCPs office within the next 2 days to repeat BMP and follow-up on medications. Time spent with patient: discharge greater than 30 minutes DVT Prophylaxis: SCD's Discharge Plan - Discharge Disposition Discharge Date: 07/06/17 Disposition: Discharged Home, Self-Care *Condition: Improved Reason For Visit (Visit label in EMR): heart failure - Discharge Medications *Discharge Medications: New Acetaminophen [Tylenol] 325 - 650 mg PO Q5H PRN tab PRN Reason: Discomfort Amlodipine [Norvasc] 10 mg PO DAILY #30 tab Aspirin *EC* [Ecotrin] 81 mg PO DAILY tab Furosemide [Lasix] 40 mg PO 0900,1700 #60 tab Insulin NPH Human Isophane [Humulin N Kwikpen] 5 unit SQ WS #1 insuln.pen Nystatin Oral Liq. [Mycostatin] 5 ml PO QID #100 ml Insulin NPH Human Isophane [Humulin N Kwikpen] 10 unit SQ AMI #1 insuln.pen Metoprolol Tartrate [Lopressor] 50 mg PO BIDWM #60 tab - Discharge Packet/Instructions *Diet: carbohydrate controlled diabetic diet *Activity: as tolerated *Pain Management/Treatment: Tylenol *Wound Care: n/a Additional Instructions: You need to complete the instructions given to you by the piano case and bench assembler to get set up with your medications. You will be scheduled to see Dr. Moreira or one of the other providers at [facility] tomorrow or Tuesday for repeat labwork and review of medications. *Expected Signs/Symptoms: Continued improvement *Notify Physician if: you develop fever, recurrence of chest pain or new symptoms *During Business Hours Contact: Dr Proctor's office *After Business Hours Contact: Dr Proctor's office and follow after hours instuctions *Pending Lab/Results: No Pending Lab - Referrals/Follow Up *Referrals/Follow Up: Keegan Moreira DO [Family Provider] - (Schedule her with Dr. Moreira (or one of the midlevels) tomorrow or Tuesday for follow-up appointment, BMP and to get set up on medications. APPOINTMENT WITH FRANCISCO [facility]A ON 07/07/2017 AT 9:30 AM, THEY WILL DRAW FOR BMP AND SET UP ON MEDICATIONS, OFFICE [phone]) - Patient Handouts Physician Narrative - Narrative Attestation Narrative: Date: 07/06/17 Time: 170
[2017-07-06 19:29] VITALS: RESP 18
== END 2017-07-06 22:25 | disposition home or self-care (01) | DRG 292 ==
LOC: ED 16:58 → SUATTDRO 19:02 → MED 19:02
PROVIDERS: ADMIT Emergency Medicine; ATTEND Internal Medicine

== ENCOUNTER 2017-08-01 20:49 | Observation (INO) ==
--- OUTSIDE RECORDS SUMMARY | 2017-08-01 21:27 | External Medical Summary ---
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
--- OUTSIDE RECORDS SUMMARY | 2017-08-01 21:27 | External Medical Summary ---
[...] of 414.00 Active unspecified type of vessel, [place] or graft Problem Depressive disorder, 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 Problem Hypertension, benign 401.1 Active Problem Diabetes Mellitus Type 2, not stated 250.00 Active as uncontrolled Assessment Chronic hypotension 458.1 Active Problem Coronary atherosclerosis of 414.00 Active unspecified type of vessel, [place] or graft Problem Depressive disorder, 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 Medications Medication Code System Code Instructions Start End Date Status Dosage Date Humalog [facility] [address]2924-018 100 UNIT/ML September 30 units 02-25 Subcutaneous as 2015 tid with directed meals Procedures Procedure Coding System Code Date URINALYSIS, IN HOUSE CPT-4 28958 October 21, 2014 GLUCOSE FINGERSTICK, IN HOUSE CPT-4 06250 October 21, 2014 IH CMP CPT-4 72754 October 21, 2014 HYDRATION IV INFUSION, INIT CPT-4 21226 October 21, 2014 C-REACTIVE PROTEIN CPT-4 85579 October 21, 2014 HYDRATE IV INFUSION, ADD-ON CPT-4 71667 October 21, 2014 COMPLETE CBC W/AUTO DIFF WBC CPT-4 16428 October 21, 2014 OFFICE VISIT, EST-MOD. COMPLEXITY (25 MIN) CPT-4 53215 October 21, 2014 SED RATE CPT-4 26485 October 21, 2014 URINE CULTURE CPT-4 58827 October 21, 2014 Vital Signs Date/Time: October 21, 2014 Height 61.5 in Weight 179.0 lbs Temperature 98.7 F Blood Pressure Diastolic 60 mm Hg Blood Pressure Systolic 90 mm Hg Cardiac Monitoring Heart Rate 107 /min BMI 33.27 Index Oximetry 99 % Respiratory Rate 20 /min Results No Known Results Summary Purpose [employer] Submission
--- OUTSIDE RECORDS SUMMARY | 2017-08-01 21:27 | External Medical Summary ---
[...] End Date Status Dosage System Date Cipro [facility] 85174-20 500 MG Orally Mar 17, 1 tablet 67-01 Twice a day 2014 Pen [place] NDC 0 31G X 5 MM January 10, File DME 09/09" daily 2013 [place] [address] UNIT/ML 10 units 69-03 Subcutaneous Two times daily Accu-Chek NDC 0 In Vitro January 10, File DME SmartView daily 2013 under Medicaid Accu-Chek NDC 0 4 daily January 10, File DME for [employer]ix 2014 [place] [address] 100 UNIT/ML 4 units 99-01 Subcutaneous with meals only Procedures Procedure Coding System Code Date ANNUAL DEPRESSION SCREENING 15 MIN CPT-4 G0444 Mar 17, 2015 Office Visit, Est Pt., Level 5 CPT-4 28877 Mar 17, 2015 Billed by outside source [...]
--- OUTSIDE RECORDS SUMMARY | 2017-08-01 21:27 | External Medical Summary ---
:1955 Author Organization [facility] Care Team Providers Name Role Phone Yuli Hart Provider Role Unavailable Allergies No Known Allergies Problems Problem Type Condition ICD-9 Code Onset Dates Condition Status Problem Diabetes Mellitus Type 2, not 250.00 Active stated as uncontrolled Problem Depressive disorder, not 311 Active elsewhere classified Medications No Known Medications Results No Known Results Summary Purpose [facility] Submission
--- OUTSIDE RECORDS SUMMARY | 2017-08-01 21:27 | External Medical Summary ---
[...] Medications Results No Known Results Summary Purpose [employer] Submission
--- OUTSIDE RECORDS SUMMARY | 2017-08-01 21:27 | External Medical Summary ---
:1955 Author Organization [employer] Care Team Providers Name Role Phone Keegan Moreira Provider Role Unavailable Allergies No Known Allergies Problems Problem Type Condition Code Onset Dates Condition Status Problem Coronary atherosclerosis of 414.00 Active unspecified type of vessel, [place] or graft Problem Depressive disorder, 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 Problem Hypertension, benign 401.1 Active Problem Diabetes Mellitus Type 2, not stated 250.00 Active as uncontrolled Problem Coronary atherosclerosis of 414.00 Active unspecified type of vessel, [place] or graft Problem Depressive disorder, 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 Medications No Known Medications Results No Known Results Summary Purpose [facility] Submission
--- OUTSIDE RECORDS SUMMARY | 2017-08-01 21:27 | External Medical Summary ---
[...] End Date Status Dosage Date Humalog KwikPen [facility] 17567-14 100 UNIT/ML not defined 99 Subcutaneous Ditropan XL [facility] 89219-71 5 MG Orally Once December 14Mar 14, 1 tablet 05-01 a day 2015 2015 Procedures Procedure Coding System Code Date Office visit new level 3 CPT-4 57628 December 15, 2015 Pap smear, thin layer CPT-4 59271 December 15, 2015 Vital Signs Date/Time: December 15, 2015 BMI 33.10 Index Height 62 in Weight 181 lbs Blood Pressure Diastolic 66 mm Hg Blood Pressure Systolic 128 mm Hg Results Name Result Date Reference Range Unit Abnormality Flag * PAP CYTOPATHOLOGY, CERVICAL/VAGINAL, PRESERVATIVE FLUID, AUTO THIN LAYER PREP; MANUAL SCREEN (20813) Summary Purpose [employer] Submission
--- OUTSIDE RECORDS SUMMARY | 2017-08-01 21:27 | External Medical Summary ---
[...] Active unspecified type of vessel, [place] or graft Problem Depressive disorder, not 311 Active elsewhere classified Problem Hypertension, benign 401.1 Active Problem Diabetes Mellitus Type 2, not 250.00 Active stated as uncontrolled Assessment Diabetes Mellitus Type 2, not 250.00 Active stated as uncontrolled Problem Coronary atherosclerosis of 414.00 Active unspecified type of vessel, [place] or graft Problem Depressive disorder, not 311 Active elsewhere classified Medications Medication Code Code Instructions Start End Status Dosage System Date Date Toujeo [facility] [address] 300 u/mL December 10Feb 12 units SoloStar subcutaneous 2014 15, Once a day at 2014 bedtime OneTouch Ultra [facility] [id number] none in vitro December 11, as directed Blue test three times 2014 strips daily Humalog [facility] [address]-92 100 UNIT/ML September 28 units tid KwikPen Subcutaneous as 2014 with meals directed Procedures Procedure Coding System Code Date COMPLETE CBC W/AUTO DIFF WBC CPT-4 06392 December 16, 2014 COMPREHENSIVE METABOLIC PANEL CPT-4 35877 December 16, 2014 GLUCOSE FINGERSTICK, IN HOUSE CPT-4 11976 December 16, 2014 OFFICE VISIT, EST-MOD. COMPLEXITY (25 MIN) CPT-4 72949 December 16, 2014 Vital Signs Date/Time: December [...]
--- OUTSIDE RECORDS SUMMARY | 2017-08-01 21:27 | External Medical Summary ---
:1955 Author Organization eClinicalWorks Care Team Providers Name Role Phone Keegan Moreira Provider Role Unavailable Allergies No Known Allergies Problems Problem Type Condition Code Onset Dates Condition Status Problem Coronary atherosclerosis of 414.00 Active unspecified type of vessel, [place] or graft Problem Depressive disorder, 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 Problem Hypertension, benign 401.1 Active Problem Diabetes Mellitus Type 2, not stated 250.00 Active as uncontrolled Problem Coronary atherosclerosis of 414.00 Active unspecified type of vessel, [place] or graft Problem Depressive disorder, 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 Medications No Known Medications Results No Known Results Summary Purpose [employer] Submission
--- OUTSIDE RECORDS SUMMARY | 2017-08-01 21:27 | External Medical Summary ---
:1955 Author Organization eClinicalWorks Care Team Providers Name Role Phone Keegan Moreira Provider Role Unavailable Allergies No Known Allergies Problems Problem Type Condition Code Onset Dates Condition Status Problem Coronary atherosclerosis of 414.00 Active unspecified type of vessel, [place] or graft Problem Depressive disorder, 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 Problem Hypertension, benign 401.1 Active Problem Diabetes Mellitus Type 2, not stated 250.00 Active as uncontrolled Problem Coronary atherosclerosis of 414.00 Active unspecified type of vessel, [place] or graft Problem Depressive disorder, 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 Medications No Known Medications Results No Known Results Summary Purpose [employer] Submission
--- OUTSIDE RECORDS SUMMARY | 2017-08-01 21:27 | External Medical Summary ---
:1955 Author Organization eClinicalWorks Care Team Providers Name Role Phone Yuli Hart Provider Role Unavailable Allergies No Known Allergies Problems Problem Type Condition Code Onset Dates Condition Status Problem Coronary atherosclerosis of 414.00 Active unspecified type of vessel, [place] or graft Problem Depressive disorder, 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 Problem Hypertension, benign 401.1 Active Problem Diabetes Mellitus Type 2, not stated 250.00 Active as uncontrolled Problem Coronary atherosclerosis of 414.00 Active unspecified type of vessel, [place] or graft Problem Depressive disorder, 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 Medications No Known Medications Results No Known Results Summary Purpose [employer] Submission
--- OUTSIDE RECORDS SUMMARY | 2017-08-01 21:27 | External Medical Summary ---
:1955 Author Organization eClinicalWorks Care Team Providers Name Role Phone Keegan Moreira Provider Role Unavailable Allergies No Known Allergies Problems Problem Type Condition Code Onset Dates Condition Status Problem Coronary atherosclerosis of 414.00 Active unspecified type of vessel, [place] or graft Problem Depressive disorder, 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 Problem Hypertension, benign 401.1 Active Problem Diabetes Mellitus Type 2, not stated 250.00 Active as uncontrolled Problem Coronary atherosclerosis of 414.00 Active unspecified type of vessel, [place] or graft Problem Depressive disorder, 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 Medications No Known Medications Results No Known Results Summary Purpose [employer] Submission
--- OUTSIDE RECORDS SUMMARY | 2017-08-01 21:27 | External Medical Summary ---
:1955 Author Organization eClinicalWorks Care Team Providers Name Role Phone Keegan Moreira Provider Role Unavailable Allergies No Known Allergies Problems Problem Type Condition ICD-9 Code Onset Dates Condition Status Problem Coronary atherosclerosis of 414.00 Active unspecified type of vessel, [place] or graft Problem Depressive disorder, not 311 Active elsewhere classified Problem Hypertension, benign 401.1 Active Problem Diabetes Mellitus Type 2, not 250.00 Active stated as uncontrolled Assessment Diabetes Mellitus Type 2, not 250.00 Active stated as uncontrolled Problem Coronary atherosclerosis of 414.00 Active unspecified type of vessel, [place] or graft Problem Depressive disorder, not 311 Active elsewhere classified Medications Medication Code System Code Instructions Start End Date Status Dosage Date Humalog [place] [facility] [address] 100 UNIT/ML September 30, 6 units 02-25 Subcutaneous as 2014 tid with directed meals Jackiesteph ArmentaMilla [facility] [address] 300 u/mL December 10May 01, 8 units in 9 subcutaneous 2014 2014 the am and daily 8 units in the pm Results No Known Results Summary Purpose eClinicalWorks Submission
--- OUTSIDE RECORDS SUMMARY | 2017-08-01 21:27 | External Medical Summary ---
[...] of 414.00 Active unspecified type of vessel, [place] or graft Problem Depressive disorder, not 311 Active elsewhere classified Problem Hypertension, benign 401.1 Active Problem Diabetes Mellitus Type 2, not 250.00 Active stated as uncontrolled Assessment Diabetes Mellitus Type 2, not 250.00 Active stated as uncontrolled Problem Coronary atherosclerosis of 414.00 Active unspecified type of vessel, [place] or graft Problem Depressive disorder, not 311 Active elsewhere classified Medications Medication Code Code Instructions Start End Status Dosage System Date Date OneTouch Ultra [facility] [id number] none in vitro December 11, as directed Blue test three times [address] [facility] [address] 300 u/mL December 10Jul 05, 8 units in SoloStar subcutaneous 2014 2015 the am and daily 8 [place] [address]-83 100 UNIT/ML September 6 units tid KwikPen Subcutaneous as 2014 [place] [address]-29 100 MG Orally January 06Feb 03, 1 capsule Perles Three times a 2014 2014 as needed day for cough/congestio n Vent[facility]FA [facility] [address]-35 108 (90 Base) January 06, 1 to 2 MCG/ACT 2014 puffs as Inhalation needed every 6 hrs for cough/wheezing Procedures Procedure Coding System Code Date OFFICE VISIT, EST-MOD. COMPLEXITY (25 MIN) CPT-4 62620 January 06, 2015 Vital Signs Date/Time: January 06, 2015 Height 61.5 in Weight 190.12 lbs Temperature 97.8 F Blood Pressure Diastolic 72 mm Hg Blood Pressure Systolic 120 mm Hg Cardiac Monitoring Heart Rate 96 /min BMI 35.34 Index Oximetry 98 % Respiratory Rate 18 /min Results No Known Results Summary Purpose eClinicalWorks Submission
--- OUTSIDE RECORDS SUMMARY | 2017-08-01 21:27 | External Medical Summary ---
:1955 Author Organization eClinicalWorks Care Team Providers Name Role Phone Keegan Moreira Provider Role Unavailable Allergies No Known Allergies Problems Problem Type Condition ICD-9 Code Onset Dates Condition Status Problem Coronary atherosclerosis of 414.00 Active unspecified type of vessel, [place] or graft Problem Depressive disorder, not 311 Active elsewhere classified Problem Hypertension, benign 401.1 Active Problem Diabetes Mellitus Type 2, not 250.00 Active stated as uncontrolled Assessment Diabetes Mellitus Type 2, not 250.00 Active stated as uncontrolled Problem Coronary atherosclerosis of 414.00 Active unspecified type of vessel, [place] or graft Problem Depressive disorder, not 311 Active elsewhere classified Medications Medication Code System Code Instructions Start End Date Status Dosage Date Chapin Tay [facility] [address] 300 u/mL December 10, Mar 26, 6 units in 9 subcutaneous 2014 2014 the am and Once a day at 6 units in bedtime the PM Results No Known Results Summary Purpose [employer] Submission
--- OUTSIDE RECORDS SUMMARY | 2017-08-01 21:27 | External Medical Summary ---
[...] Medications Results No Known Results Summary Purpose [employer] Submission
--- OUTSIDE RECORDS SUMMARY | 2017-08-01 21:27 | External Medical Summary ---
:1955 Author Organization eClinicalWorks Care Team Providers Name Role Phone Keegan Moreira Provider Role Unavailable Allergies No Known Allergies Problems Problem Type Condition Code Onset Dates Condition Status Problem Coronary atherosclerosis of 414.00 Active unspecified type of vessel, [place] or graft Problem Depressive disorder, 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 Problem Hypertension, benign 401.1 Active Problem Diabetes Mellitus Type 2, not stated 250.00 Active as uncontrolled Problem Coronary atherosclerosis of 414.00 Active unspecified type of vessel, [place] or graft Problem Depressive disorder, 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 Medications No Known Medications Results No Known Results Summary Purpose [employer] Submission
--- OUTSIDE RECORDS SUMMARY | 2017-08-01 21:27 | External Medical Summary ---
:1955 Author Organization eClinicalWorks Care Team Providers Name Role Phone Yuli Hart Provider Role Unavailable Allergies No Known Allergies Problems Problem Type Condition Code Onset Dates Condition Status Problem Coronary atherosclerosis of 414.00 Active unspecified type of vessel, [place] or graft Problem Depressive disorder, 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 Problem Hypertension, benign 401.1 Active Problem Diabetes Mellitus Type 2, not stated 250.00 Active as uncontrolled Problem Coronary atherosclerosis of 414.00 Active unspecified type of vessel, [place] or graft Problem Depressive disorder, 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 Medications No Known Medications Results No Known Results Summary Purpose [employer] Submission
--- OUTSIDE RECORDS SUMMARY | 2017-08-01 21:27 | External Medical Summary ---
:1955 Author Organization [employer]ClinicalCurverider Care Team Providers Name Role Phone Yuli Hart Provider Role Unavailable Allergies No Known Allergies Problems Problem Type Condition Code Onset Dates Condition Status Problem Depressive disorder, 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 Problem Diabetes Mellitus Type 2, not stated 250.00 Active as uncontrolled Problem Coronary atherosclerosis of 414.00 Active unspecified type of vessel, [place] or graft Medications No Known Medications Results No Known Results Summary Purpose [employer]mobile[employer] Submission
--- OUTSIDE RECORDS SUMMARY | 2017-08-01 21:27 | External Medical Summary ---
[...] Medications Results No Known Results Summary Purpose [employer] Submission
--- OUTSIDE RECORDS SUMMARY | 2017-08-01 21:28 | External Medical Summary ---
:1955 Author Organization eClinicalWorks Care Team Providers Name Role Phone Kegean Moreira Provider Role Unavailable Allergies No Known Allergies Problems Problem Type Condition Code Onset Dates Condition Status Problem Coronary atherosclerosis of 414.00 Active unspecified type of vessel, [place] or graft Problem Depressive disorder, 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 Problem Hypertension, benign 401.1 Active Problem Diabetes Mellitus Type 2, not stated 250.00 Active as uncontrolled Problem Coronary atherosclerosis of 414.00 Active unspecified type of vessel, [place] or graft Problem Depressive disorder, 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 Medications No Known Medications Results No Known Results Summary Purpose [employer] Submission
--- OUTSIDE RECORDS SUMMARY | 2017-08-01 21:28 | External Medical Summary ---
[...] Medications Results No Known Results Summary Purpose [employer]ClinicalHoffman Family Cell[employer] Submission
--- OUTSIDE RECORDS SUMMARY | 2017-08-01 21:28 | External Medical Summary ---
[...] End Date Status Dosage System Date Cipro [facility] 54318-48 500 MG Orally Mar 17, tablet 67-01 Twice a day 2014 Tomallika Tay [facility] [address]371-31 300 UNIT/ML 10 units 69-03 Subcutaneous [place] [address] 100 UNIT/ML 6 units 99-01 Subcutaneous with meals only Accu-Chek NDC 0 In Vitro January 10, File DME SmartView daily 2013 under Medicaid [employer] NDC 91792-35 31G X 8 MM Mar 24, as directed 11/09" 182014 Accu-Chek NDC 0 4 daily January 10, File DME for [employer] 2014 Medicaid Lancets [employer] NDC 0 31G X 5 MM January 10, File DME 3/16" daily 2013 under Medicaid Procedures Procedure Coding System Code Date Office Visit, Est Pt., Level 3 CPT-4 29945 Mar 24, 2015 Vital Signs Date/Time: Mar 24, 2015 Blood Pressure Systolic 110 mm Hg Weight 201.8 lbs Height 60.5 in Oximetry 98 % Respiratory Rate 16 /min Cardiac Monitoring Heart Rate 106 /min Blood Pressure Diastolic 68 mm Hg BMI 38.76 Index Results No Known Results Summary Purpose eClinicalWorks Submission
--- OUTSIDE RECORDS SUMMARY | 2017-08-01 21:28 | External Medical Summary ---
:1955 Author Organization eClinicalWorks Care Team Providers Name Role Phone Keegan Moreira Provider Role Unavailable Allergies No Known Allergies Problems Problem Type Condition Code Onset Dates Condition Status Problem Coronary atherosclerosis of 414.00 Active unspecified type of vessel, [place] or graft Problem Depressive disorder, 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 Problem Hypertension, benign 401.1 Active Problem Diabetes Mellitus Type 2, not stated 250.00 Active as uncontrolled Problem Coronary atherosclerosis of 414.00 Active unspecified type of vessel, [place] or graft Problem Depressive disorder, 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 Medications No Known Medications Results No Known Results Summary Purpose [employer] Submission
--- OUTSIDE RECORDS SUMMARY | 2017-08-01 21:28 | External Medical Summary ---
:1955 Author Organization [employer] Care Team Providers Name Role Phone Keegan Moreira Provider Role Unavailable Allergies No Known Allergies Problems Problem Type Condition ICD-9 Code Onset Dates Condition Status Problem Coronary atherosclerosis of 414.00 Active unspecified type of vessel, [place] or graft Problem Depressive disorder, not 311 Active elsewhere classified Problem Hypertension, benign 401.1 Active Problem Diabetes Mellitus Type 2, not 250.00 Active stated as uncontrolled Problem Coronary atherosclerosis of 414.00 Active unspecified type of vessel, [place] or graft Problem Depressive disorder, not 311 Active elsewhere classified Medications No Known Medications Results No Known Results Summary Purpose [employer] Submission
--- OUTSIDE RECORDS SUMMARY | 2017-08-01 21:28 | External Medical Summary ---
:1955 Author Organization [employer]ClinicalZeugma Systems Care Team Providers Name Role Phone Yuli Hart Provider Role Unavailable Allergies No Known Allergies Problems Problem Type Condition Code Onset Dates Condition Status Problem Depressive disorder, 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 Problem Diabetes Mellitus Type 2, not stated 250.00 Active as uncontrolled Problem Coronary atherosclerosis of 414.00 Active unspecified type of vessel, [place] or graft Medications No Known Medications Results No Known Results Summary Purpose [employer] Submission
--- OUTSIDE RECORDS SUMMARY | 2017-08-01 21:28 | External Medical Summary ---
:1955 Author Organization eClinicalWorks Care Team Providers Name Role Phone Keegan Moreira Provider Role Unavailable Allergies No Known Allergies Problems Problem Type Condition Code Onset Dates Condition Status Problem Coronary atherosclerosis of 414.00 Active unspecified type of vessel, [place] or graft Problem Depressive disorder, 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 Problem Hypertension, benign 401.1 Active Problem Diabetes Mellitus Type 2, not stated 250.00 Active as uncontrolled Problem Coronary atherosclerosis of 414.00 Active unspecified type of vessel, [place] or graft Problem Depressive disorder, 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 Medications No Known Medications Results No Known Results Summary Purpose authorGENinicalTrino Therapeutics Submission
--- OUTSIDE RECORDS SUMMARY | 2017-08-01 21:28 | External Medical Summary ---
:1955 Author Organization eClinicalWorks Care Team Providers Name Role Phone Keegan Moreira Provider Role Unavailable Allergies No Known Allergies Problems Problem Type Condition Code Onset Dates Condition Status Problem Coronary atherosclerosis of 414.00 Active unspecified type of vessel, [place] or graft Problem Depressive disorder, 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 Problem Hypertension, benign 401.1 Active Problem Diabetes Mellitus Type 2, not stated 250.00 Active as uncontrolled Problem Coronary atherosclerosis of 414.00 Active unspecified type of vessel, [place] or graft Problem Depressive disorder, 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 Medications No Known Medications Results No Known Results Summary Purpose [employer] Submission
--- OUTSIDE RECORDS SUMMARY | 2017-08-01 21:28 | External Medical Summary ---
:1955 Author Organization [employer] Care Team Providers Name Role Phone Keegan Moreira Provider Role Unavailable Allergies No Known Allergies Problems Problem Type Condition ICD-9 Code Onset Dates Condition Status Problem Coronary atherosclerosis of 414.00 Active unspecified type of vessel, [place] or graft Problem Depressive disorder, not 311 Active elsewhere classified Problem Hypertension, benign 401.1 Active Problem Diabetes Mellitus Type 2, not 250.00 Active stated as uncontrolled Problem Coronary atherosclerosis of 414.00 Active unspecified type of vessel, [place] or graft Problem Depressive disorder, not 311 Active elsewhere classified Medications No Known Medications Results No Known Results Summary Purpose [employer] Submission
--- OUTSIDE RECORDS SUMMARY | 2017-08-01 21:28 | External Medical Summary ---
[...] Medications Results No Known Results Summary Purpose [employer]TiVo Submission
--- OUTSIDE RECORDS SUMMARY | 2017-08-01 21:28 | External Medical Summary ---
:1955 Author Organization eClinicalWorks Care Team Providers Name Role Phone Yuli Hart Provider Role Unavailable Allergies No Known Allergies Problems Problem Type Condition Code Onset Dates Condition Status Problem Coronary atherosclerosis of 414.00 Active unspecified type of vessel, [place] or graft Problem Depressive disorder, 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 Problem Hypertension, benign 401.1 Active Problem Diabetes Mellitus Type 2, not stated 250.00 Active as uncontrolled Problem Coronary atherosclerosis of 414.00 Active unspecified type of vessel, [place] or graft Problem Depressive disorder, 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 Medications No Known Medications Results No Known Results Summary Purpose [employer] Submission
--- OUTSIDE RECORDS SUMMARY | 2017-08-01 21:28 | External Medical Summary ---
[...] [place] or graft Problem Depressive disorder, not 311 Active elsewhere classified Problem Diabetes Mellitus Type 2, not 250.00 Active stated as uncontrolled Problem Coronary atherosclerosis of 414.00 Active unspecified type of vessel, [place] or graft Assessment Diabetes Mellitus Type 2, not 250.00 Active stated as uncontrolled Assessment Chest pain, other 786.59 Active Assessment Acute cystitis 595.0 Active Assessment Other fall E888.8 Active Assessment Sinoatrial node dysfunction 427.81 Active Assessment Chronic hypotension 458.1 Active Assessment Proteinuria 791.0 Active Medications Medication Code Code Instructions Start End Date Status Dosage System Date Metformin HCl NDC 60445-78 500 MG Orally September 30, 1 tablet 48-01 Twice a day 2014 with meals Lantus NDC 23671-91 100 UNIT/ML September 30, 15 units 20-33 Subcutaneous 2014 Once [place] [address] w/Device September 30, as directed Glucose Kit 699 2014 Lyrica NDC 84330-13 75 MG Orally Feb 19, 1 capsule 14-41 Twice a day 2014 Lipitor NDC 38368-54 10 MG Orally September 30, 1 tablet 55-23 Once a [place] 2015 [place] [address]-63 100 UNIT/ML September 30, 5 units tid KwikPen 99-01 Subcutaneous as 2014 with meals directed Aspirin EC NDC 78174-52 81 MG Orally September 30, Mar 29, 1 tablet 35-76 Once a day 2014 2014 Tylenol NDC 39687-08 325 MG Orally September 30, December 29, 1 to 2 96-60 every 6 hrs 2014 2014 tablets as needed for fever/pain Atenolol [facility] 27091-39 25 MG Orally Feb 19, one-half 87-01 Once a day 2013 tablet Nitrostat [facility] 40202-00 0.4 MG Feb 19 tablet 18-13 Sublingual every 2013 under the 0 hrs tongue and allow to dissolve as needed Cipro [facility] 58346-26 500 MG Orally September 30October 05, 1 tablet 54-01 every 12 hrs 2014 2014 Procedures Procedure Coding System Code Date OFFICE VISIT, EST-MOD. COMPLEXITY (25 MIN) CPT-4 03382 September 30, 2014 RENAL FUNCTION PANEL CPT-4 97285 September 30, 2014 COMPLETE CBC W/AUTO DIFF WBC CPT-4 05302 September 30, 2014 Vital Signs Date/Time: September 30, 2014 Height 61.5 in Weight 174.8 lbs Temperature 97.5 F Blood Pressure Diastolic 68 mm Hg Blood Pressure Systolic 98 mm Hg Cardiac Monitoring Heart Rate 92 /min BMI 32.49 Index Respiratory Rate 16 /min Results No Known Results Summary Purpose eClinicalWorks Submission
--- OUTSIDE RECORDS SUMMARY | 2017-08-01 21:28 | External Medical Summary ---
[...] Medications Results No Known Results Summary Purpose [employer]ClinicalXLV [employer] Submission
--- OUTSIDE RECORDS SUMMARY | 2017-08-01 21:28 | External Medical Summary ---
:1955 Author Organization [employer] Care Team Providers Name Role Phone Keegan Moreira Provider Role Unavailable Allergies No Known Allergies Problems Problem Type Condition Code Onset Dates Condition Status Problem Coronary atherosclerosis of 414.00 Active unspecified type of vessel, [place] or graft Problem Depressive disorder, 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 Problem Hypertension, benign 401.1 Active Problem Diabetes Mellitus Type 2, not stated 250.00 Active as uncontrolled Assessment Dehydration 276.51 Active Problem Coronary atherosclerosis of 414.00 Active unspecified type of vessel, [place] or graft Problem Depressive disorder, 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 Medications Medication Code System Code Instructions Start End Date Status Dosage Date Humalog KwikPen [facility] [address] 100 UNIT/ML September 30, 2 units 02-25 Subcutaneous as 2014 tid with directed meals Procedures Procedure Coding System Code Date COMPLETE CBC W/AUTO DIFF WBC CPT-4 98523 November 25, 2014 Results No Known Results Summary Purpose [employer] Submission
--- OUTSIDE RECORDS SUMMARY | 2017-08-01 21:28 | External Medical Summary ---
:1955 Author Organization [facility] Care Team Providers Name Role Phone Keegan Moreira Provider Role Unavailable Allergies No Known Allergies Problems Problem Type Condition ICD-9 Code Onset Dates Condition Status Problem Coronary atherosclerosis of 414.00 Active unspecified type of vessel, [place] or graft Problem Depressive disorder, not 311 Active elsewhere classified Problem Hypertension, benign 401.1 Active Problem Diabetes Mellitus Type 2, not 250.00 Active stated as uncontrolled Problem Coronary atherosclerosis of 414.00 Active unspecified type of vessel, [place] or graft Problem Depressive disorder, not 311 Active elsewhere classified Medications No Known Medications Results No Known Results Summary Purpose [facility] Submission
--- OUTSIDE RECORDS SUMMARY | 2017-08-01 21:28 | External Medical Summary ---
:1955 Author Organization [facility] Care Team Providers Name Role Phone Yuli Hart Provider Role Unavailable Allergies No Known Allergies Problems Problem Type Condition Code Onset Dates Condition Status Problem Depressive disorder, 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 Problem Diabetes Mellitus Type 2, not stated 250.00 Active as uncontrolled Problem Coronary atherosclerosis of 414.00 Active unspecified type of vessel, [place] or graft Medications No Known Medications Results No Known Results Summary Purpose [facility] Submission
--- OUTSIDE RECORDS SUMMARY | 2017-08-01 21:28 | External Medical Summary ---
[...] of 414.00 Active unspecified type of vessel, [place] or graft Assessment Acute cystitis 595.0 Active Problem Coronary atherosclerosis of 414.00 Active unspecified type of vessel, [place] or graft Problem Depressive disorder, 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 Problem Hypertension, benign 401.1 Active Problem Diabetes Mellitus Type 2, not stated 250.00 Active as uncontrolled Assessment Diabetes Mellitus Type 2, not stated 250.00 Active as uncontrolled Problem Coronary atherosclerosis of 414.00 Active unspecified type of vessel, [place] or graft Problem Depressive disorder, 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 Medications Medication Code System Code Instructions Start End Date Status Dosage Date Humalog ChacePen [facility] 32451-275 100 UNIT/ML September 30 units 02-25 Subcutaneous as 2015 tid with directed meals Procedures Procedure Coding System Code Date OFFICE VISIT, EST-MOD. COMPLEXITY (25 MIN) CPT-4 26850 October 07, 2014 Vital Signs Date/Time: October 07, 2014 Height 61.5 in Weight 181.0 lbs Temperature 98.1 F Blood Pressure Diastolic 60 mm Hg Blood Pressure Systolic 120 mm Hg Cardiac Monitoring Heart Rate 96 /min BMI 33.64 Index Respiratory Rate 20 /min Results No Known Results Summary Purpose [employer] Submission
--- OUTSIDE RECORDS SUMMARY | 2017-08-01 21:28 | External Medical Summary ---
[...] [place] or graft Problem Depressive disorder, not 311 Active elsewhere classified Problem Hypertension, benign 401.1 Active Problem Diabetes Mellitus Type 2, not 250.00 Active stated as uncontrolled Assessment Diabetes Mellitus Type 2, not 250.00 Active stated as uncontrolled Problem Coronary atherosclerosis of 414.00 Active unspecified type of vessel, [place] or graft Problem Depressive disorder, not 311 Active elsewhere classified Medications Medication Code Code Instructions Start End Status Dosage System Date Date Toujeo [facility] [address] 300 u/mL December 10Feb 12 units SoloStar subcutaneous 2014 15, Once a day at 2014 bedtime OneTouch Ultra [facility] [id number] none in vitro December 11, as directed Blue test three times 2014 strips daily Humalog [facility] [address]-37 100 UNIT/ML September 28 units tid KwikPen Subcutaneous as 2014 with meals directed Procedures Procedure Coding System Code Date COMPLETE CBC W/AUTO DIFF WBC CPT-4 74959 December 16, 2014 COMPREHENSIVE METABOLIC PANEL CPT-4 02305 December 16, 2014 GLUCOSE FINGERSTICK, IN HOUSE CPT-4 88836 December 16, 2014 OFFICE VISIT, EST-MOD. COMPLEXITY (25 MIN) CPT-4 01995 December 16, 2014 Vital Signs Date/Time: December 16, 2014 Height 61.5 in Weight 187.8 lbs Temperature 98.0 F Blood Pressure Diastolic 76 mm Hg Blood Pressure Systolic 118 mm Hg Cardiac Monitoring Heart Rate 107 /min BMI 34.91 Index Oximetry 98 % Respiratory Rate 18 /min Results No Known Results Summary Purpose [employer] Submission
--- OUTSIDE RECORDS SUMMARY | 2017-08-01 21:28 | External Medical Summary ---
[...] Medications Results No Known Results Summary Purpose [facility] Submission
--- OUTSIDE RECORDS SUMMARY | 2017-08-01 21:28 | External Medical Summary | Continuity of Care Document ---
:1955 Author Organization [facility]3] in [place] Allergies There is no data. Medications There is no data. Problems Date Dx Coded Attending Type Code Diagnosis Diagnosed By 10/05/2013 Jovan GONSALEZN, Final 719.44 JOINT PAIN-HAND Milagros 10/05/2013 Jovan VIDEO ENGINEER, Final 722.52 LUMBAR/LS DISC Milagros DEGEN 10/05/2013 Jovan VIDEO ENGINEER, 724.2 LUMBAGO Milagros Procedures There is no data. Results There is no data. Encounters ACCT No. Visit Discharge Status Pt. Type Provider Facility Loc./Unit Complaint Date/Time [id number] 10/05/2013 10/05/2013 CLS Outpatient Jovan [facility] 08:13:00 23:59:59 SUSAN, [facility]
--- OUTSIDE RECORDS SUMMARY | 2017-08-01 21:28 | External Medical Summary ---
[...] Medications Results No Known Results Summary Purpose [facility] Submission
--- OUTSIDE RECORDS SUMMARY | 2017-08-01 21:28 | External Medical Summary ---
:1955 Author Organization [facility] Care Team Providers Name Role Phone Keegan Moreira Provider Role Unavailable Allergies No Known Allergies Problems Problem Type Condition ICD-9 Code Onset Dates Condition Status Problem Coronary atherosclerosis of 414.00 Active unspecified type of vessel, [place] or graft Problem Depressive disorder, not 311 Active elsewhere classified Problem Hypertension, benign 401.1 Active Problem Diabetes Mellitus Type 2, not 250.00 Active stated as uncontrolled Problem Coronary atherosclerosis of 414.00 Active unspecified type of vessel, [place] or graft Problem Depressive disorder, not 311 Active elsewhere classified Medications No Known Medications Results No Known Results Summary Purpose [facility] Submission
--- OUTSIDE RECORDS SUMMARY | 2017-08-01 21:28 | External Medical Summary ---
[...] of 414.00 Active unspecified type of vessel, [place] or graft Problem Depressive disorder, 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 Problem Hypertension, benign 401.1 Active Problem Diabetes Mellitus Type 2, not stated 250.00 Active as uncontrolled Assessment Dehydration 276.51 Active Problem Coronary atherosclerosis of 414.00 Active unspecified type of vessel, [place] or graft Problem Depressive disorder, 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 Medications Medication Code System Code Instructions Start End Date Status Dosage Date Humalog ChacePen [facility] 33216-350 100 UNIT/ML September 30, 2 units 02-25 Subcutaneous as 2015 tid with directed meals Procedures Procedure Coding System Code Date OFFICE VISIT, EST-MOD. COMPLEXITY (25 MIN) CPT-4 56545 October 28, 2014 Vital Signs Date/Time: October 28, 2014 Height 61.5 in Weight 186.4 lbs Temperature 97.9 F Blood Pressure Diastolic 70 mm Hg Blood Pressure Systolic 100 mm Hg Cardiac Monitoring Heart Rate 100 /min BMI 34.65 Index Respiratory Rate 16 /min Results No Known Results Summary Purpose [employer] Submission
--- OUTSIDE RECORDS SUMMARY | 2017-08-01 21:28 | External Medical Summary ---
:1955 Author Organization [employer] Care Team Providers Name Role Phone Keegan Moreira Provider Role Unavailable Allergies No Known Allergies Problems Problem Type Condition Code Onset Dates Condition Status Problem Coronary atherosclerosis of 414.00 Active unspecified type of vessel, [place] or graft Problem Depressive disorder, 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 Problem Hypertension, benign 401.1 Active Problem Diabetes Mellitus Type 2, not stated 250.00 Active as uncontrolled Problem Coronary atherosclerosis of 414.00 Active unspecified type of vessel, [place] or graft Problem Depressive disorder, 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 Medications No Known Medications Results No Known Results Summary Purpose [facility] Submission
--- OUTSIDE RECORDS SUMMARY | 2017-08-01 21:28 | External Medical Summary ---
:1955 Author Organization [employer] Care Team Providers Name Role Phone Keegan Moreira Provider Role Unavailable Allergies No Known Allergies Problems Problem Type Condition Code Onset Dates Condition Status Problem Coronary atherosclerosis of 414.00 Active unspecified type of vessel, [place] or graft Problem Depressive disorder, 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 Problem Hypertension, benign 401.1 Active Problem Diabetes Mellitus Type 2, not stated 250.00 Active as uncontrolled Problem Coronary atherosclerosis of 414.00 Active unspecified type of vessel, [place] or graft Problem Depressive disorder, 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 Medications No Known Medications Results No Known Results Summary Purpose [employer] Submission
[2017-08-01 21:58] VITALS: BMI 31.3
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
[2017-08-01] MEDS ORDERED: ONDANSETRON 4 MG/2 ML INJECTION IVP PRN (22:12)
[2017-08-01] MEDS ORDERED: INSULIN ASPART 100unit/ml INJECTION SQ PRN (22:14)
[2017-08-01] MEDS ORDERED: DEXTROSE 50% SYRINGE 50ml (1 AMP) IVP PRN (22:14)
[2017-08-01] MEDS ORDERED: GLUCOSE ORAL GEL 40% 37.5gm PO PRN (22:14)
[2017-08-01] MEDS ORDERED: NS 1,000 ML IV SCH (22:30)
[2017-08-01] MEDS ORDERED: ALBUTEROL 2.5mg/3ml (0.083%) NEB AEROSOL PRN (22:33)
[2017-08-02] MEDS: AMLODIPINE 10 MG TABLET PO SCH ×2 (03:46→08:48)
--- NOTE | 2017-08-02 04:38 | Progress Note ---
- Date 08/02/17 Subjective: called this AM about "lump in throat", anxiety and left sided chest pain that ranges from anywhere from 9/10 to 2/10. started within the last hour. non radiating. not associated with SOA, diaphoresis, lightheadedness per patient. ROS negative for other cardiovascular or neurologic symptoms associated with it. it is tender to touch over left chest wall in that area. it's worse with shrugging shoulders and flexing shoulders forward. it is point tenderness. she also has a vague "lump in her throat" as noted above. no dysphagia. she hasn't had any nausea/vomiting today. no abdominal pain. no GERD symptoms, hematemesis, coffee ground emesis, melena, BRBPR, constipation, diarrhea, bloody /black stools, GI warning symptoms. patient denies dizziness to me. no syncope or near-syncope. no orthopnea, PND, new edema, leg asymmetry, changes in exertional tolerance, palpitations. no events called on telemetry. no headaches, acute vision changes, fevers, chills, body aches, fatigue, weakness, falls, trauma, injuries, URI symptoms, sinus issues. no cough, sputum production, hemoptysis. no dysuria, hematuria, urinary frequency, flank pain, nocturia, urinary/bowel incontinance, urinary retention. no other urinary symptoms or changes. no polyuria or oliguria. no new or changing boggy/ inflammed/painful joints. no new rashes or skin issues. no ear pain, sinus pain, sore throat, seizure symptoms, cranial nerve symptoms/deficits. no mood changes. denies homicidal/suicidal ideations. she notes she wishes to be DNR/ DNI now as she states she worked for years in a [employer] and didn't want to end up like those she saw come back after a code. no photophobia or meningeal symptoms. no encephalopathic symptoms. vitals have been stable. as I speak to patient the lump in her throat is gone but chest discomfort still remains at 2/10. Kathrin of nursing staff present for exam today. no new issues otherwise at this time. Objective Vital signs: Temperature 97.8 F 08/01/17 21:47 Pulse Rate 92 08/01/17 23:41 Respiratory Rate 18 08/01/17 23:41 Blood Pressure 163/96 H 08/01/17 21:47 Pulse Oximetry 98 08/01/17 23:41 Rhythm: Normal Sinus Rhythm Height/Weight/BMI: Height 1.57 m Weight 77.7 kg Body Mass Index 31.3 - Constitutional Present: no acute distress, cooperative. Absent: diaphoretic, disheveled, combative, agitated, somnolent, obtunded - Routine HEENT Exam Head: Present: normocephalic, atraumatic Eye: Present: EOMI, PERRL. Absent: periorbital ecchymosis, periorbital swelling ENT: Present: mucous membranes dry (but improved from yesterday.) - Routine Respiratory Exam Present: CTA bilaterally. Absent: accessory muscle use, patient mechanically ventilated, dyspnea, decreased breath sounds, prolonged expiratory phase, rales , respiratory distress, rhonchi, stridor, wheezes, crackles, distant breath sounds, diminished air movement Comments: significant palpable tenderness to left anterior chest wall. no spasm noted. she states this is the exact spot that's hurting her. lung sounds heard in all lung [place]bosa b/l at this time. all findings above bilateral unless otherwise noted. - Routine Cardiovascular Exam Present: RRR Comments: no new murmurs. cardiac exam unchanged from usual baseline. no new edema. legs symmetrical and compartments soft b/l in LE's at this time. pulses normal and patient clinically well perfused in all 4 extremities b/l X4. - Routine Abdominal Exam Present: soft (X4.), normoactive bowel sounds (X4.), non distended (X4.), non tender (X4.). Absent: tenderness (X4.), distended (X4.), rebound, guarding, firm, rigid, organomegaly, mass Comments: no ascites or jaundice. - Routine Exam Comments: no tenderness over bladder area. no clinical evidence of upper UTI b/l at this time. no flank pain b/l at this time. - Routine Extremities Exam Absent: cyanosis, joint swelling, pallor, extremity cold to touch Comments: see above. - Routine Back/Spine/Pelvis Exam Comments: see above. - Routine Musculoskeletal Exam Musculoskeletal: Present: no joint swelling, moving extremities well. Absent: joint erythera, joint swelling - Routine Skin Exam Present: intact Comments: no skin changes from previous to uncovered areas at this time. - Routine Neurological Exam Present: alert, oriented X3, CN II-XII intact, normal reflexes (X4 extremities b /l at this time. ), moving all extremities, normal tone, hearing grossly intact , normal speech. Absent: sensory deficit (X4 extremities b/l at this time. ), motor deficit (X4 extremities b/l at this time. ), altered mental status, clonus, nystagmus, hemineglect, fasciculations, facial asymmetry, tremors no changes from previous baseline neurologically at this time. no photophobia. no clinical evidence of meningitis at this time. chest pain made worse with shrugging shoulders and resolves with bringing shoulders back down. - Routine Lymphatic Exam Lymphatic: Absent: lymphedema Comments: no LAD in head/neck/supraclavicular areas b/l at this time. - Routine Psychiatric Exam Present: normal affect (for patient's baseline. ), normal thought process (for patient's baseline. ), cooperative, anxious (is anxious which isn't uncommon at all for patient. affect flat otherwise which also isn't unchanged from baseline. ). Absent: suicidal ideation, homicidal ideation, auditory hallucinations, visual hallucinations, tactile hallucinations, agitated, paranoid, manic Results - Labs CBC & Chem 7: 08/02/17 02:44 08/02/17 02:44 Microbiology Results: Microbiology 08/01/17 22:44 Peripheral/Iv Start Blood Culture - Preliminary Culture Initiated - Results Pending 08/01/17 22:38 Peripheral/Iv Start Blood Culture - Preliminary Culture Initiated - Results Pending Assessment and Plan Assessment and Plan: acute kidney injury, likely pre-renal, secondary to nausea and vomiting, improving. atypical chest pain/chest wall pain today nausea/vomiting likely secondary to gastroparesis versus viral gastroenteritis clinical dehydration, improved history of diastolic congestive heart failure and pleural effusions history of sinoatrial node dysfunction s/p pacemaker HTN chronic multifactorial anemia acute dilutional anemia T2DM chronic and profound medical non-compliance hypothyroid mild non-specific and asymptomatic AST elevation -continue outpatient but will likely need inpatient. continue routine vitals with call parameters, I's and O's, daily weights, oxygen as needed, clear liquid diet, telemetry, up with assist only, continuous pulse oximetry. no clinical evidence of heart failure or fluid overload at this time. clinically appears to be chest wall pain. follow on that noted below. gave orders to give norvasc now and recheck bp in an hour as it was in 180's systolic this AM. -bmp yesterday general stable from earlier in the day. cmp today with sugar in 100's, cre down to 2.2, AST stable at 42, normal Alk Phos and otherwise unremarkable. mg/phos unremarkable. troponins X2 unremarkable. hold off on ordering BNP right now. lactic acids, procalcitonins unremarkable. coags unremarkable. troponin this AM negative. call parameters given on troponins. cbc's with hgb down into 9's which is likely dilutional. hct down accordingly as well. rest of cbc unremarkable. EKG's yesterday and during chest pain stable and unchanged from usual baseline and are reassuring. TSH ok. GLUBS in 100's. see previous notes for other testing and results from this stay and recently. -TSH, PVR, UA pending. CT chest non contrast ordered and will be done shortly. -cbc, cmp in the AM tomorrow (08/03/17). -hold IV fluids for now pending CT results. continue to hold home lasix for now. -continue home ASA. continue novolog low dose s/s, GLUBS, hypoglycemia protocol. continue home ventolin prn. continue home norvasc, metoprolol, synthroid. continue IV zofran prn. continue hold parameters on bp meds. -Dr. Ho of cardiology consulted. -further management pending the above. all other chronic medical condition stable and no other changes to plan of care at this time. ppx -likely start SQ heparin pending the above but will see what CT shows. -PO diet as above for GI ppx. -FULL CODE -dispo heavily dependent on the above. DVT Prophylaxis: other (will likely start SQ heparin if ok with cardiology. ) GI Prophylaxis: other (PO diet. ) Resuscitation Status: Do Not Resuscitate (DNR/DNI.) - Time spent with patient Time with patient PN: 25 minutes - Physician Narrative Narrative: Date: 08/02/17 Time: 427 Sepsis Assessment - Evaluation Severe Sepsis: none seen
[2017-08-02] MEDS: LEVOTHYROXINE 25 MCG TABLET PO SCH (06:29)
[2017-08-02] MEDS: ASPIRIN 81 MG CHEWABLE TABLET PO SCH (08:50)
--- NOTE | 2017-08-02 09:17 | CT Scan Report ---
Indication: pleural effusion PROCEDURE: CT chest wo con: Encounter: Initial Comparison: Chest x-ray dated July 28, 2017 Technique: Axial CT images were performed through the chest without intravenous contrast. Coronal and sagittal two-dimensional reformats. Automated Exposure Control and Iterative Reconstruction dose reducing techniques were utilized. Findings: Small to moderate right and small left pleural effusions with basilar compressive atelectasis in the lower lobes. Trace amount of fluid along the major fissure on the right. Pulmonary vascularity appears mildly congested with minimal interstitial edema. No pneumothorax. The central airways are patent. No worrisome pulmonary nodules or masses appreciated. No axillary or mediastinal lymphadenopathy. Heart size is normal. Trace pericardial effusion. Left pacemaker. The upper abdomen shows no acute findings. Bone windows are unremarkable for age. Impression: Small pleural effusions. Mild pulmonary edema. No focal pneumonia. .
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
[2017-08-02] MEDS ORDERED: ACETAMINOPHEN 325 MG TABLET PO PRN (13:12)
[2017-08-02] MEDS ORDERED: SALINE FLUSH 10ml SYRINGE ONE (14:45)
[2017-08-02] MEDS ORDERED: REGADENOSON 0.4 MG/5 ML INJECTION IVP ONE (14:45)
[2017-08-02] MEDS: HEPARIN SUB-Q 5,000units/0.5ml INJECTION SQ SCH (18:07)
[2017-08-03] MEDS: HEPARIN SUB-Q 5,000units/0.5ml INJECTION SQ SCH ×3 (02:05→17:05)
[2017-08-03 07:41] VITALS: RESP 18; TEMP 96.4
[2017-08-03] MEDS: LEVOTHYROXINE 25 MCG TABLET PO SCH (07:50)
[2017-08-03] MEDS: AMLODIPINE 10 MG TABLET PO SCH (10:19)
[2017-08-03] MEDS: ASPIRIN 81 MG CHEWABLE TABLET PO SCH (10:20)
[2017-08-03] MEDS: LABETALOL 100 MG TABLET PO SCH ×2 (10:20→21:17)
--- NOTE | 2017-08-03 15:26 | Cardiology Progress Note ---
<Charline Kelsey - Last Filed: 08/04/17 12:00> Subjective Principal diagnosis: chest pain Interval history: Chantelle is seen in follow up for chest pain in her room with her daughter at the bedside. When Dr. Ho mentioned the stress test that she reused this am, her and her daughter become hostile and deny that she refused the test. She refuses to answer exam questions, but allows examination. Exam Vital signs: Temperature 96.4 F L 08/03/17 07:38 Pulse Rate 80 08/03/17 08:00 Respiratory Rate 18 08/03/17 07:38 Blood Pressure 169/80 H 08/03/17 07:38 Pulse Oximetry 98 08/03/17 09:52 - Constitutional no acute distress, well nourished, cooperative - Routine HEENT Exam Head: Present: normocephalic ENT: Present: mucous membranes moist - Routine Neck Exam Absent: JVD, carotid bruit - Routine Chest/Breast/Axilla Exam Chest wall: Present: tenderness - Routine Respiratory Exam Present: CTA bilaterally. Absent: rales, wheezes - Routine Cardiovascular Exam Present: RRR, murmur (II/) - Routine Abdominal Exam Present: soft, normoactive bowel sounds - Routine Extremities Exam Present: no edema - Routine Skin Exam Present: intact, dry, warm - Routine Neurological Exam Present: alert, oriented X3 - Routine Psychiatric Exam Present: normal affect, normal thought process - Additional findings Additional findings: Acetaminophen (Tylenol) 650 mg PO Q6H PRN Last Admin: 08/02/17 13:24 Dose: 650 mg Albuterol Sulfate (Proventil Neb (0.083%)) 2.5 mg AEROSOL Q6H PRN PRN Reason: Shortness of air/wheezing Amlodipine Besylate (Norvasc) 10 mg PO DAILY [facility] Last Admin: 08/03/17 10:19 Dose: 10 mg Aspirin (Asa) 81 mg PO DAILY [facility] Last Admin: 08/03/17 10:20 Dose: 81 mg Dextrose (D50%W) 10 - 20 ml IVP PRN PRN PRN Reason: Hypoglycemia Glucose (Glutose 15) 37.5 gm PO PRN PRN PRN Reason: Hypoglycemia Heparin Sodium (Porcine) (Heparin Sq) 5,000 units SQ Q8HR [facility] Last Admin: 08/03/17 10:20 Dose: 5,000 units Insulin Aspart (Novolog) 1 - 5 unit SQ SS PRN; Protocol PRN Reason: Hyperglycemia Labetalol HCl (Normodyne) 200 mg PO BID [facility] Last Admin: 08/03/17 10:20 Dose: 200 mg Levothyroxine Sodium (Synthroid) 12.5 mcg PO ACB [facility] Last Admin: 08/03/17 07:50 Dose: 12.5 mcg Ondansetron HCl (Zofran) 4 mg IVP Q6H PRN PRN Reason: Nausea &/or vomiting Results 08/03/17 05:06 08/03/17 05:06 Cardiac Enzymes 08/02/17 08/03/17 Range/Units 18:26 05:06 AST 47 H (14-36) U/L Troponin I < 0.012 (0-0.12) ng/ml CBC 08/03/17 Range/Units 05:06 WBC 7.7 (4.5-11.0) T/MM3 RBC 3.53 L (4.00-5.20) M/MM3 Hgb 10.3 L (12-16) GM/DL Hct 30.9 L (36-46) % Plt Count 221 (130-400) T/MM3 Neut # (Auto) 4.4 (1.8-7.7) T/MM3 Lymph # (Auto) 2.2 (1-4.8) T/MM3 Wallace # (Auto) 0.6 (0-0.8) T/MM3 Eos # (Auto) 0.4 (0-0.5) T/MM3 Baso # (Auto) 0.0 (0-0.2) T/MM3 Comprehensive Metabolic Panel 08/03/17 Range/Units 05:06 Sodium 140 (134-144) MEQ/L Potassium 3.9 (3.6-5) MEQ/L Chloride 109 H (98-107) MEQ/L Carbon Dioxide 22 (22-30) MEQ/L BUN 40.0 H (7-17) MG/DL Creatinine 1.8 H D (0.7-1.2) MG/DL Glucose 105 (65-110) MG/DL Calcium 8.7 (8.4-10.2) MG/DL AST 47 H (14-36) U/L ALT 30 (9-52) U/L Alkaline Phosphatase 118 (38-126) U/L Total Protein 6.9 (6.3-8.2) G/DL Albumin 3.5 (3.5-5.0) G/DL Intake and Output 08/03/17 08/03/17 08/03/17 06:59 14:59 22:59 Intake Total 480 / 480 400 / 400 Output Total 300 / 300 Balance -300 / -300 480 / 480 400 / 400 Intake: Oral 480 / 480 400 / 400 Output: Urine 300 / 300 Other: Urine Appearance Clear Urine Color Bright Yellow # Voids 2 Weight 173 lb 1.006 oz Patient Weight 08/04/17 06:59 Weight 173 lb 1.006 oz Assessment and Plan - Assessment and Plan (1) Acute kidney injury Status: Acute (2) Hypertension Status: Chronic (3) DM type 2 (diabetes mellitus, type 2) Status: Chronic (4) Presence of cardiac pacemaker Problem details: Biotronik Status: Chronic (5) Atypical chest pain Status: Acute - Assessment and Plan 08/03/17 Atypical chest pain last week, ER visit on 07/28/17. - Troponin negative X3 - EKG:A paced, RBBB - Lexiscan stress test at 0800 tomorrow - Interrogate PPM please 08/04/17 No further C/O chest pain. - refused stress test recommended - Troponin negative X4 Thank you for allowing us to participate in the care of your patient. Hospital Course Summary Disclaimer: The visit summary below is not to be considered part of the above Progress Note. <Cali Ho - Last Filed: 08/09/17 07:50> Exam Vital signs: Temperature 96.4 F L 08/03/17 07:38 Pulse Rate 78 08/03/17 16:58 Respiratory Rate 18 08/03/17 16:58 Blood Pressure 131/67 08/03/17 16:58 Pulse Oximetry 97 08/03/17 19:56 Results 08/03/17 05:06 08/03/17 05:06 Assessment and Plan - Assessment and Plan (1) Hypertension Status: Chronic (2) DM type 2 (diabetes mellitus, type 2) Status: Chronic (3) Acute kidney injury Status: Acute (4) Presence of cardiac pacemaker Problem details: Biotronik Status: Chronic (5) Atypical chest pain Status: Acute - Attestation Attestation Narrative: 08/09/17 07:50 Recommendation After examining the patient I agree with the above assessment. I am involved in the formulation of the patient's plan of care. Hospital Course Summary Disclaimer: The visit summary below is not to be considered part of the above Progress Note.
[2017-08-03 17:12] VITALS: BP 131/67; PULSE 78
--- NOTE | 2017-08-03 19:55 | Progress Note ---
- Date 08/03/17 Subjective: patient has done fine today although it is noted that patient and daughter have both been exceptionally rude to nursing staff. patient refused stress test this AM. she has refused to take her SQ heparin and wear her telemetry at times noting "you have enough information so I'm not wearing this". nursing staff notes patient has been up and ambulating well today and PT/OT agree per report. apparently she did very well with PT/OT. no issues otherwise. no headaches, stroke symptoms, URI symptoms, focal neurologic deficits, cranial nerve symptoms/deficits. no fevers, chills, body aches, fatigue, weakness. no acute vision changes. denies chest pain to me since our last meeting together. no new or changing SOA. no orthopnea, PND, new edema. no skin changes or new lesions/rashes. no changes in exertional tolerance. no falls, trauma, injuries. gait very steady per verbal report from nursing as long as she uses her walker which she's been instructed to use at all times when ambulating. no palpitations. no events called on telemetry. no acute issues overnight. no cough, sputum production, hemoptysis. eating and drinking ok. no new or changing numbness/weakness/tingling anywhere. no dizziness, syncope, near- syncope. no abdominal pain. patient denies nausea/vomiting since admission. no BM since admission. she last had a BM about 3 days ago. no diarrhea, bloody /black stools. denies constipation in general. no GERD symptoms, hematemesis, coffee ground emesis, abdominal distension. no boggy/inflammed/painful/swollen joints today. knee pain form yesterday not nearly as much of an issue today. no new edema. no leg asymmetry. no dysuria, hematuria, urinary frequency, flank pain, nocturia, urinary/bowel incontinance, urinary retention, polyuria, oliguria, other urinary symptoms/changes. no mood changes. she denies homicidal/suicidal ideations. no encephalopathic symptoms. no altered mentation or obtundation. no new issues otherwise at this time. Objective Vital signs: Temperature 96.4 F L 08/03/17 07:38 Pulse Rate 78 08/03/17 16:58 Respiratory Rate 18 08/03/17 16:58 Blood Pressure 131/67 08/03/17 16:58 Pulse Oximetry 98 08/03/17 16:58 Rhythm: Normal Sinus Rhythm Height/Weight/BMI: Height 1.57 m Weight 78.5 kg Body Mass Index 31.3 - Constitutional Present: no acute distress, cooperative. Absent: diaphoretic, disheveled, combative, agitated, somnolent, obtunded - Routine HEENT Exam Head: Present: normocephalic, atraumatic Eye: Absent: periorbital ecchymosis, periorbital swelling, proptosis ENT: Present: mucous membranes moist - Routine Respiratory Exam Present: CTA bilaterally. Absent: accessory muscle use, patient mechanically ventilated, dyspnea, decreased breath sounds, prolonged expiratory phase, rales , respiratory distress, rhonchi, stridor, wheezes, crackles, distant breath sounds, diminished air movement Comments: lung sounds heard in all lung [place] b/l at this time. all findings above bilateral unless otherwise noted. - Routine Cardiovascular Exam Present: RRR Comments: no changes in cardiac exam from previous. legs symmetrical and compartments soft b/l in LE's at this time. clinically well perfused in all 4 extremities b/ l at this time. - Routine Abdominal Exam Present: soft (X4.), normoactive bowel sounds (X4.), non distended (X4.), non tender (x4.). Absent: tenderness (X4.), distended (X4.), rebound, guarding, firm, rigid, organomegaly, mass Comments: no ascites or distension. - Routine Exam Comments: no tenderness over bladder area. no flank pain b/l at this time. - Routine Extremities Exam Absent: cyanosis, joint swelling, pallor, extremity cold to touch Comments: no new edema as noted above. knees orthopedically unchanged from previous and yesterday's exam. no knee or other joint redness/edema/fluctuance/effusions/ asymmetry/pain/abnormal warmth b/l at this time. no boggy/inflammed joints or muscle groups otherwise. - Routine Back/Spine/Pelvis Exam Comments: see the above. no clinical evidence of upper UTI b/l at this time. - Routine Musculoskeletal Exam Musculoskeletal: Present: no joint swelling, no tenderness, no erythema, moving extremities well - Routine Skin Exam Present: intact Comments: no changes from previous to uncovered areas. chronic lesions noted in progress notes from clinic over the last couple of visits unchanged from previous. no new redness/weeping/drainage/fluctuance/erosions/skin pain/soft tissue pain anywhere as compared to previous. - Routine Neurological Exam Present: alert, oriented X3 no changes from a neurovascular standpoint in all 4 extremities b/l at this time. not obtunded and no altered mental status. no photophobia. no clinical evidence of meningitis or encephalopathy at this time. no confusion. no clinical evidence of psychosis, delerium, silvia at this time. affect unchanged from her usual baseline. she denies homicidal/suicidal ideations. - Routine Psychiatric Exam Present: normal affect (for patient.), normal thought process (for patient. ), cooperative. Absent: suicidal ideation, homicidal ideation, auditory hallucinations, visual hallucinations, tactile hallucinations, agitated, paranoid, manic Comments: see the above. Results - Labs CBC & Chem 7: 08/03/17 05:06 08/03/17 05:06 Microbiology Results: Microbiology 08/01/17 22:38 Peripheral/Iv Start Blood Culture - Preliminary No Growth After 1 Day 08/01/17 22:44 Peripheral/Iv Start Blood Culture - Preliminary No Growth After 1 Day Assessment and Plan Assessment and Plan: acute kidney injury, likely pre-renal, secondary to nausea and vomiting, resolved. atypical chest pain/chest wall pain, resolved. nausea/vomiting likely secondary to gastroparesis versus viral gastroenteritis, resolved. clinical dehydration, resolved history of diastolic congestive heart failure and pleural effusions, stable history of sinoatrial node dysfunction s/p pacemaker, stable HTN, improved acute dilutional anemia on top of chronic multifactorial anemia T2DM chronic and profound medical non-compliance hypothyroid mild non-specific and asymptomatic transaminase elevation constipation -patient tolerating solid food now and diabetic diet. patient clinically euvolemic at this time. patient consulted that this physician believes she needs assisted living or her current issues would likely continue to repeat themselves and she refuses. bp improved with labetalol. tolerating PO diet normally now without nausea/vomiting. -cbc's with mild but stable dilutional anemia and otherwise unremarkable. cmp's mild mild occasional AST elevation, cre down to her usual baseline of 1.8, sugars in low 100's and otherwise unremarkable. EKG's have been stable and non-acute. GLUBS in low 100's. CT chest with very small pleural effusions and trace chronic subclinical pulmonary edema and otherwise unremarkable. several troponins followed and all negative. PVR per verbal report unremarkable. TSH ok. UA unremarkable. see previous notes for other testing and results from this stay and recently. -blood cultures X2 negative thus far but still officially pending. -fluids discontinued. no indication for further workup for kidney injury as her creatine is back to baseline. restart home lasix as outpatient. continue home ASA. d/c current insulin sliding scale , GLUBS and hypoglycemia protocol. follow sugars and consider starting tradjenta as outpatient as we were. continue home norvasc. continue current labetalol and discontinue previous metoprolol. d/c current zofran as she hasn't required it. will likely restart ventolin prn from clinic. likely call in colace prn and scheduled potassium for lasix from clinic. -Dr. Ho of cardiology consulted. discussed with him discharge plan and restarting of lasix 40mg PO BID and he agrees. he agrees with current plan of care. all other chronic medical condition stable and no other changes to plan of care at this time. ppx -patient initially refused SQ heparin for quite a while but eventually was ok with it and has been getting it. -PO diet as above for GI ppx. -DNR/DNI. -dispo discharge to home today. see discharge summary and orders for further details. DVT Prophylaxis: SQ Heparin GI Prophylaxis: other (PO diet.) Resuscitation Status: Do Not Resuscitate (patient DNR/DNI.) - Time spent with patient Time with patient PN: 50 minutes - Physician Narrative Narrative: Date: 08/03/17 Time: 1950 Sepsis Assessment - Evaluation Severe Sepsis: none seen
[2017-08-03 19:57] VITALS: O2SAT 97
--- NOTE | 2017-08-04 09:48 | Wound Care Progress Note ---
Wound Center Progress Note: Pt discharged at this time. Pt seen 08/03/17 for wound evaluation. Seen with Viji DASH. Pt dangling on side of bed, no complaints of pain. Pt has pressure injury to R anterior foot. Pt reports her shoe has been rubbing on the top of her foot causing the sore. The wound did not blister, nor has it had drainage. R anterior foot: Unstageable PI, wound bed is covered with black eschar, no drainage. Periwound: blanchable erythema, +2 pitting edema to foot and lower leg. Dressing: Iodosorb applied to gauze, and covered with tape. Change dressing q 3 days. Pt educated on dressing changes, discharge nurse will instruct pt how to change wound dressings at home. Educated on changing foot wear so there is no pressure/friction on anterior R foot.
--- NOTE | 2017-08-04 09:50 | Wound Care Progress Note ---
Wound Management - Patient Status Premedicated Prior to Dressing Change: No - Wound Right Anterior Foot Wound Type: Pressure Injury Wound Present on Admission?: Yes Wound Staging: Unstageable Length: 1.2 Width: 1.1 Depth: 0.1 Wound Bed Appearance: Eschar Stephenie Wound Appearance: [place], Edematous-pitting Drainage Amount: None Drainage Odor: No Odor Dressing Status: Changed Secondary Dressing: Foam Dressing Dressing Change Date: 08/03/17 Dressing Change Time: 16:20 Dressing Change Patient Tolerance: Tolerated Well (Iodosorb/gauze applied to wound bed, covered with tape.) Microbiology: Microbiology 08/01/17 22:44 Peripheral/Iv Start Blood Culture - Preliminary No Growth After 2 Days 08/01/17 22:38 Peripheral/Iv Start Blood Culture - Preliminary No Growth After 2 Days
--- NOTE | 2017-08-05 08:04 | Discharge Summary ---
MODE OF ADMISSION Outpatient and observation. ATTENDING PHYSICIAN Dr. Moreira of [facility]. ADMITTING PHYSICIAN Dr. Moreira of [facility] CONSULTING PHYSICIANS Dr. Ho of Cardiology. He was consulted and ordered a stress test for which the patient refused. He did change the patient's metoprolol to the labetalol listed below. ANCILLARY SERVICES DURING THE STAY The patient had Wound Care for chronic sores on the top of her foot and on her shoulders. She also worked with Physical Therapy and Occupational Therapy. They saw her the day of discharge and she reportedly did well. DISCHARGE DIAGNOSES 1. Acute kidney injury, prerenal, secondary to nausea and vomiting, resolved. 2. Atypical chest pain/chest wall pain which is resolved. 3. Nausea/vomiting, likely secondary to gastroparesis versus viral gastroenteritis which is currently resolved. 4. Clinical dehydration, resolved. 5. History of diastolic congestive heart failure and chronic pleural effusions which are stable. 7. History of sinoatrial node dysfunction status post pacemaker, stable. 8. Hypertension, which is improved. 9. Acute dilutional anemia on top of chronic multifactorial anemia. 10. Type 2 diabetes. 11. Chronic and profound medical noncompliance. 12. Hypothyroid. 13. Mild nonspecific and asymptomatic transaminase elevation this stay. 14. Constipation. DISCHARGE MEDICATIONS 1. Labetalol 200 mg p.o. b.i.d. 2. Norvasc 10 mg p.o. daily. 3. Synthroid 12.5 mcg p.o. daily. 4. Aspirin enterically coated 81 mg p.o. daily. 5. Lasix 40 mg p.o. twice per day. 6. Colace 100 mg p.o. b.i.d. p.r.n. constipation. 7. Potassium chloride 10 mEq p.o. daily. 8. Ventolin HFA 90 mcg inhaler -2 puffs q.6h. p.r.n. shortness of air/ wheezing. Please note that the Colace, potassium chloride and Ventolin were called in from the clinic. Please see the above for the switch to labetalol. The patient is discharged to home in stable and good condition currently. It has been recommended to the patient that she obtain Assisted Living or a higher level of care as an outpatient and she refuses. DIET: Diabetic. ACTIVITY: No changes as per prehospitalization. The patient was consulted to use her walker with any ambulation and she verbalized understanding. PAIN: The patient was told that if any pain worsens and/or new pains occur to be seen right away. WOUND CARE: There are no changes from prehospitalization. The chronic wounds on the top of her right foot and on her shoulders are healing nicely at this time. The patient was told if any of her IV sites become red/painful/swollen/ warm she will let us know right away. She was also told that if any of her current and chronic skin wounds worsen and/or new ones occur to be seen right away. ADDITIONAL INSTRUCTIONS: 1. Orders are given to nursing to please discontinue all lines, IVs and telemetry the patient didn't come in on before discharge. 2. The patient was told if any issues worsen and/or new ones occur she will be seen immediately. 3. The patient will check her blood sugars before meals and before bedtime. She will keep a log. She will send in this log to Dr. Moreira's office every 3- 4 days. The patient will call provider right away for sugars greater than 250 and/or less than 80 at any time. 4. The patient made it known that she plans to switch cardiologists. It is not clear at this time who she will choose. She was instructed to make an appointment with this lidar analyst within the next 1-2 weeks and that this was her responsibility. She was told to contact our office if she needed any further help with this. 5. The patient will check her blood pressures and heart rate in the morning and in the evening. She will do this daily. She will keep a log. She was told if her heart rate gets below 55 beats per minute and/or her systolic blood pressure gets below 100 that she will let us know right away. 4. The patient was told if she has any return of her nausea and vomiting to let us know right away. She was told it is likely this is the result of some gastrointestinal issues from her diabetes that we are planning on working up further as an outpatient with a gastric emptying study. Also, considerations would be starting Reglan or another prokinetic agent. We will be doing this as an outpatient. She was also told it could have been from a viral infection as well. EXPECTED SIGNS/SYMPTOMS The patient was told her kidney function should continue to stay at its baseline. The patient was told that her chest pain should continue to stay resolved. The patient was told that her previous nausea and vomiting should also stay resolved. The patient was told to return to care immediately if any shortness of breath, chest pain, dizziness, decrease in urine output, increase in urine output, cough, shortness of breath when lying down, waking up short of breath, new swelling or edema, decrease in exertional tolerance, palpitations, nausea, vomiting should occur. Contact information was given for Dr. Moreira for during business and after business hours. For any pending lab results the patient will follow up with primary care provider. This amounts to the blood cultures x 2 which are negative to date but still officially pending. KanQuit: This was not applicable as the patient does not use tobacco products. REFERRAL/FOLLOWUP Please see above for the cardiology followup. The patient will follow up on 05/[address] Moreira as scheduled and will get a CBC and CMP the day before and sent to him. PERTINENT VITALS DONE DURING THE STAY The patient was moderately hypertensive while here with average systolic blood pressures in the 140s to 160s. This had improved to 131/67 by discharge. Restarting the patient's Lasix should also help with this as well. This will be followed as an outpatient. The patient's oxygenation, heart rate, temperature, respirations were all unremarkable while here otherwise. PERTINENT LABORATORY WHILE HERE The patient's white blood cell count was normal throughout. Hemoglobin on admission was in in the mid-10s. It dropped to 9.7 after rehydration and came up to 10.3 by discharge. The hematocrit generally hung out in the high 20s to low 30s. Platelets were normal and the rest of the CBC was generally unremarkable. PTT and INR on admission were unremarkable. The patient's sodiums, potassiums, chlorides, acid base status were unremarkable. Creatinine on admission was 2.4. After rehydration it came down to 1.8 after two days. Blood sugars were generally in the low one 100s while here and stable. Calcium, magnesium, phosphorus were all generally unremarkable. The patient's AST was mildly elevated in the low to mid 40s but otherwise liver function tests were negative while here. Lactic acids were negative x 2 while here. Procalcitonin was negative on admission. TSH was 2.73 and in range. Troponins were negative x 4 while here. There was a separate troponin done earlier in the day which was negative. This would make five troponins which were negative over the course of the patient's stay. Urinalysis on admission was unremarkable except for a trace amount of occult blood and 3+ protein. The plan is to work this up further as an outpatient. There was a trace amount of glucose as well. Microbiology while here: Blood cultures x 2 are negative to date from the day of admission. These are still officially pending. PERTINENT IMAGING WHILE HERE The patient's EKGs x 2 were stable from previous and generally nonacute. CT chest without contrast done on 08/02/2016 showed small bilateral pleural effusions with mild chronic pulmonary edema and no focal pneumonia. It was otherwise nonacute and unremarkable. HISTORY OF PRESENT ILLNESS AND HOSPITAL COURSE This is a pleasant but profoundly noncompliant 61-year-old female known to our clinic. She was most recently in her usual state of health up until last week. At that time we were called by Home Health noting her systolic blood pressures were in the 220s and that she was having chest pain. She was seen in the emergency room and a workup was done and it was generally unremarkable and she was sent home. I will refer you to the electronic medical record in our system for further details on that. The blood pressure reportedly came down largely on its own and the chest pain resolved at that time. Apparently, a few days before this, she started having episodes of vomiting as well. This would occur right after eating or drinking. It would occur without warning and was happening up to three or four times daily. There was no nausea preceding this. She didn't feel systemically unwell in general. She did have a couple of episodes of watery brown diarrhea on the first day when this occurred but otherwise bowel movements have been normal. Review of systems was negative for any obvious ancillary cause for her gastrointestinal symptoms. On the day of admission she was seen in the clinic for these issues. A KUB and upright plain film was unremarkable. A CBC at that time showed a hemoglobin in the mid-10s and was otherwise unremarkable. Her creatinine had bumped to 2.3 to 2.4 which was above her baseline. A complete metabolic panel demonstrated sugars in the mid-100s otherwise and a nonspecific elevation of her alkaline phosphatase and AST but was otherwise unremarkable. Other sepsis markers and workup were unremarkable as noted above. The patient was admitted. Per verbal report a postvoid residual was unremarkable. She was started on IV normal saline at only 50 ml/hour, taking care not to overload the patient with fluid given her fragile cardiovascular situation. This worked and two days later her creatinine came back down to his usual baseline. This being the issue that got her in the hospital, she was discharged on 08/03/2017. Please see above for followup for this. The patient was noted to have a return of her chest pain while here. This was rather atypical and her left chest wall was tender to touch and she noted this was the pain she was feeling. An extensive cardiovascular, laboratory imaging workup as noted above was unremarkable. Her pulmonary status was at her usual baseline. Cardiology did see the patient as noted above and recommended a stress test, but the patient refused. Her metoprolol was discontinued and she was transitioned to labetalol. Initially her Lasix was held secondary to her renal issues, but this has since been restarted. Her blood pressure was coming down by discharge. We did add some potassium for this - given she is on the diuretic as well. Please see above for the other imaging and laboratory evaluation undertaken as far as this goes. The patient had been chest pain free for quite some time before discharge. Please see above for the recommended followup. In regard to the patient's nausea and vomiting. I suspect this is secondary to gastroparesis. The possibility of a viral gastroenteritis is also there as well. She was written for Zofran while here but never required any of it. She started out on clear liquids and was advanced to a full diabetic diet by discharge and she was doing quite well. She had no nausea and vomiting while here. She was significantly dehydrated on admission but this resolved with gentle IV rehydration. We will likely pursue further workup as an outpatient including a gastric emptying study as well as possibly starting a prokinetic. We will discuss this further at her upcoming followup. The patient does have a history of diastolic congestive heart failure. This did not play any significant role while here other than it did alter how fast we could give her IV fluids. On discharge the patient was completely euvolemic and her volume status was back to baseline. The patient does have a history of hypertension as noted above. Please see the above paragraph where I discuss the patient's chest pain as it encompasses this problem as well. In regard to the patient's anemia. This is generally chronic. We can follow this further as an outpatient as noted above. The patient is a type 2 diabetic. Blood sugars were under good control while here. We had been following her blood sugars as an outpatient and were considering starting Tradjenta given her renal function. This hospitalization interrupted that process but we plan to resume as noted above. The patient has been put on insulin before which is certainly reasonable. However, she is extraordinarily noncompliant with this and it is proven to be a major issue. She also has some financial limitations which limit this as well. We will follow this further as an outpatient. We can augment her medication regimen as an outpatient also. The patient has a known history of hypothyroidism. Her TSH was normal while here and she was maintained on her home Synthroid. The patient did have a mild elevation of her AST while here. This will be followed as an outpatient and did not play into the hospitalization in any major way. The patient was noted to be a little constipated on discharge. She had not had a bowel movement in 3 days at that time. She had no other abdominal issues or complaints. The Colace was added as noted above from our clinic. In regard to the patient's chronic right superior foot and shoulder/arm lesions. These actually appear to be healing well. Wound Care nursing did see the patient and provide some recommendations while here. They used Iodosorb gauze applied to the wound bed and then covered with tape. They provided the patient recommendations upon discharge it appears. They also made some shoe recommendations as well. I will direct you to their notes for further details on this. The patient did have some mild chronic knee pain on the left while here. This came and went which is completely normal for this patient's baseline. There were no boggy or inflamed joints in in her knees or anywhere else. There was no clinical evidence of venous thromboembolism or leg asymmetry or new edema. This pain was in her usual pattern and will be followed as an outpatient. All other chronic medical conditions stable and no other changes to plan of care at this time. The patient was put on subcutaneous heparin while here for DVT prophylaxis. She initially refused this and did refuse at times thereafter as well. She eventually was okay getting it and she tolerated it well. The patient was given an oral diet for GI prophylaxis for most of her stay here. The patient was a Do Not Resuscitate/Do Not Intubate per her request while here. Please see other notes for details on the discussion surrounding this. DISPOSITION The patient is discharged to home in stable and good condition. Please see the electronic medical record notes/imaging/results as they cannot all be possibly encompassed completely in a discharge summary. Ancillary services while here were physical therapy/wound care/occupational therapy. Please see above for their input. EL[place]IRA
== END 2017-08-03 22:25 | disposition home or self-care (01) ==
LOC: MED → UNDODISIN 08-03 22:25
PROVIDERS: ADMIT Internal Medicine; ATTEND Internal Medicine

== ENCOUNTER 2017-08-09 12:59 | Inpatient (IN) ==
--- OUTSIDE RECORDS SUMMARY | 2017-08-09 13:13 | External Medical Summary ---
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
--- OUTSIDE RECORDS SUMMARY | 2017-08-09 13:13 | External Medical Summary ---
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
--- OUTSIDE RECORDS SUMMARY | 2017-08-09 13:13 | External Medical Summary ---
:1955 Author Organization [employer] Care Team Providers Name Role Phone Yuli Hart Provider Role Unavailable Allergies No Known Allergies Problems Problem Type Condition ICD-9 Code Onset Dates Condition Status Problem Diabetes Mellitus Type 2, not 250.00 Active stated as uncontrolled Problem Depressive disorder, not 311 Active elsewhere classified Medications No Known Medications Results No Known Results Summary Purpose [employer] Submission
--- OUTSIDE RECORDS SUMMARY | 2017-08-09 13:13 | External Medical Summary ---
:1955 Author Organization [employer] Care Team Providers Name Role Phone Keegan Moreira Provider Role Unavailable Allergies No Known Allergies Problems Problem Type Condition ICD-9 Code Onset Dates Condition Status Problem Coronary atherosclerosis of 414.00 Active unspecified type of vessel, [place] or graft Problem Depressive disorder, not 311 Active elsewhere classified Problem Hypertension, benign 401.1 Active Problem Diabetes Mellitus Type 2, not 250.00 Active stated as uncontrolled Assessment Diabetes Mellitus Type 2, not 250.00 Active stated as uncontrolled Problem Coronary atherosclerosis of 414.00 Active unspecified type of vessel, [place] or graft Problem Depressive disorder, not 311 Active elsewhere classified Medications Medication Code System Code Instructions Start End Date Status Dosage Date Humalog Sheridan [facility] 31666-674 100 UNIT/ML September 30, 6 units 02-25 Subcutaneous as 2014 tid with directed meals Jackiesteph ArmentaMilla [facility] 92622-305 300 u/mL December 10May 01, 8 units in 9 subcutaneous 2014 2014 the am and daily 8 units in the pm Results No Known Results Summary Purpose [employer] Submission
--- OUTSIDE RECORDS SUMMARY | 2017-08-09 13:13 | External Medical Summary ---
[...] Date Status Dosage Date Humalog KwikPen [facility] 80341-18 100 UNIT/ML not defined 99 Subcutaneous Ditropan XL [facility] 14108-70 5 MG Orally Once December 14Mar 14, 1 tablet 05-01 a day 2015 2015 Procedures Procedure Coding System Code Date Office visit new level 3 CPT-4 14955 December 15, 2015 Pap smear, thin layer CPT-4 30688 December 15, 2015 Vital Signs Date/Time: December 15, 2015 BMI 33.10 Index Height 62 in Weight 181 lbs Blood Pressure Diastolic 66 mm Hg Blood Pressure Systolic 128 mm Hg Results Name Result Date Reference Range Unit Abnormality Flag * PAP CYTOPATHOLOGY, CERVICAL/VAGINAL, PRESERVATIVE FLUID, AUTO THIN LAYER PREP; MANUAL SCREEN (72663) Summary Purpose [employer] Submission
--- OUTSIDE RECORDS SUMMARY | 2017-08-09 13:13 | External Medical Summary ---
[...] Medications Results No Known Results Summary Purpose [employer] Submission
--- OUTSIDE RECORDS SUMMARY | 2017-08-09 13:13 | External Medical Summary ---
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
--- OUTSIDE RECORDS SUMMARY | 2017-08-09 13:13 | External Medical Summary ---
[...] Medications Results No Known Results Summary Purpose [employer] Submission
--- OUTSIDE RECORDS SUMMARY | 2017-08-09 13:13 | External Medical Summary ---
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 [address]-212 100 UNIT/ML September 30 units 02-25 Subcutaneous as 2015 tid with directed meals Procedures Procedure Coding System Code Date URINALYSIS, IN HOUSE CPT-4 43790 October 21, 2014 GLUCOSE FINGERSTICK, IN HOUSE CPT-4 78233 October 21, 2014 IH CMP CPT-4 02869 October 21, 2014 HYDRATION IV INFUSION, INIT CPT-4 68186 October 21, 2014 C-REACTIVE PROTEIN CPT-4 79279 October 21, 2014 HYDRATE IV INFUSION, ADD-ON CPT-4 32692 October 21, 2014 COMPLETE CBC W/AUTO DIFF WBC CPT-4 44269 October 21, 2014 OFFICE VISIT, EST-MOD. COMPLEXITY (25 MIN) CPT-4 21020 October 21, 2014 SED RATE CPT-4 61264 October 21, 2014 URINE CULTURE CPT-4 94250 October 21, 2014 Vital Signs Date/Time: October 21, 2014 Height 61.5 in Weight 179.0 lbs Temperature 98.7 F Blood Pressure Diastolic 60 mm Hg Blood Pressure Systolic 90 mm Hg Cardiac Monitoring Heart Rate 107 /min BMI 33.27 Index Oximetry 99 % Respiratory Rate 20 /min Results No Known Results Summary Purpose [employer]Works Submission
--- OUTSIDE RECORDS SUMMARY | 2017-08-09 13:13 | External Medical Summary ---
[...] of 414.00 Active unspecified type of vessel, [place] or graft Problem Depressive disorder, not 311 Active elsewhere classified Problem Hypertension, benign 401.1 Active Problem Diabetes Mellitus Type 2, not 250.00 Active stated as uncontrolled Assessment Diabetes Mellitus Type 2, not 250.00 Active stated as uncontrolled Problem Coronary atherosclerosis of 414.00 Active unspecified type of vessel, [place] or graft Problem Depressive disorder, not 311 Active elsewhere classified Medications Medication Code Code Instructions Start End Status Dosage System Date Date OneTouch Ultra [facility] [place] [id number] none in vitro December 11, as directed Blue test three times 2014 strips daily Toujeo [facility] [place] [address] 300 u/mL December 10Jul 05, 8 units in [employer] subcutaneous 2014 2015 the am and daily 8 [place] [address]-33 100 UNIT/ML September 6 units tid KwikPen Subcutaneous as 2014 [place] [address]-37 100 MG Orally January 06Feb 03, 1 capsule Perles Three times a 2014 2014 as needed day for cough/congestio n Ventolin HFA [facility] [place] [address]-71 108 (90 Base) January 06, 1 to 2 MCG/ACT 2014 puffs as Inhalation needed every 6 hrs for cough/wheezing Procedures Procedure Coding System Code Date OFFICE VISIT, EST-MOD. COMPLEXITY (25 MIN) CPT-4 41831 January 06, 2015 Vital Signs Date/Time: January 06, 2015 Height 61.5 in Weight 190.12 lbs Temperature 97.8 F Blood Pressure Diastolic 72 mm Hg Blood Pressure Systolic 120 mm Hg Cardiac Monitoring Heart Rate 96 /min BMI 35.34 Index Oximetry 98 % Respiratory Rate 18 /min Results No Known Results Summary Purpose [employer]ClinicalWorks Submission
--- OUTSIDE RECORDS SUMMARY | 2017-08-09 13:13 | External Medical Summary ---
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
--- OUTSIDE RECORDS SUMMARY | 2017-08-09 13:13 | External Medical Summary ---
[...] of 414.00 Active unspecified type of vessel, [place] or graft Problem Depressive disorder, not 311 Active elsewhere classified Problem Hypertension, benign 401.1 Active Problem Diabetes Mellitus Type 2, not 250.00 Active stated as uncontrolled Assessment Diabetes Mellitus Type 2, not 250.00 Active stated as uncontrolled Problem Coronary atherosclerosis of 414.00 Active unspecified type of vessel, [place] or graft Problem Depressive disorder, not 311 Active elsewhere classified Medications Medication Code Code Instructions Start End Status Dosage System Date Date Toujeo [facility] [address] 300 u/mL December 10Feb 12 units SoloStar subcutaneous 2014 15, Once a day at 2014 bedtime OneTouch Ultra [facility] 97098926699 none in vitro December 11, as directed Blue test three times 2014 strips daily Humalog [facility] [address]-34 100 UNIT/ML September 28 units tid KwikPen Subcutaneous as 2014 with meals directed Procedures Procedure Coding System Code Date COMPLETE CBC W/AUTO DIFF WBC CPT-4 46289 December 16, 2014 COMPREHENSIVE METABOLIC PANEL CPT-4 07002 December 16, 2014 GLUCOSE FINGERSTICK, IN HOUSE CPT-4 25562 December 16, 2014 OFFICE VISIT, EST-MOD. COMPLEXITY (25 MIN) CPT-4 12678 December 16, 2014 Vital Signs Date/Time: December [...]
--- OUTSIDE RECORDS SUMMARY | 2017-08-09 13:13 | External Medical Summary ---
:1955 Author Organization eClinicalWorks Care Team Providers Name Role Phone Keegan Moreira Provider Role Unavailable Allergies No Known Allergies Problems Problem Type Condition ICD-9 Code Onset Dates Condition Status Problem Coronary atherosclerosis of 414.00 Active unspecified type of vessel, [place] or graft Problem Depressive disorder, not 311 Active elsewhere classified Problem Hypertension, benign 401.1 Active Problem Diabetes Mellitus Type 2, not 250.00 Active stated as uncontrolled Assessment Diabetes Mellitus Type 2, not 250.00 Active stated as uncontrolled Problem Coronary atherosclerosis of 414.00 Active unspecified type of vessel, [place] or graft Problem Depressive disorder, not 311 Active elsewhere classified Medications Medication Code System Code Instructions Start End Date Status Dosage Date Chapin Tay [facility] [address] 300 u/mL December 10, Mar 26, 6 units in 9 subcutaneous 2014 2014 the am and Once a day at 6 units in bedtime the PM Results No Known Results Summary Purpose [employer] [facility] [employer] Submission
--- OUTSIDE RECORDS SUMMARY | 2017-08-09 13:13 | External Medical Summary ---
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
--- OUTSIDE RECORDS SUMMARY | 2017-08-09 13:13 | External Medical Summary ---
[...] End Date Status Dosage System Date Cipro [facility] [address] 500 MG Orally Mar 17, 1 tablet 67-01 Twice a day 2014 Pen [place] NDC 0 31G X 5 MM January 10, File DME 09/09" daily 2013 [place] [address] 300 UNIT/ML 10 units 69-03 Subcutaneous Two times daily Accu-Chek NDC 0 In Vitro January 10, File DME SmartView daily 2013 under Medicaid Accu-Chek NDC 0 4 daily January 10, File DME for FastClix 2014 [place] [address] 100 UNIT/ML 4 units 99-01 Subcutaneous with meals only Procedures Procedure Coding System Code Date ANNUAL DEPRESSION SCREENING 15 MIN CPT-4 G0444 Mar 17, 2015 Office Visit, Est Pt., Level 5 CPT-4 77798 Mar 17, 2015 Billed by outside source [...]
--- OUTSIDE RECORDS SUMMARY | 2017-08-09 13:13 | External Medical Summary ---
[...] Medications Results No Known Results Summary Purpose [employer] Submission
--- OUTSIDE RECORDS SUMMARY | 2017-08-09 13:13 | External Medical Summary ---
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
--- OUTSIDE RECORDS SUMMARY | 2017-08-09 13:13 | External Medical Summary ---
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
--- OUTSIDE RECORDS SUMMARY | 2017-08-09 13:13 | External Medical Summary ---
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
--- OUTSIDE RECORDS SUMMARY | 2017-08-09 13:14 | External Medical Summary ---
[...] of 414.00 Active unspecified type of vessel, [place] or graft Problem Depressive disorder, not 311 Active elsewhere classified Problem Hypertension, benign 401.1 Active Problem Diabetes Mellitus Type 2, not 250.00 Active stated as uncontrolled Assessment Diabetes Mellitus Type 2, not 250.00 Active stated as uncontrolled Problem Coronary atherosclerosis of 414.00 Active unspecified type of vessel, [place] or graft Problem Depressive disorder, not 311 Active elsewhere classified Medications Medication Code Code Instructions Start End Status Dosage System Date Date Toujeo [facility] [address] 300 u/mL December 10Feb 12 units SoloStar subcutaneous 2014 15, Once a day at 2014 bedtime OneTouch Ultra [facility] [id number] none in vitro December 11, as directed Blue test three times 2014 strips daily Humalog [facility] [address]-49 100 UNIT/ML September 28 units tid KwikPen Subcutaneous as 2014 with meals directed Procedures Procedure Coding System Code Date COMPLETE CBC W/AUTO DIFF WBC CPT-4 34286 December 16, 2014 COMPREHENSIVE METABOLIC PANEL CPT-4 37335 December 16, 2014 GLUCOSE FINGERSTICK, IN HOUSE CPT-4 64452 December 16, 2014 OFFICE VISIT, EST-MOD. COMPLEXITY (25 MIN) CPT-4 93999 December 16, 2014 Vital Signs Date/Time: December 16, 2014 Height 61.5 in Weight 187.8 lbs Temperature 98.0 F Blood Pressure Diastolic 76 mm Hg Blood Pressure Systolic 118 mm Hg Cardiac Monitoring Heart Rate 107 /min BMI 34.91 Index Oximetry 98 % Respiratory Rate 18 /min Results No Known Results Summary Purpose eClinicalWorks Submission
--- OUTSIDE RECORDS SUMMARY | 2017-08-09 13:14 | External Medical Summary ---
[...] Medications Results No Known Results Summary Purpose eClinicalERUCES Submission
--- OUTSIDE RECORDS SUMMARY | 2017-08-09 13:14 | External Medical Summary ---
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
--- OUTSIDE RECORDS SUMMARY | 2017-08-09 13:14 | External Medical Summary ---
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 Problem Hypertension, benign 401.1 Active Problem Diabetes Mellitus Type 2, not stated 250.00 Active as uncontrolled Assessment Diabetes Mellitus Type 2, not stated 250.00 Active as uncontrolled Problem Coronary atherosclerosis of 414.00 Active unspecified type of vessel, [place] or graft Problem Depressive disorder, 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 COMPLEXITY (25 MIN) CPT-4 40037 October 07, 2014 Vital Signs Date/Time: October 07, 2014 Height 61.5 in Weight 181.0 lbs Temperature 98.1 F Blood Pressure Diastolic 60 mm Hg Blood Pressure Systolic 120 mm Hg Cardiac Monitoring Heart Rate 96 /min BMI 33.64 Index Respiratory Rate 20 /min Results No Known Results Summary Purpose eClinicalWorks Submission
--- OUTSIDE RECORDS SUMMARY | 2017-08-09 13:14 | External Medical Summary ---
:1955 Author Organization [facility] Care Team Providers Name Role Phone Keegan [...] Medications Results No Known Results Summary Purpose [facility] Submission
--- OUTSIDE RECORDS SUMMARY | 2017-08-09 13:14 | External Medical Summary ---
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
--- OUTSIDE RECORDS SUMMARY | 2017-08-09 13:14 | External Medical Summary ---
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
--- OUTSIDE RECORDS SUMMARY | 2017-08-09 13:14 | External Medical Summary ---
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
--- OUTSIDE RECORDS SUMMARY | 2017-08-09 13:14 | External Medical Summary ---
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 Problem Hypertension, benign 401.1 Active Problem Diabetes Mellitus Type 2, not stated 250.00 Active as uncontrolled Assessment Dehydration 276.51 Active Problem Coronary atherosclerosis of 414.00 Active unspecified type of vessel, [place] or graft Problem Depressive disorder, 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
--- OUTSIDE RECORDS SUMMARY | 2017-08-09 13:14 | External Medical Summary ---
:1955 Author Organization [employer] Care Team Providers Name Role Phone Keegan Moreira Provider Role Unavailable Allergies No Known Allergies Problems Problem Type Condition ICD-9 Code Onset Dates Condition Status Problem Coronary atherosclerosis of 414.00 Active unspecified type of vessel, [place] or graft Problem Depressive disorder, not 311 Active elsewhere classified Problem Hypertension, benign 401.1 Active Problem Diabetes Mellitus Type 2, not 250.00 Active stated as uncontrolled Problem Coronary atherosclerosis of 414.00 Active unspecified type of vessel, [place] or graft Problem Depressive disorder, not 311 Active elsewhere classified Medications No Known Medications Results No Known Results Summary Purpose [employer]makeena Submission
--- OUTSIDE RECORDS SUMMARY | 2017-08-09 13:14 | External Medical Summary ---
[...] End Date Status Dosage System Date Cipro [facility] [address]-85 500 MG Orally Mar 17, tablet 67-01 Twice a day 2014 Tomallika Tay [facility] [address]-04 300 UNIT/ML 10 units 69-03 Subcutaneous [place] [address] 100 UNIT/ML 6 units 99-01 Subcutaneous with meals only Accu-Chek NDC 0 In Vitro January 10, File DME SmartView daily 2013 under Medicaid [place] NDC [address]-01 31G X 8 MM Mar 24, as directed 11/09" 182014 Accu-Chek NDC 0 4 daily January 10, File DME for FastClix 2014 Medicaid Lancets Pen [place] NDC 0 31G X 5 MM January 10, File DME 3/16" daily 2013 under Medicaid Procedures Procedure Coding System Code Date Office Visit, Est Pt., Level 3 CPT-4 84682 Mar 24, 2015 Vital Signs Date/Time: Mar 24, 2015 Blood Pressure Systolic 110 mm Hg Weight 201.8 lbs Height 60.5 in Oximetry 98 % Respiratory Rate 16 /min Cardiac Monitoring Heart Rate 106 /min Blood Pressure Diastolic 68 mm Hg BMI 38.76 Index Results No Known Results Summary Purpose eClinicalWorks Submission
--- OUTSIDE RECORDS SUMMARY | 2017-08-09 13:14 | External Medical Summary ---
[...] Medications Results No Known Results Summary Purpose eClinicalCerevo Submission
--- OUTSIDE RECORDS SUMMARY | 2017-08-09 13:14 | External Medical Summary ---
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
--- OUTSIDE RECORDS SUMMARY | 2017-08-09 13:14 | External Medical Summary ---
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
--- OUTSIDE RECORDS SUMMARY | 2017-08-09 13:14 | External Medical Summary ---
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 Problem Hypertension, benign 401.1 Active Problem Diabetes Mellitus Type 2, not stated 250.00 Active as uncontrolled Assessment Dehydration 276.51 Active Problem Coronary atherosclerosis of 414.00 Active unspecified type of vessel, [place] or graft Problem Depressive disorder, 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 Medications Medication Code System Code Instructions Start End Date Status Dosage Date Humalog ChacePen [facility] [address] 100 UNIT/ML September 30, 2 units 02-25 Subcutaneous as 2015 tid with directed meals Procedures Procedure Coding System Code Date OFFICE VISIT, EST-MOD. COMPLEXITY (25 MIN) CPT-4 83709 October 28, 2014 Vital Signs Date/Time: October 28, 2014 Height 61.5 in Weight 186.4 lbs Temperature 97.9 F Blood Pressure Diastolic 70 mm Hg Blood Pressure Systolic 100 mm Hg Cardiac Monitoring Heart Rate 100 /min BMI 34.65 Index Respiratory Rate 16 /min Results No Known Results Summary Purpose eClinicalWorks Submission
--- OUTSIDE RECORDS SUMMARY | 2017-08-09 13:14 | External Medical Summary ---
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
--- OUTSIDE RECORDS SUMMARY | 2017-08-09 13:14 | External Medical Summary ---
:1955 Author Organization [employer] Care Team Providers Name Role Phone Keegan Moreira Provider Role Unavailable Allergies No Known Allergies Problems Problem Type Condition ICD-9 Code Onset Dates Condition Status Problem Coronary atherosclerosis of 414.00 Active unspecified type of vessel, [place] or graft Problem Depressive disorder, not 311 Active elsewhere classified Problem Hypertension, benign 401.1 Active Problem Diabetes Mellitus Type 2, not 250.00 Active stated as uncontrolled Problem Coronary atherosclerosis of 414.00 Active unspecified type of vessel, [place] or graft Problem Depressive disorder, not 311 Active elsewhere classified Medications No Known Medications Results No Known Results Summary Purpose [employer] Submission
--- OUTSIDE RECORDS SUMMARY | 2017-08-09 13:14 | External Medical Summary ---
[...] Medications Results No Known Results Summary Purpose eClinicalGenomeDx Biosciences Submission
--- OUTSIDE RECORDS SUMMARY | 2017-08-09 13:14 | External Medical Summary ---
[...] Medications Results No Known Results Summary Purpose [employer]ou[employer] Submission
--- OUTSIDE RECORDS SUMMARY | 2017-08-09 13:14 | External Medical Summary ---
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
--- OUTSIDE RECORDS SUMMARY | 2017-08-09 13:14 | External Medical Summary ---
[...] Active unspecified type of vessel, [place] or graft Problem Depressive disorder, not 311 Active elsewhere classified Problem Diabetes Mellitus Type 2, not 250.00 Active stated as uncontrolled Problem Coronary atherosclerosis of 414.00 Active unspecified type of vessel, [place] or graft Assessment Diabetes Mellitus Type 2, not 250.00 Active stated as uncontrolled Assessment Chest pain, other 786.59 Active Assessment Acute cystitis 595.0 Active Assessment Other fall E888.8 Active Assessment Sinoatrial node dysfunction 427.81 Active Assessment Chronic hypotension 458.1 Active Assessment Proteinuria 791.0 Active Medications Medication Code Code Instructions Start End Date Status Dosage System Date Metformin HCl NDC 02145-90 500 MG Orally September 30, 1 tablet 48-01 Twice a day 2014 with meals Lantus NDC 77348-07 100 UNIT/ML September 30, 15 units 20-33 Subcutaneous 2014 [place] [address]-65 w/Device September 30, as directed Glucose Kit 699 2014 Lyrica NDC 50243-62 75 MG Orally Feb 19, 1 capsule 14-41 Twice a day 2014 Lipitor NDC 36919-98 10 MG Orally September 30, 1 tablet 55-23 Once a day 2015 [place] [address]-50 100 UNIT/ML September 30, 5 units tid KwikPen 99-01 Subcutaneous as 2014 with meals directed Aspirin EC NDC 58424-23 81 MG Orally September 30, Mar 29, 1 tablet 35-76 Once a day 2014 2014 Tylenol NDC 40178-90 325 MG Orally September 30, December 29, 1 to 2 96-60 every 6 hrs 2014 2014 tablets as needed for fever/pain Atenolol [facility] 62278-62 25 MG Orally Feb 19, one-half 87-01 Once a day 2013 tablet Nitrostat [facility] 27462-05 0.4 MG Feb 19 tablet 18-13 Sublingual every 2013 under the 0 hrs tongue and allow to dissolve as needed Cipro [facility] 21219-53 500 MG Orally September 30October 05, 1 tablet 54-01 every 12 hrs 2014 2014 Procedures Procedure Coding System Code Date OFFICE VISIT, EST-MOD. COMPLEXITY (25 MIN) CPT-4 56408 September 30, 2014 RENAL FUNCTION PANEL CPT-4 31287 September 30, 2014 COMPLETE CBC W/AUTO DIFF WBC CPT-4 74259 September 30, 2014 Vital Signs Date/Time: September 30, 2014 Height 61.5 in Weight 174.8 lbs Temperature 97.5 F Blood Pressure Diastolic 68 mm Hg Blood Pressure Systolic 98 mm Hg Cardiac Monitoring Heart Rate 92 /min BMI 32.49 Index Respiratory Rate 16 /min Results No Known Results Summary Purpose [employer] Submission
--- OUTSIDE RECORDS SUMMARY | 2017-08-09 13:15 | External Medical Summary ---
[...] Medications Results No Known Results Summary Purpose [employer] Submission
--- OUTSIDE RECORDS SUMMARY | 2017-08-09 13:15 | External Medical Summary ---
:1955 Author Organization [employer] Care Team Providers Name Role Phone Yuli Hart Provider Role Unavailable Allergies No Known Allergies Problems Problem Type Condition Code Onset Dates Condition Status Problem Coronary atherosclerosis of 414.00 Active unspecified type of vessel, [place] or graft Problem Depressive disorder, 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 Problem Hypertension, benign 401.1 Active Problem Diabetes Mellitus Type 2, not stated 250.00 Active as uncontrolled Problem Coronary atherosclerosis of 414.00 Active unspecified type of vessel, [place] or graft Problem Depressive disorder, 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 Medications No Known Medications Results No Known Results Summary Purpose [employer] Submission
--- OUTSIDE RECORDS SUMMARY | 2017-08-09 13:15 | External Medical Summary | Continuity of Care Document ---
:1955 Author Organization [facility] [place] Allergies There is no data. Medications There is no data. Problems Date Dx Coded Attending Type Code Diagnosis Diagnosed By 10/05/2013 Jovan GONSALEZN, Final 719.44 JOINT PAIN-HAND Milagros 10/05/2013 Jovan GRADES 1 THRU 5 TEACHER, Final 722.52 LUMBAR/LS DISC Milagros DEGEN 10/05/2013 Jovan GRADES 1 THRU 5 TEACHER, 724.2 LUMBAGO Milagros Procedures There is no data. Results There is no data. Encounters ACCT No. Visit Discharge Status Pt. Type Provider Facility Loc./Unit Complaint Date/Time [id number] 10/05/2013 10/05/2013 CLS Outpatient Jovan [facility] 08:13:00 23:59:59 SUSAN, [facility]
--- OUTSIDE RECORDS SUMMARY | 2017-08-09 13:15 | External Medical Summary ---
:1955 Author Organization [employer] Care Team Providers Name Role Phone Keegan Moreira Provider Role Unavailable Allergies No Known Allergies Problems Problem Type Condition ICD-9 Code Onset Dates Condition Status Problem Coronary atherosclerosis of 414.00 Active unspecified type of vessel, [place] or graft Problem Depressive disorder, not 311 Active elsewhere classified Problem Hypertension, benign 401.1 Active Problem Diabetes Mellitus Type 2, not 250.00 Active stated as uncontrolled Problem Coronary atherosclerosis of 414.00 Active unspecified type of vessel, [place] or graft Problem Depressive disorder, not 311 Active elsewhere classified Medications No Known Medications Results No Known Results Summary Purpose [employer] Submission
--- OUTSIDE RECORDS SUMMARY | 2017-08-09 13:15 | External Medical Summary ---
:1955 Author Organization [employer] Care Team Providers Name Role Phone Keegan Moreira Provider Role Unavailable Allergies No Known Allergies Problems Problem Type Condition Code Onset Dates Condition Status Problem Coronary atherosclerosis of 414.00 Active unspecified type of vessel, [place] or graft Problem Depressive disorder, 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 Problem Hypertension, benign 401.1 Active Problem Diabetes Mellitus Type 2, not stated 250.00 Active as uncontrolled Problem Coronary atherosclerosis of 414.00 Active unspecified type of vessel, [place] or graft Problem Depressive disorder, 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 Medications No Known Medications Results No Known Results Summary Purpose [employer] Submission
--- OUTSIDE RECORDS SUMMARY | 2017-08-09 13:15 | External Medical Summary ---
[...] Medications Results No Known Results Summary Purpose [employer] Submission
[2017-08-09] MEDS ORDERED: NS 1,000 ML IV ONE (13:25)
[2017-08-09] MEDS ORDERED: ONDANSETRON 4 MG/2 ML INJECTION IVP ONE (13:25)
--- NOTE | 2017-08-09 14:03 | CT Scan Report ---
Indication: llq pain PROCEDURE: CT abdomen pelvis wo con: Encounter: Initial Comparison: None Technique: Axial CT images were performed through the abdomen and pelvis without intravenous contrast. Coronal and sagittal two-dimensional reformats. Automated Exposure Control and Iterative Reconstruction dose reducing techniques were utilized. Findings: Airspace consolidation in the lingula. Moderate bilateral pleural effusions. The unenhanced contours of the liver are unremarkable. Diffuse subcutaneous edema. The gallbladder is contracted. The spleen is unremarkable. The pancreas is grossly normal. The adrenal glands and kidneys are within normal limits. No abdominal or pelvic lymphadenopathy. Scattered arterial atherosclerotic plaque. The bladder is grossly normal. Moderate amount of free pelvic fluid. Uterus is unremarkable. No evidence of a bowel obstruction. Sigmoid colonic diverticulosis without inflammation to suggest acute diverticulitis. Diffuse mesenteric edema. The appendix is normal. Bone windows show mild degenerative change in the spine without acute findings. Impression: 1. Generalized volume overload with pleural effusions, ascites and anasarca. 2. Lingular pneumonia 3. No acute inflammatory process seen in the abdomen or pelvis on this noncontrast study. .
[2017-08-09] MEDS: SALINE FLUSH 10ml SYRINGE IVF PRN ×2 (14:04→16:19)
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
[2017-08-09] MEDS ORDERED: FentaNYL 100 MCG/2 ML INJECTION IVP PRN (15:57)
[2017-08-09] MEDS ORDERED: METOCLOPRAMIDE 10mg/2ml INJECTION IVP ONE (16:13)
[2017-08-09 17:26] VITALS: BMI 31.1
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
[2017-08-09] MEDS ORDERED: ONDANSETRON 4 MG/2 ML INJECTION IVP PRN (17:50)
[2017-08-09] MEDS ORDERED: 1/2 NS 1,000 ML IV SCH (18:00)
[2017-08-09] MEDS ORDERED: LABETALOL 100mg/20ml INJECTION IVP PRN (18:06)
[2017-08-09] MEDS: ONDANSETRON 4 MG/2 ML INJECTION IVP PRN ×2 (19:30→23:38)
[2017-08-09] MEDS: FentaNYL 100 MCG/2 ML INJECTION IVP PRN (20:31)
[2017-08-09] MEDS ORDERED: METOCLOPRAMIDE 10mg/2ml INJECTION IVP SCH (21:00)
[2017-08-09] MEDS ORDERED: NON-FORMULARY MEDICATION 1 EACH EACH (Labetalol Hcl [Labetalol Hcl] 300 MG) PO SCH (21:00)
[2017-08-09] MEDS: PANTOPRAZOLE 40 MG INJECTION IVP SCH (21:57)
[2017-08-09] MEDS: METOCLOPRAMIDE 10mg/2ml INJECTION IVP SCH (21:59)
[2017-08-09] MEDS: LABETALOL 100 MG TABLET PO SCH (21:59)
[2017-08-10] MEDS: METOCLOPRAMIDE 10mg/2ml INJECTION IVP SCH ×3 (03:08→15:17)
[2017-08-10] MEDS: ONDANSETRON 4 MG/2 ML INJECTION IVP PRN (05:27)
[2017-08-10] MEDS: LEVOTHYROXINE 25 MCG TABLET PO SCH (07:59)
[2017-08-10] MEDS: SALINE FLUSH 10ml SYRINGE IVF PRN (08:34)
[2017-08-10] MEDS: FentaNYL 100 MCG/2 ML INJECTION IVP PRN (08:36)
[2017-08-10] MEDS: PANTOPRAZOLE 40 MG INJECTION IVP SCH ×2 (08:39→21:25)
[2017-08-10] MEDS ORDERED: FUROSEMIDE 20 MG/2 ML INJECTION IVP ONE (09:07)
[2017-08-10] MEDS ORDERED: LABETALOL 100mg/20ml INJECTION IVP ONE (09:07)
--- NOTE | 2017-08-10 09:12 | Progress Note ---
- Date 08/10/17 Subjective: Chantelle is seen today in follow up. She states she is feeling bad today however she is unable to give specifics. She complains of having generalized abdominal discomfort with some nausea however requests PO intake. Noted to be tachycardia at 110 however PO medications are on hold for scheduled gastric emptying study this afternoon. She denies having shortness of breath or chest pain. BP this morning 150/70. Objective Vital signs: Temperature 98.2 F 08/10/17 08:00 Pulse Rate 85 08/10/17 08:00 Respiratory Rate 16 08/10/17 08:00 Blood Pressure 150/70 H 08/10/17 00:16 Pulse Oximetry 95 08/10/17 08:00 Height/Weight/BMI: Height 1.57 m Weight 77.5 kg Body Mass Index 31.1 - Constitutional Present: no acute distress, well nourished, well developed - Routine HEENT Exam Eye: Present: EOMI ENT: Present: mucous membranes moist, dentition normal - Routine Respiratory Exam Present: CTA bilaterally. Absent: wheezes - Routine Cardiovascular Exam Present: S1, S2, tachycardia (110). Absent: murmur - Routine Abdominal Exam Present: soft, non distended. Absent: normoactive bowel sounds (hypoactive), tenderness - Routine Extremities Exam Present: full ROM, pulses intact - Routine Back/Spine/Pelvis Exam Back/Spine: Present: full ROM - Routine Skin Exam Present: intact, dry, warm - Routine Neurological Exam Present: alert, oriented X3, CN II-XII intact, moving all extremities - Routine Lymphatic Exam Lymphatic: Absent: adenopathy - Routine Psychiatric Exam Present: normal affect, cooperative Results - Labs CBC & Chem 7: 08/10/17 11:54 08/10/17 05:47 Assessment and Plan (1) Coffee ground emesis Current visit: Yes Status: Acute Assessment and Plan: Impression Nausea and vomiting with coffee-ground emesis-positive occult blood on gastric secretions Abdominal pain-likely secondary to diabetic gastroparesis Hypernatremia (145)-POA CKD (Stage 4 - based on GFR over past year) Type 2 diabetes mellitus Diastolic congestive heart failure Sinoatrial node dysfunction, status post pacemaker Hypertension Chronic, multifactorial anemia Hypothyroidism Chronic medical noncompliance Plan Continue on scheduled antiemetics Will give a one time dose of labetalol and Lasix to replace PO am dosing as she is NPO Scheduled for gastric emptying study this afternoon Will resume clear liquid diet following radiology test Will re-evaluate later this afternoon 08/10/2017-3:15 PM-Dr Hughes-I reviewed this chart, the patient history, and the EDGING CATCHER's/PA's documented findings as above. We discussed and formulated the assessment and plan as above with the additions below. The patient was seen this afternoon in her room. She did not undergo gastric emptying study because the nuclear material was placed in eggs for her to eat, but she is allergic to eggs. The nuclear material for the test [place] and they will not be able to do the test today. The patient states her abdomen is not painful like yesterday. She is a little nauseated but has not vomited. She has not tried eat or drink yet today. She did not get her usual oral medications this morning because she was nothing by mouth for her gastric emptying study. On exam she is alert and in no acute distress. Chest is clear to auscultation. Cardio vascular reveals a regular rate and rhythm. Abdomen is soft with some diffuse tenderness but no rebound no guarding. Abdomen feels benign. There is no distention. Bowel sounds are normoactive. Extremities are free of edema. Impression Nausea and vomiting Abdominal pain Coffee-ground emesis-possibly secondary to Cynthia-Murguia tear (I did see her emesis late in the evening yesterday after she had hematemesis and it appeared bilous but did not appear dark or light coffee grounds) Chronic anemia Diabetes mellitus-hemoglobin A1c is now 6.1 which is markedly improved. She is no longer on medication for diabetes. Abnormal CT abdomen with signs of pleural effusion, ascites and anasarca. Physical exam reveals no edema or abdominal distention Chronic kidney disease-stable Plan Start clear liquids. Advance diet as tolerated. If she is able to eat and drink okay without significant abdominal pain, could possibly discharge to home today. If she is not able to keep down foods will need to keep her in the hospital, start IV fluids, and get a gastric emptying study tomorrow. Discussed with patient and she is in agreement. Restart her usual home medications now. Start Reglan by mouth. We'll need to discontinue after this evening's dose if she does do her gastric emptying study tomorrow. - Physician Narrative Narrative: Date: 08/10/17 Time: 906 Hospital Course Summary Disclaimer: The visit summary below is not to be considered part of the above Progress Note. Hospital Course: 08/09 Admit to observation, for treatment of nausea and vomiting, under the hospitalist service, Dr. Hughes attending. Patient was given 1000 ml normal saline in the ER. Continue IV fluids 1/2 NS at 75 cc/hr 1 L. Caution fluid overload given her CHF. (Reviewed echo from 07/04/17) Follow serial hemoglobin (every 8 hours). Reglan 10 mg before meals at bedtime IV for nausea/vomiting/gastroparesis. Zofran PRN nausea vomiting not controlled with Reglan. Gastric emptying study scheduled for tomorrow morning for further workup of her GI symptoms. Fentanyl 25 g every 4 hours if needed for pain. (Patient has a morphine allergy.) Tylenol PRN if able to rojas PO. Protonix 40 mg IV twice a day for GI protection. Order for PRN IV labetolol for syst BP>180. Hold home meds for now given her n/ v. Recommend referral to it corporate recruiter for CKD on dismissal given her creatinine average since 09/10 has been ~1.6+ SCDs for DVT prophylaxis. Patient wishes to be a DO NOT RESUSCITATE. Care to return to Dr. Moreira upon dismissal. Case discussed with Dr. Hughes. Previous hospital records reviewed. 08/09 Antiemetics for nausea and vomiting. Gastric emptying study tomorrow Serial hemoglobin and Protonix regarding possible upper GI bleed, likely Cynthia -Murguia tear Abdominal pain of uncertain etiology Monitor Accu-Cheks and check hemoglobin A1c Cautious IV fluids overnight due to poor by mouth intake. Monitor for fluid overload 08/10 Continue on scheduled antiemetics Will give a one time dose of labetalol and Lasix to replace PO am dosing as she is NPO Scheduled for gastric emptying study this afternoon Will resume clear liquid diet following radiology test Will re-evaluate later this afternoon
[2017-08-10] MEDS: FUROSEMIDE 40 MG TABLET PO SCH ×2 (09:41→17:59)
[2017-08-10] MEDS: LABETALOL 100 MG TABLET PO SCH ×2 (09:42→21:25)
[2017-08-10] MEDS: AMLODIPINE 10 MG TABLET PO SCH ×2 (09:42→16:23)
--- NOTE | 2017-08-10 16:13 | Wound Care Progress Note ---
Wound Center Progress Note: Pt at this time laying in a dark room, talked about not being able to have a test do to the fact that she is allergic to eggs. At this time Right foot continues to have a dark spot on the dorsal side of the foot that is eschar. Also on the lateral site of this foot she has another spot that is covered in eschar. Both sites were painted with Betadine.
[2017-08-10] MEDS: 1/2 NS 1,000 ML IV SCH (19:45)
[2017-08-10] MEDS ORDERED: FALL RISK - PHARMACY CONSULT XX ONE (23:31)
[2017-08-11] MEDS: LEVOTHYROXINE 25 MCG TABLET PO SCH (06:54)
[2017-08-11] MEDS: PANTOPRAZOLE 40 MG INJECTION IVP SCH ×2 (10:51→21:14)
[2017-08-11] MEDS: AMLODIPINE 10 MG TABLET PO SCH (10:52)
[2017-08-11] MEDS: FUROSEMIDE 40 MG TABLET PO SCH ×2 (10:52→17:00)
[2017-08-11] MEDS: LABETALOL 100 MG TABLET PO SCH ×2 (10:52→21:14)
--- NOTE | 2017-08-11 11:16 | Nuclear Medicine Report ---
Indication: recurrent nausea and emesis and abdominal pain PROCEDURE: NM gastric emptying study: Encounter: Initial Comparison: None. Technique: The patient consumed a meal labeled with approximately 2.1 mCi of Tc-99m sulfur colloid. Anterior and posterior planar images were obtained and time/activity curves were calculated. Findings: Radiotracer is seen to progress normally from the gastric fundus to the antrum and into the small bowel. The calculated T-1/2 gastric emptying time is normal at approximately 93 minutes (normal range 45-110 minutes). Impression: Normal gastric emptying study. .
[2017-08-11] MEDS: ONDANSETRON 4 MG/2 ML INJECTION IVP PRN (11:34)
[2017-08-11] MEDS: 1/2 NS 1,000 ML IV SCH (12:26)
--- NOTE | 2017-08-11 14:19 | Progress Note ---
- Date 08/11/17 Subjective: Yulia is seen today in follow-up. He is resting in bed, continues to have somewhat of a flat affect. She reports that she continues to have nausea and vomiting that is intermittent, accompanied with epigastric tenderness. She did tolerate a small amount of oatmeal this morning. Otherwise has only taken in liquids. She verbalizes frustration as she does not know what is causing her problems. Objective Vital signs: Temperature 98.0 F 08/10/17 20:56 Pulse Rate 82 08/11/17 04:41 Respiratory Rate 20 08/11/17 04:41 Blood Pressure 168/76 H 08/11/17 04:41 Pulse Oximetry 95 08/11/17 04:41 Height/Weight/BMI: Weight 77.6 kg - Constitutional Present: no acute distress, well nourished, well developed - Routine HEENT Exam Eye: Present: EOMI ENT: Present: mucous membranes moist, dentition normal - Routine Respiratory Exam Present: CTA bilaterally. Absent: wheezes - Routine Cardiovascular Exam Present: RRR, S1, S2. Absent: murmur - Routine Abdominal Exam Present: soft, tenderness (epigastric), non distended. Absent: normoactive bowel sounds (hypoactive) - Routine Extremities Exam Present: full ROM - Routine Skin Exam Present: intact, dry, warm - Routine Neurological Exam Present: alert, oriented X3, CN II-XII intact, moving all extremities - Routine Lymphatic Exam Lymphatic: Absent: adenopathy - Routine Psychiatric Exam Present: normal affect, cooperative Results - Labs CBC & Chem 7: 08/11/17 04:08 08/11/17 04:08 Assessment and Plan (1) Coffee ground emesis Current visit: Yes Status: Acute Assessment and Plan: Impression Nausea and vomiting with coffee-ground emesis-positive occult blood on gastric secretions Abdominal pain-likely secondary to diabetic gastroparesis Hypernatremia (145)-POA CKD (Stage 4 - based on GFR over past year) Type 2 diabetes mellitus Diastolic congestive heart failure Sinoatrial node dysfunction, status post pacemaker Hypertension Chronic, multifactorial anemia Hypothyroidism Chronic medical noncompliance 08/11- Plan Gastric emptying study was done today and fortunately is normal. Unfortunately, patient does continue to have intermittent nausea, vomiting with epigastric pain. Will place patient back on scheduled IV Reglan and continue Protonix twice a day. Suspect a possible component of gastroparesis. Consult placed to Dr. Fuentes for further evaluation and recommendations. Patient would likely benefit from an EGD. Continue on Clear liquid diet only. Hgb stable at 9.4, Methods Analyst stable at 1.9 Overall blood sugars have been well controlled Consultation for PT/OT tomorrow to evaluate patients strength Case discussed with attending, Dr Wiseman Resuscitation Status: Do Not Resuscitate - Time spent with patient Time with patient PN: 25 minutes - Physician Narrative Physician: Favian Wiseman MD Narrative: Date: 08/11/17 Time: 1844 Have independently interviewed and examined pt. Chart reviewed. Case discussed with my GLUING MACHINE FEEDER. Care plan developed with my supervision; agree with above. Still feeling rough at the belly. Notes nausea and ab pain. Not having appetite or desire to eat. Decreased flatus. Tired and weak in general. Breathing stable. Lungs: decreased, no distress CV: regular AB: soft nt/nd BS decreased MSE: awake alert, flat affect Plan: Consultation placed with Dr Fuentes-anticipate EGD tomorrow secondary to ab pain and nausea. Discussed details of EGD with patient-questions answered. Gastric empty study normal. Continue IVF. Continue Protonix for GI protection. Hospital Course Summary Disclaimer: The visit summary below is not to be considered part of the above Progress Note. Hospital Course: 08/09 Admit to observation, for treatment of nausea and vomiting, under the hospitalist service, Dr. Hughes attending. Patient was given 1000 ml normal saline in the ER. Continue IV fluids 1/2 NS at 75 cc/hr 1 L. Caution fluid overload given her CHF. (Reviewed echo from 07/04/17) Follow serial hemoglobin (every 8 hours). Reglan 10 mg before meals at bedtime IV for nausea/vomiting/gastroparesis. Zofran PRN nausea vomiting not controlled with Reglan. Gastric emptying study scheduled for tomorrow morning for further workup of her GI symptoms. Fentanyl 25 g every 4 hours if needed for pain. (Patient has a morphine allergy.) Tylenol PRN if able to rojas PO. Protonix 40 mg IV twice a day for GI protection. Order for PRN IV labetolol for syst BP>180. Hold home meds for now given her n/ v. Recommend referral to c unix developer for CKD on dismissal given her creatinine average since 09/10 has been ~1.6+ SCDs for DVT prophylaxis. Patient wishes to be a DO NOT RESUSCITATE. Care to return to Dr. Moreira upon dismissal. Case discussed with Dr. Hughes. Previous hospital records reviewed. 08/09 Antiemetics for nausea and vomiting. Gastric emptying study tomorrow Serial hemoglobin and Protonix regarding possible upper GI bleed, likely Cynthia -Murguia tear Abdominal pain of uncertain etiology Monitor Accu-Cheks and check hemoglobin A1c Cautious IV fluids overnight due to poor by mouth intake. Monitor for fluid overload 08/10 Continue on scheduled antiemetics Will give a one time dose of labetalol and Lasix to replace PO am dosing as she is NPO Scheduled for gastric emptying study this afternoon Will resume clear liquid diet following radiology test Will re-evaluate later this afternoon 08/11 Gastric emptying study was done today and fortunately is normal. Unfortunately, patient does continue to have intermittent nausea, vomiting with epigastric pain. Will place patient back on scheduled IV Reglan and continue Protonix twice a day. Suspect a possible component of gastroparesis. Consult placed to Dr. Fuentes for further evaluation and recommendations. Patient would likely benefit from an EGD. Continue on Clear liquid diet only. Hgb stable at 9.4, Methods Analyst stable at 1.9 Overall blood sugars have been well controlled Consultation for PT/OT tomorrow to evaluate patients strength Case discussed with attending, Dr Wiseman
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
[2017-08-11] MEDS ORDERED: Bisacodyl EC TAB 5 MG TABLET PO ONE (14:43)
[2017-08-11] MEDS: METOCLOPRAMIDE 10mg/2ml INJECTION IVP SCH ×2 (15:05→21:14)
--- NOTE | 2017-08-11 15:49 | Consultation ---
DATE OF CONSULTATION 08/11/2017 FINDINGS Mrs. Boles is a 61-year-old female whom I was asked to see today as a result of her history for abdominal pain associated with nausea and vomiting. Patient informs me that about a month ago she began to experience a component of abdominal pain. Pain is made worse after eating. The patient states that she has learned over the last month to eat smaller amounts more frequently. Patient states that even by eating smaller amounts she has continued to develop severe abdominal pain. Pain is alleviated at times by "vomiting." The patient has noted some "blood in her vomit." Patient does have a longstanding history for diabetes mellitus. She has not had any "stomach problems" prior to a month ago per her report. I did note the patient was anemic upon reviewing her laboratory evaluation. Upon questioning the patient she denies any prior history for anemia. She informs me that she has never undergone prior EGD or colonoscopy. Her main concern today, however, was the fact that she continues to have pain within her abdomen, her nausea and vomiting as well as her reported history for hematemesis. PAST MEDICAL HISTORY, PAST SURGICAL HISTORY, MEDICATIONS, ALLERGIES, SOCIAL HISTORY, FAMILY HISTORY, REVIEW OF SYSTEMS Performed by my nurse practitioner, Lopez Fink APRN. PHYSICAL EXAMINATION GENERAL: Mrs. Boles is a 61-year-old female who did not appear to be in acute distress this afternoon. VITAL SIGNS: Temperature 98.0, pulse 82, respirations 20, blood pressure 168/76, SAO2 95% on room air. HEENT: Normocephalic. Pupils are equally round and react to light and accommodation. NECK: Supple without lymphadenopathy. CHEST: Clear to auscultation bilaterally. HEART: Regular rate and rhythm. Normal S1 and S2 without gallops, murmurs or clicks. ABDOMEN: Palpation of the abdomen reveals some tenderness within the epigastric region. There was, however, no evidence for guarding or rebound. I did not appreciate evidence for hepatosplenomegaly or other abnormal masses. EXTREMITIES: Without clubbing, cyanosis, or edema. NEURO: Cranial nerves II-XII grossly intact. Patient is without focal motor or sensory deficits. LABORATORY/RADIOGRAPHIC EVALUATION The patient had a CBC today and her white count was 8.7. Hemoglobin is low at 9.4 but stable since admission. BMP obtained and found to be without marked abnormalities. The patient does have known renal insufficiency and her creatinine is 1.9. BUN is 37.0. I did review her radiographic evaluation. She has undergone a gastric emptying study on August 11, 2017 that was within normal limits. I reviewed CT scan of her abdomen and pelvis from August 09, 2017 that revealed some generalized volume overload, questionable lingular pneumonia. No acute disease process is seen within the abdomen or pelvis. ASSESSMENT [id number] female with multiple associated medical comorbidities who presents with a one-month history of abdominal pain, nausea, vomiting, and history for hematemesis. PLAN Esophagogastroduodenoscopy. I did review the patient's chart as she is being treated empirically for peptic ulcer disease. She is on Protonix 40 mg IV on a b.i.d. basis. I agree with the current empiric treatment for suspected peptic ulcer disease. I would recommend that we go ahead and proceed with esophagogastroduodenoscopy tomorrow to further evaluate the underlying etiology for her ongoing abdominal pain, nausea, vomiting and hematemesis. I did discuss in detail with the patient what an EGD entailed and its associated risks which included but were not inclusive of bleeding and/or perforation. The patient stood and agreed with the proposed plan at this time. MTDD
[2017-08-11] MEDS: SALINE FLUSH 10ml SYRINGE IVF PRN (21:13)
[2017-08-12] MEDS: 1/2 NS 1,000 ML IV SCH ×2 (01:35→19:26)
[2017-08-12] MEDS: METOCLOPRAMIDE 10mg/2ml INJECTION IVP SCH ×4 (03:00→21:13)
[2017-08-12] MEDS: LEVOTHYROXINE 25 MCG TABLET PO SCH (06:00)
[2017-08-12] MEDS: AMLODIPINE 10 MG TABLET PO SCH (08:07)
[2017-08-12] MEDS: LABETALOL 100 MG TABLET PO SCH ×2 (08:08→21:12)
[2017-08-12] MEDS: PANTOPRAZOLE 40 MG INJECTION IVP SCH ×2 (08:08→21:13)
[2017-08-12] MEDS: ONDANSETRON 4 MG/2 ML INJECTION IVP PRN ×2 (10:56→15:13)
[2017-08-12] MEDS ORDERED: LR 1,000 ML IV SCH (12:15)
[2017-08-12] MEDS ORDERED: LIDOCAINE VISCOUS 2% ORAL LIQUID 15ml ONE (12:56)
[2017-08-12] MEDS ORDERED: NS 1,000 ML IV SCH (13:00)
--- NOTE | 2017-08-12 13:26 | Anesthesia Preoperative Report ---
Anesthesia Preoperative Record - Date and Time Date: 08/12/17 Preoperative Diagnosis: recurrent nausea, inability to keep down fluids Proposed Procedure: EGD NPO Since Date: 08/12/17 NPO Since Time: 00:00 Allergies/Adverse Reactions: Allergies Allergy/AdvReac Type Severity Reaction Status Date / Time egg Allergy Intermediate Verified 08/10/17 17:43 Egg Derived Allergy Intermediate Verified 08/10/17 17:43 iodine Allergy Mild HIVES Verified 08/09/17 13:16 Influenza Virus Vaccines Allergy Unknown Verified 08/09/17 13:16 morphine Allergy Verified 08/09/17 13:16 codeine AdvReac Unknown Verified 08/09/17 13:16 CILANTRO Allergy Uncoded 08/09/17 13:16 - Vital Signs Vital Signs: Temperature 98.7 F 08/12/17 12:39 Pulse Rate 69 08/12/17 12:39 Respiratory Rate 16 08/12/17 12:39 Blood Pressure 140/66 H 08/12/17 12:39 Pulse Oximetry 91 08/12/17 12:39 Height and Weight: Weight 78.2 kg - Medications Inpatient Medications: Current Medications Acetaminophen (Tylenol) 650 mg PO Q5H PRN PRN Reason: Discomfort Amlodipine Besylate (Norvasc) 10 mg PO DAILY [facility] Last Admin: 08/12/17 08:07 Dose: 10 mg Furosemide (Lasix) 40 mg PO BIDBS [facility] Last Admin: 08/11/17 17:00 Dose: 40 mg Sodium Chloride (1/2 Normal Saline) 1,000 mls @ 75 mls/hr IV .[id number] [facility] Last Admin: 08/12/17 01:35 Dose: 75 mls/hr Sodium Chloride (Normal Saline) 1,000 mls @ 50 mls/hr IV .Q20H [facility] Last Admin: 08/12/17 12:52 Dose: 50 mls/hr Labetalol HCl (Trandate) 10 mg IVP Q6H PRN PRN Reason: give if syst >180 Labetalol HCl (Normodyne) 300 mg PO BID [facility] Last Admin: 08/12/17 08:08 Dose: 300 mg Levothyroxine Sodium (Synthroid) 12.5 mcg PO ACB [facility] Last Admin: 08/12/17 06:00 Dose: 12.5 mcg Metoclopramide HCl (Reglan) 10 mg IVP Q6HR [facility] Last Admin: 08/12/17 08:08 Dose: 10 mg Ondansetron HCl (Zofran) 4 mg IVP Q4H PRN PRN Reason: Nausea &/or vomiting Last Admin: 08/12/17 10:56 Dose: 4 mg Pantoprazole Sodium (Protonix Iv) 40 mg IVP BID [facility] Last Admin: 08/12/17 08:08 Dose: 40 mg Potassium Chloride (Micro-K 10 Meq Capsule) 10 meq PO WB [facility] Last Admin: 08/11/17 10:52 Dose: 10 meq Home Medications: Home Medications Medication Instructions Recorded Confirmed Type Furosemide [Lasix] 40 mg PO BIDBS 07/28/17 08/09/17 History Levothyroxine Tab [Synthroid] 12.5 mcg PO ACB 07/28/17 08/09/17 History Albuterol HFA Inhaler [Ventolin 1 puff INH DAILY 08/09/17 08/09/17 History Hfa 90 mcg/actuation] Aspirin Chewable [ASA] 81 mg PO DAILY 08/09/17 08/09/17 History Labetalol HCl 300 mg PO BID 08/09/17 08/09/17 History Metoprolol Tartrate [Lopressor] 50 mg PO BID 08/09/17 08/09/17 History Potassium Chloride 10 meq PO DAILY 08/09/17 08/09/17 History Is Patient on Beta Alyssa?: Yes Beta Alyssa Last Dose Date/Time: 08/12/17 AM - Medical History Respiratory: Reports: Asthma, Bronchitis (hx) DENIES: Sleep Apnea Cardiovascular: Reports: Angina ("fantom angina" usually treated via ED antianginals. Seen Dr. Ho. ), Congestive Heart Failure, Hypertension, High Cholesterol Gastrointestional: Reports: Other (CONSTPATION & DIARRHEA) Neuro/Musculoskeletal: Reports: Other (OSTEOPOROSIS) Renal/Endocrine: Reports: Diabetes Mellitus Type 2, Thyroid Disease Other History: DENIES: Anesthesia Reactions, Now, Blood Transfusions, Chemotherapy , Cancer, Hemophilia, Malignant Hyperthermia, Sickle Cell Disease, Other - Surgical History Cardiac Surgeries/Treatments: Reports: Pacemaker (BRADYCARDIA) Reproductive Surgery/Treatment: Reports: Tubal Ligation (1978) Anesthesia Reactions: None Hx Family Anesthesia Reaction: No History of Motion Sickness: No - Social History Smoking Status: Never smoker Substance Use Type: does not use Alcohol Intake Frequency: does not drink - Pertinent Findings Laboratory: CBC and BMP 08/12/17 04:29 08/12/17 04:29 BMP 08/12/17 04:29 Sodium 140 Potassium 3.3 L Chloride 105 Carbon Dioxide 24 BUN 38.0 H Creatinine 2.3 H D Glucose 115 H Calcium 8.2 L EKG: Sinus Rhythm (pacer) - Physical Exam Respiratory Exam: Present: lungs clear, bilateral breath sounds equal Cardiovascular Exam: Present: regular rate and rhythm, no murmur - Airway Assessment Mallampati Score: III TMD: 3 Fingerbreadths Neck Extension: fair Overall Assessment: may be difficult intubation (large tongue. small mouth opening) - ASA ASA Score: 3 - Plan Anesthesia: General TIVA - Discussion Discussion: Discussed risks/options/alternatives of anesthesia and questions answered. Patient consents. Nursing pain assessment noted. Present for Discussion: other (none) Attestation Statement: Prior to the delivery of any anesthetic medication, I examined the patient, developed the plan, obtained the patient's consent and discussed the risk and benefits of the procedure with the patient/guardian. - Additional Information Seen by Anesthesia: Yes
[2017-08-12] MEDS ORDERED: PROPOFOL 500 MG/50 ML VIAL ONE (13:38)
[2017-08-12] MEDS ORDERED: PROPOFOL 0 MG/0 ML VIAL ONE (13:38)
--- NOTE | 2017-08-12 14:17 | Anesthesia Postoperative Note ---
- Date and Time Date: 08/12/17 Time: 14:17 - Status Patient Participated in Evaluation: Patient Participated in Person Vital Signs: Temperature 98.7 F 08/12/17 12:39 Pulse Rate 69 08/12/17 12:39 Respiratory Rate 16 08/12/17 12:39 Blood Pressure 140/66 H 08/12/17 12:39 Pulse Oximetry 91 08/12/17 12:39 Respiratory Function: Airway Patent Cardiovascular Function: Regular Pulse EKG: Sinus Rhythm Mental Status: Alert and Oriented Pain Intensity: 0 Hydration: IV Infusing Complications During Recover: None Apparent - Follow-Up Instructions Instructions: Per Surgeon
[2017-08-12] MEDS: FUROSEMIDE 40 MG TABLET PO SCH (15:17)
--- NOTE | 2017-08-12 15:35 | Progress Note ---
- Date 08/12/17 Subjective: Chantelle was seen post-EGD. She is drowsy, nauseated, and just received a dose of antiemetics. She's thirsty. She denies SOA or chest pain. She is quiet and doesn 't participate much in conversation. Objective Vital signs: Temperature 96.9 F 08/12/17 14:45 Pulse Rate 71 08/12/17 15:15 Respiratory Rate 16 08/12/17 15:15 Blood Pressure 128/65 08/12/17 15:15 Pulse Oximetry 95 08/12/17 15:15 Height/Weight/BMI: Weight 78.2 kg - Constitutional Present: no acute distress, well nourished, well developed - Routine HEENT Exam Head: Present: normocephalic ENT: Present: mucous membranes dry, oropharynx clear - Routine Respiratory Exam Present: CTA bilaterally - Routine Cardiovascular Exam Present: RRR, S1, S2, murmur (2/6 ) - Routine Abdominal Exam Present: soft, non distended, non tender. Absent: normoactive bowel sounds ( hypoactive) - Routine Extremities Exam Present: no edema, pulses intact - Routine Musculoskeletal Exam Musculoskeletal: Present: no clubbing or cyanosis - Routine Skin Exam Present: intact, pallor, warm - Routine Neurological Exam Present: alert, oriented X3 - Routine Psychiatric Exam Present: normal thought process. Absent: normal affect (flat) Results - Labs CBC & Chem 7: 08/12/17 04:29 08/12/17 04:29 Assessment and Plan (1) Coffee ground emesis Current visit: Yes Status: Acute Assessment and Plan: Impression Nausea and vomiting with coffee-ground emesis-positive occult blood on gastric secretions Abdominal pain-likely secondary to diabetic gastroparesis Hypernatremia (145)-POA CKD (Stage 4 - based on GFR over past year) Type 2 diabetes mellitus Diastolic congestive heart failure Sinoatrial node dysfunction, status post pacemaker Hypertension Chronic, multifactorial anemia Hypothyroidism Chronic medical noncompliance 08/11- Plan s/p EGD; results pending. hgb 8.7; reassess in am. K 3.3, replacement ordered PO. creatinine increased to 2.3; continue IVF; hold tonight's dose of Lasix and possibly restart in am if improvement noted. continue Reglan and Protonix. d/w Dr. Wiseman. Ivone Assessment as above with: Gastritis on EGD Plan: Will add Carafate AC/HS to Protonix. Will need to continue to hold ASA for 4-6 weeks to allow healing of gastritis. Advance diet to full liquid. Nursing to ambulate TID. DVT Prophylaxis: SCD's GI Prophylaxis: Protonix Resuscitation Status: Do Not Resuscitate - Time spent with patient Time with patient PN: 25 minutes - Physician Narrative Physician: Favian Wiseman MD Narrative: Date: 08/12/17 Time: 1630 Have independently interviewed and examined pt. Chart reviewed. Case discussed with CM and my FIREARMS ASSEMBLY SUPERVISOR. Care plan developed with my supervision; agree with above. Feels tire and groggy post EGD. No recollection of procedure (expected with sedative medications give). Not much hunger. Slight nausea. Breathing well. Tired in general. Lungs: clear bilaterally CV: regular AB: soft nt/nd BS decreased MSE: awake, flat affect EGD showing Gastritis Plan: Continue Protonix-add Carafate AC/HS to help resolve gastritis. Will need to continue to hold ASA for 4-6 weeks to allow healing of gastritis. Can advance diet to full liquid. Encourage ambulation - nursing to ambulate TID. Monitor lab. HGB has gradually trended down-recheck tomorrow. Transfuse as indicated. Hospital Course Summary Disclaimer: The visit summary below is not to be considered part of the above Progress Note. Hospital Course: 08/09 Admit to observation, for treatment of nausea and vomiting, under the hospitalist service, Dr. Hughes attending. Patient was given 1000 ml normal saline in the ER. Continue IV fluids 1/2 NS at 75 cc/hr 1 L. Caution fluid overload given her CHF. (Reviewed echo from 07/04/17) Follow serial hemoglobin (every 8 hours). Reglan 10 mg before meals at bedtime IV for nausea/vomiting/gastroparesis. Zofran PRN nausea vomiting not controlled with Reglan. Gastric emptying study scheduled for tomorrow morning for further workup of her GI symptoms. Fentanyl 25 g every 4 hours if needed for pain. (Patient has a morphine allergy.) Tylenol PRN if able to rojas PO. Protonix 40 mg IV twice a day for GI protection. Order for PRN IV labetolol for syst BP>180. Hold home meds for now given her n/ v. Recommend referral to vehicle operator technician for CKD on dismissal given her creatinine average since 09/10 has been ~1.6+ SCDs for DVT prophylaxis. Patient wishes to be a DO NOT RESUSCITATE. Care to return to Dr. Moreira upon dismissal. Previous hospital records reviewed. 08/09 Antiemetics for nausea and vomiting. Serial hemoglobin and Protonix regarding possible upper GI bleed, likely Cynthia-Murguia tear. Cautious IV fluids overnight due to poor by mouth intake. Monitor for fluid overload. 08/10 Continue on scheduled antiemetics. Will give a one time dose of labetalol and Lasix to replace PO am dosing as she is NPO. Scheduled for gastric emptying study = normal. Will resume clear liquid diet following radiology test. 08/11 Gastric emptying study was done today and fortunately is normal. Continues to have intermittent nausea, vomiting with epigastric pain. Restarted scheduled IV Reglan and continue Protonix twice a day. Suspect a possible component of gastroparesis. Consult placed to Dr. Fuentes for further evaluation and recommendations. Patient would likely benefit from an EGD. Continue on Clear liquid diet only. Hgb stable at 9.4, Dynamic Balancer stable at 1.9. Overall blood sugars have been well controlled. Consultation for PT/OT tomorrow to evaluate patients strength. 08/12 s/p EGD; results pending. hgb 8.7; reassess in am. K 3.3, replacement ordered PO. creatinine increased to 2.3; continue IVF; hold tonight's dose of Lasix and possibly restart in am if improvement noted. EGD did show gastritis. SHELDON testing pending. Will add Carafate AC/HS to Protonix. Will need to continue to hold ASA for 4-6 weeks to allow healing of gastritis. Advance diet to full liquid. Nursing to ambulate TID.
--- NOTE | 2017-08-12 16:13 | Procedure Note ---
- Procedure Date/Time: Date: 08/12/17 Time: 161 Surgeon: Gina ASA Score: 3 Proceure: EGD - Postoperative EGD Diagnosis Postoperative EGD Diagnosis: Gastritis - Complications Estimated Blood Loss: See Anesthesia Record. Vital Signs: See Anesthesia and PACU record.
[2017-08-12] MEDS: SUCRALFATE 1 GM TABLET PO SCH ×2 (19:49→21:13)
[2017-08-12] MEDS: SALINE FLUSH 10ml SYRINGE IVF PRN (21:12)
[2017-08-13] MEDS: 1/2 NS 1,000 ML IV SCH ×3 (02:25→15:55)
[2017-08-13] MEDS: METOCLOPRAMIDE 10mg/2ml INJECTION IVP SCH ×2 (02:35→10:11)
[2017-08-13] MEDS: SALINE FLUSH 10ml SYRINGE IV PRN ×2 (02:39→20:55)
[2017-08-13] MEDS: LEVOTHYROXINE 25 MCG TABLET PO SCH (06:02)
[2017-08-13] MEDS: SUCRALFATE 1 GM TABLET PO SCH ×4 (06:02→20:55)
[2017-08-13] MEDS: AMLODIPINE 10 MG TABLET PO SCH (10:11)
[2017-08-13] MEDS: LABETALOL 100 MG TABLET PO SCH ×2 (10:11→20:55)
[2017-08-13] MEDS: PANTOPRAZOLE 40 MG INJECTION IVP SCH (10:26)
[2017-08-13] MEDS: MAGNESIUM SULFATE 1gm PREMIX 1 GM/100 ML BAG IV SCH ×2 (10:32→11:57)
[2017-08-13] MEDS ORDERED: MAGNESIUM SULFATE 1gm PREMIX 1 GM/100 ML BAG IV ONE (14:54)
--- NOTE | 2017-08-13 15:01 | Progress Note ---
- Date 08/13/17 Subjective: Patient is a 61-year-old female who presents to the ER 08/10/17 with complaints of nausea and vomiting since 6 AM associated with abdominal pain. She has had coffee-ground emesis which tested positive for occult blood. She was hospitalized August [address] Moreira for similar symptoms thought to be either gastroparesis symptoms versus viral gastroenteritis. She has had a gastric emptying study which was okay. She has diabetes, but reports sugars have been controlled. Reports she's been off insulin for a couple months. She's had no fever. No chest pain or shortness of breath, despite CT scan performed in the ER showing pleural effusions, anasarca and ascites. This morning she reports she is feeling better. She describes being quite weak however. She did ambulate with help and her walker just across the blair and back. She's been having intermittent nausea but was able to eat lunch today. She has had two BMs today both are loose and fairly watery with some mucous. The last time she had any vomiting was the day she came in at which time it was coffee grown emesis. She has not had any since. Her creatinine continues to climb despite being off her diuretics. She denies feeling short of breath. She is on room air. She occasionally has chest pressure. She has seen Dr. Ho in the past but is set up to see one of the [place] staff internist office based only as an out in the near future. She denies palpitations. She is also scheduled to see for her CKD in the near future. Objective Vital signs: Temperature 96.9 F 08/13/17 12:00 Pulse Rate 69 08/13/17 12:00 Respiratory Rate 18 08/13/17 12:00 Blood Pressure 112/60 08/13/17 12:00 Pulse Oximetry 93 08/13/17 12:00 Height/Weight/BMI: Weight 79.4 kg Comments: Gen: alert and oriented. NAD Skin: warm and dry HEENT: NC/AT PERRL, EOMI, Sclera, lids and conjunctiva wnl. MMM. OP clear. Neck: No JVD, Carotids 2+ without bruits Lungs: diminished. Posterior basal rales on the right. CV: regular. 2/6 murmur. Abd: soft. +BS. NT/ND MS: 1+ edema. Good strength and ROM Neuro: No focal deficits Results - Labs CBC & Chem 7: 08/14/17 04:35 08/14/17 04:35 Microbiology Results: Microbiology 08/12/17 14:02 Gastric Biopsy Helicobacter pylori Rapid Urease - Final Assessment and Plan (1) Coffee ground emesis Current visit: Yes Status: Acute Assessment and Plan: Impression/Plan: 1. Nausea and vomiting with coffee-ground emesis-positive occult blood on gastric secretions -EGD showed gastritis -Pt on carafate and protonix -No further emesis since admission -Hold ASA 2. Abdominal pain -likely secondary to gastritis -Gastric emptying study normal -Due to loose/watery stools, will stop scheduled reglan 3. acute on chronic anemia -Multifactorial -Likely GIB due to gastritis -Stable at present 4. Hypernatremia (145)-POA -Resolved 4. CKD (Stage 4 - based on GFR over past year) -Scheduled to see Dr. Ortega as outpt -Creatinine continues to climb despite off diuretics -Repeat lab in am. -CT did not show any abnormalities nor did renal u/s. 5. Type 2 diabetes mellitus -SSI 6. 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 Sinoatrial node dysfunction, status post pacemaker -Follow up with cardiology as outpt 8. Hypertension -elevated at times. -On amlodipine 10mg daily, labetalol 300mg BID 9. Hypothyroidism -On replacement 10. Chronic medical noncompliance 11. Prophylaxis -SCDs, ambulate, PPI - Physician Narrative Narrative: Date: 08/13/17 Time: 1448 Hospital Course Summary Disclaimer: The visit summary below is not to be considered part of the above Progress Note. Hospital Course: 08/09 Admit to observation, for treatment of nausea and vomiting, under the hospitalist service, Dr. Hughes attending. Patient was given 1000 ml normal saline in the ER. Continue IV fluids 1/2 NS at 75 cc/hr 1 L. Caution fluid overload given her CHF. (Reviewed echo from 07/04/17) Follow serial hemoglobin (every 8 hours). Reglan 10 mg before meals at bedtime IV for nausea/vomiting/gastroparesis. Zofran PRN nausea vomiting not controlled with Reglan. Gastric emptying study scheduled for tomorrow morning for further workup of her GI symptoms. Fentanyl 25 g every 4 hours if needed for pain. (Patient has a morphine allergy.) Tylenol PRN if able to rojas PO. Protonix 40 mg IV twice a day for GI protection. Order for PRN IV labetolol for syst BP>180. Hold home meds for now given her n/ v. Recommend referral to mandrel cleaner for CKD on dismissal given her creatinine average since 09/10 has been ~1.6+ SCDs for DVT prophylaxis. Patient wishes to be a DO NOT RESUSCITATE. Care to return to Dr. Moreira upon dismissal. Previous hospital records reviewed. 08/09 Antiemetics for nausea and vomiting. Serial hemoglobin and Protonix regarding possible upper GI bleed, likely Cynthia-Murguia tear. Cautious IV fluids overnight due to poor by mouth intake. Monitor for fluid overload. 08/10 Continue on scheduled antiemetics. Will give a one time dose of labetalol and Lasix to replace PO am dosing as she is NPO. Scheduled for gastric emptying study = normal. Will resume clear liquid diet following radiology test. 08/11 Gastric emptying study was done today and fortunately is normal. Continues to have intermittent nausea, vomiting with epigastric pain. Restarted scheduled IV Reglan and continue Protonix twice a day. Suspect a possible component of gastroparesis. Consult placed to Dr. Fuentes for further evaluation and recommendations. Patient would likely benefit from an EGD. Continue on Clear liquid diet only. Hgb stable at 9.4, Mail Processing Clerk stable at 1.9. Overall blood sugars have been well controlled. Consultation for PT/OT tomorrow to evaluate patients strength. 08/12 s/p EGD; results pending. hgb 8.7; reassess in am. K 3.3, replacement ordered PO. creatinine increased to 2.3; continue IVF; hold tonight's dose of Lasix and possibly restart in am if improvement noted. EGD did show gastritis. SHELDON testing pending. Will add Carafate AC/HS to Protonix. Will need to continue to hold ASA for 4-6 weeks to allow healing of gastritis. Advance diet to full liquid. Nursing to ambulate TID.
[2017-08-13] MEDS: PANTOPRAZOLE 40 MG TABLET PO SCH (17:18)
[2017-08-14] MEDS: LEVOTHYROXINE 25 MCG TABLET PO SCH (05:48)
[2017-08-14] MEDS: PANTOPRAZOLE 40 MG TABLET PO SCH ×2 (05:48→17:29)
[2017-08-14] MEDS: SUCRALFATE 1 GM TABLET PO SCH ×4 (05:48→22:23)
[2017-08-14] MEDS ORDERED: NS 1,000 ML IV SCH (09:00)
--- NOTE | 2017-08-14 09:30 | Progress Note ---
- Date 08/14/17 Subjective: Patient is a 61-year-old female who presents to the ER 08/10/17 with complaints of nausea and vomiting since 6 AM associated with abdominal pain. She has had coffee-ground emesis which tested positive for occult blood. She was hospitalized August [address] Moreira for similar symptoms thought to be either gastroparesis symptoms versus viral gastroenteritis. She has had a gastric emptying study which was okay. She has diabetes, but reports sugars have been controlled. Reports she's been off insulin for a couple months. She's had no fever. No chest pain or shortness of breath, despite CT scan performed in the ER showing pleural effusions, anasarca and ascites. This morning she reports she is feeling better. She describes being quite weak however. She did ambulate with help and her walker just across the blair and back. She's been having intermittent nausea but was able to eat lunch today. She has had two BMs today both are loose and fairly watery with some mucous. The last time she had any vomiting was the day she came in at which time it was coffee grown emesis. She has not had any since. Her creatinine continues to climb despite being off her diuretics. She denies feeling short of breath. She is on room air. She occasionally has chest pressure. She has seen Dr. Ho in the past but is set up to see one of the [place] route sales associate as an out in the near future. She denies palpitations. She is also scheduled to see for her CKD in the near future. This morning the patient is sitting at the side of the bed having just finished breakfast. She's not happy condition did not get biscuits and gravy. She denies any shortness of breath. She denies LAKHANI. She does say that her legs are a little puffy today however in exam there is no pitting edema. She denies abdominal bloating or fullness. She denies cough or sputum production. She reports her bowels are moving. She purports urinating without difficulty. I discussed with her her kidney function today. I did explain that if we don't get a turnaround by tomorrow that there is a good chance she'll need to transfer to a facility that has a in-house lithography contact worker. She has been trying to get up and around to walk and is going to do that again today. Blood pressures mildly elevated today so I'm going to increase her labetalol. Objective Vital signs: Temperature 96.7 F L 08/14/17 08:00 Pulse Rate 75 08/14/17 08:00 Respiratory Rate 18 08/14/17 08:00 Blood Pressure 139/65 08/14/17 08:00 Pulse Oximetry 98 08/14/17 08:00 Height/Weight/BMI: Weight 79.5 kg Comments: Gen: alert and oriented. NAD Skin: warm and dry HEENT: NC/AT PERRL, EOMI, Sclera, lids and conjunctiva wnl. MMM. OP clear. Neck: No JVD, Carotids 2+ without bruits Lungs: diminished. few posterior basal rales on the right. CV: regular. 2/6 murmur. Abd: soft. +BS. NT/ND MS: 1+ edema, non-pitting. Good strength and ROM Neuro: No focal deficits Results - Labs CBC & Chem 7: 08/14/17 04:35 08/14/17 04:35 Microbiology Results: Microbiology 08/12/17 14:02 Gastric Biopsy Helicobacter pylori Rapid Urease - Final Assessment and Plan (1) Coffee ground emesis Current visit: Yes Status: Acute Assessment and Plan: Impression/Plan: 1. Nausea and vomiting with coffee-ground emesis-positive occult blood on gastric secretions -EGD showed gastritis -Pt on carafate and protonix -No further emesis since admission -Hold ASA 2. Abdominal pain-resolved -likely secondary to gastritis -Gastric emptying study normal -Due to loose/watery stools, will stop scheduled reglan 3. acute on chronic anemia -Multifactorial -Likely GIB due to gastritis -Stable at present 4. Hypernatremia (145)-POA -Resolved 4. CKD (Stage 4 - based on GFR over past year) -Scheduled to see Dr. Ortega as outpt -Creatinine continues to climb despite off diuretics -Repeat lab in am. -CT did not show any abnormalities nor did renal u/s. -Will get 24 hr urine -Will resume IVF, may need to give lasix as well once 24 hr urine is obtained 5. Type 2 diabetes mellitus -SSI -Good control without treatment 6. 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 Sinoatrial node dysfunction, status post pacemaker -Follow up with cardiology as outpt 8. Hypertension -elevated at times. -On amlodipine 10mg daily, labetalol 300mg BID (increasing labetalol to 400mg BID today) 9. Hypothyroidism -On replacement 10. Chronic medical noncompliance 11. Prophylaxis -SCDs, ambulate, PPI - Physician Narrative Narrative: Date: 08/14/17 Time: 926 Hospital Course Summary Disclaimer: The visit summary below is not to be considered part of the above Progress Note. Hospital Course: 08/09 Admit to observation, for treatment of nausea and vomiting, under the hospitalist service, Dr. Hughes attending. Patient was given 1000 ml normal saline in the ER. Continue IV fluids 1/2 NS at 75 cc/hr 1 L. Caution fluid overload given her CHF. (Reviewed echo from 07/04/17) Follow serial hemoglobin (every 8 hours). Reglan 10 mg before meals at bedtime IV for nausea/vomiting/gastroparesis. Zofran PRN nausea vomiting not controlled with Reglan. Gastric emptying study scheduled for tomorrow morning for further workup of her GI symptoms. Fentanyl 25 g every 4 hours if needed for pain. (Patient has a morphine allergy.) Tylenol PRN if able to rojas PO. Protonix 40 mg IV twice a day for GI protection. Order for PRN IV labetolol for syst BP>180. Hold home meds for now given her n/ v. Recommend referral to lithography contact worker for CKD on dismissal given her creatinine average since 09/10 has been ~1.6+ SCDs for DVT prophylaxis. Patient wishes to be a DO NOT RESUSCITATE. Care to return to Dr. Moreira upon dismissal. Previous hospital records reviewed. 08/09 Antiemetics for nausea and vomiting. Serial hemoglobin and Protonix regarding possible upper GI bleed, likely Cynthia-Murguia tear. Cautious IV fluids overnight due to poor by mouth intake. Monitor for fluid overload. 08/10 Continue on scheduled antiemetics. Will give a one time dose of labetalol and Lasix to replace PO am dosing as she is NPO. Scheduled for gastric emptying study = normal. Will resume clear liquid diet following radiology test. 08/11 Gastric emptying study was done today and fortunately is normal. Continues to have intermittent nausea, vomiting with epigastric pain. Restarted scheduled IV Reglan and continue Protonix twice a day. Suspect a possible component of gastroparesis. Consult placed to Dr. Fuentes for further evaluation and recommendations. Patient would likely benefit from an EGD. Continue on Clear liquid diet only. Hgb stable at 9.4, Dry Cell Tester stable at 1.9. Overall blood sugars have been well controlled. Consultation for PT/OT tomorrow to evaluate patients strength. 08/12 s/p EGD; results pending. hgb 8.7; reassess in am. K 3.3, replacement ordered PO. creatinine increased to 2.3; continue IVF; hold tonight's dose of Lasix and possibly restart in am if improvement noted. EGD did show gastritis. SHELDON testing pending. Will add Carafate AC/HS to Protonix. Will need to continue to hold ASA for 4-6 weeks to allow healing of gastritis. Advance diet to full liquid. Nursing to ambulate TID.
[2017-08-14] MEDS: AMLODIPINE 10 MG TABLET PO SCH (09:51)
[2017-08-14] MEDS: LABETALOL 100 MG TABLET PO SCH ×2 (09:52→22:29)
[2017-08-14] MEDS: SALINE FLUSH 10ml SYRINGE IV PRN (09:53)
--- NOTE | 2017-08-14 10:20 | XRay Report ---
Indication: pleural effusions PROCEDURE: XR chest 3V: Encounter: Initial Comparison: July 28, 2017 Findings: Bilateral decubitus views show small layering bilateral pleural effusions. No pneumothorax. Lower lobe compressive atelectasis. Hypoinflation. Heart size and mediastinal contours are stable. Left pacemaker. Mild pulmonary vascular congestion. Impression: Small layering pleural effusions. .
[2017-08-14] MEDS ORDERED: CEFTRIAXONE 1 G in NS 100 ML IV SCH (16:45)
[2017-08-14] MEDS: ACETAMINOPHEN 325 MG TABLET PO PRN (23:01)
[2017-08-15] MEDS: LEVOTHYROXINE 25 MCG TABLET PO SCH (05:39)
[2017-08-15] MEDS: PANTOPRAZOLE 40 MG TABLET PO SCH ×2 (05:39→17:26)
[2017-08-15] MEDS: SUCRALFATE 1 GM TABLET PO SCH ×4 (05:39→21:48)
--- NOTE | 2017-08-15 07:24 | XRay Report ---
LOCATION OF DICTATION: [facility] EXAM: XR chest 2V HISTORY: pleural effusion COMPARISON: August 14, 2017 FINDINGS: The heart size is normal. The mediastinal configuration is unremarkable. Left-sided dual-lead pacemaker in place. Stable small to moderate-sized bilateral pleural effusions with subjacent atelectasis. There is no evidence for a pneumothorax. The osseous structures are within normal limits. IMPRESSION: 1. Stable small to moderate-sized bilateral pleural effusions with subjacent atelectasis. .
[2017-08-15] MEDS: CEFTRIAXONE 1 G in NS 50 ML IV SCH (07:46)
[2017-08-15] MEDS: AMLODIPINE 10 MG TABLET PO SCH (08:28)
[2017-08-15] MEDS: LABETALOL 100 MG TABLET PO SCH ×2 (08:29→21:48)
--- NOTE | 2017-08-15 09:31 | Progress Note ---
- Date 08/15/17 Subjective: Chantelle was on her phone, trying to get through to Dr. Moreira's office -- she was very concerned b/c she has an appt scheduled today and she risks being dismissed from the clinic if she doesn't show up. I was able to reach Dr. Moreira while I was in the room and averted any penalty. She stated that she had some shortness of breath last night but that has resolved. She denies chest pain. No n/v but she's upset b/c she can't order what she wants -- she's limited d/t carb consistent diet and egg allergy. This topic dominated the remainder of our conversation. Objective Vital signs: Temperature 96.1 F L 08/15/17 08:10 Pulse Rate 72 08/15/17 08:10 Respiratory Rate 16 08/15/17 08:10 Blood Pressure 151/82 H 08/15/17 08:10 Pulse Oximetry 95 08/15/17 08:10 Height/Weight/BMI: Weight 82.2 kg - Constitutional Present: no acute distress, well nourished, well developed, obese - Routine HEENT Exam Head: Present: normocephalic Eye: Present: PERRL. Absent: conjunctival icterus, scleral injection ENT: Present: oropharynx clear - Routine Respiratory Exam Present: CTA bilaterally - Routine Cardiovascular Exam Present: RRR, S1, S2, murmur (2/6) - Routine Abdominal Exam Present: soft, normoactive bowel sounds, non distended, non tender - Routine Extremities Exam Present: edema (BLE nonpitting), pulses intact - Routine Musculoskeletal Exam Musculoskeletal: Present: moving extremities well - Routine Skin Exam Present: intact, dry, warm - Routine Neurological Exam Present: alert, oriented X3 - Routine Psychiatric Exam Present: cooperative. Absent: normal affect (anxious) Results - Labs CBC & Chem 7: 08/15/17 04:13 08/15/17 04:13 Microbiology Results: Microbiology 08/14/17 12:09 Urine, Voided (Cc/notcc) Urine Culture - Preliminary Culture Initiated - Results Pending 08/12/17 14:02 Gastric Biopsy Helicobacter pylori Rapid Urease - Final Assessment and Plan (1) Coffee ground emesis Current visit: Yes Status: Acute Assessment and Plan: Impression Nausea and vomiting with coffee-ground emesis-positive occult blood on gastric secretions; EGD +gastritis Abdominal pain with normal gastric emptying study - improved SKY, CKD Stage 4. Baseline creatinine 1.8. Acute on chronic anemia UTI, on Rocephin Hypernatremia (POA) - resolved Hypomagnesemia - resolved Hyperglycemia; DM2, A1c 6.1% Diastolic congestive heart failure with pulm HTN Sinoatrial node dysfunction, status post pacemaker HTN Hypothyroidism Chronic medical noncompliance Plan D/W Dr. Moreira -- baseline creatinine is 1.8. Creatinine today improved from 3.0 to 2.6. Scheduled to see Dr. Ortega in mid-August as a new pt. Renal U/S and CT both negative. Continue holding diuretics. 24 hour urine in progress. Autoimmune labs pending. Urine culture pending; continue Rocephin (day #2). Required straight cath this am with 800 mL return. Check PVR x 24 hours. ? post obstructive cause for SKY Continue Carafate and Protonix; Hold ASA. H. pylori negative. Hyperglycemia - meeting with dietary today; continue SSI. BP still elevated, mild improvement since increasing labetalol Will discuss in more detail with attending. DVT Prophylaxis: SCD's GI Prophylaxis: Protonix Resuscitation Status: Full Code - Time spent with patient Time with patient PN: 30 minutes - Physician Narrative Physician: Racheal Hughes MD Narrative: Date: 08/15/17 Time: 8 PM-I reviewed this chart, the patient history, and the BILLBOARD ERECTOR's/PA's documented findings as above. We discussed and formulated the assessment and plan as above with the additions below.-Dr. Hughes Patient was seen this evening in her room. She has only urinated about 300 ML's today. She is off of IV fluids. She is eating well and has no further nausea, vomiting, abdominal pain or hematemesis. She has not had a bowel movement in the past 2 days. She denies any shortness of breath except with activity. She complains of right hip pain since a fall in June. Right hip x-ray showed no acute bony findings. Has developed more edema since last week. Weight today is 82.2 kg up from 77.4 kg on admission. At 4.8 kg overall. She has been afebrile. Heart rate 67. Blood pressure today 103/50-151/82. O2 sat is 96% on room air Gen.-The patient is alert and oriented. She appears chronically ill HEENT reveals oropharynx to be moist Neck is supple Chest is clear to auscultation posteriorly Cardiovascular reveals a regular rate and rhythm Abdomen is soft, obese, nontender with positive bowel sounds Extremities reveal +1 pretibial edema and +2 pedal edema. Legs are tender secondary to neuropathy. She has significant pain in the right hip with movement Lab today reveals a hemoglobin 8.9, platelets 117. Neutrophils are normal. BUN is 44, creatinine 2.6 creatinine has ranged from 1.5 in April 2017 to 3.0 yesterday. Baseline is uncertain Glucose has been 115 to 167. Albumin is 2.9. Phosphorus and magnesium are normal. 24 hour urine protein was 3.2 g Impression Abdominal pain, nausea and vomiting-resolved Ascites, pleural effusions, anasarca seen on CT abdomen on admission-no edema at that time Acute on chronic kidney failure Oliguria today Proteinuria with 3.4 g on a 24-hour urine collection Diastolic heart failure Pulmonary hypertension Hypertension Diabetes for which she no longer requires insulin Acute on chronic anemia Right hip pain Plan Regarding poor urine output today, will give fluids followed by Lasix. A clean need to talk with nephrology tomorrow regarding the patient's chronic kidney disease and proteinuria Recheck CBC and basic metabolic profile tomorrow Consider repeat x-ray right hip and or orthopedic consultation for continued right hip pain CBC and basic metabolic profile tomorrow Hospital Course Summary Disclaimer: The visit summary below is not to be considered part of the above Progress Note. Hospital Course: 08/09 Admit to observation, for treatment of nausea and vomiting, under the hospitalist service, Dr. Hughes attending. Patient was given 1000 ml normal saline in the ER. Continue IV fluids 1/2 NS at 75 cc/hr 1 L. Caution fluid overload given her CHF. (Reviewed echo from 07/04/17) Follow serial hemoglobin (every 8 hours). Reglan 10 mg before meals at bedtime IV for nausea/vomiting/gastroparesis. Zofran PRN nausea vomiting not controlled with Reglan. Gastric emptying study scheduled for tomorrow morning for further workup of her GI symptoms. Fentanyl 25 g every 4 hours if needed for pain. (Patient has a morphine allergy.) Tylenol PRN if able to rojas PO. Protonix 40 mg IV twice a day for GI protection. Order for PRN IV labetolol for syst BP>180. Hold home meds for now given her n/ v. Recommend referral to interface designer for CKD on dismissal given her creatinine average since 09/10 has been ~1.6+ SCDs for DVT prophylaxis. Patient wishes to be a DO NOT RESUSCITATE. Care to return to Dr. Moreira upon dismissal. Previous hospital records reviewed. 08/09 Antiemetics for nausea and vomiting. Serial hemoglobin and Protonix regarding possible upper GI bleed, likely Cynthia-Murguia tear. Cautious IV fluids overnight due to poor by mouth intake. Monitor for fluid overload. 08/10 Continue on scheduled antiemetics. Will give a one time dose of labetalol and Lasix to replace PO am dosing as she is NPO. Scheduled for gastric emptying study = normal. Will resume clear liquid diet following radiology test. 08/11 Gastric emptying study- normal. Continues to have intermittent nausea, vomiting with epigastric pain. Restarted scheduled IV Reglan and continue Protonix twice a day. Suspect a possible component of gastroparesis. Consult placed to Dr. Fuentes for further evaluation and recommendations. Patient would likely benefit from an EGD. Continue on Clear liquid diet only. Hgb stable at 9.4, Seafood Team Member stable at 1.9. Overall blood sugars have been well controlled. Consultation for PT/OT tomorrow to evaluate patients strength. 08/12 s/p EGD; results pending. hgb 8.7; reassess in am. K 3.3, replacement ordered PO. creatinine increased to 2.3; continue IVF; hold tonight's dose of Lasix and possibly restart in am if improvement noted. EGD did show gastritis. SHELDON testing pending. Will add Carafate AC/HS to Protonix. Will need to continue to hold ASA for 4-6 weeks to allow healing of gastritis. Advance diet to full liquid. Nursing to ambulate TID. 08/13-08/14 1. Nausea and vomiting with coffee-ground emesis-positive occult blood on gastric secretions -EGD showed gastritis -Pt on carafate and protonix -No further emesis since admission -Hold ASA 2. Abdominal pain-resolved -likely secondary to gastritis -Gastric emptying study normal -Due to loose/watery stools, will stop scheduled reglan 3. acute on chronic anemia -Multifactorial -Likely GIB due to gastritis -Stable at present 4. Hypernatremia (145)-POA -Resolved 4. CKD (Stage 4 - based on GFR over past year) -Scheduled to see Dr. Ortega as outpt -Creatinine continues to climb despite off diuretics -Repeat lab in am. -CT did not show any abnormalities nor did renal u/s. -Will get 24 hr urine -Will resume IVF, may need to give lasix as well once 24 hr urine is obtained 5. Type 2 diabetes mellitus -SSI -Good control without treatment 6. 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 Sinoatrial node dysfunction, status post pacemaker -Follow up with cardiology as outpt 8. Hypertension -elevated at times. -On amlodipine 10mg daily, labetalol 300mg BID (increasing labetalol to 400mg BID today) 08/15 D/W Dr. Moreira -- baseline creatinine is 1.8. Creatinine today improved from 3.0 to 2.6. Scheduled to see Dr. Ortega in mid-August as a new pt. Renal U/S and CT both negative. Continue holding diuretics. 24 hour urine in progress. Autoimmune labs pending. Urine culture pending; continue Rocephin. Required straight cath this am with 800 mL return. Will check PVR x 24 hours. ? post obstructive cause for SKY Continue Carafate and Protonix; Hold ASA. H. pylori negative. Hyperglycemia - meeting with dietary today; continue SSI. BP still elevated, mild improvement since increasing labetalol
[2017-08-15] MEDS: ACETAMINOPHEN 325 MG TABLET PO PRN ×3 (13:41→21:46)
[2017-08-15] MEDS: ALBUTEROL 2.5mg/3ml (0.083%) NEB AEROSOL PRN (14:27)
[2017-08-15] MEDS ORDERED: FUROSEMIDE 20 MG/2 ML INJECTION IVP ONE (20:19)
[2017-08-16] MEDS: CEFTRIAXONE 1 G in NS 50 ML IV SCH (06:36)
[2017-08-16] MEDS: SUCRALFATE 1 GM TABLET PO SCH ×2 (06:36→11:54)
[2017-08-16] MEDS: LEVOTHYROXINE 25 MCG TABLET PO SCH (06:36)
[2017-08-16] MEDS: PANTOPRAZOLE 40 MG TABLET PO SCH ×2 (06:36→17:47)
--- NOTE | 2017-08-16 09:24 | Progress Note ---
- Date 08/16/17 Subjective: Yulia is seen this morning in follow-up, she is resting in bed verbalizes being quite upset and frustrated that she continues to be hospitalized. She has had some urinary retention overnight and did review quire a straight catheter this morning revealing 600 ML's of urine. Since that time she has not voided. She denies having pain or feeling shortness of breath. Overall blood sugars appear to be well controlled. Objective Vital signs: Temperature 96.5 F L 08/16/17 08:27 Pulse Rate 79 08/16/17 08:27 Respiratory Rate 18 08/16/17 08:27 Blood Pressure 147/86 H 08/16/17 08:27 Pulse Oximetry 98 08/16/17 08:27 Height/Weight/BMI: Weight 85 kg - Constitutional Present: no acute distress, well nourished, well developed - Routine HEENT Exam Eye: Present: EOMI ENT: Present: mucous membranes moist, dentition normal - Routine Respiratory Exam Present: CTA bilaterally. Absent: wheezes - Routine Cardiovascular Exam Present: RRR, S1, S2. Absent: murmur - Routine Abdominal Exam Present: soft, normoactive bowel sounds, non distended. Absent: tenderness - Routine Extremities Exam Present: edema (trace bilateral lower ext), normal capillary refill - Routine Skin Exam Present: intact, dry, warm - Routine Neurological Exam Present: alert, oriented X3, CN II-XII intact, moving all extremities - Routine Lymphatic Exam Lymphatic: Absent: adenopathy - Routine Psychiatric Exam Present: normal affect, cooperative Results - Labs CBC & Chem 7: 08/16/17 05:18 08/16/17 05:18 Microbiology Results: Microbiology 08/14/17 12:09 Urine, Voided (Cc/notcc) Urine Culture - Final Escherichia coli 08/12/17 14:02 Gastric Biopsy Helicobacter pylori Rapid Urease - Final Assessment and Plan (1) Coffee ground emesis Current visit: Yes Status: Acute Assessment and Plan: Impression Nausea and vomiting with coffee-ground emesis-positive occult blood on gastric secretions; EGD +gastritis Abdominal pain with normal gastric emptying study - improved SKY, CKD Stage 4. Baseline creatinine 1.8. Acute on chronic anemia UTI, on Rocephin Hypernatremia (POA) - resolved Hypomagnesemia - resolved Hyperglycemia; DM2, A1c 6.1% Diastolic congestive heart failure with pulm HTN Sinoatrial node dysfunction, status post pacemaker HTN Hypothyroidism Chronic medical noncompliance Plan Overall she is frustrated about being hospitalized Discussed plan with patient- Plan to be evaluated by Dr. Ortega later today. Baseline creatinine appears to be approximately 1.8. Unfortunately, creatinine today is 2.7 FENa score of 0.8% reveling likely Pre-renal in nature ? She does continue on Rocephin-today is day #3. Urine culture positive for E-coli Continue Carafate and Protonix; Hold ASA. H. pylori negative Case discussed with attending- Dr Hughes 08/16/2017-7 PM-Dr. Hughes I reviewed this chart, the patient history, and the DIRECTOR OF KIDS's/PA's documented findings as above. We discussed and formulated the assessment and plan as above with the additions below. I saw the patient in her room earlier this evening. She denies any nausea or vomiting. She denies any further abdominal pain. She is eating and drinking better. She denies any shortness of breath. She does feel fatigued. She was seen earlier today by Dr. Ortega. On exam she was asleep when I arrived was slow to wake up. Currently she is alert and oriented. Chest is clear to auscultation. Cardiovascular reveals a regular rate and rhythm. Abdomen is soft with positive bowel sounds. Extremities reveal +2 pedal edema +1 pretibial edema Lab is reviewed with creatinine of 2.7 Impression Regarding patient's chronic kidney disease, stress with Dr. Ortega and he thinks she likely has diabetic nephropathy. Regarding her acute elevation in creatinine, he thinks this is due 2 volume changes. He did recommend albumin followed by Lasix which was initiated today. We'll recheck renal function tomorrow. Regarding anemia, we did order B-12, folate and iron studies. Possible dismissal soon if renal function is improving. Carafate discontinued due to decreased renal function. We'll discontinue Rocephin and start Keflex tomorrow for UTI with Escherichia coli that is pansensitive - Physician Narrative Physician: Racheal Hughes MD Narrative: Date: 08/16/17 Time: 0914 Hospital Course Summary Disclaimer: The visit summary below is not to be considered part of the above Progress Note. Hospital Course: 08/09 Admit to observation, for treatment of nausea and vomiting, under the hospitalist service, Dr. Hughes attending. Patient was given 1000 ml normal saline in the ER. Continue IV fluids 1/2 NS at 75 cc/hr 1 L. Caution fluid overload given her CHF. (Reviewed echo from 07/04/17) Follow serial hemoglobin (every 8 hours). Reglan 10 mg before meals at bedtime IV for nausea/vomiting/gastroparesis. Zofran PRN nausea vomiting not controlled with Reglan. Gastric emptying study scheduled for tomorrow morning for further workup of her GI symptoms. Fentanyl 25 g every 4 hours if needed for pain. (Patient has a morphine allergy.) Tylenol PRN if able to rojas PO. Protonix 40 mg IV twice a day for GI protection. Order for PRN IV labetolol for syst BP>180. Hold home meds for now given her n/ v. Recommend referral to cotton grader for CKD on dismissal given her creatinine average since 09/10 has been ~1.6+ SCDs for DVT prophylaxis. Patient wishes to be a DO NOT RESUSCITATE. Care to return to Dr. Moreira upon dismissal. Previous hospital records reviewed. 08/09 Antiemetics for nausea and vomiting. Serial hemoglobin and Protonix regarding possible upper GI bleed, likely Cynthia-Murguia tear. Cautious IV fluids overnight due to poor by mouth intake. Monitor for fluid overload. 08/10 Continue on scheduled antiemetics. Will give a one time dose of labetalol and Lasix to replace PO am dosing as she is NPO. Scheduled for gastric emptying study = normal. Will resume clear liquid diet following radiology test. 08/11 Gastric emptying study- normal. Continues to have intermittent nausea, vomiting with epigastric pain. Restarted scheduled IV Reglan and continue Protonix twice a day. Suspect a possible component of gastroparesis. Consult placed to Dr. Fuentes for further evaluation and recommendations. Patient would likely benefit from an EGD. Continue on Clear liquid diet only. Hgb stable at 9.4, Cable Placer stable at 1.9. Overall blood sugars have been well controlled. Consultation for PT/OT tomorrow to evaluate patients strength. 08/12 s/p EGD; results pending. hgb 8.7; reassess in am. K 3.3, replacement ordered PO. creatinine increased to 2.3; continue IVF; hold tonight's dose of Lasix and possibly restart in am if improvement noted. EGD did show gastritis. SHELDON testing pending. Will add Carafate AC/HS to Protonix. Will need to continue to hold ASA for 4-6 weeks to allow healing of gastritis. Advance diet to full liquid. Nursing to ambulate TID. 08/13-08/14 1. Nausea and vomiting with coffee-ground emesis-positive occult blood on gastric secretions -EGD showed gastritis -Pt on carafate and protonix -No further emesis since admission -Hold ASA 2. Abdominal pain-resolved -likely secondary to gastritis -Gastric emptying study normal -Due to loose/watery stools, will stop scheduled reglan 3. acute on chronic anemia -Multifactorial -Likely GIB due to gastritis -Stable at present 4. Hypernatremia (145)-POA -Resolved 4. CKD (Stage 4 - based on GFR over past year) -Scheduled to see Dr. Ortega as outpt -Creatinine continues to climb despite off diuretics -Repeat lab in am. -CT did not show any abnormalities nor did renal u/s. -Will get 24 hr urine -Will resume IVF, may need to give lasix as well once 24 hr urine is obtained 5. Type 2 diabetes mellitus -SSI -Good control without treatment 6. 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 Sinoatrial node dysfunction, status post pacemaker -Follow up with cardiology as outpt 8. Hypertension -elevated at times. -On amlodipine 10mg daily, labetalol 300mg BID (increasing labetalol to 400mg BID today) 08/15 D/W Dr. Moreira -- baseline creatinine is 1.8. Creatinine today improved from 3.0 to 2.6. Scheduled to see Dr. Ortega in mid-August as a new pt. Renal U/S and CT both negative. Continue holding diuretics. 24 hour urine in progress. Autoimmune labs pending. Urine culture pending; continue Rocephin. Required straight cath this am with 800 mL return. Will check PVR x 24 hours. ? post obstructive cause for SKY Continue Carafate and Protonix; Hold ASA. H. pylori negative. Hyperglycemia - meeting with dietary today; continue SSI. BP still elevated, mild improvement since increasing labetalol 08/16 Overall she is frustrated about being hospitalized Discussed plan with patient- Plan to be evaluated by Dr. Ortega later today. Baseline creatinine appears to be approximately 1.8. Unfortunately, creatinine today is 2.7 FENa score of 0.8% reveling likely Pre-renal in nature ? She does continue on Rocephin-today is day #3. Urine culture positive for E-coli Continue Carafate and Protonix; Hold ASA. H. pylori negative Case discussed with attending- Dr Hughes Addendum entered and electronically signed by Chelsy Pacheco APRN 08/16/17 11 :46: With Dr. Ortega, cotton grader. He recommends stopping Carafate, given decreased GFR. Will check a SPEP and UPEP as well as a proBNP. Will give albumin 25 grams IV 1 now followed by Lasix 20 milligrams IV. Later in the afternoon. Encourage oral intake. He suspects patient is intravascularly dry, however, given systolic heart function likely is edematous. Will work on gentle diuresing
[2017-08-16] MEDS: LABETALOL 100 MG TABLET PO SCH ×2 (09:48→22:22)
[2017-08-16] MEDS: AMLODIPINE 10 MG TABLET PO SCH (09:49)
--- NOTE | 2017-08-16 11:04 | Pharmacy Consult ---
Pharmacy Consult-Other Meds - Consult Information CULTURE AND SENSITIVITY REVIEW: Organism: E. Coli Site: Urine Void Antibiotic: Ceftriaxone 1 g iv every 24 hours Sensitivity: M.I.C. <=1 Recommendation: No change in the antibiotic therapy. Thanks, Brenton Ackerman, Pharmcist
[2017-08-16] MEDS ORDERED: ALBUMIN HUMAN 100 ML IV ONE (11:43)
[2017-08-16] MEDS: ALBUTEROL 2.5mg/3ml (0.083%) NEB AEROSOL PRN (12:14)
--- NOTE | 2017-08-16 14:07 | Consultation ---
DATE: 08/16/2017 REASON FOR CONSULTATION: Chronic kidney disease with acute kidney injury. HISTORY OF PRESENT ILLNESS The patient is a 61-year-old woman with a 20-year history of diabetes and a 10- year history of hypertension with diastolic congestive heart failure who was admitted on 08/09/2017 with abdominal pain, nausea and vomiting. She had had the nausea and vomiting for about a week. Apparently she has been in and out of the hospital 3 or 4 times in the last month. Her creatinine was 1.7 on admission and has fluctuated but is up to 2.7 today. her initial GFR was 30 mL/ min and is now 18 mL/min. Her initial UA Had an E coli UTI. Now her UA looks better and has 1+ protein and trace blood. On a 24-hour urine she had 3.2 grams of protein. She is anemic with a hemoglobin of 8.5. Because of the blood and protein some serologies were done. Her PENNY was negative and her complements were normal. ANCA and anti-GBM are pending. A CT scan on admission showed moderate pleural effusions, normal kidneys and moderate ascites. Her BNP was over 15,000. She appeared to be dry with the nausea and vomiting and was given some fluid. Her weight is up approximately 5 kilos since admission. She feels well. She is not requiring oxygen. She has a history of diabetic neuropathy. She does not have any diabetic retinopathy. She previously saw Dr. Ho but is now scheduled to see a new breeding technician. She has no history of pyelonephritis or nephrolithiasis. She reports no change in her urine output. She has not had any dysuria, foamy urine or gross hematuria. PAST MEDICAL HISTORY Hypertension. Type 2 diabetes mellitus. Diabetic nephropathy. Diabetic neuropathy. Hyperlipidemia. Hypothyroidism. Depression. Migraine headaches. Sinoatrial node dysfunction. Stage 4 chronic kidney disease. PAST SURGICAL HISTORY Pacemaker placement. Tubal ligation. FAMILY HISTORY Her father at age 82 from complications of heart disease. He had a history of polio and hypertension and had coronary artery bypass graft surgery. Her mother at age 62 with complications of lung cancer. SOCIAL HISTORY She is three times. She never smoked or used alcohol. 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 REVIEW OF SYSTEMS A 10-point review of systems was completed and is negative except for the History of Present Illness. ALLERGIES Iodine. Influenza vaccine. Morphine. Codeine. CURRENT MEDICATIONS Please see the Medication Reconciliation List. PHYSICAL EXAMINATION GENERAL: The patient is an alert, well developed woman in no acute distress. VITALS: Temperature 96.5. pulse 79. Respiratory rate 18. Blood pressure 147/ 86. She is on room air. HEENT: Pupils are equal, round and reactive to light. Lids and conjunctivae are normal. Oropharynx is moist. Neck veins are flat. CARDIOVASCULAR: Lungs are clear to auscultation. Respiratory effort is normal. HEART: Regular rate and rhythm without murmurs. ABDOMEN: Soft and nontender with normal bowel sounds. EXTREMITIES: 1+ pretibial edema. SKIN: No rash or ulcerations. NEUROLOGIC: She is alert and oriented x 3 and has regular speech. ASSESSMENT & PLAN 1. Stage 4 chronic kidney disease likely due to diabetic nephropathy. The patient's baseline creatinine is thought to be about 1.8 mg/dl. I explained this would give her a GFR of about 28 mL/min. I explained that her kidney function is worse. She has a normal ultrasound and CT scan. Her urinalysis is fairly unremarkable. I doubt she has glomerulonephritis. I do await the ANCA and anti-GBM studies. 2. Acute kidney injury. I suspect the patient's acute kidney injury is related to fluctuation in volume. She has cardiorenal syndrome with diastolic dysfunction. I suspect she might be somewhat volume expanded still. Her blood pressure is elevated and the CT scan showed significant problems with effusions and ascites. I recommend a gentle diuresis and perhaps using albumin in an effort to increase the effectiveness of the diuretic. If her renal function continues to worsen with diuresis I would change course and hold the diuretics. I think it would be cary to check a serum protein electrophoresis and a urine protein electrophoresis. I would also stop the Carafate as she has decreased renal function. 3. Cardiac. The patient is going to see a new breeding technician next week. She has pulmonary hypertension and diastolic dysfunction. 4. Hypertension. The patient's blood pressure is slightly elevated. 5. Anemia of chronic disease. The patient should have B12, folate and iron studies checked. MTDD
[2017-08-16] MEDS: ONDANSETRON 4 MG/2 ML INJECTION IVP PRN (14:19)
[2017-08-16] MEDS ORDERED: FUROSEMIDE 20 MG/2 ML INJECTION IVP ONE (16:00)
[2017-08-17] MEDS: ALBUTEROL 2.5mg/3ml (0.083%) NEB AEROSOL PRN ×2 (02:28→14:55)
[2017-08-17] MEDS: LEVOTHYROXINE 25 MCG TABLET PO SCH (06:48)
[2017-08-17] MEDS: PANTOPRAZOLE 40 MG TABLET PO SCH ×2 (06:48→17:05)
[2017-08-17] MEDS: AMLODIPINE 10 MG TABLET PO SCH (08:18)
[2017-08-17] MEDS: LABETALOL 100 MG TABLET PO SCH ×2 (08:18→21:22)
[2017-08-17] MEDS: SALINE FLUSH 10ml SYRINGE IV PRN ×2 (08:21→17:05)
[2017-08-17] MEDS: ACETAMINOPHEN 325 MG TABLET PO PRN ×3 (09:24→21:53)
--- NOTE | 2017-08-17 10:13 | Progress Note ---
- Date 08/17/17 Subjective: Chantelle is seen today while sitting up on the edge of the bed with daughter. She voices frustration with ongoing hospitalization and feels that she is being difficult for nursing staff to take care of. Discussed in great detail with pt and daughter regarding through process of current edema- CHF with SKY on top of CKD. Discussed pathophysiology of IV Albumin and Lasix and fluid motivation. They verbalize understanding. At time of examination she denies having any pain or shortness of breath. She reports she voided a lot during the night including in a attends that was not counted for. She was able to ambulate to nursing station and reports having mild dyspnea during this. No abdominal pain or nausea. 2+ bilateral lower ext edema. Objective Vital signs: Temperature 98.5 F 08/17/17 07:40 Pulse Rate 78 08/17/17 08:00 Respiratory Rate 18 08/17/17 07:40 Blood Pressure 161/71 H 08/17/17 07:40 Pulse Oximetry 97 08/17/17 07:40 Height/Weight/BMI: Weight 83.2 kg - Constitutional Present: no acute distress, well nourished, well developed - Routine HEENT Exam Eye: Present: EOMI ENT: Present: mucous membranes moist, dentition normal - Routine Respiratory Exam Present: diminished air movement. Absent: wheezes - Routine Cardiovascular Exam Present: RRR, S1, S2. Absent: murmur - Routine Abdominal Exam Present: soft, normoactive bowel sounds, non distended. Absent: tenderness - Routine Extremities Exam Present: edema (2+bilateral lower ext), pulses intact - Routine Skin Exam Present: intact, dry, warm - Routine Neurological Exam Present: alert, oriented X3, CN II-XII intact, moving all extremities - Routine Lymphatic Exam Lymphatic: Absent: adenopathy - Routine Psychiatric Exam Present: normal affect, cooperative Results - Labs CBC & Chem 7: 08/17/17 05:02 08/17/17 05:02 Microbiology Results: Microbiology 08/14/17 12:09 Urine, Voided (Cc/notcc) Urine Culture - Final Escherichia coli 08/12/17 14:02 Gastric Biopsy Helicobacter pylori Rapid Urease - Final Assessment and Plan (1) Coffee ground emesis Current visit: Yes Status: Acute Assessment and Plan: Impression Nausea and vomiting with coffee-ground emesis-positive occult blood on gastric secretions; EGD +gastritis Abdominal pain with normal gastric emptying study - improved SKY, CKD Stage 4. Baseline creatinine 1.8. Acute on chronic anemia UTI, on Rocephin Hypernatremia (POA) - resolved Hypomagnesemia - resolved Hyperglycemia; DM2, A1c 6.1% Diastolic congestive heart failure with pulm HTN Sinoatrial node dysfunction, status post pacemaker HTN Hypothyroidism Chronic medical noncompliance Plan Spoke with Dr Ortega again today. Reviewed labs and clinical exam. He agrees with continuation of diuresis. Will given IV Albumin 25 gm now followed by Lasix 20mg. May repeat this again later this evening Continue to follow labs- Radio Communications Mechanician at 2.7 (Baseline 1.7) BNP decreased significantly to 4800. Asked nursing staff to place catrina compression hose to BLE to help with edema Continue to monitor blood sugars. Encouraged patient to continued to ambulate routinely Case discussed with attending, Dr Hughes She is scheduled to establish care with Dr Jada Palomares on 08/22/17. 08/17/2017-7:30 PM-I reviewed this chart, the patient history, and the ONLINE MARKETING STRATEGIST's/PA 's documented findings as above. We discussed and formulated the assessment and plan as above with the additions below.-Dr. Hughes The patient was seen this evening in her room. She was sleeping when I arrived and did not want to wake up and talk with me this evening. She denies complaints and just states that she is tired. Chest is clear to auscultation. Cardiovascular reveals a regular rate and rhythm. Abdomen is soft and nontender with positive bowel sounds. Impression and plan Continue with albumin and Lasix today, we'll see if this helps with diuresis and renal function. Appreciate Dr. Ortega's help. Regarding UTI with Escherichia coli, Rocephin was discontinued and the patient was started on Keflex today. Renal panel and CBC tomorrow - Physician Narrative Narrative: Date: 08/17/17 Time: 1008 Hospital Course Summary Disclaimer: The visit summary below is not to be considered part of the above Progress Note. Hospital Course: 08/09 Admit to observation, for treatment of nausea and vomiting, under the hospitalist service, Dr. Hughes attending. Patient was given 1000 ml normal saline in the ER. Continue IV fluids 1/2 NS at 75 cc/hr 1 L. Caution fluid overload given her CHF. (Reviewed echo from 07/04/17) Follow serial hemoglobin (every 8 hours). Reglan 10 mg before meals at bedtime IV for nausea/vomiting/gastroparesis. Zofran PRN nausea vomiting not controlled with Reglan. Gastric emptying study scheduled for tomorrow morning for further workup of her GI symptoms. Fentanyl 25 g every 4 hours if needed for pain. (Patient has a morphine allergy.) Tylenol PRN if able to rojas PO. Protonix 40 mg IV twice a day for GI protection. Order for PRN IV labetolol for syst BP>180. Hold home meds for now given her n/ v. Recommend referral to public health nurse for CKD on dismissal given her creatinine average since 09/10 has been ~1.6+ SCDs for DVT prophylaxis. Patient wishes to be a DO NOT RESUSCITATE. Care to return to Dr. Moreira upon dismissal. Previous hospital records reviewed. 08/09 Antiemetics for nausea and vomiting. Serial hemoglobin and Protonix regarding possible upper GI bleed, likely Cynthia-Murguia tear. Cautious IV fluids overnight due to poor by mouth intake. Monitor for fluid overload. 08/10 Continue on scheduled antiemetics. Will give a one time dose of labetalol and Lasix to replace PO am dosing as she is NPO. Scheduled for gastric emptying study = normal. Will resume clear liquid diet following radiology test. 08/11 Gastric emptying study- normal. Continues to have intermittent nausea, vomiting with epigastric pain. Restarted scheduled IV Reglan and continue Protonix twice a day. Suspect a possible component of gastroparesis. Consult placed to Dr. Fuentes for further evaluation and recommendations. Patient would likely benefit from an EGD. Continue on Clear liquid diet only. Hgb stable at 9.4, Radio Communications Mechanician stable at 1.9. Overall blood sugars have been well controlled. Consultation for PT/OT tomorrow to evaluate patients strength. 08/12 s/p EGD; results pending. hgb 8.7; reassess in am. K 3.3, replacement ordered PO. creatinine increased to 2.3; continue IVF; hold tonight's dose of Lasix and possibly restart in am if improvement noted. EGD did show gastritis. SHELDON testing pending. Will add Carafate AC/HS to Protonix. Will need to continue to hold ASA for 4-6 weeks to allow healing of gastritis. Advance diet to full liquid. Nursing to ambulate TID. 08/13-08/14 1. Nausea and vomiting with coffee-ground emesis-positive occult blood on gastric secretions -EGD showed gastritis -Pt on carafate and protonix -No further emesis since admission -Hold ASA 2. Abdominal pain-resolved -likely secondary to gastritis -Gastric emptying study normal -Due to loose/watery stools, will stop scheduled reglan 3. acute on chronic anemia -Multifactorial -Likely GIB due to gastritis -Stable at present 4. Hypernatremia (145)-POA -Resolved 4. CKD (Stage 4 - based on GFR over past year) -Scheduled to see Dr. Ortega as outpt -Creatinine continues to climb despite off diuretics -Repeat lab in am. -CT did not show any abnormalities nor did renal u/s. -Will get 24 hr urine -Will resume IVF, may need to give lasix as well once 24 hr urine is obtained 5. Type 2 diabetes mellitus -SSI -Good control without treatment 6. 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 Sinoatrial node dysfunction, status post pacemaker -Follow up with cardiology as outpt 8. Hypertension -elevated at times. -On amlodipine 10mg daily, labetalol 300mg BID (increasing labetalol to 400mg BID today) 08/15 D/W Dr. Moreira -- baseline creatinine is 1.8. Creatinine today improved from 3.0 to 2.6. Scheduled to see Dr. Ortega in mid-August as a new pt. Renal U/S and CT both negative. Continue holding diuretics. 24 hour urine in progress. Autoimmune labs pending. Urine culture pending; continue Rocephin. Required straight cath this am with 800 mL return. Will check PVR x 24 hours. ? post obstructive cause for SKY Continue Carafate and Protonix; Hold ASA. H. pylori negative. Hyperglycemia - meeting with dietary today; continue SSI. BP still elevated, mild improvement since increasing labetalol 08/16 Overall she is frustrated about being hospitalized Discussed plan with patient- Plan to be evaluated by Dr. Ortega later today. Baseline creatinine appears to be approximately 1.8. Unfortunately, creatinine today is 2.7 FENa score of 0.8% reveling likely Pre-renal in nature ? She does continue on Rocephin-today is day #3. Urine culture positive for E-coli Continue Carafate and Protonix; Hold ASA. H. pylori negative Case discussed with attending- Dr Hughes 08/16- Saul Regarding patient's chronic kidney disease, stress with Dr. Ortega and he thinks she likely has diabetic nephropathy. Regarding her acute elevation in creatinine, he thinks this is due 2 volume changes. He did recommend albumin followed by Lasix which was initiated today. We'll recheck renal function tomorrow. Regarding anemia, we did order B-12, folate and iron studies. Possible dismissal soon if renal function is improving. Carafate discontinued due to decreased renal function. We'll discontinue Rocephin and start Keflex tomorrow for UTI with Escherichia coli that is pansensitive 08/[address] Ortega again today. Reviewed labs and clinical exam. He agrees with continuation of diuresis. Will given IV Albumin 25 gm now followed by Lasix 20mg. May repeat this again later this evening Continue to follow labs- Radio Communications Mechanician at 2.7 (Baseline 1.7) BNP decreased significantly to 4800. Asked nursing staff to place catrina compression hose to BLE to help with edema Continue to monitor blood sugars. Encouraged patient to continued to ambulate routinely Case discussed with attending, Dr Hughes She is scheduled to establish care with Dr Jada Palomares on 08/22/17.
[2017-08-17] MEDS ORDERED: ALBUMIN HUMAN 25gm (25%) 100ml IV ONE ×2 (10:15→17:00)
[2017-08-17] MEDS: NS FLUSH BAG 500ml IV PRN (10:23)
[2017-08-17] MEDS ORDERED: FUROSEMIDE 20 MG/2 ML INJECTION IVP ONE ×2 (11:30→17:30)
[2017-08-18] MEDS: ACETAMINOPHEN 325 MG TABLET PO PRN ×3 (03:49→18:15)
[2017-08-18] MEDS: LEVOTHYROXINE 25 MCG TABLET PO SCH (06:02)
[2017-08-18] MEDS: PANTOPRAZOLE 40 MG TABLET PO SCH ×2 (06:03→18:15)
[2017-08-18] MEDS: LABETALOL 100 MG TABLET PO SCH ×2 (09:02→21:34)
[2017-08-18] MEDS: SALINE FLUSH 10ml SYRINGE IV PRN (09:02)
[2017-08-18] MEDS: AMLODIPINE 10 MG TABLET PO SCH (09:02)
--- NOTE | 2017-08-18 14:55 | Progress Note ---
Progress Note: Psychiatry consult requested due to concern for depression. I saw the patient briefly but she stated she was not interested in a psychiatric consult or medication to help with mood as she feels she is on too many medications already. She feels that hospital staff have been frustrated with her because of her personality and admits she can be difficult to work with, but feels it is due to years of pent up feelings that she keeps bottled inside. She states she has been this way "for 62 years" and doesn't think medication will help. She denies any SI or symptoms consistent with psychosis. She is agreeable to receiving information for counseling at [place] to look through with her daughter.
--- NOTE | 2017-08-18 18:12 | Progress Note ---
- Date 08/18/17 Subjective: Chantelle is feeling miserable. Her abdomen has been hurting all day. She ate most of breakfast but no lunch and she did not order supper. She denies n/v and has been drinking fluids well. Her RN gave her Tylenol without much of an improvement in pain. She describes the pain as cramping, primarily to her lower abd/suprapubic area. She denies constipation. No fevers. She denies chest pain or dyspnea. She really would like to go home and asks to be discharged. Objective Vital signs: Temperature 97.4 F 08/18/17 15:08 Pulse Rate 70 08/18/17 16:00 Respiratory Rate 18 08/18/17 15:08 Blood Pressure 121/60 08/18/17 15:08 Pulse Oximetry 97 08/18/17 15:08 Height/Weight/BMI: Weight 83.4 kg - Constitutional Present: mild distress, well nourished, well developed - Routine HEENT Exam Head: Present: normocephalic - Routine Respiratory Exam Present: decreased breath sounds - Routine Cardiovascular Exam Present: RRR, S1, S2, murmur - Routine Abdominal Exam Present: normoactive bowel sounds, tenderness (suprapubic, epigastric), distended - Routine Extremities Exam Present: edema (improved) - Routine Skin Exam Present: intact, dry, warm - Routine Neurological Exam Present: alert, oriented X3 - Routine Psychiatric Exam Absent: normal affect (flat) Results - Labs CBC & Chem 7: 08/18/17 04:03 08/18/17 04:03 Microbiology Results: Microbiology 08/14/17 12:09 Urine, Voided (Cc/notcc) Urine Culture - Final Escherichia coli 08/12/17 14:02 Gastric Biopsy Helicobacter pylori Rapid Urease - Final Assessment and Plan (1) Coffee ground emesis Current visit: Yes Status: Acute Assessment and Plan: Impression Nausea and vomiting with coffee-ground emesis-positive occult blood on gastric secretions; EGD +gastritis Abdominal pain with normal gastric emptying study Hyperkalemia, not POA SKY, CKD Stage 4. Baseline creatinine 1.8. Acute on chronic anemia, iron deficiency anemia, and borderline low vitamin B12 E. coli UTI, on Rocephin x3 days then Keflex started 08/17 Hypernatremia (POA) - resolved Hypomagnesemia - resolved Hyperglycemia; DM2, A1c 6.1% Diastolic congestive heart failure with pulm HTN Sinoatrial node dysfunction, status post pacemaker HTN Hypothyroidism Chronic medical noncompliance Plan Abdominal pain - pt reports that she hasn't had pain like this for 35 years (at which time it was r/t menstruation). She has not had n/v, no fever. WBC is normal. LFTs were normal [address] scan on admission did not suggest any acute pathology, and EGD revealed gastritis. She had a BM today. hgb slightly lower at 8.4. Will assess KUB. Iron level was low at 25, TIBC 233; B12 was borderline low at 319. When her abdominal pain improves would recommend starting oral replacement for iron and vitamin B12. Renal function is similar to yesterday; creatinine is 2.7. Hesitant to restart oral lasix with reduced oral drive. Continue Keflex for UTI Will discuss plan with Dr. Wiseman. Ivone Will give IV iron due to low iron levels and ab pain. Dr Moore evaluated pt - pt not very forthcoming or talkative--recommends outpatient PV evaluation (no homicidal or suicidal thoughts/ideations). DVT Prophylaxis: ISAAC Oliver Resuscitation Status: Do Not Resuscitate - Time spent with patient Time with patient PN: 25 minutes - Physician Narrative Physician: Favian Wiseman MD Narrative: Date: 08/18/17 Time: 2049 Have independently interviewed and examined pt. Chart reviewed. Case discussed with CM, Dr Moore, and my CHEESE GRADER. Care plan developed with my supervision; agree with above. Rough day. Ab uncomfortable. Nursing reporting patient eating meals. Dr Moore evaluated pt-pt not very forthcoming or talkative--recommends outpatient PV evaluation (no homicidal or suicidal thoughts/ideation). Lungs: decreased, no distress CV: regular Plan: With low iron stored and ab pain, will try IV Iron infusion. Will help improve iron levels and my decrease pain. Encourage activities - PT/OT initiated. Hospital Course Summary Disclaimer: The visit summary below is not to be considered part of the above Progress Note. Hospital Course: 08/09 Admit to observation, for treatment of nausea and vomiting, under the hospitalist service, Dr. Hughes attending. Patient was given 1000 ml normal saline in the ER. Continue IV fluids 1/2 NS at 75 cc/hr 1 L. Caution fluid overload given her CHF. (Reviewed echo from 07/04/17) Follow serial hemoglobin (every 8 hours). Reglan 10 mg before meals at bedtime IV for nausea/vomiting/gastroparesis. Zofran PRN nausea vomiting not controlled with Reglan. Gastric emptying study scheduled for tomorrow morning for further workup of her GI symptoms. Fentanyl 25 g every 4 hours if needed for pain. (Patient has a morphine allergy.) Tylenol PRN if able to rojas PO. Protonix 40 mg IV twice a day for GI protection. Order for PRN IV labetolol for syst BP>180. Hold home meds for now given her n/ v. Recommend referral to elevator attendant for CKD on dismissal given her creatinine average since 09/10 has been ~1.6+ SCDs for DVT prophylaxis. Patient wishes to be a DO NOT RESUSCITATE. Care to return to Dr. Moreira upon dismissal. Previous hospital records reviewed. 08/09 Antiemetics for nausea and vomiting. Serial hemoglobin and Protonix regarding possible upper GI bleed, likely Cynthia-Murguia tear. Cautious IV fluids overnight due to poor by mouth intake. Monitor for fluid overload. 08/10 Continue on scheduled antiemetics. Will give a one time dose of labetalol and Lasix to replace PO am dosing as she is NPO. Scheduled for gastric emptying study = normal. Will resume clear liquid diet following radiology test. 08/11 Gastric emptying study- normal. Continues to have intermittent nausea, vomiting with epigastric pain. Restarted scheduled IV Reglan and continue Protonix twice a day. Suspect a possible component of gastroparesis. Consult placed to Dr. Fuentes for further evaluation and recommendations. Patient would likely benefit from an EGD. Continue on Clear liquid diet only. Hgb stable at 9.4, Lead Pourer stable at 1.9. Overall blood sugars have been well controlled. Consultation for PT/OT tomorrow to evaluate patients strength. 08/12 s/p EGD; results pending. hgb 8.7; reassess in am. K 3.3, replacement ordered PO. creatinine increased to 2.3; continue IVF; hold tonight's dose of Lasix and possibly restart in am if improvement noted. EGD did show gastritis. SHELDON testing pending. Will add Carafate AC/HS to Protonix. Will need to continue to hold ASA for 4-6 weeks to allow healing of gastritis. Advance diet to full liquid. Nursing to ambulate TID. 08/13-08/14 1. Nausea and vomiting with coffee-ground emesis-positive occult blood on gastric secretions -EGD showed gastritis -Pt on carafate and protonix -No further emesis since admission -Hold ASA 2. Abdominal pain-resolved -likely secondary to gastritis -Gastric emptying study normal -Due to loose/watery stools, will stop scheduled reglan 3. acute on chronic anemia -Multifactorial -Likely GIB due to gastritis -Stable at present 4. Hypernatremia (145)-POA -Resolved 4. CKD (Stage 4 - based on GFR over past year) -Scheduled to see Dr. Ortega as outpt -Creatinine continues to climb despite off diuretics -Repeat lab in am. -CT did not show any abnormalities nor did renal u/s. -Will get 24 hr urine -Will resume IVF, may need to give lasix as well once 24 hr urine is obtained 5. Type 2 diabetes mellitus -SSI -Good control without treatment 6. 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 Sinoatrial node dysfunction, status post pacemaker -Follow up with cardiology as outpt 8. Hypertension -elevated at times. -On amlodipine 10mg daily, labetalol 300mg BID (increasing labetalol to 400mg BID today) 08/15 D/W Dr. Moreira -- baseline creatinine is 1.8. Creatinine today improved from 3.0 to 2.6. Scheduled to see Dr. Ortega in mid-August as a new pt. Renal U/S and CT both negative. Continue holding diuretics. 24 hour urine in progress. Autoimmune labs pending. Urine culture pending; continue Rocephin. Required straight cath this am with 800 mL return. Will check PVR x 24 hours. ? post obstructive cause for SKY Continue Carafate and Protonix; Hold ASA. H. pylori negative. Hyperglycemia - meeting with dietary today; continue SSI. BP still elevated, mild improvement since increasing labetalol 08/16 Overall she is frustrated about being hospitalized Discussed plan with patient- Plan to be evaluated by Dr. Ortega later today. Baseline creatinine appears to be approximately 1.8. Unfortunately, creatinine today is 2.7 FENa score of 0.8% reveling likely Pre-renal in nature ? She does continue on Rocephin-today is day #3. Urine culture positive for E-coli Continue Carafate and Protonix; Hold ASA. H. pylori negative Case discussed with attending- Dr Hughes 08/16- Saul Regarding patient's chronic kidney disease, stress with Dr. Ortega and he thinks she likely has diabetic nephropathy. Regarding her acute elevation in creatinine, he thinks this is due 2 volume changes. He did recommend albumin followed by Lasix which was initiated today. We'll recheck renal function tomorrow. Regarding anemia, we did order B-12, folate and iron studies. Possible dismissal soon if renal function is improving. Carafate discontinued due to decreased renal function. We'll discontinue Rocephin and start Keflex tomorrow for UTI with Escherichia coli that is pansensitive 08/[address] Ortega again today. Reviewed labs and clinical exam. He agrees with continuation of diuresis. Will given IV Albumin 25 gm now followed by Lasix 20mg. May repeat this again later this evening Continue to follow labs- Lead Pourer at 2.7 (Baseline 1.7) BNP decreased significantly to 4800. Asked nursing staff to place isaac compression hose to BLE to help with edema Continue to monitor blood sugars. Encouraged patient to continued to ambulate routinely Case discussed with attending, Dr Hughes She is scheduled to establish care with Dr Jada Palomares on 08/22/17. 08/18 Abdominal pain - pt reports that she hasn't had pain like this for 35 years (at which time it was r/t menstruation). She has not had n/v, no fever. WBC is normal. LFTs were normal [address] scan on admission did not suggest any acute pathology, and EGD revealed gastritis. She had a BM today. hgb slightly lower at 8.4. Will assess KUB. Iron level was low at 25, TIBC 233; B12 was borderline low at 319. When her abdominal pain improves would recommend starting oral replacement for iron and vitamin B12. Renal function is similar to yesterday; creatinine is 2.7. Hesitant to restart oral lasix with reduced oral drive. Continue Keflex for UTI
[2017-08-19] MEDS: LEVOTHYROXINE 25 MCG TABLET PO SCH (06:03)
[2017-08-19] MEDS: PANTOPRAZOLE 40 MG TABLET PO SCH ×2 (06:03→16:49)
[2017-08-19] MEDS ORDERED: ONDANSETRON 4 MG TABLET PO PRN (08:20)
--- NOTE | 2017-08-19 08:29 | XRay Report ---
Indication: abdominal pain PROCEDURE: XR KUB: Encounter: Initial Comparison: August 01, 2017 Findings: The visualized lung bases show a small right effusion. There is no free air on the upright view. The bowel gas pattern is nonobstructive and nonspecific. Gas is seen in nondilated small and large bowel to the level of the rectum. Moderate stool is seen throughout the colon. The bony structures are grossly unremarkable. Impression: Nonobstructive nonspecific bowel gas pattern. .
[2017-08-19] MEDS ORDERED: IRON - PHARMACY CONSULT MC ONE (08:45)
[2017-08-19] MEDS: LABETALOL 100 MG TABLET PO SCH ×2 (09:33→20:50)
[2017-08-19] MEDS: AMLODIPINE 10 MG TABLET PO SCH (09:33)
[2017-08-19] MEDS: ACETAMINOPHEN 325 MG TABLET PO PRN ×2 (09:34→20:56)
--- NOTE | 2017-08-19 10:30 | Pharmacy Consult ---
Pharmacy Consult-Iron - Laboratory Information Iron Labs 08/10/17 08/11/17 08/12/17 20:12 04:08 04:29 Hgb 9.8 L 9.4 L 8.7 L Hct 27.8 L 26.5 L Iron TIBC % Saturation 08/13/17 08/14/17 08/15/17 04:49 04:35 04:13 Hgb 9.0 L 9.1 L 8.9 L Hct 27.1 L 27.3 L 26.4 L Iron TIBC % Saturation 08/16/17 08/16/17 08/17/17 05:15 05:18 05:02 Hgb 8.5 L 8.6 L Hct 25.7 L 26.1 L Iron 25 L TIBC 233 L % Saturation 11 08/18/17 08/19/17 04:03 03:57 Hgb 8.4 L 8.2 L Hct 25.4 L 25.7 L Iron TIBC % Saturation - Consult Information IV IRON CONSULT: Dx: Iron Deficiency Anemia Iron level: 25 (low) TIBC level: 233 (low) Iron Saturation: 11% Hgb: 8.2 gd/L Fults Body Weight for Iron Dose: 50 kg Total calculated dose = 1400 mg Will give 25mg IV test dose. Watch VS q15min x 1 hr. (Watching for anaphylaxis, respiratory distress, hives) If no reaction, will give remainder of dose = 1375 mg in 500 ml NS Watch VS q15min x 1 hr. Thank you. Geneva Olsen, PharmD
[2017-08-19] MEDS ORDERED: IRON DEXTRAN COMPLEX 100mg/2ml INJECTION IV ONE (12:00)
[2017-08-19] MEDS: ONDANSETRON 4 MG/2 ML INJECTION IVP PRN (13:20)
[2017-08-19] MEDS: NS FLUSH BAG 500ml IV PRN (13:32)
[2017-08-19] MEDS ORDERED: NS IV ONE (13:45)
[2017-08-19] MEDS ORDERED: IRON DEXTRAN IV ONE (13:45)
--- NOTE | 2017-08-19 14:21 | Progress Note ---
- Date 08/19/17 Subjective: Chantelle was in much better spirits today though is still having abdominal pain. It doesn't feel quite as tight as it did yesterday but she continues to have cramping. She's been having loose/soft stools. She denies n/v. Objective Vital signs: Temperature 98.1 F 08/19/17 13:13 Pulse Rate 72 08/19/17 13:13 Respiratory Rate 16 08/19/17 13:13 Blood Pressure 110/61 08/19/17 13:13 Pulse Oximetry 95 08/19/17 13:13 Height/Weight/BMI: Weight 83.8 kg - Constitutional Present: no acute distress, well nourished, well developed - Routine HEENT Exam Head: Present: normocephalic ENT: Present: oropharynx clear - Routine Respiratory Exam Present: CTA bilaterally - Routine Cardiovascular Exam Present: RRR, S1, S2 - Routine Abdominal Exam Present: soft, tenderness, guarding (epigastric). Absent: normoactive bowel sounds (hypoactive) - Routine Extremities Exam Present: edema (nonpitting edema to BLE), pulses intact - Routine Skin Exam Present: intact, dry, warm - Routine Neurological Exam Present: alert, oriented X3 - Routine Psychiatric Exam Present: normal affect, normal thought process, cooperative Results - Labs CBC & Chem 7: 08/19/17 03:57 08/19/17 03:57 Microbiology Results: Microbiology 08/14/17 12:09 Urine, Voided (Cc/notcc) Urine Culture - Final Escherichia coli 08/12/17 14:02 Gastric Biopsy Helicobacter pylori Rapid Urease - Final Assessment and Plan (1) Coffee ground emesis Current visit: Yes Status: Acute Assessment and Plan: Impression Nausea and vomiting with coffee-ground emesis-positive occult blood on gastric secretions; EGD +gastritis Abdominal pain with normal gastric emptying study Hyperkalemia, not POA SKY, CKD Stage 4. Baseline creatinine 1.8. Acute on chronic anemia, iron deficiency anemia, and borderline low vitamin B12 E. coli UTI, on Rocephin x3 days then Keflex started 08/17 Hypernatremia (POA) - resolved Hypomagnesemia - resolved Hyperglycemia; DM2, A1c 6.1% Diastolic congestive heart failure with pulm HTN Sinoatrial node dysfunction, status post pacemaker HTN Hypothyroidism Chronic medical noncompliance Plan Abdominal pain - ongoing. Check lipase. She has not had n/v, no fever. WBC is normal. LFTs normal today. CT scan on admission did not suggest any acute pathology, and EGD revealed gastritis. She had a BM today. hgb slightly lower at 8.2. KUB done yesterday was nonrevealing. IV iron infusing currently. Renal function is similar to yesterday; creatinine is 2.6; BUN down to 48. K improved to 5.0 -- weight is climbing back up. Continue Keflex for UTI - will dc after today which would complete a 6-day course. Discussed with Dr. Wiseman. DVT Prophylaxis: SCD's Resuscitation Status: Do Not Resuscitate - Time spent with patient Time with patient PN: 25 minutes - Physician Narrative Physician: Favian Wiseman MD Narrative: Date: 08/19/17 Time: 1600 Have independently interviewed and examined pt. Chart reviewed. Case discussed with CM and my DISTANCE EDUCATION TEACHER. Care plan developed with my supervision; agree with above. Still having ab pain and nausea. Eating some-will force self to eat. Tolerating IV Iron. Breathing well. Does not decrease of urine output (not on Lasix). Strength fair-can get around in room okay, has not felt up to ambulating in halls. Lungs: decreased, no distress CV: regular AB: soft nt BS decreased MSE: awake alert appropriate Plan: IV Iron to help boost up iron levels-hope that this will help decrease her ab pain as well. Continue treatments for gastritis. Will hold on Lasix due to decreased oral intake-possible restart at lower dose. Encourage ambulation. Possible home tomorrow depending on how she is doing. Hospital Course Summary Disclaimer: The visit summary below is not to be considered part of the above Progress Note. Hospital Course: 08/09 Admit to observation, for treatment of nausea and vomiting, under the hospitalist service, Dr. Hughes attending. Patient was given 1000 ml normal saline in the ER. Continue IV fluids 1/2 NS at 75 cc/hr 1 L. Caution fluid overload given her CHF. (Reviewed echo from 07/04/17) Follow serial hemoglobin (every 8 hours). Reglan 10 mg before meals at bedtime IV for nausea/vomiting/gastroparesis. Zofran PRN nausea vomiting not controlled with Reglan. Gastric emptying study scheduled for tomorrow morning for further workup of her GI symptoms. Fentanyl 25 g every 4 hours if needed for pain. (Patient has a morphine allergy.) Tylenol PRN if able to rojas PO. Protonix 40 mg IV twice a day for GI protection. Order for PRN IV labetolol for syst BP>180. Hold home meds for now given her n/ v. Recommend referral to extension service agent for CKD on dismissal given her creatinine average since 09/10 has been ~1.6+ SCDs for DVT prophylaxis. Patient wishes to be a DO NOT RESUSCITATE. Care to return to Dr. Moreira upon dismissal. Previous hospital records reviewed. 08/09 Antiemetics for nausea and vomiting. Serial hemoglobin and Protonix regarding possible upper GI bleed, likely Cynthia-Murguia tear. Cautious IV fluids overnight due to poor by mouth intake. Monitor for fluid overload. 08/10 Continue on scheduled antiemetics. Will give a one time dose of labetalol and Lasix to replace PO am dosing as she is NPO. Scheduled for gastric emptying study = normal. Will resume clear liquid diet following radiology test. 08/11 Gastric emptying study- normal. Continues to have intermittent nausea, vomiting with epigastric pain. Restarted scheduled IV Reglan and continue Protonix twice a day. Suspect a possible component of gastroparesis. Consult placed to Dr. Fuentes for further evaluation and recommendations. Patient would likely benefit from an EGD. Continue on Clear liquid diet only. Hgb stable at 9.4, Commercial Estimator stable at 1.9. Overall blood sugars have been well controlled. Consultation for PT/OT tomorrow to evaluate patients strength. 08/12 s/p EGD; results pending. hgb 8.7; reassess in am. K 3.3, replacement ordered PO. creatinine increased to 2.3; continue IVF; hold tonight's dose of Lasix and possibly restart in am if improvement noted. EGD did show gastritis. SHELDON testing pending. Will add Carafate AC/HS to Protonix. Will need to continue to hold ASA for 4-6 weeks to allow healing of gastritis. Advance diet to full liquid. Nursing to ambulate TID. 08/13-08/14 1. Nausea and vomiting with coffee-ground emesis-positive occult blood on gastric secretions -EGD showed gastritis -Pt on carafate and protonix -No further emesis since admission -Hold ASA 2. Abdominal pain-resolved -likely secondary to gastritis -Gastric emptying study normal -Due to loose/watery stools, will stop scheduled reglan 3. acute on chronic anemia -Multifactorial -Likely GIB due to gastritis -Stable at present 4. Hypernatremia (145)-POA -Resolved 4. CKD (Stage 4 - based on GFR over past year) -Scheduled to see Dr. Ortega as outpt -Creatinine continues to climb despite off diuretics -Repeat lab in am. -CT did not show any abnormalities nor did renal u/s. -Will get 24 hr urine -Will resume IVF, may need to give lasix as well once 24 hr urine is obtained 5. Type 2 diabetes mellitus -SSI -Good control without treatment 6. 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 Sinoatrial node dysfunction, status post pacemaker -Follow up with cardiology as outpt 8. Hypertension -elevated at times. -On amlodipine 10mg daily, labetalol 300mg BID (increasing labetalol to 400mg BID today) 08/15 D/W Dr. Moreira -- baseline creatinine is 1.8. Creatinine today improved from 3.0 to 2.6. Scheduled to see Dr. Ortega in mid-August as a new pt. Renal U/S and CT both negative. Continue holding diuretics. 24 hour urine in progress. Autoimmune labs pending. Urine culture pending; continue Rocephin. Required straight cath this am with 800 mL return. Will check PVR x 24 hours. ? post obstructive cause for SKY Continue Carafate and Protonix; Hold ASA. H. pylori negative. Hyperglycemia - meeting with dietary today; continue SSI. BP still elevated, mild improvement since increasing labetalol 08/16 Overall she is frustrated about being hospitalized Discussed plan with patient- Plan to be evaluated by Dr. Ortega later today. Baseline creatinine appears to be approximately 1.8. Unfortunately, creatinine today is 2.7 FENa score of 0.8% reveling likely Pre-renal in nature ? She does continue on Rocephin-today is day #3. Urine culture positive for E-coli Continue Carafate and Protonix; Hold ASA. H. pylori negative Case discussed with attending- Dr Hughes 08/16- Saul Regarding patient's chronic kidney disease, stress with Dr. Ortega and he thinks she likely has diabetic nephropathy. Regarding her acute elevation in creatinine, he thinks this is due 2 volume changes. He did recommend albumin followed by Lasix which was initiated today. We'll recheck renal function tomorrow. Regarding anemia, we did order B-12, folate and iron studies. Possible dismissal soon if renal function is improving. Carafate discontinued due to decreased renal function. We'll discontinue Rocephin and start Keflex tomorrow for UTI with Escherichia coli that is pansensitive 08/[address] Ortega again today. Reviewed labs and clinical exam. He agrees with continuation of diuresis. Will given IV Albumin 25 gm now followed by Lasix 20mg. May repeat this again later this evening Continue to follow labs- Commercial Estimator at 2.7 (Baseline 1.7) BNP decreased significantly to 4800. Asked nursing staff to place catrina compression hose to BLE to help with edema Continue to monitor blood sugars. Encouraged patient to continued to ambulate routinely Case discussed with attending, Dr Hughes She is scheduled to establish care with Dr Jada Palomares on 08/22/17. 08/18 Abdominal pain - pt reports that she hasn't had pain like this for 35 years (at which time it was r/t menstruation). She has not had n/v, no fever. WBC is normal. LFTs were normal [address] scan on admission did not suggest any acute pathology, and EGD revealed gastritis. She had a BM today. hgb slightly lower at 8.4. Will assess KUB. Iron level was low at 25, TIBC 233; B12 was borderline low at 319. When her abdominal pain improves would recommend starting oral replacement for iron and vitamin B12. Renal function is similar to yesterday; creatinine is 2.7. Hesitant to restart oral lasix with reduced oral drive. Continue Keflex for UTI Dr Moore evaluated pt - pt not very forthcoming or talkative--recommends outpatient PV evaluation (no homicidal or suicidal thoughts/ideations). 08/19 Abdominal pain - ongoing. Check lipase. She has not had n/v, no fever. WBC is normal. LFTs normal today. CT scan on admission did not suggest any acute pathology, and EGD revealed gastritis. She had a BM today. hgb slightly lower at 8.2. KUB done yesterday was nonrevealing. IV iron infusing currently. Renal function is similar to yesterday; creatinine is 2.6; BUN down to 48. K improved to 5.0 -- weight is climbing back up. Continue Keflex for UTI - will dc after today which would complete a 6-day course.
[2017-08-20 00:14] VITALS: O2SAT 93
[2017-08-20] MEDS: ACETAMINOPHEN 325 MG TABLET PO PRN (01:57)
[2017-08-20] MEDS: LEVOTHYROXINE 25 MCG TABLET PO SCH (05:36)
[2017-08-20] MEDS: PANTOPRAZOLE 40 MG TABLET PO SCH (05:37)
[2017-08-20 07:53] VITALS: BP 157/82; RESP 16; TEMP 98.5
[2017-08-20] MEDS: AMLODIPINE 10 MG TABLET PO SCH (09:29)
[2017-08-20] MEDS: LABETALOL 100 MG TABLET PO SCH (09:30)
[2017-08-20 11:31] VITALS: PULSE 75
--- NOTE | 2017-08-20 11:51 | Progress Note ---
- Date 08/20/17 Subjective: Patient seen eating breakfast. She feels better today. She would like to go home. No pain at present other than at her IV site. No CP or SOA, nausea or vomiting. Objective Vital signs: Temperature 98.5 F 08/20/17 07:50 Pulse Rate 75 08/20/17 08:00 Respiratory Rate 16 08/20/17 07:50 Blood Pressure 157/82 H 08/20/17 07:50 Pulse Oximetry 93 08/20/17 07:50 Height/Weight/BMI: Weight 85.8 kg - Constitutional Present: no acute distress, well nourished, well developed - Routine HEENT Exam Head: Present: normocephalic, atraumatic - Routine Respiratory Exam Present: CTA bilaterally. Absent: wheezes - Routine Cardiovascular Exam Present: RRR, no murmur - Routine Abdominal Exam Present: soft, tenderness (mild epigastric), non distended, non tender - Routine Extremities Exam Present: no edema, normal capillary refill - Routine Skin Exam Present: dry, warm - Routine Neurological Exam Present: alert, oriented X3 - Routine Lymphatic Exam Lymphatic: Absent: adenopathy - Routine Psychiatric Exam Present: normal affect, cooperative Results - Labs CBC & Chem 7: 08/20/17 05:17 08/20/17 05:17 Microbiology Results: Microbiology 08/14/17 12:09 Urine, Voided (Cc/notcc) Urine Culture - Final Escherichia coli 08/12/17 14:02 Gastric Biopsy Helicobacter pylori Rapid Urease - Final Assessment and Plan (1) Coffee ground emesis Current visit: Yes Status: Acute Assessment and Plan: Impression Nausea and vomiting with coffee-ground emesis-positive occult blood on gastric secretions; EGD +gastritis Abdominal pain with normal gastric emptying study Hyperkalemia, not POA -resolved SKY, CKD Stage 4. Baseline creatinine 1.8. Acute on chronic anemia, iron deficiency anemia, and borderline low vitamin B12 E. 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 Patient doing better. Abdominal pain is controlled and likely d/t gastritis. Reiterated importance of taking her Protonix routinely. She should avoid Carafate due to her renal function. Hold baby ASA for at least another few weeks. Creatinine remains elevated. Dismiss on decreased dose of Lasix 20mg qd. Hold potassium. K+ 4.9 on dismissal. Repeat BMP at f-u appt with Dr. Moreira next week and keep f-u appt with Dr. Ortega in August. Appt with Dr. Palomares next week. Completed course of Keflex for UTI Consider oral iron supplementation after abdominal pain has completely resolved. Discussed with Dr. Wiseman DVT Prophylaxis: SCD's - Physician Narrative Physician: Favian Wiseman MD Narrative: Date: 08/20/17 Time: 1143 Have independently interviewed and examined pt. Chart reviewed. Case discussed with my MEDICAL CENTER MANAGER. Care plan developed with my supervision; agree with above. Doing better today. Up more, moving more. Looks more alert and energetic. Appetite fair. Breathing well. Strongly wants to go home. Lungs: Decreased, no distress CV: regular MSE: awake alert appropriate Plan: Will discharge to home. Creatinine is showing increased-can restart Lasix at 20mg daily advising patient to watch for feeling weak/dizzy/unsteady which could indicate overdiuresis. She will monitor for edema and weight increase. Needs F/U with Dr Moreira in 1 week or reevaluation and to recheck lab. See orders for details. Hospital Course Summary Disclaimer: The visit summary below is not to be considered part of the above Progress Note. Hospital Course: 08/09 Admit to observation, for treatment of nausea and vomiting, under the hospitalist service, Dr. Hughes attending. Patient was given 1000 ml normal saline in the ER. Continue IV fluids 1/2 NS at 75 cc/hr 1 L. Caution fluid overload given her CHF. (Reviewed echo from 07/04/17) Follow serial hemoglobin (every 8 hours). Reglan 10 mg before meals at bedtime IV for nausea/vomiting/gastroparesis. Zofran PRN nausea vomiting not controlled with Reglan. Gastric emptying study scheduled for tomorrow morning for further workup of her GI symptoms. Fentanyl 25 g every 4 hours if needed for pain. (Patient has a morphine allergy.) Tylenol PRN if able to rojas PO. Protonix 40 mg IV twice a day for GI protection. Order for PRN IV labetolol for syst BP>180. Hold home meds for now given her n/ v. Recommend referral to automatic packer operator for CKD on dismissal given her creatinine average since 09/10 has been ~1.6+ SCDs for DVT prophylaxis. Patient wishes to be a DO NOT RESUSCITATE. Care to return to Dr. Moreira upon dismissal. Previous hospital records reviewed. 08/09 Antiemetics for nausea and vomiting. Serial hemoglobin and Protonix regarding possible upper GI bleed, likely Cynthia-Murguia tear. Cautious IV fluids overnight due to poor by mouth intake. Monitor for fluid overload. 08/10 Continue on scheduled antiemetics. Will give a one time dose of labetalol and Lasix to replace PO am dosing as she is NPO. Scheduled for gastric emptying study = normal. Will resume clear liquid diet following radiology test. 08/11 Gastric emptying study- normal. Continues to have intermittent nausea, vomiting with epigastric pain. Restarted scheduled IV Reglan and continue Protonix twice a day. Suspect a possible component of gastroparesis. Consult placed to Dr. Fuentes for further evaluation and recommendations. Patient would likely benefit from an EGD. Continue on Clear liquid diet only. Hgb stable at 9.4, Hog Driver stable at 1.9. Overall blood sugars have been well controlled. Consultation for PT/OT tomorrow to evaluate patients strength. 08/12 s/p EGD; results pending. hgb 8.7; reassess in am. K 3.3, replacement ordered PO. creatinine increased to 2.3; continue IVF; hold tonight's dose of Lasix and possibly restart in am if improvement noted. EGD did show gastritis. SHELDON testing pending. Will add Carafate AC/HS to Protonix. Will need to continue to hold ASA for 4-6 weeks to allow healing of gastritis. Advance diet to full liquid. Nursing to ambulate TID. 08/13-08/14 1. Nausea and vomiting with coffee-ground emesis-positive occult blood on gastric secretions -EGD showed gastritis -Pt on carafate and protonix -No further emesis since admission -Hold ASA 2. Abdominal pain-resolved -likely secondary to gastritis -Gastric emptying study normal -Due to loose/watery stools, will stop scheduled reglan 3. acute on chronic anemia -Multifactorial -Likely GIB due to gastritis -Stable at present 4. Hypernatremia (145)-POA -Resolved 4. CKD (Stage 4 - based on GFR over past year) -Scheduled to see Dr. Ortega as outpt -Creatinine continues to climb despite off diuretics -Repeat lab in am. -CT did not show any abnormalities nor did renal u/s. -Will get 24 hr urine -Will resume IVF, may need to give lasix as well once 24 hr urine is obtained 5. Type 2 diabetes mellitus -SSI -Good control without treatment 6. 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 Sinoatrial node dysfunction, status post pacemaker -Follow up with cardiology as outpt 8. Hypertension -elevated at times. -On amlodipine 10mg daily, labetalol 300mg BID (increasing labetalol to 400mg BID today) 08/15 D/W Dr. Moreira -- baseline creatinine is 1.8. Creatinine today improved from 3.0 to 2.6. Scheduled to see Dr. Ortega in mid-August as a new pt. Renal U/S and CT both negative. Continue holding diuretics. 24 hour urine in progress. Autoimmune labs pending. Urine culture pending; continue Rocephin. Required straight cath this am with 800 mL return. Will check PVR x 24 hours. ? post obstructive cause for SKY Continue Carafate and Protonix; Hold ASA. H. pylori negative. Hyperglycemia - meeting with dietary today; continue SSI. BP still elevated, mild improvement since increasing labetalol 08/16 Overall she is frustrated about being hospitalized Discussed plan with patient- Plan to be evaluated by Dr. Ortega later today. Baseline creatinine appears to be approximately 1.8. Unfortunately, creatinine today is 2.7 FENa score of 0.8% reveling likely Pre-renal in nature ? She does continue on Rocephin-today is day #3. Urine culture positive for E-coli Continue Carafate and Protonix; Hold ASA. H. pylori negative Case discussed with attending- Dr Hughes 08/16- Saul Regarding patient's chronic kidney disease, stress with Dr. Ortega and he thinks she likely has diabetic nephropathy. Regarding her acute elevation in creatinine, he thinks this is due 2 volume changes. He did recommend albumin followed by Lasix which was initiated today. We'll recheck renal function tomorrow. Regarding anemia, we did order B-12, folate and iron studies. Possible dismissal soon if renal function is improving. Carafate discontinued due to decreased renal function. We'll discontinue Rocephin and start Keflex tomorrow for UTI with Escherichia coli that is pansensitive 08/[address] Ortega again today. Reviewed labs and clinical exam. He agrees with continuation of diuresis. Will given IV Albumin 25 gm now followed by Lasix 20mg. May repeat this again later this evening Continue to follow labs- Hog Driver at 2.7 (Baseline 1.7) BNP decreased significantly to 4800. Asked nursing staff to place catrina compression hose to BLE to help with edema Continue to monitor blood sugars. Encouraged patient to continued to ambulate routinely Case discussed with attending, Dr Hughes She is scheduled to establish care with Dr Jada Palomares on 08/22/17. 08/18 Abdominal pain - pt reports that she hasn't had pain like this for 35 years (at which time it was r/t menstruation). She has not had n/v, no fever. WBC is normal. LFTs were normal [address] scan on admission did not suggest any acute pathology, and EGD revealed gastritis. She had a BM today. hgb slightly lower at 8.4. Will assess KUB. Iron level was low at 25, TIBC 233; B12 was borderline low at 319. When her abdominal pain improves would recommend starting oral replacement for iron and vitamin B12. Renal function is similar to yesterday; creatinine is 2.7. Hesitant to restart oral lasix with reduced oral drive. Continue Keflex for UTI Dr Moore evaluated pt - pt not very forthcoming or talkative--recommends outpatient PV evaluation (no homicidal or suicidal thoughts/ideations). 08/19 Abdominal pain - ongoing. Check lipase. She has not had n/v, no fever. WBC is normal. LFTs normal today. CT scan on admission did not suggest any acute pathology, and EGD revealed gastritis. She had a BM today. hgb slightly lower at 8.2. KUB done yesterday was nonrevealing. IV iron infusing currently. Renal function is similar to yesterday; creatinine is 2.6; BUN down to 48. K improved to 5.0 -- weight is climbing back up. Continue Keflex for UTI - will dc after today which would complete a 6-day course. 08/20 DC today. Patient doing better. Abdominal pain is controlled and likely d/t gastritis. Reiterated importance of taking her Protonix routinely. She should avoid Carafate due to her renal function. Hold baby ASA for at least another few weeks. Creatinine remains elevated. Dismiss on decreased dose of Lasix 20mg qd. Hold potassium. K+ 4.9 on dismissal. Repeat BMP at f-u appt with Dr. Moreira next week and keep f-u appt with Dr. Ortega in August. Appt with Dr. Palomares next week. Completed course of Keflex for UTI Consider oral iron supplementation after abdominal pain has completely resolved.
--- NOTE | 2017-08-20 11:57 | Discharge Summary ---
Discharge Information Date of admission: 08/10/17 19:44 Anticipated date of discharge: 08/20/17 Attending Physician: Favian Wiseman MD Primary care physician: Keegan Moreira DO Consults: Jose Enrique Fuentes- Dustin Serrato - aircraft cabin cleaner The following is Dr Ortega's recommendations from his [facility] consult: ASSESSMENT & PLAN 1. Stage 4 chronic kidney disease likely due to diabetic nephropathy. The patient's baseline creatinine is thought to be about 1.8 mg/dl. I explained this would give her a GFR of about 28 mL/min. I explained that her kidney function is worse. She has a normal ultrasound and CT scan. Her urinalysis is fairly unremarkable. I doubt she has glomerulonephritis. I do await the ANCA and anti-GBM studies. 2. Acute kidney injury. I suspect the patient's acute kidney injury is related to fluctuation in volume. She has cardiorenal syndrome with diastolic dysfunction. I suspect she might be somewhat volume expanded still. Her blood pressure is elevated and the CT scan showed significant problems with effusions and ascites. I recommend a gentle diuresis and perhaps using albumin in an effort to increase the effectiveness of the diuretic. If her renal function continues to worsen with diuresis I would change course and hold the diuretics. I think it would be cary to check a serum protein electrophoresis and a urine protein electrophoresis. I would also stop the Carafate as she has decreased renal function. 3. Cardiac. The patient is going to see a new administrative professional next week. She has pulmonary hypertension and diastolic dysfunction. 4. Hypertension. The patient's blood pressure is slightly elevated. 5. Anemia of chronic disease. The patient should have B12, folate and iron studies checked. Kelsey Moore - psychiatry The following is Dr. Moore's visit with patient: Psychiatry consult requested due to concern for depression. I saw the patient briefly but she stated she was not interested in a psychiatric consult or medication to help with mood as she feels she is on too many medications already. She feels that hospital staff have been frustrated with her because of her personality and admits she can be difficult to work with, but feels it is due to years of pent up feelings that she keeps bottled inside. She states she has been this way "for 62 years" and doesn't think medication will help. She denies any SI or symptoms consistent with psychosis. She is agreeable to receiving information for counseling at [place] to look through with her daughter. - Discharge Diagnosis (1) Coffee ground emesis Status: Acute Nausea and vomiting with coffee-ground emesis-positive occult blood on gastric secretions; EGD +gastritis Abdominal pain with normal gastric emptying study Hyperkalemia, not POA -resolved SKY, CKD Stage 4. Baseline creatinine 1.8. Acute on chronic anemia, iron deficiency anemia, and borderline low vitamin B12 E. coli UTI, on Rocephin x3 days then Keflex started 08/17 Hypernatremia (POA) - resolved Hypomagnesemia - resolved Hyperglycemia; DM2, A1c 6.1% Diastolic congestive heart failure with pulm HTN Sinoatrial node dysfunction, status post pacemaker HTN Hypothyroidism Chronic medical noncompliance - Procedures Procedures: Date/Time: Date: 08/12/17 Surgeon: Gina Barriosure: EGD Postoperative EGD Diagnosis: Gastritis Neg h pylori Date of Exam: 08/11/17 Indication: recurrent nausea and emesis and abdominal pain PROCEDURE: NM gastric emptying study: Impression: Normal gastric emptying study. - Laboratory Labs: Dismissal BMP 08/20/17 05:17 Sodium 140 Potassium 4.9 Chloride 110 H Carbon Dioxide 21 L Anion Gap 9 BUN 49.0 H Creatinine 3.1 H D GFR Calculation 15 BUN/Creatinine Ratio 16 Glucose 111 H Calcium 8.8 Admission BMP 08/15/17 04:13 Sodium 139 Potassium 4.6 D Chloride 108 H Carbon Dioxide 21 L Anion Gap 10 BUN 44.0 H Creatinine 2.6 H D GFR Calculation 19 BUN/Creatinine Ratio 17 Glucose 120 H Calcium 8.1 L Dismissal CBC 08/20/17 05:17 WBC 7.2 RBC 2.79 L Hgb 8.1 L Hct 25.1 L MCV 90.0 MCH 29.0 MCHC 32.3 Plt Count 194 Admission CBC 08/15/17 04:13 WBC 7.7 RBC 3.09 L Hgb 8.9 L Hct 26.4 L MCV 85.4 MCH 28.8 MCHC 33.7 Plt Count 117 L Protein electrophoresis, etc 08/14/17 13:09 Albumin % (PEP) 56.9 Albumin (PEP) 3.1 Txivm-1-Lkkuikdtd 0.3 Kckvx-2-Ycyrstfav (%) 5.5 Imgmu-1-Gjwhgpqzv 0.7 Wrydv-7-Dwrnchaug (%) 12.0 Jify-0-Rspvinlc 0.4 Yebc-7-Qmdkumuo (%) 6.4 Mykh-8-Ijnnaqgw 0.3 Nsnp-2-Wkeuuefv (%) 5.5 Gamma Globulins 0.7 Gamma Globulins (%) 13.7 Urine Tests 08/14/17 08/14/17 08/14/17 13:09 13:09 13:09 Ur Creatinine 24 Hour 511 L Ur Total Protein Timed Ur Sodium mEQ/L 31 Ur Sodium 24 Hour 26 L Ur Uric Acid Ur Uric Acid 24 Hr U Urea Conc mg/dl 306.0 Urine Urea 24 Hr 2.5 L Urine Calcium < 1.0 08/14/17 08/14/17 13:09 13:09 Ur Creatinine 24 Hour Ur Total Protein Timed 2443.6 H Ur Sodium mEQ/L Ur Sodium 24 Hour Ur Uric Acid 20.4 Ur Uric Acid 24 Hr 168.3 L U Urea Conc mg/dl Urine Urea 24 Hr Urine Calcium Urine electrophoresis 08/14/17 13:09 Urine Total Protein 298 H Urine Albumin (%) 74.0 U Zdace-0-Napbujyi (%) 2.5 U Oforr-0-Teqoxytv (%) 6.1 U Ujvs-7-Fqulzflz % 6.7 U Gamma Globulin (%) 10.7 Protein electrophoresis, etc 08/14/17 08/14/17 08/15/17 10:00 13:09 04:13 Lactate Dehydrogenase 696 H Serum Total Protein 5.4 L Albumin % (PEP) 56.9 Albumin (PEP) 3.1 Globulin 2.8 Albumin/Globulin Ratio 1.0 L Ssodx-5-Cwhgeorsk 0.3 Slthq-9-Jhgyngbkn (%) 5.5 Ixpwr-7-Stomvsmou 0.7 Kvkxj-2-Idokgujce (%) 12.0 Klce-0-Safblsjr 0.4 Uxwz-5-Gdzjtzvm (%) 6.4 Iady-8-Enbpdffb 0.3 Qavw-6-Rfioufdi (%) 5.5 Gamma Globulins 0.7 Gamma Globulins (%) 13.7 Laboratory Tests 08/14/17 08/14/17 10:00 10:00 c-ANCA 31 p-ANCA 26 Glomerular Base Memb Ab <0.2 Complement C3 126 Complement C4 36 Iron/B12/folate 08/16/17 05:15 Iron 25 L TIBC 233 L % Saturation 11 Vitamin B12 319 Folate 7.2 - Microbiology Microbiology 08/14/17 12:09 Urine, Voided Urine Culture - Escherichia coli - pansensitive (treated with Keflex) 08/12/17 14:02 Gastric Biopsy --Helicobacter pylori Rapid Urease NEG - Radiology Radiology: Date of Exam: 08/18/17 Indication: abdominal pain PROCEDURE: XR KUB: Findings: The visualized lung bases show a small right effusion. There is no free air on the upright view. The bowel gas pattern is nonobstructive and nonspecific. Gas is seen in nondilated small and large bowel to the level of the rectum. Moderate stool is seen throughout the colon. The bony structures are grossly unremarkable. Impression: Nonobstructive nonspecific bowel gas pattern. Date of Exam: 08/15/17 EXAM: XR chest 2V HISTORY: pleural effusion IMPRESSION: 1. Stable small to moderate-sized bilateral pleural effusions with subjacent atelectasis. Date of Exam: 08/09/17 Indication: llq pain PROCEDURE: CT abdomen pelvis wo con: Findings: Airspace consolidation in the lingula. Moderate bilateral pleural effusions. The unenhanced contours of the liver are unremarkable. Diffuse subcutaneous edema. The gallbladder is contracted. The spleen is unremarkable. The pancreas is grossly normal. The adrenal glands and kidneys are within normal limits. No abdominal or pelvic lymphadenopathy. Scattered arterial atherosclerotic plaque. The bladder is grossly normal. Moderate amount of free pelvic fluid. Uterus is unremarkable. No evidence of a bowel obstruction. Sigmoid colonic diverticulosis without inflammation to suggest acute diverticulitis. Diffuse mesenteric edema. The appendix is normal. Bone windows show mild degenerative change in the spine without acute findings. Impression: 1. Generalized volume overload with pleural effusions, ascites and anasarca. 2. Lingular pneumonia 3. No acute inflammatory process seen in the abdomen or pelvis on this noncontrast study. History of Present Illness HPI: Patient is a 61-year-old female who presents to the ER today with complaints of nausea and vomiting since 6 AM this morning associated with abdominal pain. She has had coffee-ground emesis which tested positive for occult blood. She was hospitalized August [address] Moreira for similar symptoms thought to be either gastroparesis symptoms versus viral gastroenteritis. She reports she has an upcoming gastric emptying study scheduled. She has diabetes, but reports sugars have been controlled. Reports she's been off insulin for a couple months. She's had no fever. No diarrhea. Last bowel movement was just her today. No chest pain or shortness of breath, despite CT scan performed in the ER showing pleural effusions, anasarca and ascites. Objective Vital signs: See progress note from today for exam findings Height/Weight/BMI: Weight 85.8 kg Hospital Course This is a general summary of the patient's hospital course. For more details refer to the complete medical record. Hospital course: 08/09 Admit to observation, for treatment of nausea and vomiting, under the hospitalist service, Dr. Hughes attending. Patient was given 1000 ml normal saline in the ER. Continue IV fluids 1/2 NS at 75 cc/hr 1 L. Caution fluid overload given her CHF. (Reviewed echo from 07/04/17) Follow serial hemoglobin (every 8 hours). Reglan 10 mg before meals at bedtime IV for nausea/vomiting/gastroparesis. Zofran PRN nausea vomiting not controlled with Reglan. Gastric emptying study scheduled for tomorrow morning for further workup of her GI symptoms. Fentanyl 25 g every 4 hours if needed for pain. (Patient has a morphine allergy.) Tylenol PRN if able to rojas PO. Protonix 40 mg IV twice a day for GI protection. Order for PRN IV labetolol for syst BP>180. Hold home meds for now given her n/ v. Recommend referral to aircraft cabin cleaner for CKD on dismissal given her creatinine average since 09/10 has been ~1.6+ SCDs for DVT prophylaxis. Patient wishes to be a DO NOT RESUSCITATE. Care to return to Dr. Moreira upon dismissal. Previous hospital records reviewed. 08/09 Antiemetics for nausea and vomiting. Serial hemoglobin and Protonix regarding possible upper GI bleed, likely Cynthia-Murguia tear. Cautious IV fluids overnight due to poor by mouth intake. Monitor for fluid overload. 08/10 Continue on scheduled antiemetics. Will give a one time dose of labetalol and Lasix to replace PO am dosing as she is NPO. Scheduled for gastric emptying study = normal. Will resume clear liquid diet following radiology test. 08/11 Gastric emptying study- normal. Continues to have intermittent nausea, vomiting with epigastric pain. Restarted scheduled IV Reglan and continue Protonix twice a day. Suspect a possible component of gastroparesis. Consult placed to Dr. Fuentes for further evaluation and recommendations. Patient would likely benefit from an EGD. Continue on Clear liquid diet only. Hgb stable at 9.4, [employer] Manager stable at 1.9. Overall blood sugars have been well controlled. Consultation for PT/OT tomorrow to evaluate patients strength. 08/12 s/p EGD; results pending. hgb 8.7; reassess in am. K 3.3, replacement ordered PO. creatinine increased to 2.3; continue IVF; hold tonight's dose of Lasix and possibly restart in am if improvement noted. EGD did show gastritis. SHELDON testing pending. Will add Carafate AC/HS to Protonix. Will need to continue to hold ASA for 4-6 weeks to allow healing of gastritis. Advance diet to full liquid. Nursing to ambulate TID. 08/13-08/14 -EGD showed gastritis -Hold ASA -Gastric emptying study normal -Scheduled to see Dr. Ortega as outpt -Creatinine continues to climb despite off diuretics -CT did not show any abnormalities nor did renal u/s. -Will resume IVF, may need to give lasix as well once 24 hr urine is obtained -On amlodipine 10mg daily, labetalol 300mg BID (increasing labetalol to 400mg BID today) 08/15 D/W Dr. Moreira -- baseline creatinine is 1.8. Creatinine today improved from 3.0 to 2.6. Scheduled to see Dr. Ortega in mid-August as a new pt. Renal U/S and CT both negative. Continue holding diuretics. 24 hour urine in progress. Autoimmune labs pending. Urine culture pending; continue Rocephin. Required straight cath this am with 800 mL return. Will check PVR x 24 hours. ? post obstructive cause for SKY Continue Carafate and Protonix; Hold ASA. H. pylori negative. Hyperglycemia - meeting with dietary today; continue SSI. BP still elevated, mild improvement since increasing labetalol 08/16 Overall she is frustrated about being hospitalized Discussed plan with patient- Plan to be evaluated by Dr. Ortega later today. Baseline creatinine appears to be approximately 1.8. Unfortunately, creatinine today is 2.7 FENa score of 0.8% reveling likely Pre-renal in nature ? She does continue on Rocephin-today is day #3. Urine culture positive for E-coli Continue Carafate and Protonix; Hold ASA. H. pylori negative Case discussed with attending- Dr Hughes 08/16- Saul Regarding patient's chronic kidney disease, stress with Dr. Ortega and he thinks she likely has diabetic nephropathy. Regarding her acute elevation in creatinine, he thinks this is due 2 volume changes. He did recommend albumin followed by Lasix which was initiated today. We'll recheck renal function tomorrow. Regarding anemia, we did order B-12, folate and iron studies. Possible dismissal soon if renal function is improving. Carafate discontinued due to decreased renal function. We'll discontinue Rocephin and start Keflex tomorrow for UTI with Escherichia coli that is pansensitive 08/[address] Ortega again today. Reviewed labs and clinical exam. He agrees with continuation of diuresis. Will given IV Albumin 25 gm now followed by Lasix 20mg. May repeat this again later this evening Continue to follow labs- [employer] Manager at 2.7 (Baseline 1.7) BNP decreased significantly to 4800. Asked nursing staff to place catrina compression hose to BLE to help with edema Continue to monitor blood sugars. Encouraged patient to continued to ambulate routinely Case discussed with attending, Dr Hughes 08/18 Abdominal pain - pt reports that she hasn't had pain like this for 35 years (at which time it was r/t menstruation). She has not had n/v, no fever. WBC is normal. LFTs were normal [address] scan on admission did not suggest any acute pathology, and EGD revealed gastritis. She had a BM today. hgb slightly lower at 8.4. Will assess KUB. Iron level was low at 25, TIBC 233; B12 was borderline low at 319. When her abdominal pain improves would recommend starting oral replacement for iron and vitamin B12. Renal function is similar to yesterday; creatinine is 2.7. Hesitant to restart oral lasix with reduced oral drive. Continue Keflex for UTI Dr Moore evaluated pt - pt not very forthcoming or talkative--recommends outpatient PV evaluation (no homicidal or suicidal thoughts/ideations). 08/19 Abdominal pain - ongoing. Check lipase. She has not had n/v, no fever. WBC is normal. LFTs normal today. CT scan on admission did not suggest any acute pathology, and EGD revealed gastritis. She had a BM today. hgb slightly lower at 8.2. KUB done yesterday was nonrevealing. IV iron infusing currently. Renal function is similar to yesterday; creatinine is 2.6; BUN down to 48. K improved to 5.0 -- weight is climbing back up. Continue Keflex for UTI - will dc after today which would complete a 6-day course. 08/20 DC today. Patient doing better. Abdominal pain is controlled and likely d/t gastritis. Reiterated importance of taking her Protonix routinely. She should avoid Carafate due to her renal function. Hold baby ASA for at least another few weeks. Creatinine remains elevated. Dismiss on decreased dose of Lasix 20mg qd. Hold potassium. K+ 4.9 on dismissal. Repeat BMP at f-u appt with Dr. Moreira next week and keep f-u appt with Dr. Ortega in August. She is scheduled to establish care with Dr Jada Palomares on 08/22/17. Completed course of Keflex for UTI Consider oral iron supplementation after abdominal pain has completely resolved. She was started on Vit B12 1000 qd po for low Vit B12. Time spent with patient: greater than 35 minutes Resuscitation Status: Do Not Resuscitate Discharge Plan - Discharge Disposition Discharge Date: 08/20/17 Disposition: 01 Discharged Home,Parent Care *Condition: Stable Reason For Visit (Visit label in EMR): recurrent nausea, inability to keep down fluids - Discharge Medications *Discharge Medications: New Labetalol [Normodyne] 400 mg PO BID tab Pantoprazole Tab [Protonix Tab] 40 mg PO ACBID #60 tab Cyanocobalamin (B-12) [Vit. B-12] 1,000 mcg PO DAILY #30 cap Continue Levothyroxine Tab [Synthroid] 12.5 mcg PO ACB Furosemide [Lasix] 40 mg PO BIDBS Amlodipine [Norvasc] 10 mg PO DAILY tab Albuterol HFA Inhaler [Ventolin Hfa 90 mcg/actuation] 1 puff INH DAILY Changed Furosemide [Lasix] 20 mg PO DAILY #0 Discontinued Aspirin Chewable [ASA] 81 mg PO DAILY Potassium Chloride 10 meq PO DAILY Labetalol HCl 300 mg PO BID Metoprolol Tartrate [Lopressor] 50 mg PO BID - Discharge Packet/Instructions *Diet: diabetic diet *Activity: as tolerated *Pain Management/Treatment: n/a *Wound Care: n/a Additional Instructions: Do NOT take ibuprofen/Motrin, naproxen/Aleve as these are hard on your stomach and kidneys. Hold your baby aspirin at least for the next 3 weeks. Be sure to take your stomach medicine (Protonix) 2x a day routinely. BE SURE to go to your all of your follow up appointments. Lasix was decreased to 20mg a day. *Expected Signs/Symptoms: Gradual improvement in abdominal pain/nausea. *Notify Physician if: You have severe pain or new symptoms. *During Business Hours Contact: Dr Moreira *After Business Hours Contact: [facility] *Pending Lab/Results: No Pending Lab - Referrals/Follow Up *Referrals/Follow Up: Keegan Moreira DO [Family Provider] - (Call [facility] on Tuesday to set up appt to see Dr. Moreira this week. Need follow up of kidney function at this appt. (Labwork)) Peyman Palomares MD [Physician] - (Appointment on 08/22/17) Dustin Ortega MD [Physician] - (Appt date which you already have scheduled.) - Patient Handouts - Dismissal Complete Discharge Instructions are:: Complete Physician Narrative - Narrative Physician: Favian Wiseman MD Attestation Narrative: Date: 08/20/17 Time: 1628 Have independently interviewed and examined patient prior to discharge. See my progress note from today for details. Medically stable for discharge to home.
--- NOTE | 2017-08-31 17:01 | Operative Note ---
DATE OF SERVICE 08/12/2017 The following dictation is completion of an original dictation performed on August 12, 2017. For some unknown reason the original dictation was "cut off " after the beginning of a dictation. PREOPERATIVE DIAGNOSES History for epigastric abdominal pain, nausea, vomiting, history for positive occult gastric blood. POSTOPERATIVE DIAGNOSES History for epigastric abdominal pain, nausea, vomiting, history for positive occult gastric blood, moderate gastritis. PROCEDURE Esophagogastroduodenoscopy with biopsies from antrum of stomach via cold biopsy technique for permanent pathology as well as for SHELDON assay. ANESTHESIA TIVA BRIEF HISTORY/INDICATIONS The patient is a 61-year-old female whom I was asked to see in consultation during her hospitalization. The patient had had a one-month history of abdominal pain, nausea, vomiting, and history for hematemesis. As a result of the above indications it was recommended to the patient that she undergo esophagogastroduodenoscopy. FINDINGS Upon upper endoscopy the esophagus, stomach and duodenum were found to be essentially within normal limits with the exception there was a component of moderate erythema within the antrum of the stomach. There was no evidence for old blood upon the surface of the mucosa within the esophagus, stomach or duodenum. No acute ulcerations were noted. No evidence for esophageal varices. NARRATIVE OF PROCEDURE After informed consent was obtained the patient was brought to the endoscopy suite and placed in the left lateral decubitus position. Patient subsequently underwent total intravenous anesthesia by the nurse master machinist at my request. Formal timeout was then completed. Next, an Olympus gastroscope was inserted into the oral hypopharynx and subsequently the esophagus under direct visualization. Gastroscope was advanced through the esophagus, stomach, pylorus , duodenal bulb and into the second portion of the duodenum. Scope was slowly withdrawn. First and second portions of the duodenum were within normal limits. No evidence of duodenitis or ulcerations was noted. Scope was drawn back to the prepyloric region and antrum. Within the antrum and corpus of the stomach the mucosa was found to be moderately erythematous in nature. No sean ulcerations, however, were noted. A few biopsies were obtained from within the antrum of the stomach for permanent pathology as well as for a SHELDON assay via cold biopsy technique. J-maneuver was performed. Cardia and fundus were within normal limits. Endoscopically there was no evidence for a hiatal hernia. Scope was allowed to straighten and was slowly withdrawn and the remaining corpus of the stomach was well visualized. Again, there was a component of some erythema but no sean ulcerations were noted. The scope was withdrawn back to the level of the diaphragm. Squamocolumnar junction was located at the level of the diaphragm and was well demarcated with no endoscopic evidence for Castillo's metaplasia or distal esophagitis. Scope was slowly withdrawn and the remaining esophageal mucosa was found to be within normal limits. Patient tolerated the procedure without difficulty and was sent back to the preop area once deemed in stable condition. [place]
== END 2017-08-20 12:13 | disposition home or self-care (01) | DRG 378 ==
LOC: MED 12:59 → ED 12:59 → MED 16:52 → SUATTDRO 08-10 19:44
PROVIDERS: ADMIT Internal Medicine; ATTEND Hospitalist
PROC: END.EGD (2017-08-12 12:00)

== ENCOUNTER 2017-09-14 12:50 | Inpatient (IN) ==
--- NOTE | 2017-09-14 13:02 | Emergency Department Report ---
General Adult HPI - General Stated complaint: soa Time Seen by Provider: 09/14/17 13:01 Source: patient, EMS Mode of arrival: EMS Limitations: no limitations - History of Present Illness HPI narrative: 62-year-old female presents to the emergency department with a chief complaint of increasing shortness of breath. Patient has been battling the symptoms over the past several weeks. She underwent a thoracentesis with drainage of approximately 8816-9162 mL from the right side over the weekend. She denies any current pain or discomfort. She also notes approximately 3-4 episodes of nonbloody nonbilious emesis. She denies any trauma or injury. She denies any travel, poorly prepared food, recent antibiotic use. She was at home when her symptoms began. She has not followed up with her primary care physician since onset of symptoms. No other complaints or associated symptoms. - Related Data Home Medications Medication Instructions Recorded Confirmed Furosemide [Lasix 40 mg Tab] 40 mg PO BIDBS 07/28/17 09/14/17 Cyanocobalamin (Vitamin B-12) 2,500 mcg PO DAILY 09/14/17 09/14/17 [Vitamin B-12] Labetalol HCl 300 mg PO BID 09/14/17 09/14/17 Levothyroxine Sodium 125 mcg PO ACB 09/14/17 09/14/17 Omeprazole [Prilosec] 20 mg PO ACB 09/14/17 09/14/17 Previous Rx's Medication Instructions Recorded Amlodipine [Norvasc] 10 mg PO DAILY tab 08/03/17 Albuterol HFA Inhaler [Ventolin 1 puff INH DAILY #1 box 09/11/17 Hfa 90 mcg/actuation] Allergies Allergy/AdvReac Type Severity Reaction Status Date / Time egg Allergy Intermediate Verified 09/14/17 13:07 Egg Derived Allergy Intermediate Verified 09/14/17 13:07 iodine Allergy Mild HIVES Verified 09/14/17 13:07 Influenza Virus Vaccines Allergy Unknown Verified 09/14/17 13:07 morphine Allergy Verified 09/14/17 13:07 codeine AdvReac Unknown Verified 09/14/17 13:07 CILANTRO Allergy Uncoded 08/09/17 13:16 Review of Systems Constitutional: Denies: fever, chills Eyes: Denies: eye pain, vision change ENT: Denies: ear pain, throat pain Cardiovascular: Denies: chest pain, palpitations Respiratory: Reports: dyspnea. Denies: cough, wheezes, hemoptysis Gastrointestinal: Reports: nausea, vomiting. Denies: abdominal pain, diarrhea Genitourinary: Denies: urgency, dysuria Musculoskeletal: Denies: back pain, arthralgia Integumentary: Denies: erythema, rash Neurological: Denies: headache, numbness Psychiatric: Denies: anxiety, depression Endocrine: Denies: fatigue, polydipsia, polyuria Hematological/Lymphatic: Denies: easy bleeding, easy bruising, lymphadenopathy Allergic/Immunologic: Denies: facial swelling, urticaria PFSH Patient Stated Medical History Migraine Yes Cataracts Yes: bilat eyes Other HEENT Yes: WEARS GLASSES Angina Yes: "fantom angina" usually treated via ED antianginals. Seen Dr. Ho. Congestive Heart Failure Yes Hypertension Yes Asthma Yes Bronchitis Yes: hx Sleep Apnea No Diabetes Mellitus Type 2 Yes Other GI Yes: CONSTPATION & DIARRHEA Hx Incontinence Yes Hx Urinary Tract Infection Yes: WITH PYELONEPHRITIS Other Musculoskeletal Yes: OSTEOPOROSIS Anesthesia Reactions No Blood Transfusions No Chemotherapy No Malignant Hyperthermia No Other No Now No Surgical History: Thoracentesis, pacemaker Family History: Reviewed and noncontributory. - Social History Smoking status: Never smoker Substance use type: does not use Alcohol intake frequency: does not drink Physical Exam - Limitations Limitations: no limitations - General General appearance: alert, in no apparent distress - Normal Exams: Head:: Normocephalic without trauma Eyes:: Pupils are PERRLA w/ EOMI, No scleral icterus, irritation, or foreign bodies noted ENMT:: No facial trauma, nasal exudates, pharyngeal erythema, or exudates are noted Dental: No fractured, loose, or missing teeth noted Neck:: Full range of motion, without adenopathy, JVD, bruits or thyromegaly Chest/Respirations:: Clear all barbosa (diminished breath sounds bilaterally.), with good airflow, and symmetry bilaterally Cardiovascular:: Regular rate and rhythm, without murmur or gallop, Pulses 2+ all extremities, capillary refill, <2 seconds all extremities Abdomen:: Bowel sounds positive, soft, non-tender, non-distended, no hepatosplenomegaly, masses or bruits noted Lymphatic:: No lymphadenopathy, or lymphedema noted Musculoskeletal:: No tenderness, or deformity noted, good range of motion, all extremities Integumentary:: No rashes, hives, or bruising noted, hair and nails, without abnormality Neurological:: Patient is alert, and oriented, cranial nerves, motor/sensory/ cerebellar, exams w/o gross deficits, to observation Psychiatric:: Patient exhibits, appropriate attention, emotion and affect Course Vital Signs Temperature 98.3 F 09/14/17 12:52 Pulse Rate 80 09/14/17 12:52 Respiratory Rate 16 09/14/17 12:52 Blood Pressure 186/89 H 09/14/17 12:52 Pulse Oximetry 92 09/14/17 12:52 Temperature 98.3 F 09/14/17 12:52 Pulse Rate 80 09/14/17 15:00 Respiratory Rate 20 09/14/17 15:00 Blood Pressure 207/82 H 09/14/17 15:00 Pulse Oximetry 94 09/14/17 15:00 Medical Decision Making - MDM Narrative Medical decision making narrative: Labs / imaging were discussed in detail with the patient and questions are answered. Patient's new primary care physician Dr. Braswell contacts the emergency department and believes that the patient would potentially benefit from at least an observation admission in order to try to normalize some of her laboratory values. Patient is discussed with Dr. Back from the hospitalist service and admitted to her service in observation status in improved condition. She declines offered analgesic pain medication. She is given Lasix 40 mg IV times. She is admitted to the hospital in improved condition. No further orders from accepting physician who is in agreement with the current plan of management. - Differential Diagnosis chf, renal failure, metabolic disorder, UTI - Lab Data Result diagrams: 09/14/17 13:20 09/14/17 13:20 Lab Results 09/14/17 09/14/17 09/14/17 Range/Units 13:20 13:20 14:06 WBC 9.2 (4.5-11.0) T/MM3 RBC 3.46 L (4.00-5.20) M/MM3 Hgb 10.3 L (12-16) GM/DL Hct 30.2 L (36-46) % MCV 87.3 (80-100) UM3 MCH 29.8 (26-34) UUG MCHC 34.1 (31-37) GM/DL RDW Std Deviation 48.2 (36.9-50.2) FL Plt Count 216 (130-400) T/MM3 MPV 10.9 (9.4-12.4) UM3 Immature Gran % (Auto) 0.2 (0.0-0.5) % Neut % (Auto) 73.6 H (33-66) % Lymph % (Auto) 16.6 L (23-45) % [place] % (Auto) 7.2 (0-9.0) % Eos % (Auto) 2.1 (0-4) % Baso % (Auto) 0.3 (0-2) % Neut # (Auto) 6.8 (1.8-7.7) T/MM3 Lymph # (Auto) 1.5 (1-4.8) T/MM3 [place] # (Auto) 0.7 (0-0.8) T/MM3 Eos # (Auto) 0.2 (0-0.5) T/MM3 Baso # (Auto) 0.0 (0-0.2) T/MM3 Abs Immat Gran (auto) 0.02 (0.00-0.03) T/MM3 Turbidity < 20 (0-20) Sodium 145 H (134-144) MEQ/L Potassium 3.4 L (3.6-5) MEQ/L Chloride 107 (98-107) MEQ/L Carbon Dioxide 24 (22-30) MEQ/L Anion Gap 14 (5-15) MEQ/L BUN 35.0 H (7-17) MG/DL Creatinine 2.6 H D (0.7-1.2) mg/dL GFR Calculation 19 BUN/Creatinine Ratio 14 (6-26) RATIO Glucose 131 H (65-110) MG/DL Calculated Osmolality 289 H (261-280) MOSM/KG Calcium 8.2 L (8.4-10.2) MG/DL Total Bilirubin 1.00 (0.20-1.30) MG/DL Icterus Index < 2 (0-7) AST 29 (14-36) U/L ALT 16 (1-35) U/L Alkaline Phosphatase 100 (38-126) U/L Troponin I 0.027 (0-0.12) ng/ml NT-Pro-B Natriuret Pep 51271 H (0-175) pg/mL Total Protein 7.0 (6.3-8.2) g/dL Albumin 3.8 (3.5-5.0) g/dL Globulin 3.2 (2.4-3.6) G/DL Albumin/Globulin Ratio 1.2 (1.1-2.2) RATIO Specimen Hemolysis < 15 (0-25) Ur Collection Type Urine, void-cc/notcc Urine Color Yellow (YELLOW) Urine Clarity Clear Urine pH 6.5 (5.0-8.0) Ur Specific [place] 1.025 (1.015-1.025) Urine Protein 3+ A (NEGATIVE) Urine Glucose (UA) Trace A (NEGATIVE) Urine Ketones Negative (NEGATIVE) Urine Occult Blood 1+ A (NEGATIVE) Urine Nitrate Negative (NEGATIVE) Urine Bilirubin Negative (NEGATIVE) Urine Urobilinogen 0.2 (NORMAL) EU/DL Ur Leukocyte Esterase Negative (NEGATIVE) Urine RBC 1-3 (0-3) /HPF Urine WBC 1-3 (0-5) /HPF Ur Squamous Epith Cells 0-5 Amorphous Sediment Moderate Urine Bacteria 1+ H (NEGATIVE) Hyaline Casts 0-1 /LPF Granular Casts 0-1 Urine Mucus Present Ur Culture Indicated? Cult not indicated - Radiology Data CXR - Impression: 1. Decreasing left effusion with improved aeration of the right lower lobe. 2. Mild pulmonary edema or congestive failure. Impression: 1. Decreasing left effusion with improved aeration of the right lower lobe. 2. Mild pulmonary edema or congestive failure. - EKG Data EKG #1 EKG results narrative: Sinus rhythm. 79 bpm. A right bundle branch block. No STEMI. Disposition Clinical Impression: Presence of cardiac pacemaker, Acute kidney injury CHF (congestive heart failure) Qualifiers: Qualified Code(s): I50.9 - Heart failure, unspecified Disposition: To [facility] Condition: Stable Time of Disposition: 14:50 (Admit. Dr. Back. ) - Seen By: physician
--- OUTSIDE RECORDS SUMMARY | 2017-09-14 13:42 | External Medical Summary ---
[...] Date Status Dosage System Date Cipro [facility] [address]-18 500 MG Orally Mar 17, 1 tablet 67-01 Twice a day 2014 Pen [place] NDC 0 31G X 5 MM January 10, File DME 09/09" daily 2013 [place] [address] 300 UNIT/ML 10 units 69-03 Subcutaneous Two times daily Accu-Chek NDC 0 In Vitro January 10, File DME SmartView daily 2013 under Medicaid Accu-Chek NDC 0 4 daily January 10, File DME for FastClix 2014 [place] [address] 100 UNIT/ML 4 units 99-01 Subcutaneous with meals only Procedures Procedure Coding System Code Date ANNUAL DEPRESSION SCREENING 15 MIN CPT-4 G0444 Mar 17, 2015 Office Visit, Est Pt., Level 5 CPT-4 73499 Mar 17, 2015 Billed by outside source [...]
--- OUTSIDE RECORDS SUMMARY | 2017-09-14 13:42 | External Medical Summary ---
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
--- OUTSIDE RECORDS SUMMARY | 2017-09-14 13:42 | External Medical Summary ---
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
--- OUTSIDE RECORDS SUMMARY | 2017-09-14 13:42 | External Medical Summary ---
[...] of 414.00 Active unspecified type of vessel, [place] or graft Problem Depressive disorder, not 311 Active elsewhere classified Problem Hypertension, benign 401.1 Active Problem Diabetes Mellitus Type 2, not 250.00 Active stated as uncontrolled Assessment Diabetes Mellitus Type 2, not 250.00 Active stated as uncontrolled Problem Coronary atherosclerosis of 414.00 Active unspecified type of vessel, [place] or graft Problem Depressive disorder, not 311 Active elsewhere classified Medications Medication Code Code Instructions Start End Status Dosage System Date Date OneTouch Ultra [facility] 89296081066 none in vitro December 11, as directed Blue test three times 2014 strips daily Toujeo [facility] [address] 300 u/mL December 10Jul 05, 8 units in SoloStar subcutaneous 2014 2015 the am and daily 8 [place] [address]-54 100 UNIT/ML September 6 units tid KwikPen Subcutaneous as 2014 [place] [address]-76 100 MG Orally January 06Feb 03, 1 capsule Perles Three times a 2014 2014 as needed day for cough/congestio n Ventolin HFA [facility] [address]-90 108 (90 Base) January 06, 1 to 2 MCG/ACT 2014 puffs as Inhalation needed every 6 hrs for cough/wheezing Procedures Procedure Coding System Code Date OFFICE VISIT, EST-MOD. COMPLEXITY (25 MIN) CPT-4 26880 January 06, 2015 Vital Signs Date/Time: January 06, 2015 Height 61.5 in Weight 190.12 lbs Temperature 97.8 F Blood Pressure Diastolic 72 mm Hg Blood Pressure Systolic 120 mm Hg Cardiac Monitoring Heart Rate 96 /min BMI 35.34 Index Oximetry 98 % Respiratory Rate 18 /min Results No Known Results Summary Purpose [employer]ClinicalWorks Submission
--- OUTSIDE RECORDS SUMMARY | 2017-09-14 13:42 | External Medical Summary ---
:1955 Author Organization eClinicalWorks Care Team Providers Name Role Phone Keegan Moreira Provider Role Unavailable Allergies No Known Allergies Problems Problem Type Condition ICD-9 Code Onset Dates Condition Status Problem Coronary atherosclerosis of 414.00 Active unspecified type of vessel, [place] or graft Problem Depressive disorder, not 311 Active elsewhere classified Problem Hypertension, benign 401.1 Active Problem Diabetes Mellitus Type 2, not 250.00 Active stated as uncontrolled Assessment Diabetes Mellitus Type 2, not 250.00 Active stated as uncontrolled Problem Coronary atherosclerosis of 414.00 Active unspecified type of vessel, [place] or graft Problem Depressive disorder, not 311 Active elsewhere classified Medications Medication Code System Code Instructions Start End Date Status Dosage Date Chapin Tay [facility] [address] 300 u/mL December 10, Mar 26, 6 units in 9 subcutaneous 2014 2014 the am and Once a day at 6 units in bedtime the PM Results No Known Results Summary Purpose [employer] Submission
--- OUTSIDE RECORDS SUMMARY | 2017-09-14 13:42 | External Medical Summary ---
:1955 Author Organization [employer] Care Team Providers Name Role Phone Yuli Hart Provider Role Unavailable Allergies No Known Allergies Problems Problem Type Condition ICD-9 Code Onset Dates Condition Status Problem Diabetes Mellitus Type 2, not 250.00 Active stated as uncontrolled Problem Depressive disorder, not 311 Active elsewhere classified Medications No Known Medications Results No Known Results Summary Purpose [employer] Submission
--- OUTSIDE RECORDS SUMMARY | 2017-09-14 13:42 | External Medical Summary ---
:1955 Author Organization eClinicalWorks Care Team Providers Name Role Phone Keegan Moreira Provider Role Unavailable Allergies No Known Allergies Problems Problem Type Condition ICD-9 Code Onset Dates Condition Status Problem Coronary atherosclerosis of 414.00 Active unspecified type of vessel, [place] or graft Problem Depressive disorder, not 311 Active elsewhere classified Problem Hypertension, benign 401.1 Active Problem Diabetes Mellitus Type 2, not 250.00 Active stated as uncontrolled Assessment Diabetes Mellitus Type 2, not 250.00 Active stated as uncontrolled Problem Coronary atherosclerosis of 414.00 Active unspecified type of vessel, [place] or graft Problem Depressive disorder, not 311 Active elsewhere classified Medications Medication Code System Code Instructions Start End Date Status Dosage Date Humalog [place] [facility] [address] 100 UNIT/ML September 30, 6 units 02-25 Subcutaneous as 2014 tid with directed meals Jackiesteph Arment[place] [facility] [address] 300 u/mL December 10May 01, 8 units in 9 subcutaneous 2014 2014 the am and daily 8 units in the pm Results No Known Results Summary Purpose eClinicalWorks Submission
--- OUTSIDE RECORDS SUMMARY | 2017-09-14 13:42 | External Medical Summary ---
[...] Medications Results No Known Results Summary Purpose [employer] Submission
--- OUTSIDE RECORDS SUMMARY | 2017-09-14 13:43 | External Medical Summary ---
[...] End Date Status Dosage Date Humalog KwikPen [facility] [address] 100 UNIT/ML not defined 99 Subcutaneous Ditropan XL [facility] 36748-04 5 MG Orally Once December 14Mar 14, 1 tablet 05-01 a day 2015 2015 Procedures Procedure Coding System Code Date Office visit new level 3 CPT-4 91809 December 15, 2015 Pap smear, thin layer CPT-4 15526 December 15, 2015 Vital Signs Date/Time: December 15, 2015 BMI 33.10 Index Height 62 in Weight 181 lbs Blood Pressure Diastolic 66 mm Hg Blood Pressure Systolic 128 mm Hg Results Name Result Date Reference Range Unit Abnormality Flag * PAP CYTOPATHOLOGY, CERVICAL/VAGINAL, PRESERVATIVE FLUID, AUTO THIN LAYER PREP; MANUAL SCREEN (79184) Summary Purpose eClinicalWorks Submission
--- OUTSIDE RECORDS SUMMARY | 2017-09-14 13:43 | External Medical Summary ---
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
--- OUTSIDE RECORDS SUMMARY | 2017-09-14 13:43 | External Medical Summary ---
[...] Medications Results No Known Results Summary Purpose [employer] Submission
--- OUTSIDE RECORDS SUMMARY | 2017-09-14 13:43 | External Medical Summary ---
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
--- OUTSIDE RECORDS SUMMARY | 2017-09-14 13:43 | External Medical Summary ---
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
--- OUTSIDE RECORDS SUMMARY | 2017-09-14 13:44 | External Medical Summary ---
[...] of 414.00 Active unspecified type of vessel, [place] or graft Problem Depressive disorder, not 311 Active elsewhere classified Problem Hypertension, benign 401.1 Active Problem Diabetes Mellitus Type 2, not 250.00 Active stated as uncontrolled Assessment Diabetes Mellitus Type 2, not 250.00 Active stated as uncontrolled Problem Coronary atherosclerosis of 414.00 Active unspecified type of vessel, [place] or graft Problem Depressive disorder, not 311 Active elsewhere classified Medications Medication Code Code Instructions Start End Status Dosage System Date Date Toujeo [facility] [address] 300 u/mL December 10Feb 12 units SoloStar subcutaneous 2014 15, Once a day at 2014 bedtime OneTouch Ultra [facility] [id number] none in vitro December 11, as directed Blue test three times 2014 strips daily Humalog [facility] [address]-61 100 UNIT/ML September 28 units tid KwikPen Subcutaneous as 2014 with meals directed Procedures Procedure Coding System Code Date COMPLETE CBC W/AUTO DIFF WBC CPT-4 10625 December 16, 2014 COMPREHENSIVE METABOLIC PANEL CPT-4 87769 December 16, 2014 GLUCOSE FINGERSTICK, IN HOUSE CPT-4 08797 December 16, 2014 OFFICE VISIT, EST-MOD. COMPLEXITY (25 MIN) CPT-4 42776 December 16, 2014 Vital Signs Date/Time: December [...]
--- OUTSIDE RECORDS SUMMARY | 2017-09-14 13:44 | External Medical Summary ---
[...] Medications Results No Known Results Summary Purpose [employer] Submission
--- OUTSIDE RECORDS SUMMARY | 2017-09-14 13:44 | External Medical Summary ---
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
--- OUTSIDE RECORDS SUMMARY | 2017-09-14 13:44 | External Medical Summary ---
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 Medications Medication Code System Code Instructions Start End Date Status Dosage Date Humalog [place] [facility] [address] 100 UNIT/ML September 30 units 02-25 Subcutaneous as 2015 tid with directed meals Procedures Procedure Coding System Code Date URINALYSIS, IN HOUSE CPT-4 10583 October 21, 2014 GLUCOSE FINGERSTICK, IN HOUSE CPT-4 41083 October 21, 2014 IH CMP CPT-4 59090 October 21, 2014 HYDRATION IV INFUSION, INIT CPT-4 99375 October 21, 2014 C-REACTIVE PROTEIN CPT-4 74183 October 21, 2014 HYDRATE IV INFUSION, ADD-ON CPT-4 01760 October 21, 2014 COMPLETE CBC W/AUTO DIFF WBC CPT-4 24664 October 21, 2014 OFFICE VISIT, EST-MOD. COMPLEXITY (25 MIN) CPT-4 43182 October 21, 2014 SED RATE CPT-4 85639 October 21, 2014 URINE CULTURE CPT-4 78504 October 21, 2014 Vital Signs Date/Time: October 21, 2014 Height 61.5 in Weight 179.0 lbs Temperature 98.7 F Blood Pressure Diastolic 60 mm Hg Blood Pressure Systolic 90 mm Hg Cardiac Monitoring Heart Rate 107 /min BMI 33.27 Index Oximetry 99 % Respiratory Rate 20 /min Results No Known Results Summary Purpose eClinicalWorks Submission
--- OUTSIDE RECORDS SUMMARY | 2017-09-14 13:45 | External Medical Summary ---
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
--- OUTSIDE RECORDS SUMMARY | 2017-09-14 13:45 | External Medical Summary ---
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
--- OUTSIDE RECORDS SUMMARY | 2017-09-14 13:46 | External Medical Summary ---
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
--- OUTSIDE RECORDS SUMMARY | 2017-09-14 13:47 | External Medical Summary ---
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
--- OUTSIDE RECORDS SUMMARY | 2017-09-14 13:47 | External Medical Summary ---
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 [address]81 100 UNIT/ML September 30, 2 units 02-25 Subcutaneous as 2014 tid with directed meals Procedures Procedure Coding System Code Date COMPLETE CBC W/AUTO DIFF WBC CPT-4 89513 November 25, 2014 Results No Known Results Summary Purpose [employer] Submission
--- OUTSIDE RECORDS SUMMARY | 2017-09-14 13:47 | External Medical Summary ---
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
--- OUTSIDE RECORDS SUMMARY | 2017-09-14 13:47 | External Medical Summary ---
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
--- OUTSIDE RECORDS SUMMARY | 2017-09-14 13:48 | External Medical Summary ---
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
--- OUTSIDE RECORDS SUMMARY | 2017-09-14 13:48 | External Medical Summary ---
[...] Start End Date Status Dosage Date Humalog hCacePen [facility] [address] 100 UNIT/ML September 30, 2 units 02-25 Subcutaneous as 2015 tid with directed meals Procedures Procedure Coding System Code Date OFFICE VISIT, EST-MOD. COMPLEXITY (25 MIN) CPT-4 83142 October 28, 2014 Vital Signs Date/Time: October 28, 2014 Height 61.5 in Weight 186.4 lbs Temperature 97.9 F Blood Pressure Diastolic 70 mm Hg Blood Pressure Systolic 100 mm Hg Cardiac Monitoring Heart Rate 100 /min BMI 34.65 Index Respiratory Rate 16 /min Results No Known Results Summary Purpose eClinicalWorks Submission
--- OUTSIDE RECORDS SUMMARY | 2017-09-14 13:49 | External Medical Summary ---
[...] Medications Results No Known Results Summary Purpose [employer]ClinicalCompliance Control Submission
--- OUTSIDE RECORDS SUMMARY | 2017-09-14 13:49 | External Medical Summary ---
:1955 Author Organization [employer] [facility] Care Team Providers Name Role Phone Keegan Moreira Provider Role Unavailable Allergies No Known Allergies Problems Problem Type Condition ICD-9 Code Onset Dates Condition Status Problem Coronary atherosclerosis of 414.00 Active unspecified type of vessel, [place] or graft Problem Depressive disorder, not 311 Active elsewhere classified Problem Hypertension, benign 401.1 Active Problem Diabetes Mellitus Type 2, not 250.00 Active stated as uncontrolled Problem Coronary atherosclerosis of 414.00 Active unspecified type of vessel, [place] or graft Problem Depressive disorder, not 311 Active elsewhere classified Medications No Known Medications Results No Known Results Summary Purpose [facility] Submission
--- OUTSIDE RECORDS SUMMARY | 2017-09-14 13:49 | External Medical Summary ---
[...] End Date Status Dosage System Date Cipro [facility] 11478-50 500 MG Orally Mar 17, tablet 67-01 Twice a day 2014 Tomallika Tay [facility] 16829-48 300 UNIT/ML 10 units 69-03 Subcutaneous [place] [address] 100 UNIT/ML 6 units 99-01 Subcutaneous with meals only Accu-Chek NDC 0 In Vitro January 10, File DME SmartView daily 2013 under Medicaid [place] NDC 45819-06 31G X 8 MM Mar 24, as directed 11/09" 182014 Accu-Chek NDC 0 4 daily January 10, File DME for FastClix 2014 Medicaid Lancets [place] NDC 0 31G X 5 MM January 10, File DME 3/16" daily 2013 under Medicaid Procedures Procedure Coding System Code Date Office Visit, Est Pt., Level 3 CPT-4 83401 Mar 24, 2015 Vital Signs Date/Time: Mar 24, 2015 Blood Pressure Systolic 110 mm Hg Weight 201.8 lbs Height 60.5 in Oximetry 98 % Respiratory Rate 16 /min Cardiac Monitoring Heart Rate 106 /min Blood Pressure Diastolic 68 mm Hg BMI 38.76 Index Results No Known Results Summary Purpose eClinicalWorks Submission
--- OUTSIDE RECORDS SUMMARY | 2017-09-14 13:49 | External Medical Summary ---
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
--- OUTSIDE RECORDS SUMMARY | 2017-09-14 13:50 | External Medical Summary ---
[...] unspecified type of vessel, [place] or graft Assessment Diabetes Mellitus Type 2, not 250.00 Active stated as uncontrolled Assessment Chest pain, other 786.59 Active Assessment Acute cystitis 595.0 Active Assessment Other fall E888.8 Active Assessment Sinoatrial node dysfunction 427.81 Active Assessment Chronic hypotension 458.1 Active Assessment Proteinuria 791.0 Active Medications Medication Code Code Instructions Start End Date Status Dosage System Date Metformin HCl NDC 74042-91 500 MG Orally September 30, 1 tablet 48-01 Twice a day 2014 with meals Lantus NDC 90027-39 100 UNIT/ML September 30, 15 units 20-33 Subcutaneous 2014 Once [place] [address] w/Device September 30, as directed Glucose Kit 699 2014 Lyrica NDC 85939-37 75 MG Orally Feb 19, 1 capsule 14-41 Twice a day 2014 Lipitor NDC 20174-57 10 MG Orally September 30, 1 tablet 55-23 Once a [place] 2015 [place] [address] 100 UNIT/ML September 30, 5 units tid KwikPen 99-01 Subcutaneous as 2014 with meals directed Aspirin EC NDC 75104-07 81 MG Orally September 30, Mar 29, 1 tablet 35-76 Once a day 2014 2014 Tylenol NDC 07871-39 325 MG Orally September 30, December 29, 1 to 2 96-60 every 6 hrs 2014 2014 tablets as needed for fever/pain Atenolol [facility] 21756-64 25 MG Orally Feb 19, one-half 87-01 Once a day 2013 tablet Nitrostat [facility] 20771-34 0.4 MG Feb 19 tablet 18-13 Sublingual every 2013 under the 0 hrs tongue and allow to dissolve as needed Cipro [facility] 38955-36 500 MG Orally September 30October 05, 1 tablet 54-01 every 12 hrs 2014 2014 Procedures Procedure Coding System Code Date OFFICE VISIT, EST-MOD. COMPLEXITY (25 MIN) CPT-4 50566 September 30, 2014 RENAL FUNCTION PANEL CPT-4 10216 September 30, 2014 COMPLETE CBC W/AUTO DIFF WBC CPT-4 07256 September 30, 2014 Vital Signs Date/Time: September 30, 2014 Height 61.5 in Weight 174.8 lbs Temperature 97.5 F Blood Pressure Diastolic 68 mm Hg Blood Pressure Systolic 98 mm Hg Cardiac Monitoring Heart Rate 92 /min BMI 32.49 Index Respiratory Rate 16 /min Results No Known Results Summary Purpose eClinicalWorks Submission
--- OUTSIDE RECORDS SUMMARY | 2017-09-14 13:50 | External Medical Summary ---
[...] Medications Results No Known Results Summary Purpose [facility] Submission
--- OUTSIDE RECORDS SUMMARY | 2017-09-14 13:50 | External Medical Summary ---
[...] Medications Results No Known Results Summary Purpose eClinicalLeaders2020 Submission
--- OUTSIDE RECORDS SUMMARY | 2017-09-14 13:50 | External Medical Summary ---
:1955 Author Organization [employer] Care Team Providers Name Role Phone Keegan Moreira Provider Role Unavailable Allergies No Known Allergies Problems Problem Type Condition ICD-9 Code Onset Dates Condition Status Problem Coronary atherosclerosis of 414.00 Active unspecified type of vessel, [place] or graft Problem Depressive disorder, not 311 Active elsewhere classified Problem Hypertension, benign 401.1 Active Problem Diabetes Mellitus Type 2, not 250.00 Active stated as uncontrolled Problem Coronary atherosclerosis of 414.00 Active unspecified type of vessel, [place] or graft Problem Depressive disorder, not 311 Active elsewhere classified Medications No Known Medications Results No Known Results Summary Purpose [facility] Submission
--- OUTSIDE RECORDS SUMMARY | 2017-09-14 13:50 | External Medical Summary ---
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
--- OUTSIDE RECORDS SUMMARY | 2017-09-14 13:50 | External Medical Summary ---
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 Problem Hypertension, benign 401.1 Active Problem Diabetes Mellitus Type 2, not stated 250.00 Active as uncontrolled Assessment Diabetes Mellitus Type 2, not stated 250.00 Active as uncontrolled Problem Coronary atherosclerosis of 414.00 Active unspecified type of vessel, [place] or graft Problem Depressive disorder, 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 COMPLEXITY (25 MIN) CPT-4 92044 October 07, 2014 Vital Signs Date/Time: October 07, 2014 Height 61.5 in Weight 181.0 lbs Temperature 98.1 F Blood Pressure Diastolic 60 mm Hg Blood Pressure Systolic 120 mm Hg Cardiac Monitoring Heart Rate 96 /min BMI 33.64 Index Respiratory Rate 20 /min Results No Known Results Summary Purpose eClinicalWorks Submission
--- OUTSIDE RECORDS SUMMARY | 2017-09-14 13:51 | External Medical Summary ---
[...] of 414.00 Active unspecified type of vessel, [place] or graft Problem Depressive disorder, not 311 Active elsewhere classified Problem Hypertension, benign 401.1 Active Problem Diabetes Mellitus Type 2, not 250.00 Active stated as uncontrolled Assessment Diabetes Mellitus Type 2, not 250.00 Active stated as uncontrolled Problem Coronary atherosclerosis of 414.00 Active unspecified type of vessel, [place] or graft Problem Depressive disorder, not 311 Active elsewhere classified Medications Medication Code Code Instructions Start End Status Dosage System Date Date Toujeo [facility] [address] 300 u/mL December 10Feb 12 units SoloStar subcutaneous 2014 15, Once a day at 2014 bedtime OneTouch Ultra [facility] 28669799660 none in vitro December 11, as directed Blue test three times 2014 strips daily Humalog [facility] [address]-83 100 UNIT/ML September 28 units tid KwikPen Subcutaneous as 2014 with meals directed Procedures Procedure Coding System Code Date COMPLETE CBC W/AUTO DIFF WBC CPT-4 59466 December 16, 2014 COMPREHENSIVE METABOLIC PANEL CPT-4 78935 December 16, 2014 GLUCOSE FINGERSTICK, IN HOUSE CPT-4 87081 December 16, 2014 OFFICE VISIT, EST-MOD. COMPLEXITY (25 MIN) CPT-4 16133 December 16, 2014 Vital Signs Date/Time: December 16, 2014 Height 61.5 in Weight 187.8 lbs Temperature 98.0 F Blood Pressure Diastolic 76 mm Hg Blood Pressure Systolic 118 mm Hg Cardiac Monitoring Heart Rate 107 /min BMI 34.91 Index Oximetry 98 % Respiratory Rate 18 /min Results No Known Results Summary Purpose eClinicalWorks Submission
--- OUTSIDE RECORDS SUMMARY | 2017-09-14 13:51 | External Medical Summary ---
:1955 Author Organization [employer] Care Team Providers Name Role Phone Keegan Moreira Provider Role Unavailable Allergies No Known Allergies Problems Problem Type Condition ICD-9 Code Onset Dates Condition Status Problem Coronary atherosclerosis of 414.00 Active unspecified type of vessel, [place] or graft Problem Depressive disorder, not 311 Active elsewhere classified Problem Hypertension, benign 401.1 Active Problem Diabetes Mellitus Type 2, not 250.00 Active stated as uncontrolled Problem Coronary atherosclerosis of 414.00 Active unspecified type of vessel, [place] or graft Problem Depressive disorder, not 311 Active elsewhere classified Medications No Known Medications Results No Known Results Summary Purpose [facility] Submission
--- OUTSIDE RECORDS SUMMARY | 2017-09-14 13:51 | External Medical Summary ---
[...] Medications Results No Known Results Summary Purpose [employer]ClinicalBrickell Biotech Submission
--- OUTSIDE RECORDS SUMMARY | 2017-09-14 13:51 | External Medical Summary ---
:1955 Author Organization [facility] Care Team Providers Name Role Phone Keegan Moreira Provider Role Unavailable Allergies No Known Allergies Problems Problem Type Condition ICD-9 Code Onset Dates Condition Status Problem Coronary atherosclerosis of 414.00 Active unspecified type of vessel, [place] or graft Problem Depressive disorder, not 311 Active elsewhere classified Problem Hypertension, benign 401.1 Active Problem Diabetes Mellitus Type 2, not 250.00 Active stated as uncontrolled Problem Coronary atherosclerosis of 414.00 Active unspecified type of vessel, [place] or graft Problem Depressive disorder, not 311 Active elsewhere classified Medications No Known Medications Results No Known Results Summary Purpose [facility] Submission
--- OUTSIDE RECORDS SUMMARY | 2017-09-14 13:51 | External Medical Summary ---
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
--- NOTE | 2017-09-14 13:53 | XRay Report ---
INDICATION: SOB PROCEDURE: CHEST 2-VIEWS UPRIGHT (PA & LAT) Encounter: Initial COMPARISON: September 12, 2017 FINDINGS: Small left pleural effusion is decreased in size. Small right effusion is stable. Improving aeration of the right lower lobe compared to the prior exam. Residual bilateral lower lobe areas of consolidation. No new or worsening airspace disease. No pneumothorax. Heart size and mediastinal contours are stable. Continued mild pulmonary vascular congestion. Left pacemaker noted. Impression: 1. Decreasing left effusion with improved aeration of the right lower lobe. 2. Mild pulmonary edema or congestive failure. .
--- OUTSIDE RECORDS SUMMARY | 2017-09-14 13:53 | External Medical Summary ---
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
--- OUTSIDE RECORDS SUMMARY | 2017-09-14 13:53 | External Medical Summary ---
[...] Medications Results No Known Results Summary Purpose eClinicalPath Submission
--- OUTSIDE RECORDS SUMMARY | 2017-09-14 13:53 | External Medical Summary ---
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
--- OUTSIDE RECORDS SUMMARY | 2017-09-14 13:53 | External Medical Summary ---
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
[2017-09-14] MEDS ORDERED: FUROSEMIDE 40 MG/4 ML INJECTION IVP ONE (15:02)
[2017-09-14] MEDS: SALINE FLUSH 10ml SYRINGE IVF PRN ×3 (15:16→17:22)
[2017-09-14 15:42] VITALS: BMI 29.1
--- NOTE | 2017-09-14 15:48 | History & Physical Report ---
History of Present Illness Date: 09/14/17 Chief complaint: shortness of breath and n/v HPI: Patient is a 62-year-old female well known to the hospitalist service from previous admissions. She presents to the ER today because she "didn't want to get as bad as I did last time." Patient was seen 09/07/17 in the emergency room for symptoms of nausea and vomiting. She was given Compazine, IV fluids and diagnosed with a viral colitis based on CT scan. She was dismissed home and returned to ER on 09/11/17 with shortness of breath. She was found to have large pleural effusions (right greater than left) and thoracentesis was performed with removal of 1800 mL of fluid from the pleural space by Dr. Hayes, improving her dyspnea. The following day she reported back to the emergency room complaining her shortness of air had increased that day. Repeat chest x- ray was performed showing improvement from previous. At the time of her dismissal, her shortness of air had improved and she was dismissed to home to follow-up with her PCP. Today she reports that she notices a "gurgling" when she exhales. She is obviously anxious, she becomes tearful saying that Dr. Hayes told her that had she not come in when she did last time, but she may have . She is frustrated that she does not know what the results of her thoracentesis are what is causing her ongoing problems. She continues to have nausea and vomiting. She states she started vomiting last night after she ate supper at 5:00. She's vomited 5 times. Has not had anything to eat or drink today. States she has been taking her medications routinely other than today due to the nausea/vomiting. Review of Systems All systems PM: 10-point ROS was reviewed, no additional remarkable complaints except (nausea, shortness of breath, abdominal pain) Past Medical History Medical History Hypertension. Type 2 diabetes mellitus. Diabetic nephropathy. Diabetic neuropathy. Hyperlipidemia. Hypothyroidism. Depression. Migraine headaches. Sinoatrial node dysfunction. Stage 4 chronic kidney disease. Surgical History: -Biotronik Pacemaker. -tubal ligation. -cyst removed from left wrist Family History: Father-. Hypertension, polio, CABG 3 Mother-. Scarlet fever with mitral valve damage, lung cancer. Heavy smoker. Brother-murdered Sister- from breast cancer Family History Updates: Updated - Social History Smoking status: Never smoker Substance use type: does not use Alcohol intake frequency: does not drink Household members: none Current occupational status: unemployed Current residence: Apartment/Private Home Medications Home Medications Medication Instructions Recorded Confirmed Type Furosemide [Lasix 40 mg Tab] 40 mg PO BIDBS 07/28/17 09/14/17 History Amlodipine [Norvasc] 10 mg PO DAILY tab 08/03/17 09/14/17 Rx Albuterol HFA Inhaler [Ventolin 1 puff INH DAILY #1 box 09/11/17 09/14/17 Rx Hfa 90 mcg/actuation] Cyanocobalamin (Vitamin B-12) 2,500 mcg PO DAILY 09/14/17 09/14/17 History [Vitamin B-12] Labetalol HCl 300 mg PO BID 09/14/17 09/14/17 History Levothyroxine Sodium 125 mcg PO ACB 09/14/17 09/14/17 History Omeprazole [Prilosec] 20 mg PO ACB 09/14/17 09/14/17 History Allergies Allergy/AdvReac Type Severity Reaction Status Date / Time egg Allergy Intermediate Verified 09/14/17 13:07 Egg Derived Allergy Intermediate Verified 09/14/17 13:07 iodine Allergy Mild HIVES Verified 09/14/17 13:07 Influenza Virus Vaccines Allergy Unknown Verified 09/14/17 13:07 morphine Allergy Verified 09/14/17 13:07 codeine AdvReac Unknown Verified 09/14/17 13:07 CILANTRO Allergy Uncoded 08/09/17 13:16 Exam Vital Signs: Temperature 98.3 F 09/14/17 12:52 Pulse Rate 80 09/14/17 15:00 Respiratory Rate 20 09/14/17 15:00 Blood Pressure 207/82 H 09/14/17 15:00 Pulse Oximetry 94 09/14/17 15:00 - Constitutional Present: no acute distress, well nourished, well developed - Routine HEENT Exam Head: Present: normocephalic, atraumatic Eye: Present: EOMI, PERRL ENT: Present: mucous membranes moist, oropharynx clear - Routine Neck Exam Present: supple. Absent: lymphadenopathy, thyromegaly - Routine Respiratory Exam Present: decreased breath sounds (right lower lobe), CTA bilaterally. Absent: wheezes - Routine Cardiovascular Exam Present: RRR, no murmur - Routine Abdominal Exam Present: soft, normoactive bowel sounds, tenderness (suprapubic left lower quadrant left upper quadrant). Absent: distended, guarding, rigid, organomegaly - Routine Extremities Exam Present: no edema, normal capillary refill - Routine Skin Exam Present: dry, warm Comments: Puncture wound with Dermabond - right upper back from previous thoracentesis. No sign of infection. - Routine Neurological Exam Present: alert, oriented X3, CN II-XII intact - Routine Psychiatric Exam Present: cooperative, depressed Results - Labs CBC & Chem 7: 09/14/17 13:20 09/14/17 13:20 Labs: Laboratory Tests 09/14/17 14:06 Urine Color Yellow Urine Clarity Clear Urine pH 6.5 Ur Specific [place] 1.025 Urine Protein 3+ A Urine Glucose (UA) Trace A Urine Ketones Negative Urine Occult Blood 1+ A Urine Nitrate Negative Urine Bilirubin Negative Urine Urobilinogen 0.2 Ur Leukocyte Esterase Negative Urine RBC 1-3 Urine WBC 1-3 Ur Squamous Epith Cells 0-5 Amorphous Sediment Moderate Urine Bacteria 1+ H Hyaline Casts 0-1 Granular Casts 0-1 Laboratory Tests 09/14/17 13:20 NT-Pro-B Natriuret Pep 18683 H Laboratory Tests 09/14/17 13:20 WBC 9.2 RBC 3.46 L Hgb 10.3 L Hct 30.2 L Plt Count 216 - ECG Data Tracing #1 Normal sinus rhythm with right bundle branch block - Imaging and Cardiology Chest x-ray Additional comments: Date of Exam: 09/14/17 INDICATION: SOB PROCEDURE: CHEST 2-VIEWS UPRIGHT (PA & LAT) FINDINGS: Small left pleural effusion is decreased in size. Small right effusion is stable. Improving aeration of the right lower lobe compared to the prior exam. Residual bilateral lower lobe areas of consolidation. No new or worsening airspace disease. No pneumothorax. Heart size and mediastinal contours are stable. Continued mild pulmonary vascular congestion. Left pacemaker noted. Impression: 1. Decreasing left effusion with improved aeration of the right lower lobe. 2. Mild pulmonary edema or congestive failure. Assessment and Plan (1) CHF (congestive heart failure) Current visit: Yes Status: Acute (2) Pleural effusion Current visit: No Status: Acute Assessment and Plan: Assessment Dyspnea Pleural effusion, s/p thoracentesis by Dr. Hayes in the ER on 09/11/17 (path-no malignancy) Nausea and vomiting-question etiology Acute on chronic heart failure (BNP 18,500) Acute kidney injury on CKD (creatinine 2.6 on admission) Hypernatremia (145)-POA Hypokalemia (3.4)-POA Hypocalcemia (8.2)-POA Chronic health problems Type 2 diabetes mellitus. CKD Stage 4. (Likely due to diabetic nephropathy) Baseline creatinine 1.8. Diabetic nephropathy. Diabetic neuropathy. 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 Hyperlipidemia. Hypothyroidism. Depression. Migraine headaches. Plan Admit, observation Lasix 40 mg given in ER. Chest x-ray in ER showed improving pleural effusion. Continue Lasix 40 IV daily until pt is able to keep po home dose of Lasix 40mg BID down. Monitor I's and O's. Check daily weights. Zofran for nausea. Protonix for GI prophylaxis and for nausea and vomiting. Clear liquid diet for now. Labetolol 10mg IV for sBP > 180. SCDs for DVT prophylaxis. CODE STATUS-DO NOT RESUSCITATE. Care to return to Dr. Moreira upon dismissal. Case discussed with Dr. Back. Home meds on hold d/t n/v. DVT Prophylaxis: SCD's GI Prophylaxis: Protonix Resuscitation Status: Do Not Resuscitate - Physician Narrative Physician: Liz Back MD Narrative: Date: 09/14/17 Time: 2099 I have independently evaluated and examined this patient. I reviewed the chart, the patient's history, and the SUPERINTENDENT SANITATION/PA's documented findings as above. We discussed and formulated the assessment and plan as above with additions as below: Chantelle was seen earlier this evening. She reports that she came to the emergency room because she felt felt/heard gurgling in her chest and was concerned that she had recurrent pleural effusion requiring thoracentesis. She was reassured to learn that there was not significant fluid in her chest but subsequently complained of nausea, vomiting, and diarrhea prompting hospitalization for observation. Patient additionally complains of pain in her upper back when she takes a breath which has been a chronic complaint as or GI complaints. She expressed frustration at inability to get additional help at home. She indicated her primary concerns or control of diarrhea and pain control. Patient has had multiple recent hospitalizations and emergency room visits. She has progressive renal failure with recent workup including negative PENNY, -ANCAs , nondetectable glomerular basement membrane antibody, normal C3/C4, normal SPEP , nonselective proteinuria on urine immunoelectrophoresis, and normal renal sonogram. Slightly over 3 g of protein was excreted in a 24-hour urine collection. Pleural fluid was consistent with transudate and cytology was negative. Chest x-ray on 09/11 revealed a large right pleural effusion and smaller left pleural effusion prior to thoracentesis. Chest x-ray today demonstrates small left pleural effusion, minor increased vascular markings, and minimal fluid in the right pleural space. On examination the patient has flat affect and downcast gaze Respirations are nonlabored, poor inspiratory effort but posterior breath sounds are clear other than decreased breath sounds at the bases, no wheezing, no crackles. Regular cardiac rhythm; soft abdomen, bowel sounds present +2 lower extremity edema Acute/chronic diastolic heart failure Acute/chronic renal failure, secondary to diabetes Diabetic gastroparesis Chronic diarrhea, possible irritable bowel syndrome Depression Patient was seen by Dr. Ortega yesterday-will discuss findings with him tomorrow. 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 Involve case management in a.m. as patient indicates lack of assistance at home is a major barrier in her ability to function at present. Review of labs over the past month suggests BUN/creatinine are now slightly higher than in the recent past and proBNP is lower; exam consistent with volume overload. Reassess after diuresis today. Serum LDH at time of thoracentesis was slightly over 1000-repeat in a.m. Hospital Course Summary Disclaimer: The visit summary below is not to be considered part of the above Progress Note. Hospital Course: 09/14/17 Admit, observation Lasix 40 mg given in ER. Chest x-ray in ER showed improving pleural effusion. Continue Lasix 40 IV daily until pt is able to keep po home dose of Lasix 40mg BID down. Monitor I's and O's. Check daily weights. Zofran for nausea. Protonix for GI prophylaxis and for nausea and vomiting. Labetolol 10mg IV for sBP > 180. SCDs for DVT prophylaxis. CODE STATUS-DO NOT RESUSCITATE. Care to return to Dr. Moreira upon dismissal. Case discussed with Dr. Back. Home meds on hold d/t n/v.
[2017-09-14] MEDS ORDERED: LABETALOL 100mg/20ml INJECTION IVP PRN (16:26)
[2017-09-14] MEDS: ONDANSETRON 4 MG/2 ML INJECTION IVP PRN (17:08)
[2017-09-14] MEDS: PANTOPRAZOLE 40 MG INJECTION IVP SCH (17:11)
[2017-09-14] MEDS: ACETAMINOPHEN 325 MG TABLET PO PRN (18:39)
[2017-09-15] MEDS: SALINE FLUSH 10ml SYRINGE IVF PRN (06:01)
[2017-09-15] MEDS ORDERED: FUROSEMIDE 40 MG/4 ML INJECTION IVP SCH (09:00)
[2017-09-15] MEDS: LABETALOL 100 MG TABLET PO SCH ×2 (09:24→21:25)
[2017-09-15] MEDS: PANTOPRAZOLE 40 MG INJECTION IVP SCH (09:27)
[2017-09-15] MEDS: ONDANSETRON 4 MG/2 ML INJECTION IVP PRN (10:03)
--- NOTE | 2017-09-15 10:14 | CT Scan Report ---
Indication: pleural effusion, LDH elevation, dyspnea PROCEDURE: CT chest wo con: Encounter: Initial Comparison: Chest x-ray from yesterday and chest CT dated August 02, 2017 Technique: Axial CT images were performed through the chest without intravenous contrast. Coronal and sagittal two-dimensional reformats. Automated Exposure Control and Iterative Reconstruction dose reducing techniques were utilized. Findings: Moderate bilateral pleural effusions with compressive atelectasis of the lower lobes. Mild pulmonary edema again noted. No pneumothorax. The central airways are patent. No axillary adenopathy. Increased number of small mediastinal nodes could be reactive and is unchanged from the prior study. Small pericardial effusion. The upper abdomen shows small volume ascites. Impression: Moderate pleural effusions and mild pulmonary edema. .
[2017-09-15] MEDS ORDERED: Bisacodyl EC TAB 5 MG TABLET PO ONE (13:30)
[2017-09-15] MEDS: FUROSEMIDE 40 MG/4 ML INJECTION IVP SCH (13:53)
--- NOTE | 2017-09-15 14:13 | Progress Note ---
- Date 09/15/17 Subjective: Patient is seen lying in bed. She is very embarrassed as she just had incontinence of her bowel and bladder. She states she is frequently incontinent of urine, and occasionally of bowel. She has been having loose stools. She states she frequently will go for days without a bowel movement and then have diarrhea. She reports her stools are black at home. She will frequently have nausea and vomiting. She states that after she eats within 30 minutes she will have diarrhea. She is extremely frustrated as she feels like she is to blame for her illness, but she does not know what to do to make herself better. She states she is trying to "get help" by [facility] (Dr Gutierrez will be her PCP) so that she doesn't end up in the hospital all the time. She continues to have some nausea, but has had no vomiting since she's been hospitalized. She feels like she is "bloated" or "full" in her abdomen. She believes it's bigger than it usually is. She has also developed pain in the left ear. No sore throat or fever. She reports runny nose because " I have been crying," but no nasal congestion. She also reports that overnight she felt some discomfort on urinating. Objective Vital signs: Temperature 98.4 F 09/15/17 07:30 Pulse Rate 80 09/15/17 07:30 Respiratory Rate 18 09/15/17 07:30 Blood Pressure 179/83 H 09/15/17 07:30 Pulse Oximetry 95 09/15/17 07:30 Height/Weight/BMI: Height 1.57 m Weight 71.3 kg Body Mass Index 29.1 - Constitutional Present: no acute distress, well nourished, well developed - Routine HEENT Exam Head: Present: normocephalic, atraumatic ENT: Present: mucous membranes moist, oropharynx clear Comments: wax in L ear canal. R TM nl. - Routine Respiratory Exam Present: CTA bilaterally. Absent: wheezes - Routine Cardiovascular Exam Present: RRR, no murmur - Routine Abdominal Exam Present: soft, normoactive bowel sounds, tenderness (RLQ, suprapubic) - Routine Extremities Exam Present: edema (1+), normal capillary refill - Routine Skin Exam Present: dry, warm - Routine Neurological Exam Present: alert, oriented X3 - Routine Lymphatic Exam Lymphatic: Absent: adenopathy - Routine Psychiatric Exam Present: cooperative, depressed (tearful) Results - Labs CBC & Chem 7: 09/15/17 05:00 09/15/17 05:00 Assessment and Plan (1) Pleural effusion Current visit: No Status: Acute (2) CHF (congestive heart failure) Current visit: Yes Status: Acute Assessment and Plan: Assessment Dyspnea Elevated LDH. Has doubled in the last month (696 on 08/14-->1307 on 09/15) - ?? etiology Pleural effusion, s/p thoracentesis by Dr. Hayes in the ER on 09/11/17 (path-no malignancy) Nausea and vomiting-question etiology Acute on chronic heart failure (BNP 18,500)-diastolic Acute kidney injury on CKD (creatinine 2.6 on admission) Hypernatremia (145)-POA Hypokalemia (3.4)-POA Hypocalcemia (8.2)-POA Chronic health problems Type 2 diabetes mellitus. CKD Stage 4. (Likely due to diabetic nephropathy) Baseline creatinine 1.8. Diabetic nephropathy. Diabetic neuropathy. 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 Hyperlipidemia. Hypothyroidism. Depression. Migraine headaches. Plan Continue clear liquids. Consult Dr. Fuentes for colonoscopy given her ongoing diarrhea, abdominal pain, n/v. She did have positive Hemoccult 09/12 in ER. Check Hemoccult with next stool. Hemoglobin has been as low as 8.1 over the past year. Highest reading was 13.1 in August 2016. Yesterday 10.3, today 9.5. Anemia studies performed July 2017 consistent with iron deficiency anemia. B12 borderline low and folate normal. Check urinalysis given her dysuria and incontinence. CT chest performed showing moderate pleural effusions and mild pulmonary edema. She does have an increased number of small mediastinal nodes but this is unchanged from the previous study on 08/02/17. New c/o L ear pain. Cerumen impaction L ear. Cerumen partially removed manually with alligator forceps. Instill docusate oral liquid to ear and will attempt irrigation later. DVT Prophylaxis: SCD's GI Prophylaxis: Protonix Resuscitation Status: Do Not Resuscitate - Physician Narrative Physician: Liz Back MD Narrative: Date: 09/15/17 Time: 1720 I have independently evaluated and examined this patient. I reviewed the chart, the patient's history, and the CANDY DECORATOR/PA's documented findings as above. We discussed and formulated the assessment and plan as above with additions as below: Chantelle continues to have "black" diarrhea and is unsure if she's having trouble breathing. Nursing describe yellow liquid stools. The patient is on room air and lying nearly flat-head of the bed elevated at 5- 10. Respirations nonlabored, anterior breath sounds clear. Abdomen slightly distended, soft Renal function slightly improved from admission, continue diuresis. CT chest reviewed by myself-moderate pleural effusions bilaterally (larger than suggested by chest x-ray) mild pulmonary edema, no significant adenopathy although small mediastinal nodes consistent with reactive adenopathy present. Reassess proBNP tomorrow. Discussed with Dr. Ortega earlier today-updated on results of testing done last admission to evaluate etiology of renal failure. Probable diabetic nephropathy. Unclear why LDH is as high as it is-screening labs did not suggest hemolytic anemia, history not strongly suggestive of ischemic bowel, no identified adenopathy to suggest lymphoma. Reticulocyte count, haptoglobin in a.m. Hold Lasix tomorrow morning as patient will be nothing by mouth. Convert to inpatient to the need for ongoing diuresis. Hospital Course Summary Disclaimer: The visit summary below is not to be considered part of the above Progress Note. Hospital Course: 09/14/17 Admit, observation Lasix 40 mg given in ER. Chest x-ray in ER showed improving pleural effusion. Continue Lasix 40 IV daily until pt is able to keep po home dose of Lasix 40mg BID down. Monitor I's and O's. Check daily weights. Zofran for nausea. Protonix for GI prophylaxis and for nausea and vomiting. Labetolol 10mg IV for sBP > 180. SCDs for DVT prophylaxis. CODE STATUS-DO NOT RESUSCITATE. Care to return to Dr. Moreira upon dismissal. Case discussed with Dr. Back. Home meds on hold d/t n/v. 09/15/17 Continue clear liquids. Consult Dr. Fuentes for colonoscopy given her ongoing diarrhea, abdominal pain, n/v. She did have positive Hemoccult 09/12 in ER. Check Hemoccult with next stool. Hemoglobin has been as low as 8.1 over the past year. Highest reading was 13.1 in August 2016. Yesterday 10.3, today 9.5. Anemia studies performed July 2017 consistent with iron deficiency anemia. B12 borderline low and folate normal. Check urinalysis given her dysuria and incontinence. CT chest performed showing moderate pleural effusions and mild pulmonary edema. She does have an increased number of small mediastinal nodes but this is unchanged from the previous study on 08/02/17. New c/o L ear pain. Cerumen impaction L ear. Cerumen partially removed manually with alligator forceps. Instill docusate oral liquid to ear and will attempt irrigation later.
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
[2017-09-15] MEDS ORDERED: DOCUSATE 100mg/10ml ORAL LIQUID LEFT EAR PRN (15:08)
[2017-09-15] MEDS ORDERED: POLYETHYL. GLYCOL 3350 BOTTLE 238 GM PO ONE (15:30)
[2017-09-15] MEDS: DOCUSATE 100mg/10ml ORAL LIQUID LEFT EAR PRN ×2 (15:39→21:25)
[2017-09-15] MEDS: METOCLOPRAMIDE 10mg/2ml INJECTION IVP PRN (15:40)
--- NOTE | 2017-09-15 18:54 | Consultation ---
DATE OF CONSULTATION 09/15/2017 FINDINGS Mrs. Boles is a 62-year-old female whom I was asked to see today as a result of her history for diarrhea and the finding of anemia upon laboratory evaluation. The patient is known to my surgical practice but it has been approximately a month since I have seen her. The patient states that she had presented to our facility as a result of increasing shortness of breath. In regards to her bowel habits, she informs me that over the last six months she has been experiencing increasing diarrhea. The patient states that on a "good day" she may have two to three loose stools. On a "bad day" she may have up to 15 loose stools. When questioned about any element of rectal bleeding, she states that it is "hard to tell." The patient does state that at times her stools are "black and tarry." She denies any family history specifically for colon cancer. She does have a history for nausea, vomiting and chronic abdominal pain/discomfort. The patient does have multiple associated medical comorbidities. PAST MEDICAL HISTORY, PAST SURGICAL HISTORY, MEDICATIONS, ALLERGIES, SOCIAL HISTORY, FAMILY HISTORY, REVIEW OF SYSTEMS Performed by my nurse practitioner, Lopez Fink APRN. PHYSICAL EXAM GENERAL: Mrs. Boles is a 62-year-old female who this evening did not appear to be in acute distress. VITAL SIGNS: Temperature 98.3, pulse 72, respirations 18, blood pressure 151/99 , SAO2 95% on room air. HEENT: Normocephalic. Pupils are equally round and react to light and accommodation. CHEST: Auscultation of the chest does reveal diminished breath sounds within the bases. No rales or rhonchi, however, are noted. HEART: Regular rate and rhythm. Normal S1 and S2 without gallops, murmurs or clicks. ABDOMEN: Palpation of the abdomen reveals it to be soft and nontender. No evidence for guarding or rebound. NEURO: Cranial nerves II-XII grossly intact. Patient is without focal motor or sensory deficits. EXTREMITIES: Without clubbing, cyanosis, or edema. LABORATORY/RADIOGRAPHIC EVALUATION The patient had a CBC today and her white count was 8.5. Hemoglobin is low at 9.5. CMP was obtained and found to be essentially within normal limits with the exception that her sodium is elevated at 146. Chloride is elevated at 110. BUN is elevated at 32.0. The patient does have known renal insufficiency and her creatinine is 2.4. ASSESSMENT 62-year-old female with multiple medical comorbidities who has history for change in bowel habits and anemia upon laboratory evaluation. PLAN Colonoscopy. I informed the patient that given her history for her change in bowel habits and marked anemia as well as the fact that she has never undergone endoscopic evaluation of her colon, I would recommend proceeding with a colonoscopy for further evaluation. This evening I did discuss with the patient what a colonoscopy entailed and its associated risks which included but were not inclusive of bleeding and/or perforation requiring surgery. The patient understood and agreed to proceed with colonoscopy tomorrow. MTDD
[2017-09-16] MEDS: LEVOTHYROXINE 125 MCG TABLET PO SCH (06:39)
[2017-09-16] MEDS: LIDOCAINE 1% INJ 10 MG, POTASSIUM CHLORIDE INJ 10 MEQ in NS 100 ML IV SCH ×4 (07:31→10:46)
[2017-09-16] MEDS: SALINE FLUSH 10ml SYRINGE IVF PRN ×4 (07:36→19:13)
--- NOTE | 2017-09-16 07:38 | General Surgery Progress Note ---
Subjective Patient reports: diarrhea (from bowel prep yesterday, stools this morning during my visit still creamy yellow, will need fleets till clear) Narrative: states she did not sleep well during the night, bowel prep. Still has abd pain, worse with palpation. K+ 2.7 replacement ordered. - Vital Signs Last Vital Signs Temp 97.3 F 09/16/17 03:00 Pulse 75 09/16/17 03:00 Resp 16 09/16/17 03:00 BP 178/87 H 09/16/17 03:00 Pulse Ox 95 09/16/17 03:00 - Laboratory Result Diagrams: 09/16/17 04:52 09/16/17 04:52 - Abnormal Exam Abdominal: tender (with palpation) - Normal Exam General: resting, awakens easily Cardiovascular: regular rate Respiratory: no labored breathing Abdominal: soft Assessment and Plan (1) Abdominal pain Current Visit: Yes Status: Acute Qualifiers: Abdominal location: generalized Qualified Code(s): R10.84 - Generalized abdominal pain (2) Diarrhea Current Visit: Yes Status: Acute Qualifiers: Diarrhea type: unspecified type Qualified Code(s): R19.7 - Diarrhea, unspecified (3) Hypokalemia Current Visit: Yes Status: Acute Plan: K+ 2.7 will replace with IV K+ x2, repeat serum K+ when infused, about 11:45 today. Stools not clear, fleets enemas till clear this am. Colonoscopy scheduled for noon, but may need to be delayed if K+ not at a safe level for anesthesia. Hospital Course Summary Disclaimer: The visit summary below is not to be considered part of the above Progress Note. Hospital Course: 09/14/17 Admit, observation Lasix 40 mg given in ER. Chest x-ray in ER showed improving pleural effusion. Continue Lasix 40 IV daily until pt is able to keep po home dose of Lasix 40mg BID down. Monitor I's and O's. Check daily weights. Zofran for nausea. Protonix for GI prophylaxis and for nausea and vomiting. Labetolol 10mg IV for sBP > 180. SCDs for DVT prophylaxis. CODE STATUS-DO NOT RESUSCITATE. Care to return to Dr. Moreira upon dismissal. Case discussed with Dr. Back. Home meds on hold d/t n/v. 09/15/17 Continue clear liquids. Consult Dr. Fuentes for colonoscopy given her ongoing diarrhea, abdominal pain, n/v. She did have positive Hemoccult 09/12 in ER. Check Hemoccult with next stool. Hemoglobin has been as low as 8.1 over the past year. Highest reading was 13.1 in August 2016. Yesterday 10.3, today 9.5. Anemia studies performed July 2017 consistent with iron deficiency anemia. B12 borderline low and folate normal. Check urinalysis given her dysuria and incontinence. CT chest performed showing moderate pleural effusions and mild pulmonary edema. She does have an increased number of small mediastinal nodes but this is unchanged from the previous study on 08/02/17. New c/o L ear pain. Cerumen impaction L ear. Cerumen partially removed manually with alligator forceps. Instill docusate oral liquid to ear and will attempt irrigation later.
[2017-09-16] MEDS: NS FLUSH BAG 500ml IV PRN (07:41)
[2017-09-16] MEDS: ONDANSETRON 4 MG/2 ML INJECTION IVP PRN ×2 (08:17→13:41)
[2017-09-16] MEDS: PANTOPRAZOLE 40 MG INJECTION IVP SCH (08:17)
[2017-09-16] MEDS: LABETALOL 100 MG TABLET PO SCH ×2 (08:43→20:56)
[2017-09-16] MEDS ORDERED: NS 1,000 ML IV SCH (12:15)
--- NOTE | 2017-09-16 13:05 | Anesthesia Preoperative Report ---
Anesthesia Preoperative Record - Date and Time Date: 09/16/17 Preoperative Diagnosis: CHF,diarrhea,anemia,chronic renal failure Proposed Procedure: colonoscopy NPO Since Date: 09/15/17 NPO Since Time: 23:00 Allergies/Adverse Reactions: Allergies Allergy/AdvReac Type Severity Reaction Status Date / Time egg Allergy Intermediate Verified 09/14/17 13:07 Egg Derived Allergy Intermediate Verified 09/14/17 13:07 iodine Allergy Mild HIVES Verified 09/14/17 13:07 Influenza Virus Vaccines Allergy Unknown Verified 09/14/17 13:07 morphine Allergy Verified 09/14/17 13:07 codeine AdvReac Unknown Verified 09/14/17 13:07 CILANTRO Allergy Uncoded 08/09/17 13:16 - Vital Signs Vital Signs: Temperature 96.3 F L 09/16/17 08:07 Pulse Rate 75 09/16/17 08:07 Respiratory Rate 16 09/16/17 08:07 Blood Pressure 155/83 H 09/16/17 08:07 Pulse Oximetry 95 09/16/17 08:07 Height and Weight: Weight 68.9 kg - Medications Inpatient Medications: Current Medications Acetaminophen (Tylenol) 650 mg PO Q5H PRN PRN Reason: Discomfort Last Admin: 09/14/17 18:39 Dose: 650 mg Docusate Sodium (Colace Liquid) 10 mg LEFT EAR DAILY PRN PRN Reason: to soften ear wax Last Admin: 09/15/17 21:25 Dose: 10 mg Furosemide (Lasix 40 Mg/4 Ml) 40 mg IVP [id number] [facility] Last Admin: 09/15/17 13:53 Dose: 40 mg Sodium Chloride (Normal Saline) 1,000 mls @ 50 mls/hr IV .Q20H [facility] Last Admin: 09/16/17 12:35 Dose: 50 mls/hr Labetalol HCl (Trandate) 10 mg IVP Q4-6HR PRN PRN Reason: for sBP > 180 Last Admin: 09/14/17 17:21 Dose: 10 mg Labetalol HCl (Normodyne) 300 mg PO BID [facility] Last Admin: 09/16/17 08:43 Dose: 300 mg Levothyroxine Sodium (Synthroid) 125 mcg PO ACB [facility] Last Admin: 09/16/17 06:39 Dose: Not Given Metoclopramide HCl (Reglan) 5 mg IVP Q6H PRN Last Admin: 09/15/17 15:40 Dose: 5 mg Mineral Oil (Fleet Mineral Oil Enema) 1 enema OK PRN PRN Last Admin: 09/16/17 09:14 Dose: 1 enema Ondansetron HCl (Zofran) 4 mg IVP Q6H PRN PRN Reason: Nausea &/or vomiting Last Admin: 09/16/17 08:17 Dose: 4 mg Pantoprazole Sodium (Protonix Iv) 40 mg IVP DAILY ANNA Last Admin: 09/16/17 08:17 Dose: 40 mg Sodium Chloride (Iv Flush) 10 - 80 ml IVF PRN PRN PRN Reason: Flushing Last Admin: 09/16/17 08:17 Dose: 30 ml Sodium Chloride (Normal Saline) 500 ml IV PRN PRN Last Admin: 09/16/17 07:41 Dose: 500 ml Home Medications: Home Medications Medication Instructions Recorded Confirmed Type Furosemide [Lasix 40 mg Tab] 40 mg PO BIDBS 07/28/17 09/14/17 History Amlodipine [Norvasc] 10 mg PO DAILY tab 08/03/17 09/14/17 Rx Albuterol HFA Inhaler [Ventolin 1 puff INH DAILY #1 box 09/11/17 09/14/17 Rx Hfa 90 mcg/actuation] Cyanocobalamin (Vitamin B-12) 2,500 mcg PO DAILY 09/14/17 09/14/17 History [Vitamin B-12] Labetalol HCl 300 mg PO BID 09/14/17 09/14/17 History Levothyroxine Sodium 125 mcg PO ACB 09/14/17 09/14/17 History Omeprazole [Prilosec] 20 mg PO ACB 09/14/17 09/14/17 History Is Patient on Beta Alyssa?: Yes - Medical History Respiratory: Reports: Asthma, Bronchitis (hx) DENIES: Sleep Apnea Cardiovascular: Reports: Angina ("Phantom angina" usually treated via ED antianginals. Seen Dr. Ho.), Congestive Heart Failure, Hypertension Gastrointestional: Reports: Gastroesophageal Reflux Disease, Other (CONSTPATION & DIARRHEA) Neuro/Musculoskeletal: Reports: Other (OSTEOPOROSIS) Renal/Endocrine: Reports: Diabetes Mellitus Type 2, Thyroid Disease Other History: DENIES: Anesthesia Reactions, Now, Blood Transfusions, Chemotherapy , Cancer, Hemophilia, Malignant Hyperthermia, Sickle Cell Disease, Other - Surgical History Cardiac Surgeries/Treatments: Reports: Pacemaker (BRADYCARDIA) GI Surgery/Treatments: Reports: EGD Reproductive Surgery/Treatment: Reports: Tubal Ligation (1978) Anesthesia Reactions: None Hx Family Anesthesia Reaction: No History of Motion Sickness: No - Social History Smoking Status: Never smoker Hx Chewing Tobacco Use: No Second Hand Exposure: No Substance Use Type: does not use Alcohol Intake Frequency: does not drink - Pertinent Findings Laboratory: CBC and BMP 09/16/17 04:52 09/16/17 12:29 BMP 09/16/17 09/16/17 04:52 12:29 Sodium 141 Potassium 2.7 L* D 4.1 D Chloride 102 D Carbon Dioxide 26 BUN 25.0 H Creatinine 2.5 H Glucose 100 Calcium 7.5 L Liver Function 09/16/17 Range/Units 04:52 Total Bilirubin 0.80 (0.20-1.30) MG/DL AST 25 (14-36) U/L ALT 13 (1-35) U/L Alkaline Phosphatase 82 (38-126) U/L Albumin 3.1 L (3.5-5.0) g/dL EKG: Sinus Rhythm - Physical Exam Respiratory Exam: Present: lungs clear, bilateral breath sounds equal Cardiovascular Exam: Present: regular rate and rhythm - Airway Assessment Mallampati Score: II TMD: 3 Fingerbreadths Neck Extension: good Overall Assessment: no airway concerns - ASA ASA Score: 3 - Plan Anesthesia: General TIVA - Discussion Discussion: Discussed risks/options/alternatives of anesthesia and questions answered. Patient consents. Nursing pain assessment noted. Attestation Statement: Prior to the delivery of any anesthetic medication, I examined the patient, developed the plan, obtained the patient's consent and discussed the risk and benefits of the procedure with the patient/guardian. - Additional Information Seen by Anesthesia: Yes
--- NOTE | 2017-09-16 13:08 | Procedure Note ---
- Procedure Date/Time: Date: 09/16/17 Time: 1253 Surgeon: Gina Proceure: Colonoscopy-snare polypectomy, Colonoscopy-forceps polypectomy, Colonoscopy with biopsies (random) - Preoperative Diagnosis Diarrhea, Abdominal pain. - Postoperative Colonoscopy Diagnosis Diverticulosis Polyps at: Ascending Colon (1-proximal; a 2nd at distal), Hepatic Flexure Polyps at (cm): 40 cm (x2 ) - Complications Estimated Blood Loss: See Anesthesia Record. Vital Signs: See Anesthesia and PACU record.
--- NOTE | 2017-09-16 13:33 | Anesthesia Postoperative Note ---
- Date and Time Date: 09/16/17 Time: 13:33 - Status Patient Participated in Evaluation: Patient Participated in Person Vital Signs: Temperature 96.3 F L 09/16/17 08:07 Pulse Rate 75 09/16/17 08:07 Respiratory Rate 16 09/16/17 08:07 Blood Pressure 155/83 H 09/16/17 08:07 Pulse Oximetry 95 09/16/17 08:07 Respiratory Function: Airway Patent Cardiovascular Function: Regular Pulse EKG: Sinus Rhythm Mental Status: Alert and Oriented Pain Intensity: 0 Complications During Recover: None Apparent - Follow-Up Instructions Instructions: Per Surgeon
[2017-09-16] MEDS ORDERED: ONDANSETRON 4 MG/2 ML INJECTION IVP ONE (13:39)
[2017-09-16] MEDS ORDERED: DEXAMETHASONE 20 MG/5 ML INJECTION IVP ONE (13:39)
[2017-09-16] MEDS ORDERED: ALBUTEROL/IPRATROPIUM 2.5mg-0.5mg/3ml NEB AEROSOL PRN (14:37)
--- NOTE | 2017-09-16 15:25 | Anesthesia Postoperative Note ---
- Date and Time Date: 09/16/17 Time: 15:25 - Status Patient Participated in Evaluation: Patient Participated in Person Vital Signs: Temperature 97.3 F 09/16/17 15:21 Pulse Rate 79 09/16/17 15:20 Respiratory Rate 16 09/16/17 15:20 Blood Pressure 133/63 09/16/17 15:20 Pulse Oximetry 92 09/16/17 15:20 Respiratory Function: Airway Patent Cardiovascular Function: Regular Pulse EKG: Sinus Rhythm Mental Status: Alert and Oriented Pain Intensity: 0 Hydration: Taking PO Fluids, IV Infusing Complications During Recover: None Apparent - Follow-Up Instructions Instructions: Per Surgeon
--- NOTE | 2017-09-16 16:19 | Operative Note ---
DATE OF SERVICE 09/16/2017 SURGEON Jose Enrique Fuentes MD PREOPERATIVE DIAGNOSIS Personal history for change in bowel habits, diarrhea, history for anemia. POSTOPERATIVE DIAGNOSIS Personal history for change in bowel habits, diarrhea, history for anemia, sigmoid diverticulosis, colonic polyps x2 at 40 cm from the anal verge, x1 at hepatic flexure, x1 at proximal ascending colon, x1 at distal ascending colon. PROCEDURE Colonoscopy with polypectomies via cold biopsy technique and snare polypectomy technique, random biopsies throughout colon via cold biopsy technique. ANESTHESIA TIVA BRIEF HISTORY/INDICATIONS Mrs. Boles is a 62-year-old female whom I was asked to see as a result of her history for diarrhea and the finding of anemia upon laboratory evaluation. Patient had underwent an EGD in the not too distant past. It was recommended that she undergo a colonoscopy for further evaluation. For completeness please refer to notes included in the patient's chart. FINDINGS Upon colonoscopy the patient was found to have numerous diverticula within the sigmoid colon region. There was no evidence for angiodysplastic lesions or sean malignancies. The mucosa was normal with no suggestion for colitis. Nonetheless given her history for increasing diarrhea, I elected to proceed with random biopsies throughout the entire colon via cold biopsy technique to rule in or rule out the process of microscopic/collagenous colitis. The patient was found to have several colonic polyps which ranged on the order from about 5 mm up to a centimeter in dimension. Each polyp was removed in its entirety either a cold biopsy technique or snare polypectomy technique and submitted for pathologic evaluation. DESCRIPTION OF PROCEDURE After informed consent was obtained, patient was brought to the endoscopy suite and placed on the table in left lateral decubitus position. Formal time-out was then completed. Next a digital rectal examination was performed. Normal sphincter tone. No rectal masses were appreciated. An Olympus colonoscope was inserted in the anus and advanced through the lumen of the colon under direct visualization at all times until the cecum was ascertained. Triangulation of the teniae coli, ileocecal valve and appendiceal lumen were all visualized. Scope was then slowly withdrawn. Within the proximal ascending colon, the patient was found to have a polyp on the order of about a centimeter in dimension. Polyp was transected in its entirety via snare polypectomy technique and suctioned into a colonic trap and submitted for pathologic evaluation. Scope was withdrawn back into the distal ascending colon where an additional polyp that was on the order of about 8 mm to 1 cm in dimension was identified and removed in its entirety via snare polypectomy technique and suctioned into a colonic trap as well and submitted in a separate container. Scope was then continued to be withdrawn back to the hepatic flexure where the patient was found to have a polyp on the order of about 5-6 mm in diameter which was grasped and removed in its entirety via cold biopsy technique and submitted for pathologic evaluation. Scope was then continued to be withdrawn where two additional synchronous polyps were identified at 40 cm from the anal verge that were on the order of about 7-8 mm in diameter and were removed in their entirety via snare polypectomy technique and suctioned into a colonic trap and placed within a single container. Additionally as the scope was withdrawn from the ascending, transverse colon, descending colon and rectum, multiple biopsies were obtained via cold biopsy technique and placed all within the same container and labeled as random biopsies. The patient was found to have numerous diverticula within the sigmoid colon region. There was no evidence for ulcerations or erythema of the mucosa to suggest underlying colitis. There was no evidence for angiodysplastic lesions or sean malignancies. Once the colonoscope was withdrawn back to the rectal vault a J- maneuver was then performed. No worrisome perianal pathology was noted. Scope was allowed to straighten and withdrawn through the anal verge. The patient tolerated the procedure without difficulty and was sent back to the preop area in stable condition. Will await the biopsy results from today's colonoscopy and will proceed accordingly with further recommendations thereafter. ELMIRA
[2017-09-16] MEDS: METOCLOPRAMIDE 10mg/2ml INJECTION IVP PRN (17:56)
[2017-09-16] MEDS: ACETAMINOPHEN 325 MG TABLET PO PRN (18:01)
--- NOTE | 2017-09-16 18:08 | Progress Note ---
- Date 09/16/17 Subjective: Yulia was seen prior to colonoscopy late this morning. She reported having some pressure in her abdomen and increased anxiety because she hasn't eaten. She was planning supper at the time I saw her. She denied nausea, denied dyspnea , but complained of mild generalized arthralgias. Diarrhea has subsided following prep but she reports it was much worse than usual diarrhea. Patient noncommittal about change in ear symptoms with treatment cerumen impaction. Objective Vital signs: Temperature 100.7 F H 09/16/17 17:58 Pulse Rate 89 09/16/17 17:58 Respiratory Rate 20 09/16/17 17:58 Blood Pressure 155/68 H 09/16/17 17:58 Pulse Oximetry 90 -RA 09/16/17 17:58 NAD, alert, resting comfortably with head of bed elevated 20 Conjunctiva clear, sclera anicteric Respirations nonlabored, good airflow, breath sounds clear Regular rhythm Abdomen soft, nontender, bowel sounds present Trace edema bilateral lower extremities Pleasant, much more interactive than yesterday Height/Weight/BMI: Weight 68.9 kg Results - Labs CBC & Chem 7: 09/16/17 04:52 09/16/17 12:29 Labs: Potassium 2.7 initially this morning, creatinine 2.5, BUN 25 LDH isoenzymes pending. Assessment and Plan (1) Pleural effusion Current visit: No Status: Acute (2) CHF (congestive heart failure) Current visit: Yes Status: Acute Assessment and Plan: Assessment Dyspnea Elevated LDH. Has doubled in the last month (696 on 08/14-->1307 on 09/15) - ?? etiology Pleural effusion, s/p thoracentesis by Dr. Hayes in the ER on 09/11/17 (path-no malignancy) Nausea and vomiting-question etiology Acute on chronic heart failure (BNP 18,500)-diastolic Acute kidney injury on CKD (creatinine 2.6 on admission) Hypernatremia (145)-POA Hypokalemia (3.4)-POA Hypocalcemia (8.2)-POA Chronic health problems Type 2 diabetes mellitus. CKD Stage 4. (Likely due to diabetic nephropathy) Baseline creatinine 1.8. Diabetic nephropathy. Diabetic neuropathy. 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 Hyperlipidemia. Hypothyroidism. Depression. Migraine headaches. Plan Colonoscopy completed this afternoon with random biopsies and polypectomy. Diet resumed, will resume Lasix in a.m. Despite reports of recurrent nausea and vomiting patient was anxious to resume diet today and actively planning evening meal. Potassium supplemented this morning-reassess electrolytes/renal function in a.m. Blood pressure persistently elevated today, amlodipine will be added to regimen. CT chest yesterday showed moderate pleural effusions and mild pulmonary edema. Less anxious and monitored setting than she was on admission. Would likely benefit from psychiatric care if she would agree to it. DVT Prophylaxis: SCD's Resuscitation Status: Do Not Resuscitate - Physician Narrative Narrative: Date: 09/16/17 Time: 1803 Hospital Course Summary Disclaimer: The visit summary below is not to be considered part of the above Progress Note. Hospital Course: 09/14/17 Admit, observation Lasix 40 mg given in ER. Chest x-ray in ER showed improving pleural effusion. Continue Lasix 40 IV daily until pt is able to keep po home dose of Lasix 40mg BID down. Monitor I's and O's. Check daily weights. Zofran for nausea. Protonix for GI prophylaxis and for nausea and vomiting. Labetolol 10mg IV for sBP > 180. SCDs for DVT prophylaxis. CODE STATUS-DO NOT RESUSCITATE. Care to return to Dr. Moreira upon dismissal. Case discussed with Dr. Back. Home meds on hold d/t n/v. 09/15/17 Continue clear liquids. Consult Dr. Fuentes for colonoscopy given her ongoing diarrhea, abdominal pain, n/v. She did have positive Hemoccult 09/12 in ER. Check Hemoccult with next stool. Hemoglobin has been as low as 8.1 over the past year. Highest reading was 13.1 in August 2016. Yesterday 10.3, today 9.5. Anemia studies performed July 2017 consistent with iron deficiency anemia. B12 borderline low and folate normal. Check urinalysis given her dysuria and incontinence. CT chest performed showing moderate pleural effusions and mild pulmonary edema. She does have an increased number of small mediastinal nodes but this is unchanged from the previous study on 08/02/17. New c/o L ear pain. Cerumen impaction L ear. Cerumen partially removed manually with alligator forceps. Instill docusate oral liquid to ear and will attempt irrigation later. 09/16/17 Colonoscopy completed this afternoon with random biopsies and polypectomy. Diet resumed, will resume Lasix in a.m. Despite reports of recurrent nausea and vomiting patient was anxious to resume diet today and actively planning evening meal. Potassium supplemented this morning-reassess electrolytes/renal function in a.m. Blood pressure persistently elevated today, amlodipine will be added to regimen. CT chest yesterday showed moderate pleural effusions and mild pulmonary edema. Less anxious and monitored setting than she was on admission. Would likely benefit from psychiatric care if she would agree to it.
[2017-09-16] MEDS: MAGNESIUM SULFATE 1gm PREMIX 1 GM/100 ML BAG IV SCH ×2 (19:13→20:53)
[2017-09-17] MEDS: LEVOTHYROXINE 125 MCG TABLET PO SCH (06:00)
[2017-09-17] MEDS: FUROSEMIDE 40 MG/4 ML INJECTION IVP SCH (06:00)
[2017-09-17] MEDS: SALINE FLUSH 10ml SYRINGE IVF PRN ×3 (06:00→13:13)
[2017-09-17] MEDS: LABETALOL 100 MG TABLET PO SCH (08:51)
[2017-09-17] MEDS: PANTOPRAZOLE 40 MG INJECTION IVP SCH (08:51)
[2017-09-17] MEDS ORDERED: AMLODIPINE 5 MG TABLET PO SCH (09:00)
[2017-09-17] MEDS: ACETAMINOPHEN 325 MG TABLET PO PRN (11:53)
--- NOTE | 2017-09-17 12:35 | Progress Note ---
- Date 09/17/17 Subjective: Patient got up to work with PT and got lightheaded. She was taken back to the chair and her SBP was found to be in the 80's. She was helped back into the bed and it went to the 90's. She denies any new symtoms except for the lightheadedness. She says her abdomen actually felt fine this morning. She is currently lying in bed disappointed that she isn't able to walk around. Objective Vital signs: Temperature 96.2 F L 09/17/17 10:20 Pulse Rate 86 09/17/17 11:36 Respiratory Rate 18 09/17/17 10:20 Blood Pressure 77/51 09/17/17 11:36 Pulse Oximetry 96 09/17/17 10:20 Rhythm: Normal Sinus Rhythm Height/Weight/BMI: Weight 70.8 kg - Constitutional Present: no acute distress - Routine Respiratory Exam Present: CTA bilaterally - Routine Cardiovascular Exam Present: RRR - Routine Abdominal Exam Present: soft, normoactive bowel sounds, non distended, non tender - Routine Extremities Exam Present: no edema - Routine Musculoskeletal Exam Musculoskeletal: Present: no clubbing or cyanosis - Routine Skin Exam Present: intact, dry, warm - Routine Neurological Exam Present: alert, oriented X3, CN II-XII intact - Routine Psychiatric Exam Present: normal affect Results - Labs CBC & Chem 7: 09/17/17 04:09 09/17/17 04:09 - Imaging and Cardiology Chest x-ray Additional comments: appears improved from 09/14 in regards to left plerual effusion, possible left lung infiltrate. Assessment and Plan (1) Pleural effusion Current visit: No Status: Acute (2) CHF (congestive heart failure) Current visit: Yes Status: Acute Assessment and Plan: Assessment Dyspnea Elevated LDH. Has doubled in the last month (696 on 08/14-->1307 on 09/15) - ?? etiology Pleural effusion, s/p thoracentesis by Dr. Hayes in the ER on 09/11/17 (path-no malignancy) Nausea and vomiting-question etiology Acute on chronic heart failure (BNP 18,500)-diastolic Acute kidney injury on CKD (creatinine 2.6 on admission) Hypernatremia (145)-POA Hypokalemia (3.4)-POA Hypocalcemia (8.2)-POA Chronic health problems Type 2 diabetes mellitus. CKD Stage 4. (Likely due to diabetic nephropathy) Baseline creatinine 1.8. Diabetic nephropathy. Diabetic neuropathy. 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 Hyperlipidemia. Hypothyroidism. Depression. Migraine headaches. Plan Colonoscopy completed this yesterday with random biopsies and polypectomy - path pending Diet resumed yesterday and tolerting well hypotensive today - orthostatic with SBP lying 105 and standing 77 -gave 250cc normal saline, pressure in 100's lying -check lactic acid, repeat h/h with csp yesterday (no overt signs of bleeding) -CXR with possible LLL infiltrate - will treat with ATBX due to WBC increased to 20 today -UA negative for infection -will give 1 liter of fluid and hold lasix -hold amlodipine Leukocytosis -receieved dexamethasone yesterday -plan as above Replace electrolytes Less anxious and monitored setting than she was on admission. Would likely benefit from psychiatric care if she would agree to it. Resuscitation Status: Full Code - Physician Narrative Physician: other (Doris Barroso DO) Narrative: Date: 09/17/17 Time: 1230 Sepsis Assessment - Evaluation SIRS Criteria: WBC > 12,000 Severe Sepsis: hypotension (SBP <90 or MAP <65 x2 readings) - Focused Exam-within 6 hours of IVF Bolus Date exam was performed: 09/17/17 Time exam was performed: 10:00 Respiratory exam: Present: CTA bilaterally Cardiovascular exam: Present: RRR Capillary Refill: > 2 Seconds Peripheral pulse strength: Normal Peripheral pulse location: Radial Skin Temperature: Warm Skin Color: [facility] Hospital Course Summary Disclaimer: The visit summary below is not to be considered part of the above Progress Note. Hospital Course: 09/14/17 Admit, observation Lasix 40 mg given in ER. Chest x-ray in ER showed improving pleural effusion. Continue Lasix 40 IV daily until pt is able to keep po home dose of Lasix 40mg BID down. Monitor I's and O's. Check daily weights. Zofran for nausea. Protonix for GI prophylaxis and for nausea and vomiting. Labetolol 10mg IV for sBP > 180. SCDs for DVT prophylaxis. CODE STATUS-DO NOT RESUSCITATE. Care to return to Dr. Moreira upon dismissal. Case discussed with Dr. Back. Home meds on hold d/t n/v. 09/15/17 Continue clear liquids. Consult Dr. Fuentes for colonoscopy given her ongoing diarrhea, abdominal pain, n/v. She did have positive Hemoccult 09/12 in ER. Check Hemoccult with next stool. Hemoglobin has been as low as 8.1 over the past year. Highest reading was 13.1 in August 2016. Yesterday 10.3, today 9.5. Anemia studies performed July 2017 consistent with iron deficiency anemia. B12 borderline low and folate normal. Check urinalysis given her dysuria and incontinence. CT chest performed showing moderate pleural effusions and mild pulmonary edema. She does have an increased number of small mediastinal nodes but this is unchanged from the previous study on 08/02/17. New c/o L ear pain. Cerumen impaction L ear. Cerumen partially removed manually with alligator forceps. Instill docusate oral liquid to ear and will attempt irrigation later. 09/16/17 Colonoscopy completed this afternoon with random biopsies and polypectomy. Diet resumed, will resume Lasix in a.m. Despite reports of recurrent nausea and vomiting patient was anxious to resume diet today and actively planning evening meal. Potassium supplemented this morning-reassess electrolytes/renal function in a.m. Blood pressure persistently elevated today, amlodipine will be added to regimen. CT chest yesterday showed moderate pleural effusions and mild pulmonary edema. Less anxious and monitored setting than she was on admission. Would likely benefit from psychiatric care if she would agree to it. 09/17/17 Colonoscopy completed this yesterday with random biopsies and polypectomy - path pending Diet resumed yesterday and tolerating well hypotensive today - orthostatic with SBP lying 105 and standing 77 -gave 250cc normal saline, pressure in 100's lying -check lactic acid, repeat h/h with csp yesterday (no overt signs of bleeding) -CXR with possible LLL infiltrate - will treat with ATBX due to WBC increased to 20 today -UA negative for infection -will give 1 liter of fluid and hold lasix -hold amlodipine Leukocytosis -receieved dexamethasone yesterday -plan as above Replace electrolytes Less anxious and monitored setting than she was on admission. Would likely benefit from psychiatric care if she would agree to it.
[2017-09-17] MEDS ORDERED: VANCOMYCIN - PHARMACY CONSULT MC ONE (12:46)
[2017-09-17] MEDS: CEFEPIME 1 GM in NS 50 ML IV SCH (13:13)
--- NOTE | 2017-09-17 13:21 | Pharmacy Consult-Antibiotics ---
Pharmacy Consult-Vancomycin - Laboratory Information WBC 20.3 T/MM3 (4.5-11.0) H D 09/17/17 04:09 BUN 27.0 MG/DL (7-17) H 09/17/17 04:09 Creatinine 2.8 mg/dL (0.7-1.2) H D 09/17/17 04:09 - Consult Information VANCOMYCIN CONSULT: Dx: Possible pneumonia Current Renal Fx: SCr = 2.8mg/dl. Will give Vancomycin 1,250mg IV q36hrs. Will continue to monitor and adjust regimen to maintain therapeutic levels. Thank you.
[2017-09-17] MEDS ORDERED: NS 1,000 ML IV SCH (14:30)
[2017-09-17] MEDS ORDERED: HYDROCODONE/APAP 5mg/325mg TABLET PO PRN (14:34)
[2017-09-18] MEDS: CEFEPIME 1 GM in NS 50 ML IV SCH ×2 (00:22→13:15)
[2017-09-18] MEDS: NS 1,000 ML IV SCH ×2 (02:59→12:41)
[2017-09-18] MEDS: LEVOTHYROXINE 125 MCG TABLET PO SCH (06:30)
--- NOTE | 2017-09-18 09:01 | XRay Report ---
Indication: elevated lactate, colonoscopy yesterday, abd pain PROCEDURE: XR KUB: Encounter: Initial Comparison: August 18, 2017 Findings: The visualized lung bases are small right effusion. The bowel gas pattern is nonobstructive and nonspecific. Gas is seen in nondilated small and large bowel to the level of the rectum. Moderate stool is seen throughout the colon. Impression: Nonobstructive nonspecific bowel gas pattern. There is a preliminary report by [facility]. .
--- NOTE | 2017-09-18 09:07 | XRay Report ---
INDICATION: increased wbc count PROCEDURE: CHEST 2-VIEWS UPRIGHT (PA & LAT) Encounter: Initial COMPARISON: September 14, 2017 FINDINGS: Moderate bilateral pleural effusions are again noted. Slightly increased airspace disease in the left lower lobe. Similar airspace disease in the right lower lobe. No pneumothorax. Heart size and mediastinal contours are stable. Left pacemaker. Impression: Stable pleural effusions with slight worsening in left lower lobe airspace disease. There is a preliminary report by [facility]. .
[2017-09-18] MEDS: PANTOPRAZOLE 40 MG INJECTION IVP SCH (09:09)
--- NOTE | 2017-09-18 11:24 | Progress Note ---
- Date 09/18/17 Subjective: Feeling much better today. Eating breakfast on my visit at 0845. No new issues. Objective Vital signs: Temperature 97.9 F 09/18/17 07:50 Pulse Rate 80 09/18/17 07:50 Respiratory Rate 18 09/18/17 07:50 Blood Pressure 152/76 H 09/18/17 07:50 Pulse Oximetry 91 09/18/17 07:50 Rhythm: Normal Sinus Rhythm Height/Weight/BMI: Weight 74.1 kg - Constitutional Present: no acute distress - Routine Respiratory Exam Present: CTA bilaterally - Routine Cardiovascular Exam Present: RRR - Routine Abdominal Exam Present: soft, normoactive bowel sounds, non distended, non tender - Routine Extremities Exam Present: no edema - Routine Skin Exam Present: intact, dry, warm - Routine Neurological Exam Present: alert, oriented X3, CN II-XII intact - Routine Psychiatric Exam Present: normal affect Results - Labs CBC & Chem 7: 09/18/17 04:58 09/18/17 04:58 Microbiology Results: Microbiology 09/17/17 13:27 Peripheral/Iv Start Blood Culture - Preliminary Culture Initiated - Results Pending 09/17/17 13:33 Peripheral/Iv Start Blood Culture - Preliminary Culture Initiated - Results Pending Assessment and Plan (1) Pleural effusion Current visit: No Status: Acute (2) CHF (congestive heart failure) Current visit: Yes Status: Acute Assessment and Plan: Assessment Sepsis - resolved HCAP Elevated LDH. Has doubled in the last month (696 on 08/14-->1307 on 09/15) - ?? etiology Pleural effusion, s/p thoracentesis by Dr. Hayes in the ER on 09/11/17 (path-no malignancy) Nausea and vomiting-question etiology Acute on chronic heart failure (BNP 18,500)-diastolic Acute kidney injury on CKD (creatinine 2.6 on admission) Hypernatremia (145)-POA Hypokalemia (3.4)-POA Hypocalcemia (8.2)-POA Chronic health problems Type 2 diabetes mellitus. CKD Stage 4. (Likely due to diabetic nephropathy) Baseline creatinine 1.8. Diabetic nephropathy. Diabetic neuropathy. 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 Hyperlipidemia. Hypothyroidism. Depression. Migraine headaches. Plan Colonoscopy completed this 09/16 with random biopsies and polypectomy - path pending hypotensive yesterday with orthostasis - orthostatic with SBP lying 105 and standing 77 -gave 500cc NS bolus and have had NS running at 80cc overnight - increased by night staff for low UOP -lactate was 4.1 yesterday and trended to 2 yesterday evening -treating for HCAP with LLL infiltrate with vanco and cefepime -UA negative for infection -blood pressure improved today back to 150's - will stop IVF -had held norvasc - may need to restart soon Leukocytosis -receieved dexamethasone 09/16 - trended from 20 yesterday to 13 today -plan as above -blood cultures pending since yesterday Creatinine to 3 today - likely due to hypotension yesterday. Recieved IVF. Stop today and monitor UOP and am labs. monitor vanco - can stop later today if cultures negative for 24 hours. May need lasix restarted today or tomorrow. Monitor magnesium level in the setting of SKY. Less anxious and monitored setting than she was on admission. Would likely benefit from psychiatric care if she would agree to it. DVT Prophylaxis: SCD's GI Prophylaxis: Protonix Resuscitation Status: Full Code - Physician Narrative Narrative: Date: 09/18/17 Time: 1115 Hospital Course Summary Disclaimer: The visit summary below is not to be considered part of the above Progress Note. Hospital Course: 09/14/17 Admit, observation Lasix 40 mg given in ER. Chest x-ray in ER showed improving pleural effusion. Continue Lasix 40 IV daily until pt is able to keep po home dose of Lasix 40mg BID down. Monitor I's and O's. Check daily weights. Zofran for nausea. Protonix for GI prophylaxis and for nausea and vomiting. Labetolol 10mg IV for sBP > 180. SCDs for DVT prophylaxis. CODE STATUS-DO NOT RESUSCITATE. Care to return to Dr. Moreira upon dismissal. Case discussed with Dr. Back. Home meds on hold d/t n/v. 09/15/17 Continue clear liquids. Consult Dr. Fuentes for colonoscopy given her ongoing diarrhea, abdominal pain, n/v. She did have positive Hemoccult 09/12 in ER. Check Hemoccult with next stool. Hemoglobin has been as low as 8.1 over the past year. Highest reading was 13.1 in August 2016. Yesterday 10.3, today 9.5. Anemia studies performed July 2017 consistent with iron deficiency anemia. B12 borderline low and folate normal. Check urinalysis given her dysuria and incontinence. CT chest performed showing moderate pleural effusions and mild pulmonary edema. She does have an increased number of small mediastinal nodes but this is unchanged from the previous study on 08/02/17. New c/o L ear pain. Cerumen impaction L ear. Cerumen partially removed manually with alligator forceps. Instill docusate oral liquid to ear and will attempt irrigation later. 09/16/17 Colonoscopy completed this afternoon with random biopsies and polypectomy. Diet resumed, will resume Lasix in a.m. Despite reports of recurrent nausea and vomiting patient was anxious to resume diet today and actively planning evening meal. Potassium supplemented this morning-reassess electrolytes/renal function in a.m. Blood pressure persistently elevated today, amlodipine will be added to regimen. CT chest yesterday showed moderate pleural effusions and mild pulmonary edema. Less anxious and monitored setting than she was on admission. Would likely benefit from psychiatric care if she would agree to it. 09/17/17 Colonoscopy completed this yesterday with random biopsies and polypectomy - path pending Diet resumed yesterday and tolerating well hypotensive today - orthostatic with SBP lying 105 and standing 77 -gave 250cc normal saline, pressure in 100's lying -check lactic acid, repeat h/h with csp yesterday (no overt signs of bleeding) -CXR with possible LLL infiltrate - will treat with ATBX due to WBC increased to 20 today -UA negative for infection -will give 1 liter of fluid and hold lasix -hold amlodipine Leukocytosis -receieved dexamethasone yesterday -plan as above Replace electrolytes Less anxious and monitored setting than she was on admission. Would likely benefit from psychiatric care if she would agree to it. 09/18 Colonoscopy completed this 09/16 with random biopsies and polypectomy - path pending hypotensive yesterday with orthostasis - orthostatic with SBP lying 105 and standing 77 -gave 500cc NS bolus and have had NS running at 80cc overnight - increased by night staff for low UOP -lactate was 4.1 yesterday and trended to 2 yesterday evening -treating for HCAP with LLL infiltrate with vanco and cefepime -UA negative for infection -blood pressure improved today back to 150's - will stop IVF -had held norvas - may need to restart soon Leukocytosis -receieved dexamethasone 09/16 - trended from 20 yesterday to 13 today -plan as above -blood cultures pending since yesterday Creatinine to 3 today - likely due to hypotension yesterday. Recieved IVF. Stop today and monitor UOP and am labs. monitor vanco - can stop later today if cultures negative for 24 hours. May need lasix restarted today or tomorrow. Monitor magnesium level in the setting of SKY. Less anxious and monitored setting than she was on admission. Would likely benefit from psychiatric care if she would agree to it.
[2017-09-18] MEDS: AMLODIPINE 10 MG TABLET PO SCH (17:04)
[2017-09-18] MEDS: METOCLOPRAMIDE 10mg/2ml INJECTION IVP PRN (17:25)
[2017-09-19] MEDS: SALINE FLUSH 10ml SYRINGE IVF PRN ×2 (01:06→13:23)
[2017-09-19] MEDS: NS FLUSH BAG 500ml IV PRN (01:07)
[2017-09-19] MEDS: CEFEPIME 1 GM in NS 50 ML IV SCH ×2 (01:07→13:22)
[2017-09-19] MEDS: LEVOTHYROXINE 125 MCG TABLET PO SCH (06:35)
[2017-09-19] MEDS: OMEPRAZOLE 20 MG CAPSULE PO SCH (06:35)
[2017-09-19] MEDS: AMLODIPINE 10 MG TABLET PO SCH (09:43)
[2017-09-19] MEDS: ACETAMINOPHEN 325 MG TABLET PO PRN ×2 (10:50→19:25)
--- NOTE | 2017-09-19 11:43 | XRay Report ---
Indication: pleural effusions/?HCAP PROCEDURE: XR chest 2V: Encounter: Initial Comparison: 09/17/2017 Findings: There is bibasilar atelectasis with probable small right greater than left pleural effusions, similar to prior slightly improved from prior study. As a left subclavian dual-lead pacemaker in place, unchanged. The exam is slightly hypoventilatory. Trachea is midline. No pneumothorax. No subdiaphragmatic free air. There is moderate calcification of the transverse thoracic aorta. Impression: Bilateral pleural effusions with bibasilar atelectasis and overall expiratory technique, with interval improvement in the left basilar atelectasis and pleural effusion.. .
[2017-09-19] MEDS ORDERED: BISACODYL 10 MG SUPPOSITORY RECTALLY ONE (13:32)
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
--- NOTE | 2017-09-19 16:44 | Progress Note ---
- Date 09/19/17 Subjective: Chantelle reports that she feels much better and denies dyspnea, nausea, or vomiting. She has not had a bowel movement since EGD on Tuesday. She denies fever and reports her appetite is good. She is having some arthralgias which she attributes to the weather. She was able to ambulate yesterday afternoon without lightheadedness or dizziness. Objective Vital signs: Temperature 97.2 F 09/19/17 08:12 Pulse Rate 84 09/19/17 08:12 Respiratory Rate 18 09/19/17 08:12 Blood Pressure 157/85 H 09/19/17 09:30 Pulse Oximetry 94 09/19/17 08:12 NAD, alert, fluent speech Conjugate gaze, sclera anicteric Respirations nonlabored, lying flat, breath sounds clear anteriorly and posteriorly except diminished at the bases; no wheezing present Regular rhythm, S1-S2 Abdomen soft, nontender, bowel sounds present although diminished Extremities without edema MAEW Talkative, in good spirits Rhythm: Normal Sinus Rhythm Height/Weight/BMI: Weight 74.6 kg Results - Labs CBC & Chem 7: 09/19/17 04:16 09/19/17 04:16 Labs: Magnesium 1.5 Microbiology Results: Microbiology 09/17/17 13:27 Peripheral/Iv Start Blood Culture - Preliminary No Growth After 2 Days 09/17/17 13:33 Peripheral/Iv Start Blood Culture - Preliminary No Growth After 2 Days - Imaging and Cardiology Chest x-ray Status: image reviewed by me (lung barbosa clear, bilateral pleural effusions with basilar atelectasis) Assessment and Plan (1) Pleural effusion Current visit: No Status: Acute (2) CHF (congestive heart failure) Current visit: Yes Status: Acute Assessment and Plan: Assessment Sepsis - resolved HCAP, possible; versus aspiration pneumonitis Elevated LDH. Has doubled in the last month (696 on 08/14-->1307 on 09/15) - ?? etiology Pleural effusion, s/p thoracentesis by Dr. Hayes in the ER on 09/11/17 (path-no malignancy) Nausea and vomiting-question etiology Acute on chronic heart failure (BNP 18,500)-diastolic Acute kidney injury on CKD (creatinine 2.6 on admission) Hypernatremia (145)-POA Hypokalemia (3.4)-POA Hypocalcemia (8.2)-POA Chronic health problems Type 2 diabetes mellitus. CKD Stage 4. (Likely due to diabetic nephropathy) Baseline creatinine 1.8. Diabetic nephropathy. Diabetic neuropathy. 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 Hyperlipidemia. Hypothyroidism. Depression. Migraine headaches. Plan Colonoscopy completed 09/16 with random biopsies and polypectomy - tubular adenomas, tubulovillous adenomas and 1 biopsy with focal active colitis. Transient postprocedure hypotension, resolved with elevated blood pressures currently. Received fluid bolus Tuesday when hypotension identified and started on antibiotics after WBC/lactic acid/procalcitonin elevated. Vancomycin discontinued yesterday; blood cultures negative after 48 hours and repeat chest x-ray today without evidence of infiltrate but rather basilar atelectasis. Cefepime discontinued. Will continue Augmentin due to preceding nausea and vomiting and possible aspiration. Amlodipine resumed yesterday afternoon. Leukocytosis continues to improve-have confirmed the patient received 4 mg of dexamethasone per anesthesia on 09/16. Renal function has improved following IV fluids, approaching recent baseline. Magnesium remains low, oral supplement initiated. Blood sugars [id number] thus far today. Patient was scheduled for outpatient cardiology assessment today; discussed with Dr. Palomares who graciously agreed to see the patient while hospitalized. Anxiety well controlled with staff available to assist her. Anticipate discharge tomorrow if tolerates multiple changes being made today. Check orthostatic vital signs. LDH isoenzymes pending. - Physician Narrative Narrative: Date: 09/19/17 Time: 1641 Hospital Course Summary Disclaimer: The visit summary below is not to be considered part of the above Progress Note. Hospital Course: 09/14/17 Admit, observation Lasix 40 mg given in ER. Chest x-ray in ER showed improving pleural effusion. Continue Lasix 40 IV daily until pt is able to keep po home dose of Lasix 40mg BID down. Monitor I's and O's. Check daily weights. Zofran for nausea. Protonix for GI prophylaxis and for nausea and vomiting. Labetolol 10mg IV for sBP > 180. SCDs for DVT prophylaxis. CODE STATUS-DO NOT RESUSCITATE. Care to return to Dr. Moreira upon dismissal. Case discussed with Dr. Back. Home meds on hold d/t n/v. 09/15/17 Continue clear liquids. Consult Dr. Fuentes for colonoscopy given her ongoing diarrhea, abdominal pain, n/v. She did have positive Hemoccult 09/12 in ER. Check Hemoccult with next stool. Hemoglobin has been as low as 8.1 over the past year. Highest reading was 13.1 in August 2016. Yesterday 10.3, today 9.5. Anemia studies performed July 2017 consistent with iron deficiency anemia. B12 borderline low and folate normal. Check urinalysis given her dysuria and incontinence. CT chest performed showing moderate pleural effusions and mild pulmonary edema. She does have an increased number of small mediastinal nodes but this is unchanged from the previous study on 08/02/17. New c/o L ear pain. Cerumen impaction L ear. Cerumen partially removed manually with alligator forceps. Instill docusate oral liquid to ear and will attempt irrigation later. 09/16/17 Colonoscopy completed this afternoon with random biopsies and polypectomy. Diet resumed, will resume Lasix in a.m. Despite reports of recurrent nausea and vomiting patient was anxious to resume diet today and actively planning evening meal. Potassium supplemented this morning-reassess electrolytes/renal function in a.m. Blood pressure persistently elevated today, amlodipine will be added to regimen. CT chest yesterday showed moderate pleural effusions and mild pulmonary edema. Less anxious and monitored setting than she was on admission. Would likely benefit from psychiatric care if she would agree to it. 09/17/17 Colonoscopy completed this yesterday with random biopsies and polypectomy - path pending Diet resumed yesterday and tolerating well hypotensive today - orthostatic with SBP lying 105 and standing 77 -gave 250cc normal saline, pressure in 100's lying -check lactic acid, repeat h/h with csp yesterday (no overt signs of bleeding) -CXR with possible LLL infiltrate - will treat with ATBX due to WBC increased to 20 today -UA negative for infection -will give 1 liter of fluid and hold lasix -hold amlodipine Leukocytosis -receieved dexamethasone yesterday -plan as above Replace electrolytes Less anxious and monitored setting than she was on admission. Would likely benefit from psychiatric care if she would agree to it. 09/18/17 Colonoscopy completed this 09/16 with random biopsies and polypectomy - path pending hypotensive yesterday with orthostasis - orthostatic with SBP lying 105 and standing 77 -gave 500cc NS bolus and have had NS running at 80cc overnight - increased by night staff for low UOP -lactate was 4.1 yesterday and trended to 2 yesterday evening -treating for HCAP with LLL infiltrate with vanco and cefepime -UA negative for infection -blood pressure improved today back to 150's - will stop IVF -had held norvasc - may need to restart soon Leukocytosis -receieved dexamethasone 09/16 - trended from 20 yesterday to 13 today -plan as above -blood cultures pending since yesterday Creatinine to 3 today - likely due to hypotension yesterday. Recieved IVF. Stop today and monitor UOP and am labs. monitor vanco - can stop later today if cultures negative for 24 hours. May need lasix restarted today or tomorrow. Monitor magnesium level in the setting of SKY. Less anxious and monitored setting than she was on admission. Would likely benefit from psychiatric care if she would agree to it. 09/19/17 Colonoscopy completed 09/16 with random biopsies and polypectomy - tubular adenomas, tubulovillous adenomas and 1 biopsy with focal active colitis. Transient postprocedure hypotension, resolved with elevated blood pressures currently. Received fluid bolus Tuesday when hypotension identified and started on antibiotics after WBC/lactic acid/procalcitonin elevated. Vancomycin discontinued yesterday; blood cultures negative after 48 hours and repeat chest x-ray today without evidence of infiltrate but rather basilar atelectasis. Cefepime discontinued. Will continue Augmentin due to preceding nausea and vomiting and possible aspiration. Amlodipine resumed yesterday afternoon. Leukocytosis continues to improve-have confirmed the patient received 4 mg of dexamethasone per anesthesia on 09/16. Renal function has improved following IV fluids, approaching recent baseline. Magnesium remains low, oral supplement initiated. Blood sugars [id number] thus far today. Patient was scheduled for outpatient cardiology assessment today; discussed with Dr. Palomares who graciously agreed to see the patient while hospitalized. Anxiety well controlled with staff available to assist her. Anticipate discharge tomorrow if tolerates multiple changes being made today. Check orthostatic vital signs. LDH isoenzymes pending.
--- NOTE | 2017-09-19 17:08 | Consultation ---
DATE OF CONSULTATION 09/19/2017 Thank you very much for the consultation. As you know, Mrs. Chantelle Boles is a patient that I recently saw in my office for a third opinion with a very complex history of fluid retention as well as acute kidney injury. This time she presented with worsening shortness of breath as well as GI problems. While in the hospital she received some diuretics following which her renal function worsened and she became orthostatic. I was asked to see her today for further evaluation and care. The patient reports shortness of breath with exertion as well as worsening fluid retention. After diuresis she started feeling lightheaded and dizzy. There is no chest pain, PND, orthopnea or syncope. REVIEW OF SYSTEMS As above. PAST MEDICAL HISTORY Diastolic CHF. Sick sinus syndrome, status post pacemaker. Noncardiac chest pain with unremarkable cath. Diabetes. Dyslipidemia. Chronic kidney disease, followed by Dr. Ortega. PAST SURGICAL HISTORY Tubal ligation. Cyst removal. Pacemaker - Biotronik. SOCIAL HISTORY Nonsmoker. FAMILY HISTORY Positive for dementia, coronary artery disease, CVA, hypertension. ALLERGIES Multiple - please refer to list for that including IV dye, flu virus, morphine, eggs, codeine. PHYSICAL EXAM VITAL SIGNS: Stable. GENERAL APPEARANCE: Sleepy, follows commands. NECK: No distension or bruit. LUNGS: Bilateral basal reduced entry. CARDIOVASCULAR: Regular. No S3, S4, friction rub. ABDOMEN: Soft. EXTREMITIES: Trace edema. NEUROLOGIC: Grossly intact. SKIN: No rash. ASSESSMENT 1. Diastolic dysfunction with bilateral pleural effusion, status post diuresis with worsening renal function. 2. Acute kidney injury on chronic kidney disease. 3. Hypotension secondary to diuresis. 4. Possible pneumonia, on antibiotics. 5. Diarrhea with negative GI workup. 6. Sick sinus syndrome, status post permanent pacemaker implant, Biotronik, functioning well. PLAN 1. Cardiac-cary, I would await renal function improvement and blood pressure less or steady and resume low-dose diuretics. 2. We do need to exclude renal artery stenosis if not done. This can be addressed as an outpatient. 3. We will see her tomorrow for a followup visit. [place]
[2017-09-19] MEDS: MAGNESIUM OXIDE 400 MG TABLET PO SCH (20:57)
[2017-09-19] MEDS: LABETALOL 100 MG TABLET PO SCH (20:57)
[2017-09-19] MEDS: AMOX/CLAV 500 MG/125 MG TABLET PO SCH (20:57)
[2017-09-20] MEDS: SALINE FLUSH 10ml SYRINGE IVF PRN ×2 (03:45→12:53)
[2017-09-20] MEDS: OMEPRAZOLE 20 MG CAPSULE PO SCH (06:00)
[2017-09-20] MEDS: LEVOTHYROXINE 125 MCG TABLET PO SCH (06:00)
[2017-09-20] MEDS: CYANOCOBALAMIN (B-12) 500mcg TABLET PO SCH (09:25)
[2017-09-20] MEDS: MAGNESIUM OXIDE 400 MG TABLET PO SCH ×2 (09:25→20:34)
[2017-09-20] MEDS: AMOX/CLAV 500 MG/125 MG TABLET PO SCH ×2 (09:25→20:35)
[2017-09-20] MEDS: AMLODIPINE 10 MG TABLET PO SCH (09:25)
[2017-09-20] MEDS: LABETALOL 100 MG TABLET PO SCH ×2 (09:26→20:35)
[2017-09-20] MEDS: MAGNESIUM SULFATE 1gm PREMIX 1 GM/100 ML BAG IV SCH ×2 (10:10→11:37)
[2017-09-20] MEDS: METOCLOPRAMIDE 10mg/2ml INJECTION IVP PRN (13:47)
[2017-09-20] MEDS ORDERED: FUROSEMIDE 20 MG/2 ML INJECTION IVP ONE (13:54)
--- NOTE | 2017-09-20 14:36 | Progress Note ---
- Date 09/20/17 Subjective: Patient was seen this morning sitting in bed. She states she's having more abdominal pain today. She is unable to quantify it for me. States it is worse than yesterday but really cannot give me a number on a scale of 1-10. Having some nausea. No chest pain, no increasing shortness of breath. Seems more depressed today. Objective Vital signs: Temperature 97.2 F 09/20/17 07:05 Pulse Rate 82 09/20/17 07:11 Respiratory Rate 18 09/20/17 07:05 Blood Pressure 129/69 09/20/17 07:11 Pulse Oximetry 94 09/20/17 07:05 Rhythm: Normal Sinus Rhythm Height/Weight/BMI: Weight 76.4 kg - Constitutional Present: mild distress (appears to be in some pain), well nourished, well developed - Routine HEENT Exam Head: Present: normocephalic, atraumatic - Routine Respiratory Exam Present: CTA bilaterally. Absent: wheezes - Routine Cardiovascular Exam Present: RRR, no murmur - Routine Abdominal Exam Present: soft, normoactive bowel sounds, tenderness (diffuse over the entire abdomen and right flank), non distended - Routine Extremities Exam Present: edema (trace bilateral lower extremity), normal capillary refill - Routine Skin Exam Present: dry, warm - Routine Neurological Exam Present: alert, oriented X3 - Routine Lymphatic Exam Lymphatic: Absent: adenopathy - Routine Psychiatric Exam Present: depressed Results - Labs CBC & Chem 7: 09/20/17 03:49 09/20/17 03:49 Microbiology Results: Microbiology 09/17/17 13:33 Peripheral/Iv Start Blood Culture - Preliminary No Growth After 3 Days 09/17/17 13:27 Peripheral/Iv Start Blood Culture - Preliminary No Growth After 3 Days Assessment and Plan (1) Pleural effusion Current visit: No Status: Acute (2) CHF (congestive heart failure) Current visit: Yes Status: Acute Assessment and Plan: Assessment Sepsis - resolved HCAP, possible; versus aspiration pneumonitis Elevated LDH. Has doubled in the last month (696 on 08/14-->1307 on 09/15) - ?? etiology Pleural effusion, s/p thoracentesis by Dr. Hayes in the ER on 09/11/17 (path-no malignancy) Nausea and vomiting-question etiology Acute on chronic heart failure (BNP 18,500)-diastolic Acute kidney injury on CKD (creatinine 2.6 on admission) Hypernatremia (145)-POA-resolved Hypokalemia (3.4)-POA Hypocalcemia (8.2)-POA Hypomagnesemia-not POA Chronic health problems Type 2 diabetes mellitus. CKD Stage 4. (Likely due to diabetic nephropathy) Baseline creatinine 1.8. Diabetic nephropathy. Diabetic neuropathy. 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 Hyperlipidemia. Hypothyroidism. Depression. Migraine headaches. Plan Magnesium 1.3-oral supplement was initiated yesterday, 2 g given IV today. Omeprazole discontinued. Pepcid initiated. Patient was originally going to be discharged today, but developed vomiting this afternoon. Give Reglan for vomiting. Will keep her overnight. Start Miralax and metamucil for irritable bowel symptoms. Plan renal Doppler for tomorrow to rule out renal artery stenosis per Dr. Palomares. She'll need bowel prep for this. Resume Lasix 20 mg twice a day tomorrow. Her home dose was 40 mg twice a day. 20 mg Lasix IV given once today. She was started on vancomycin and cefepime 09/17 for possible HCAP. Vancomycin discontinued 09/18. Cefepime discontinued and Augmentin initiated 09/19 for possible aspiration pneumonia given her recent vomiting. Blood cultures negative after 3 days. Amlodipine 10 mg resumed 09/18. Will decrease this to 5 mg today to minimize fluid retention and increase her labetalol to 200 mg twice a day. (She has been taking 100 mg twice a day, home dose of 300 mg twice a day. ) Continue to monitor blood pressures, including orthostatics. Cardiology emphasizes BP control. Blood sugars remain stable. 116-176 over past 24 hours. LDH isoenzymes pending. DVT Prophylaxis: SCD's Resuscitation Status: Do Not Resuscitate - Physician Narrative Physician: Liz Back MD Narrative: Date: 09/20/17 Time: 1600 I have independently evaluated and examined this patient. I reviewed the chart, the patient's history, and the BUILDING [employer]/PA's documented findings as above. We discussed and formulated the assessment and plan as above with additions as below: Chantelle complained of a little nausea and abdominal pain, reported a small bowel movement earlier, poor appetite, and resolution of ear pain. Weight up after no diuretics, blood pressure variable Respirations nonlabored, breath sounds clear posteriorly although diminished at the bases Abdomen is soft, mild generalized tenderness, diminished bowel sounds Trace-+1 edema at the ankles Renal sonogram with Doppler obtained demonstrating unremarkable kidneys and no hemodynamically significant renal artery stenosis. Results of colonoscopy pathology discussed with Dr. Fuentes-he indicated patient will receive a letter from his office with results and recommendation for repeat colonoscopy in 3 years due to multiple polyps. Discussed with Dr. Harris-resume diuretics; will clarify with nephrology if Bumex may be more appropriate given degree of renal dysfunction. Dr. Gutierrez updated on findings as patient will come under his medical care 09/25. Hypomagnesemia likely due to PPI use. Hospital Course Summary Disclaimer: The visit summary below is not to be considered part of the above Progress Note. Hospital Course: 09/14/17 Admit, observation Lasix 40 mg given in ER. Chest x-ray in ER showed improving pleural effusion. Continue Lasix 40 IV daily until pt is able to keep po home dose of Lasix 40mg BID down. Monitor I's and O's. Check daily weights. Zofran for nausea. Protonix for GI prophylaxis and for nausea and vomiting. Labetolol 10mg IV for sBP > 180. SCDs for DVT prophylaxis. CODE STATUS-DO NOT RESUSCITATE. Care to return to Dr. Moreira upon dismissal. Case discussed with Dr. Back. Home meds on hold d/t n/v. 09/15/17 Continue clear liquids. Consult Dr. Fuentes for colonoscopy given her ongoing diarrhea, abdominal pain, n/v. She did have positive Hemoccult 09/12 in ER. Check Hemoccult with next stool. Hemoglobin has been as low as 8.1 over the past year. Highest reading was 13.1 in August 2016. Yesterday 10.3, today 9.5. Anemia studies performed July 2017 consistent with iron deficiency anemia. B12 borderline low and folate normal. Check urinalysis given her dysuria and incontinence. CT chest performed showing moderate pleural effusions and mild pulmonary edema. She does have an increased number of small mediastinal nodes but this is unchanged from the previous study on 08/02/17. New c/o L ear pain. Cerumen impaction L ear. Cerumen partially removed manually with alligator forceps. Instill docusate oral liquid to ear and will attempt irrigation later. 09/16/17 Colonoscopy completed this afternoon with random biopsies and polypectomy. Diet resumed, will resume Lasix in a.m. Despite reports of recurrent nausea and vomiting patient was anxious to resume diet today and actively planning evening meal. Potassium supplemented this morning-reassess electrolytes/renal function in a.m. Blood pressure persistently elevated today, amlodipine will be added to regimen. CT chest yesterday showed moderate pleural effusions and mild pulmonary edema. Less anxious and monitored setting than she was on admission. Would likely benefit from psychiatric care if she would agree to it. 09/17/17 Colonoscopy completed this yesterday with random biopsies and polypectomy - path pending Diet resumed yesterday and tolerating well hypotensive today - orthostatic with SBP lying 105 and standing 77 -gave 250cc normal saline, pressure in 100's lying -check lactic acid, repeat h/h with csp yesterday (no overt signs of bleeding) -CXR with possible LLL infiltrate - will treat with ATBX due to WBC increased to 20 today -UA negative for infection -will give 1 liter of fluid and hold lasix -hold amlodipine Leukocytosis -received dexamethasone yesterday -plan as above Replace electrolytes Less anxious and monitored setting than she was on admission. Would likely benefit from psychiatric care if she would agree to it. 09/18/17 Colonoscopy completed this 09/16 with random biopsies and polypectomy - path pending hypotensive yesterday with orthostasis - orthostatic with SBP lying 105 and standing 77 -gave 500cc NS bolus and have had NS running at 80cc overnight - increased by night staff for low UOP -lactate was 4.1 yesterday and trended to 2 yesterday evening -treating for HCAP with LLL infiltrate with vanco and cefepime -UA negative for infection -blood pressure improved today back to 150's - will stop IVF -had held norvasc - may need to restart soon Leukocytosis -receieved dexamethasone 09/16 - trended from 20 yesterday to 13 today -plan as above -blood cultures pending since yesterday Creatinine to 3 today - likely due to hypotension yesterday. Recieved IVF. Stop today and monitor UOP and am labs. monitor vanco - can stop later today if cultures negative for 24 hours. May need lasix restarted today or tomorrow. Monitor magnesium level in the setting of SKY. Less anxious and monitored setting than she was on admission. Would likely benefit from psychiatric care if she would agree to it. 09/19/17 Colonoscopy completed 09/16 with random biopsies and polypectomy - tubular adenomas, tubulovillous adenomas and 1 biopsy with focal active colitis. Transient postprocedure hypotension, resolved with elevated blood pressures currently. Received fluid bolus Tuesday when hypotension identified and started on antibiotics after WBC/lactic acid/procalcitonin elevated. Vancomycin discontinued yesterday; blood cultures negative after 48 hours and repeat chest x-ray today without evidence of infiltrate but rather basilar atelectasis. Cefepime discontinued. Will continue Augmentin due to preceding nausea and vomiting and possible aspiration. Amlodipine resumed yesterday afternoon. Leukocytosis continues to improve-have confirmed the patient received 4 mg of dexamethasone per anesthesia on 09/16. Renal function has improved following IV fluids, approaching recent baseline. Magnesium remains low, oral supplement initiated. Blood sugars [id number] thus far today. Patient was scheduled for outpatient cardiology assessment today; discussed with Dr. Palomares who graciously agreed to see the patient while hospitalized. Anxiety well controlled with staff available to assist her. Anticipate discharge tomorrow if tolerates multiple changes being made today. Check orthostatic vital signs. LDH isoenzymes pending. 09/20/17 Magnesium 1.3-oral supplement was initiated yesterday, 2 g given IV today. Omeprazole discontinued. Pepcid initiated. Patient was originally going to be discharged today, but developed vomiting this afternoon. Give Reglan for vomiting. Will keep her overnight. Start Miralax or metamucil for irritable bowel syndrome/diverticulosis. Plan renal Doppler for tomorrow to rule out renal artery stenosis per Dr. Palomares. Resume Lasix 20 mg twice a day tomorrow. Her home dose was 40 mg twice a day. 20 mg Lasix IV given once today. She was started on vancomycin and cefepime 09/17 for possible HCAP. Vancomycin discontinued 09/18. Cefepime discontinued and Augmentin initiated 09/19 for possible aspiration pneumonia given her recent vomiting. Blood cultures negative after 3 days. Amlodipine 10 mg resumed 09/18. Will decrease this to 5 mg today to minimize fluid retention and increase her labetalol to 200 mg twice a day. (She has been taking 100 mg twice a day, home dose of 300 mg twice a day.) Continue to monitor blood pressures, including orthostatics. Cardiology emphasizes BP control. Blood sugars remain stable. 116-176 over past 24 hours. LDH isoenzymes pending.
--- NOTE | 2017-09-20 15:03 | Ultrasound Report ---
Indication: worsening renal function PROCEDURE: US renal doppler: Encounter: Initial Comparison: None Technique: Grayscale and color Doppler sonographic imaging of both kidneys was performed with duplex evaluation of the renal arteries. Findings: Scans of the kidneys demonstrate normal morphology. The right kidney measures 10.9 cm in length. The left kidney measures 11.5 cm in length. There is no collecting system dilatation, contour deforming mass, nephrolithiasis, or abnormal perinephric fluid collection. Color Doppler imaging demonstrates normal vascularization. Resistive indices from the intrarenal arteries in the upper, middle, and lower portions of the right kidney are normal. Resistive indices from the intrarenal arteries in the upper and lower portions of the left kidney are normal. Mild elevation of the resistive index in the left mid segmental arteries at 0.81, which is nonspecific and is most often due to medical renal disease. Arterial waveforms are normal. Impression: No evidence of hemodynamically significant renal arterial stenosis. .
[2017-09-21] MEDS: LEVOTHYROXINE 125 MCG TABLET PO SCH (06:40)
[2017-09-21] MEDS ORDERED: FUROSEMIDE 20 MG TABLET PO SCH ×2 (07:00→09:00)
[2017-09-21 07:48] VITALS: BP 130/66; PULSE 80; RESP 18; TEMP 98.3; O2SAT 94
[2017-09-21] MEDS ORDERED: FAMOTIDINE 20 MG TABLET PO SCH (09:00)
[2017-09-21] MEDS ORDERED: AMLODIPINE 5 MG TABLET PO SCH (09:00)
[2017-09-21] MEDS ORDERED: PSYLLIUM PACKET PO SCH (09:00)
[2017-09-21] MEDS ORDERED: POLYETHYL GLYCOL 3350 17gm PACKET PO SCH (09:00)
[2017-09-21] MEDS: AMOX/CLAV 500 MG/125 MG TABLET PO SCH (09:20)
[2017-09-21] MEDS: LABETALOL 100 MG TABLET PO SCH (09:21)
[2017-09-21] MEDS: CYANOCOBALAMIN (B-12) 500mcg TABLET PO SCH (09:23)
[2017-09-21] MEDS: MAGNESIUM OXIDE 400 MG TABLET PO SCH (09:29)
--- NOTE | 2017-09-21 10:06 | Discharge Summary ---
Discharge Information Date of admission: 09/15/17 17:37 Anticipated date of discharge: 09/21/17 Attending Physician: Jennifer Main MD Primary care physician: Keegan Moreira DO Consults: Consulting Provider: Peyman Palomares H - Discharge Diagnosis (1) Pleural effusion Status: Acute (2) CHF (congestive heart failure) Status: Acute Sepsis - resolved HCAP, possible; versus aspiration pneumonitis Elevated LDH. Has doubled in the last month (696 on 08/14-->1307 on 09/15) - ?? etiology Pleural effusion, s/p thoracentesis by Dr. Hayes in the ER on 09/11/17 (path-no malignancy) Nausea and vomiting-question etiology Acute on chronic heart failure (BNP 18,500)-diastolic Acute kidney injury on CKD (creatinine 2.6 on admission) Hypernatremia (145)-POA-resolved Hypokalemia (3.4)-POA Hypocalcemia (8.2)-POA Hypomagnesemia-not POA Chronic health problems Type 2 diabetes mellitus. CKD Stage 4. (Likely due to diabetic nephropathy) Baseline creatinine 1.8. Diabetic nephropathy. Diabetic neuropathy. 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 Hyperlipidemia. Hypothyroidism. Depression. Migraine headaches. - Procedures Procedures: DATE OF SERVICE 09/16/2017 SURGEON Jose Enrique Fuentes MD PREOPERATIVE DIAGNOSIS Personal history for change in bowel habits, diarrhea, history for anemia. POSTOPERATIVE DIAGNOSIS Personal history for change in bowel habits, diarrhea, history for anemia, sigmoid diverticulosis, colonic polyps x2 at 40 cm from the anal verge, x1 at hepatic flexure, x1 at proximal ascending colon, x1 at distal ascending colon. PROCEDURE Colonoscopy with polypectomies via cold biopsy technique and snare polypectomy technique, random biopsies throughout colon via cold biopsy technique. BRIEF HISTORY/INDICATIONS Mrs. Boles is a 62-year-old female whom I was asked to see as a result of her history for diarrhea and the finding of anemia upon laboratory evaluation. Patient had underwent an EGD in the not too distant past. It was recommended that she undergo a colonoscopy for further evaluation. For completeness please refer to notes included in the patient's chart. FINDINGS Upon colonoscopy the patient was found to have numerous diverticula within the sigmoid colon region. There was no evidence for angiodysplastic lesions or sean malignancies. The mucosa was normal with no suggestion for colitis. Nonetheless given her history for increasing diarrhea, I elected to proceed with random biopsies throughout the entire colon via cold biopsy technique to rule in or rule out the process of microscopic/collagenous colitis. The patient was found to have several colonic polyps which ranged on the order from about 5 mm up to a centimeter in dimension. Each polyp was removed in its entirety either a cold biopsy technique or snare polypectomy technique and submitted for pathologic evaluation. DESCRIPTION OF PROCEDURE After informed consent was obtained, patient was brought to the endoscopy suite and placed on the table in left lateral decubitus position. Formal time-out was then completed. Next a digital rectal examination was performed. Normal sphincter tone. No rectal masses were appreciated. An Olympus colonoscope was inserted in the anus and advanced through the lumen of the colon under direct visualization at all times until the cecum was ascertained. Triangulation of the teniae coli, ileocecal valve and appendiceal lumen were all visualized. Scope was then slowly withdrawn. Within the proximal ascending colon, the patient was found to have a polyp on the order of about a centimeter in dimension. Polyp was transected in its entirety via snare polypectomy technique and suctioned into a colonic trap and submitted for pathologic evaluation. Scope was withdrawn back into the distal ascending colon where an additional polyp that was on the order of about 8 mm to 1 cm in dimension was identified and removed in its entirety via snare polypectomy technique and suctioned into a colonic trap as well and submitted in a separate container. Scope was then continued to be withdrawn back to the hepatic flexure where the patient was found to have a polyp on the order of about 5-6 mm in diameter which was grasped and removed in its entirety via cold biopsy technique and submitted for pathologic evaluation. Scope was then continued to be withdrawn where two additional synchronous polyps were identified at 40 cm from the anal verge that were on the order of about 7-8 mm in diameter and were removed in their entirety via snare polypectomy technique and suctioned into a colonic trap and placed within a single container. Additionally as the scope was withdrawn from the ascending, transverse colon, descending colon and rectum, multiple biopsies were obtained via cold biopsy technique and placed all within the same container and labeled as random biopsies. The patient was found to have numerous diverticula within the sigmoid colon region. There was no evidence for ulcerations or erythema of the mucosa to suggest underlying colitis. There was no evidence for angiodysplastic lesions or sean malignancies. Once the colonoscope was withdrawn back to the rectal vault a J- maneuver was then performed. No worrisome perianal pathology was noted. Scope was allowed to straighten and withdrawn through the anal verge. The patient tolerated the procedure without difficulty and was sent back to the preop area in stable condition. Will await the biopsy results from today's colonoscopy and will proceed accordingly with further recommendations thereafter. - Laboratory Labs: Laboratory Tests 09/21/17 09/21/17 04:16 04:16 WBC 9.0 RBC 3.08 L Hgb 9.1 L Hct 27.5 L MCV 89.3 MCH 29.5 MCHC 33.1 RDW Std Deviation 48.4 Plt Count 164 Sodium 141 Potassium 4.3 Chloride 109 H Carbon Dioxide 23 Anion Gap 9 BUN 33.0 H Creatinine 2.0 H D GFR Calculation 25 Glucose 105 Calculated Osmolality 278 Calcium 8.1 L AST 24 ALT 11 Alkaline Phosphatase 87 Total Protein 6.1 L Albumin 3.0 L Globulin 3.1 Laboratory Tests 08/14/17 09/15/17 09/21/17 10:00 05:00 04:16 Lactate Dehydrogenase 696 H 1307 H 660 H Laboratory Tests 09/14/17 09/18/17 09/21/17 13:20 04:58 04:16 Creatinine 2.6 H D 3.0 H D 2.0 H D Laboratory Tests 09/16/17 04:44 Lactate Dehydrogenase 325 H LD 1 25.0 LD 2 36.9 H LD 3 21.2 LD 4 8.7 L LD 5 8.2 Laboratory Tests 09/14/17 09/17/17 09/21/17 13:20 04:09 04:16 WBC 9.2 20.3 H D 9.0 Laboratory Tests 09/16/17 09/16/17 04:52 04:52 Absolute Retic 0.0662 Percent Retic 2.1 H Immature Retic Fraction 2.7 L Retic Hgb Content CHr 34.5 Haptoglobin 43 Laboratory Tests 09/15/17 09/17/17 09/20/17 05:00 04:09 03:49 Magnesium 1.2 L 1.3 L 1.3 L Laboratory Tests 09/14/17 13:20 NT-Pro-B Natriuret Pep [id number] H - Microbiology Microbiology 09/17/17 13:33 Peripheral/Iv Start Blood Culture - Preliminary No Growth After 3 Days 09/17/17 13:27 Peripheral/Iv Start Blood Culture - Preliminary No Growth After 3 Days - Radiology Radiology: Date of Exam: 09/20/17 Indication: worsening renal function PROCEDURE: US renal doppler: Findings: Scans of the kidneys demonstrate normal morphology. The right kidney measures 10.9 cm in length. The left kidney measures 11.5 cm in length. There is no collecting system dilatation, contour deforming mass, nephrolithiasis, or abnormal perinephric fluid collection. Color Doppler imaging demonstrates normal vascularization. Resistive indices from the intrarenal arteries in the upper, middle, and lower portions of the right kidney are normal. Resistive indices from the intrarenal arteries in the upper and lower portions of the left kidney are normal. Mild elevation of the resistive index in the left mid segmental arteries at 0.81, which is nonspecific and is most often due to medical renal disease. Arterial waveforms are normal. Impression: No evidence of hemodynamically significant renal arterial stenosis. Date of Exam: 09/19/17 Indication: pleural effusions/?HCAP PROCEDURE: XR chest 2V: Findings: There is bibasilar atelectasis with probable small right greater than left pleural effusions, similar to prior slightly improved from prior study. As a left subclavian dual-lead pacemaker in place, unchanged. The exam is slightly hypoventilatory. Trachea is midline. No pneumothorax. No subdiaphragmatic free air. There is moderate calcification of the transverse thoracic aorta. Impression: Bilateral pleural effusions with bibasilar atelectasis and overall expiratory technique, with interval improvement in the left basilar atelectasis and pleural effusion.. = = = = = = = = = = = = = = = = = = = = = = = = = = = = = = = = = = = = = = = = = = = = = = = = = = = = = = = = = = = Date of Exam: 09/17/17 Indication: elevated lactate, colonoscopy yesterday, abd pain PROCEDURE: XR KUB: Findings: The visualized lung bases are small right effusion. The bowel gas pattern is nonobstructive and nonspecific. Gas is seen in nondilated small and large bowel to the level of the rectum. Moderate stool is seen throughout the colon. Impression: Nonobstructive nonspecific bowel gas pattern. = = = = = = = = = = = = = = = = = = = = = = = = = = = = = = = = = = = = = = = = = = = = = = = = = = = = = = = = = = = Date of Exam: 09/15/17 Indication: pleural effusion, LDH elevation, dyspnea PROCEDURE: CT chest wo con: Findings: Moderate bilateral pleural effusions with compressive atelectasis of the lower lobes. Mild pulmonary edema again noted. No pneumothorax. The central airways are patent. No axillary adenopathy. Increased number of small mediastinal nodes could be reactive and is unchanged from the prior study. Small pericardial effusion. The upper abdomen shows small volume ascites. Impression: Moderate pleural effusions and mild pulmonary edema. Date of Exam: 09/07/17 Indication: low abd pain with rebounding R>L, APPY VS DIVERTICULITIS PROCEDURE: CT abdomen pelvis w con: Findings: Moderate bilateral pleural effusions with lower lobe compressive atelectasis. Heart is enlarged. Ascites noted. The liver shows mild periportal edema. No enhancing mass. The gallbladder is unremarkable. The spleen, pancreas and adrenal glands are normal. The kidneys are normal. No abdominal or pelvic lymphadenopathy. Bladder is grossly normal. Uterus is unremarkable. No bowel obstruction. No significant diverticulosis or evidence of acute diverticulitis. The appendix appears normal. Bone windows show no acute findings. Impression: 1. Pleural effusions and ascites could represent volume overload, cardiac, renal or hepatic insufficiency. 2. No CT evidence of acute diverticulitis or appendicitis. 3. Lower lobe atelectasis versus pneumonia. 4. The colon is mostly collapsed on the left side limiting evaluation. The preliminary report suggests a possible colitis which cannot be entirely excluded. - Pathology Pathology from colonoscopy-09/16/17 Distal ascending colon polyp: 2 fragments of tubular adenoma Proximal ascending colon polyp: One fragment of tubular villous adenoma, and 2 fragments of colonic mucosa without pathologic change Random colon biopsies: Multiple fragments of colonic mucosa, one showing focal active colitis and only one level. Hepatic flexure polyp: 1 tubular adenoma, completely excised, and 2 fragments of unremarkable colonic mucosa Colon polyp 2 at 40 cm: Tubular adenoma 2 No evidence of high-grade dysplasia or malignancy. Dr. Fuentes recommends repeat colonoscopy in 3 years. History of Present Illness HPI: Patient is a 62-year-old female well known to the hospitalist service from previous admissions. She presents to the ER today because she "didn't want to get as bad as I did last time." Patient was seen 09/07/17 in the emergency room for symptoms of nausea and vomiting. She was given Compazine, IV fluids and diagnosed with a viral colitis based on CT scan. She was dismissed home and returned to ER on 09/11/17 with shortness of breath. She was found to have large pleural effusions (right greater than left) and thoracentesis was performed with removal of 1800 mL of fluid from the pleural space by Dr. Hayes, improving her dyspnea. The following day she reported back to the emergency room complaining her shortness of air had increased that day. Repeat chest x- ray was performed showing improvement from previous. At the time of her dismissal, her shortness of air had improved and she was dismissed to home to follow-up with her PCP. Today she reports that she notices a "gurgling" when she exhales. She is obviously anxious, she becomes tearful saying that Dr. Hayes told her that had she not come in when she did last time, but she may have . She is frustrated that she does not know what the results of her thoracentesis are what is causing her ongoing problems. She continues to have nausea and vomiting. She states she started vomiting last night after she ate supper at 5:00. She's vomited 5 times. Has not had anything to eat or drink today. States she has been taking her medications routinely other than today due to the nausea/vomiting. Objective Vital signs: Temperature 98.3 F 09/21/17 07:42 Pulse Rate 80 09/21/17 07:47 Respiratory Rate 18 09/21/17 07:42 Blood Pressure 130/66 09/21/17 07:47 Pulse Oximetry 94 09/21/17 07:47 Rhythm: Normal Sinus Rhythm Height/Weight/BMI: Weight 76.5 kg - Constitutional Present: no acute distress, well nourished, well developed - Routine HEENT Exam Head: Present: normocephalic, atraumatic - Routine Respiratory Exam Present: CTA bilaterally. Absent: wheezes - Routine Cardiovascular Exam Present: RRR, no murmur - Routine Abdominal Exam Present: soft, non distended, non tender - Routine Extremities Exam Present: edema (tr b/l), normal capillary refill - Routine Skin Exam Present: dry, warm - Routine Neurological Exam Present: alert, oriented X3 - Routine Lymphatic Exam Lymphatic: Absent: adenopathy - Routine Psychiatric Exam Present: cooperative, depressed Hospital Course This is a general summary of the patient's hospital course. For more details refer to the complete medical record. Hospital course: 09/14/17 Admit, observation Lasix 40 mg given in ER. Chest x-ray in ER showed improving pleural effusion. Continue Lasix 40 IV daily until pt is able to keep po home dose of Lasix 40mg BID down. Monitor I's and O's. Check daily weights. Zofran for nausea. Protonix for GI prophylaxis and for nausea and vomiting. Labetolol 10mg IV for sBP > 180. SCDs for DVT prophylaxis. CODE STATUS-DO NOT RESUSCITATE. Care to return to Dr. Moreira upon dismissal. Case discussed with Dr. Back. Home meds on hold d/t n/v. 09/15/17 Continue clear liquids. Consult Dr. Fuentes for colonoscopy given her ongoing diarrhea, abdominal pain, n/v. She did have positive Hemoccult 09/12 in ER. Check Hemoccult with next stool. Hemoglobin has been as low as 8.1 over the past year. Highest reading was 13.1 in August 2016. Yesterday 10.3, today 9.5. Anemia studies performed July 2017 consistent with iron deficiency anemia. B12 borderline low and folate normal. Check urinalysis given her dysuria and incontinence. CT chest performed showing moderate pleural effusions and mild pulmonary edema. She does have an increased number of small mediastinal nodes but this is unchanged from the previous study on 08/02/17. New c/o L ear pain. Cerumen impaction L ear. Cerumen partially removed manually with alligator forceps. Instill docusate oral liquid to ear and will attempt irrigation later. 09/16/17 Colonoscopy completed this afternoon with random biopsies and polypectomy. Diet resumed, will resume Lasix in a.m. Despite reports of recurrent nausea and vomiting patient was anxious to resume diet today and actively planning evening meal. Potassium supplemented this morning-reassess electrolytes/renal function in a.m. Blood pressure persistently elevated today, amlodipine will be added to regimen. CT chest yesterday showed moderate pleural effusions and mild pulmonary edema. Less anxious and monitored setting than she was on admission. Would likely benefit from psychiatric care if she would agree to it. 09/17/17 Colonoscopy completed this yesterday with random biopsies and polypectomy - path pending Diet resumed yesterday and tolerating well hypotensive today - orthostatic with SBP lying 105 and standing 77 -gave 250cc normal saline, pressure in 100's lying -check lactic acid, repeat h/h with csp yesterday (no overt signs of bleeding) -CXR with possible LLL infiltrate - will treat with ATBX due to WBC increased to 20 today -UA negative for infection -will give 1 liter of fluid and hold lasix -hold amlodipine Leukocytosis -received dexamethasone yesterday -plan as above Replace electrolytes Less anxious and monitored setting than she was on admission. Would likely benefit from psychiatric care if she would agree to it. 09/18/17 Colonoscopy completed this 09/16 with random biopsies and polypectomy - path pending hypotensive yesterday with orthostasis - orthostatic with SBP lying 105 and standing 77 -gave 500cc NS bolus and have had NS running at 80cc overnight - increased by night staff for low UOP -lactate was 4.1 yesterday and trended to 2 yesterday evening -treating for HCAP with LLL infiltrate with vanco and cefepime -UA negative for infection -blood pressure improved today back to 150's - will stop IVF -had held norvasc - may need to restart soon Leukocytosis -receieved dexamethasone 09/16 - trended from 20 yesterday to 13 today -plan as above -blood cultures pending since yesterday Creatinine to 3 today - likely due to hypotension yesterday. Recieved IVF. Stop today and monitor UOP and am labs. monitor vanco - can stop later today if cultures negative for 24 hours. May need lasix restarted today or tomorrow. Monitor magnesium level in the setting of SKY. Less anxious and monitored setting than she was on admission. Would likely benefit from psychiatric care if she would agree to it. 09/19/17 Colonoscopy completed 09/16 with random biopsies and polypectomy - tubular adenomas, tubulovillous adenomas and 1 biopsy with focal active colitis. Transient postprocedure hypotension, resolved with elevated blood pressures currently. Received fluid bolus Tuesday when hypotension identified and started on antibiotics after WBC/lactic acid/procalcitonin elevated. Vancomycin discontinued yesterday; blood cultures negative after 48 hours and repeat chest x-ray today without evidence of infiltrate but rather basilar atelectasis. Cefepime discontinued. Will continue Augmentin due to preceding nausea and vomiting and possible aspiration. Amlodipine resumed yesterday afternoon. Leukocytosis continues to improve-have confirmed the patient received 4 mg of dexamethasone per anesthesia on 09/16. Renal function has improved following IV fluids, approaching recent baseline. Magnesium remains low, oral supplement initiated. Blood sugars [id number] thus far today. Patient was scheduled for outpatient cardiology assessment today; discussed with Dr. Palomares who graciously agreed to see the patient while hospitalized. Anxiety well controlled with staff available to assist her. Anticipate discharge tomorrow if tolerates multiple changes being made today. Check orthostatic vital signs. LDH isoenzymes pending. 09/20/17 Magnesium 1.3-oral supplement was initiated yesterday, 2 g given IV today. Omeprazole discontinued. Pepcid initiated. Patient was originally going to be discharged today, but developed vomiting this afternoon. Give Reglan for vomiting. Will keep her overnight. Start Miralax or metamucil for irritable bowel syndrome/diverticulosis. Plan renal Doppler for tomorrow to rule out renal artery stenosis per Dr. Palomares. Resume Lasix 20 mg twice a day tomorrow. Her home dose was 40 mg twice a day. 20 mg Lasix IV given once today. She was started on vancomycin and cefepime 09/17 for possible HCAP. Vancomycin discontinued 09/18. Cefepime discontinued and Augmentin initiated 09/19 for possible aspiration pneumonia given her recent vomiting. Blood cultures negative after 3 days. Amlodipine 10 mg resumed 09/18. Will decrease this to 5 mg today to minimize fluid retention and increase her labetalol to 200 mg twice a day. (She has been taking 100 mg twice a day, home dose of 300 mg twice a day.) Continue to monitor blood pressures, including orthostatics. Cardiology emphasizes BP control. Blood sugars remain stable. 116-176 over past 24 hours. LDH isoenzymes - + Type 2 09/21/17 Patient is stable to be discharged home with home health today. Patient has informed me that she talked with Dr. Braswell today and she will now not be accepted into the [facility] until October 25. I spoke with Dr. Gutierrez and he states that if patient has any medical issues that change the care plan within 2 weeks of acceptance, the paperwork has to be repeated and patient has to be re-accepted; thus, they will not be able to accept her until October 25, assuming she is medically stable for the last half of September. Patient is to follow-up with Dr. Moreira later this week with labs. If she doesn' t already have follow-up appointments with Dr. Ortega and her director of fundraising, she was instructed to make these appointments. She has had 5 days of antibiotics for possible pneumonia. Will not continue antibiotics further as it is not clear that she truly had bacterial infection. Time spent with patient: discharge greater than 30 minutes Resuscitation Status: Do Not Resuscitate Discharge Plan - Discharge Disposition Discharge Date: 09/20/17 Disposition: 86 Home [facility] Service *Condition: Stable Reason For Visit (Visit label in EMR): CHF,diarrhea,anemia,chronic renal failure - Discharge Medications *Discharge Medications: New Famotidine [Pepcid] 20 mg PO DAILY tab Labetalol [Normodyne] 200 mg PO BID #60 tab PEG 3350 17gm PACKET [Miralax] 17 gm PO DAILY packet Potassium Chloride [K-DUR 20 mEq Tablet] 20 meq PO DAILY #30 tab Psyllium [Metamucil] 1 packet PO DAILY packet Furosemide [Lasix 40 mg Tab] 1 tab PO DAILY #30 tab Acetaminophen [Tylenol] 650 mg PO Q5H PRN tab PRN Reason: Discomfort Amlodipine [Norvasc] 5 mg PO DAILY tab Magnesium Oxide [Magox] 800 mg PO BID #60 tab Continue Cyanocobalamin (Vitamin B-12) [Vitamin B-12] 2,500 mcg PO DAILY Levothyroxine Sodium 125 mcg PO ACB Albuterol HFA Inhaler [Ventolin Hfa 90 mcg/actuation] 1 puff INH DAILY #1 box Discontinued Labetalol HCl 300 mg PO BID Furosemide [Lasix 40 mg Tab] 40 mg PO BIDBS Amlodipine [Norvasc] 10 mg PO DAILY tab Omeprazole [Prilosec] 20 mg PO ACB - Discharge Packet/Instructions *Diet: Regular diet *Activity: As tolerated *Pain Management/Treatment: n/a *Wound Care: n/a Additional Instructions: If you don't already have scheduled follow up appointments with Dr. Ortega and your new director of fundraising, please call their offices to set up a follow up appointment. *Notify Physician if: you become significantly short of breath, develop fever or have ongoing vomiting *During Business Hours Contact: Dr. Moreira's office *After Business Hours Contact: [facility] [phone] *Pending Lab/Results: No Pending Lab - Referrals/Follow Up *Referrals/Follow Up: Keegan Moreira DO [Family Provider] - ([facility]. food and beverage order clerk/nurse to schedule. APPOINTMENT ON 09/23 AT 9:30.) - Patient Handouts Patient Handouts: [facility] Congestive Heart Failure, Chronic Kidney Disease (IP) - Dismissal Complete Discharge Instructions are:: Complete Physician Narrative - Narrative Attestation Narrative: Date: 09/21/17 Time: 1300 Patient was seen and examined independently. I agree with above documentation. Patient states she is ready for discharge today. Discussed all options with case management and patient. Patient plans to start [facility] soon. She will go home with home health at this time. She was alert, oriented and feeling well on exam this am. She has not had any more vomiting. Plan to discharge home.
--- NOTE | 2017-09-22 13:50 | Right on Track Program ---
Right on Track Program Date of Discharge: 09/21/17 Home Medications: Home Medications Medication Instructions Recorded Confirmed Cyanocobalamin (Vitamin B-12) 2,500 mcg PO DAILY 09/14/17 09/14/17 [Vitamin B-12] Levothyroxine Sodium 125 mcg PO ACB 09/14/17 09/14/17 Previous Rx's Medication Instructions Recorded Albuterol HFA Inhaler [Ventolin 1 puff INH DAILY #1 box 09/11/17 Hfa 90 mcg/actuation] Acetaminophen [Tylenol] 650 mg PO Q5H PRN tab 09/21/17 Amlodipine [Norvasc] 5 mg PO DAILY tab 09/21/17 Famotidine [Pepcid] 20 mg PO DAILY tab 09/21/17 Furosemide [Lasix 40 mg Tab] 1 tab PO DAILY #30 tab 09/21/17 Labetalol [Normodyne] 200 mg PO BID #60 tab 09/21/17 Magnesium Oxide [Magox] 800 mg PO BID #60 tab 09/21/17 PEG 3350 17gm PACKET [Miralax] 17 gm PO DAILY packet 09/21/17 Potassium Chloride [K-DUR 20 mEq 20 meq PO DAILY #30 tab 09/21/17 Tablet] Psyllium [Metamucil] 1 packet PO DAILY packet 09/21/17 - Right on Track Program 24 hour phone call Date: 09/22/17 Right on Track Program: 24 Hour Follow-Up Discharge Summary Received: Yes Care Plan Received: Yes Follow Up: Follow Up Appointment Scheduled (09/[address] Moreira) Education: Diagnosis Education Reviewed Referral: Primary Care Physician, Home Health Comments: I spoke with Chantelle on 09/22/17. She hasn't had any major problems since being discharged from the hospital yesterday. She was confused about antibiotics, and didn't realize that her course was completed in the hospital. She denied any questions about her instructions/medications, and I reviewed why her BP meds were changed (Norvasc reduced and labetalol increased). Her ankles are still swollen and she states that her BP is high (systolic was 150 mm Hg). Home Health has already been out to assess her. She isn't sure when her appt with Dr. Moreira is, but in the discharge summary it was scheduled for 3/30. She agrees with a home visit through [facility]. Recommendations For Follow-up: DISCHARGE DIAGNOSES Sepsis - resolved HCAP, possible; versus aspiration pneumonitis Elevated LDH. Has doubled in the last month (696 on 08/14-->1307 on 09/15) - ?? etiology Pleural effusion, s/p thoracentesis by Dr. Hayes in the ER on 09/11/17 (path-no malignancy) Nausea and vomiting-question etiology Acute on chronic heart failure (BNP 18,500)-diastolic Acute kidney injury on CKD (creatinine 2.6 on admission) Hypernatremia (145)-POA-resolved Hypokalemia (3.4)-POA Hypocalcemia (8.2)-POA Hypomagnesemia-not POA Chronic health problems Type 2 diabetes mellitus. CKD Stage 4. (Likely due to diabetic nephropathy) Baseline creatinine 1.8. Diabetic nephropathy. Diabetic neuropathy. 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 Hyperlipidemia. Hypothyroidism. Depression. Migraine headaches. 1. Encouraged [facility] to [facility] to verify appt date/time. 2. Continue HH. 3. Will make [facility] home visit on 10/04/17. Home visit Date: 10/04/17 Right on Track Program: 7-14 Day [facility] Discharge Summary Received: Yes Care Plan Received: Yes Follow Up: Follow Up Appointment Scheduled Education: Diagnosis Education Reviewed Referral: Social Work, Primary Care Physician, Home Health Comments: I visited Chantelle at her apartment on 10/04/17. She was waiting for me in the lobby , in a wheelchair. She states that she has good days and bad days, and today is a bad day. She is short of breath today and has a cough but denies fever. She endorses postnasal drip. She has not had any chest pain. She has frequent nausea /vomiting, and if she's not vomiting, it's diarrhea. She tries to do some walking in her apartment every day, and uses the incentive spirometer from the hospital. She has a very depressed affect and teared up on a couple occasions while discussing how poorly she feels. On a scale of 1-5, with 1 being excellent quality of life and 5 being very poor, she rates her quality of life as a 6. She has difficulty understanding why no one can find out what's wrong with her -- this gave us an opportunity to discuss her multiple interrelated chronic conditions. She is weak and tired, and uses the wheelchair for ambulation when she's outside of her small, unkept apartment. There was a strong scent of burnt food in the air. She stated that her Home Health RN told her not to continue eating the microwave dinners b/c they are too high in sodium. Today, she tried putting a can of something (her vision was too poor to see what it was -- I identified it as tuna) and frozen vegetables together on the stovetop, but ending up burning the dish. She was only able to eat a few bites, which was ok b/c she was still nauseated from the morning. She feels nauseated every morning after taking her pills, and vomits frequently. Sometimes she vomits blood, which appears a medium red color. The nausea and vomiting always starts after taking her morning pills. Her daughter thoughtfully arranges her pills for her in AM-PM pill box, b/c Chantelle can't see the labels well enough to read them. She knows that she needs to take her thyroid pill on an empty stomach, so she just takes all of her morning meds at that time, including K-dur, Lasix, labetalol, and amlodipine. Also, as medications were reviewed, a discrepancy was noted on the Synthroid dose -- per hospital records she should be on 125 mcg daily, but her home bottle said 25 mcg , AND she was breaking them in half. She didn't know if the dose was recently changed. TSH was 2.73 on 08/02/17. She states that her BP continues to run high, but also reports that the pills frequently are seen in her emesis. She does not take any additional pills. She is not on Zofran or any other antiemetic. She asked me to look at several papers/letters, mostly to prove a point that she cannot read the fine print (some of her social security information is printed in larger print, which she appreciates). She once saw an eye doctor and was told that she should have cataracts removed, but her blood sugars were too high at that time. Now, her blood sugars are under much better control, but she hasn' t seen an eye doctor b/c she's afraid that he/she will tell her that her kidneys are too bad to do any surgeries. Furthermore, she relies on her daughter to transport her to/from appointments, and doesn't like to bother her b /c she works in [employer]. EXAM General - A&Ox3, pale and chronically ill appearing woman Psych - flat, depressed affect HEENT - glasses are loose on her face; no scleral icterus or injection; mucous membranes moist CV - RRR, not tachycardic. States BP has been elevated. Lungs - CTAB Abd - soft with positive bowel sounds Ext - trace edema Discussed With Patient and Caregiver: Yes Recommendations For Follow-up: 1. Follow up appointment with Dr. Moreira was rescheduled to 10/05/17 in [place] (she's not sure if she'll be able to make it d/t transportation issues). Please address the following: Synthroid dose (her Rx bottle listed 25 mcg - and she was breaking it in half - but hospital notes reported 125 mcg); reports of hematemesis (pt states that she just had labs done but hasn't heard the results) . 2. For nausea/vomiting with am pills -- recommended to take KDur with her noon meal (this was the easiest change for her to accomplish since she was unable to identify which pill in the organizer was the Synthroid. She's able to identify KDur easily b/c it smells like a banana). Rx Yemi ODT called out to Paramjit Neumann. If this doesn't improve, could consider Reglan, as she may have a component of diabetic gastroparesis. Hopefully, if we can eliminate the nausea after taking her morning pills, she will be able to take her meds as Rx, which would help her feel better and potentially prevent another hospital admission. 3. She may benefit from an enlarged list with pictures of her Rx medications, including indications - will discuss with home health. 4. She may also benefit from cooking education or meals on wheels, especially considering her vision seems to be a limiting factor. Consider diabetes education. 5. Recommend f/u with ophthalmology ED[facility]IE, as this could easily improve her quality of life. Any instructions should be provided in large print. 6. Recommended to continue exercises per PT/OT. 7. [facility] program: she hasn't been successful in reaching anyone there to ensure that she's enrolled. Will discuss with CM.
== END 2017-09-21 10:30 | disposition home health service (06) | DRG 291 ==
LOC: EDUNIT# → MED 12:50 → ED 12:50 → MED 15:35 → SUATTDRO 09-15 17:37
PROVIDERS: ADMIT Internal Medicine; ATTEND Pediatrics